=== PATIENT | male | born 1940 | race Caucasian/White ===

== ENCOUNTER 2017-08-07 22:14 | Observation (INO) | payer MEDICARE, SELFPAY ==
[2017-08-07 22:16] VITALS: BP 149/80; PULSE 78; RESP 16; TEMP 36.8; O2SAT 95; BMI 26.5
--- NOTE | 2017-08-07 22:17 | ED.RN ---
CALLED FORT EKG PER RN REQUEST, NO OLD EKG'S IN MUSE
[2017-08-07 22:25] LABS: Bedside Glucose 136 mg/dL (70-110)
--- NOTE | 2017-08-07 22:28 | EKG12_ITS ---
Test Reason : STROKE SYMPTOMS Blood Pressure : / mmHG Vent. Rate : 081 BPM Atrial Rate : 081 BPM P-R Int : 162 ms QRS Dur : 134 ms QT Int : 398 ms P-R-T Axes : 019 -45 -02 degrees QTc Int : 462 ms Normal sinus rhythm Left axis deviation Right bundle branch block Inferior infarct , age undetermined Abnormal ECG Confirmed by RUFUS SERNA ([id number]), writer editor IGNACIA LUNA ([id number]) on 08/17/2017 6:10:54 PM Referred By: JOVANNI Confirmed By:RUFUS SERNA
--- NOTE | 2017-08-07 22:28 | RAD_ITS ---
XR Chest 1 View INDICATION: neuro symptoms, pt states he becomes disoriented and has trouble walking COMPARISON: None TECHNIQUE: Frontal view of the chest FINDINGS: Heart size and pulmonary vascularity are within normal limits. The lungs are clear without evidence of airspace consolidation or pleural effusion. The osseous structures are grossly unremarkable. RAD/Chest 1 View IMPRESSION: No radiographic evidence of acute intrathoracic disease. at 2316 Reported and signed by: Bhakti Mcgovern MD Electronically Signed: Bhakti Mcgovern MD at 23:15 EDT Tel , Service support ,
--- NOTE | 2017-08-07 22:28 | CT_ITS ---
CT Head or Brain W/O Contrast INDICATION: TROUBLE AMBULATING, DISORIENTED YESTERDAY, HX CVA X3, GB COMPARISON: None TECHNIQUE: Noncontrast axial CT examination of the brain. Radiation dose optimization applied. FINDINGS: The ventricular system and cortical sulci are prominent, compatible with generalized cerebral volume loss. Chronic lacunar infarct is noted in the right basal ganglia. There are patchy bilateral periventricular low densities noted, most compatible with chronic ischemic microvascular white matter disease. The zaldivar-white matter junction is distinct. There is no evidence of acute intracranial hemorrhage, mass effect, midline shift, or abnormal extra-axial collection. The calvarium is intact and the visualized paranasal sinuses and mastoid air cells are clear.. CT/Brain/Head without Contrast IMPRESSION: Age-related cerebral volume loss and chronic ischemic microvascular white matter changes. Remote right basal ganglia lacunar infarct. No acute findings. at 2316 Reported and signed by: Bhakti Mcgovern MD Electronically Signed: Bhakti Mcgovern MD at 23:14 EDT Tel , Service support ,
[2017-08-07 22:31] VITALS: O2SAT 93
[2017-08-07 22:34] VITALS: BP 129/78; PULSE 78; RESP 16; O2SAT 96
--- NOTE | 2017-08-07 22:38 | ED.VISSUMM ---
- ER Visit Summary Date of Service: 08/07/17 Chief Complaint: Stroke symptoms History of Present Illness: The patient is a 77 M presents to the ED if with daughter for evaluation of strokelike symptoms similar to previous. Multiple CVAs, last time was 3 years ago. No residual deficits. Patient lives alone, ambulates without a walker or assistance. Patient states he woke up yesterday morning more than 36 hours ago feeling states disoriented and off balance.. States he woke up today not feeling much better. He called his daughter who told him to go the ED. Daughter states yesterday complained of left-sided headache. Denies head trauma. States he had blurry vision, not loss of vision. Daughter states this was similar to her previous stroke. She states however his balance is worse than previously. No chest pains. No shortness of breath. No paresthesias. No hemiparesis. Physical Examination: General: Alert and oriented ?3, no acute distress HEENT: Normocephalic, atraumatic. Moist mucosa membranes Neck: supple, nontender. Cardiovascular: Regular rate and rhythm, no murmurs Respiratory: Normal breath sounds, symmetric, no distress Abdomen: Soft, nontender, nondistended Extremities: Nontender, no edema, pulses intact ?4 Neuro: no focal neurological deficits. NIH equal to 1 for being off on his age. Test Results: EKG sinus rate of 81, no ST or T-wave changes. Right bundle branch block. Hemoglobin 14.7. INR 1.7. Creatinine 0.95. Chest x-ray negative. CT head: Remote left basal ganglion infarct. UA pending Emergency Department Course and Treatment: Patient's NIH equal 1 for being off on his age. Daughter states similar presentation when he had a stroke in the past. Bat B workup initiated. Results noted a remote left basal ganglia infarct. INR slightly subtherapeutic at 1.7. Daughter stating to on Coumadin for which she states hole in his heart.. In addition he has had a left DVT. His last stroke was managed at [facility] 3 years ago. Recheck on patient, stable, he still off on his age stating he is 79. Daughter states there is some memory issues. Due to similar presentations with CVA in the past. I will discuss with hospitalist for admission for stroke workup. Urine is pending due to daughter stating patient told her he has urinated 30 times today. Treatment Plan: [] Disposition: Admission Impression: 1. Cephalgia 2. Unstable gait This note was generated with [employer] dictation software. It may contain incorrect words, spelling, and punctuation that were not noted in review of the chart prior to signing ED Disposition - Plan for ED Patient: Disposition: Acute [facility] Chief Complaint: Neuro S/Sx Diagnosis: Cephalgia, Unstable gait Referrals: Lenin Reyes MD [Primary Care Provider] -
[2017-08-07 22:42] LABS: Absolute Lymphocyte Count 1.39 X10^3/ul (0.83-4.51); Basophil# 0.02 X10^3/uL; Basophil% 0.3 % (0-1); Eosinophil# 0.04 X10^3/uL; Eosinophils% 0.7 % (0-5); Hematocrit 43.4 % (40-54); Hemoglobin 14.7 g/dl (13.0-16.5); Lymphocyte # 1.39 X10^3/ul (4.0); Mean Corp Hgb Conc 33.9 g/gl (32-36); Mean Corpuscular Hgb 31.2 pg (27.0-32.0); Mean Corpuscular Volume 92.1 fL (80-94); Mean Platelet Vol. 10.1 fl (6.2-12.0); Monocyte# 0.57 X10^3/uL; Monocyte% 9.4 % (0-10); Neutrophil # 4.02 X10^3/uL (2.7-7.7); Neutrophil % 66.4 % (47-70); Platelet Count 145 K/mm3 (150-450); RBC Distribution Width CV 13.6 % (11.6-14.6); Red Blood Count 4.71 M/mm3 (4.6-6.2); White Blood Count 6.1 K/mm3 (4.4-11.0)
[2017-08-07 22:44] LABS: POSITIVE COUNT NO; POSITIVE DIFFERENTIAL NO; POSITIVE MORPHOLOGY NO
[2017-08-07 22:47] LABS: International Normalized Ratio 1.7; Partial Thromboplast Time 32.2 Seconds (24.1-36.2); Prothrombin Time (Protime)PT. 19.6 SECONDS (11.7-14.9)
[2017-08-07 23:01] LABS: Anion Gap 10 (5-15); BUN 11 mg/dL (7-18); BUN/Creat Ratio 11.5 RATIO (10-20); Calcium,Total 8.7 mg/dL (8.5-10.1); Chloride 103 mmol/L (98-107); Creatinine, Serum 0.95 mg/dL (0.70-1.30); EST Glomerular Filtration Rate 81 mL/min (>60); Est Glom Filt Rate - Afr Amer 98 mL/min (>60); Estimated Creatinine Clearance 71.47 ml/min; Glucose 143 mg/dL (74-106); Potassium 3.9 mmol/L (3.5-5.1); Sodium Level 137 mmol/L (136-145)
[2017-08-07 23:06] VITALS: BP 133/68; PULSE 78; RESP 16; O2SAT 95
[2017-08-07 23:36] VITALS: BP 133/77; PULSE 89; RESP 16; O2SAT 95
[2017-08-07 23:41] VITALS: BP 133/77; PULSE 77; RESP 16; O2SAT 96
--- NOTE | 2017-08-07 23:57 | PCM.HP.STD ---
Problem List (1) Ataxia Status: Acute (2) HTN (hypertension) Status: Chronic (3) CVA (cerebral vascular accident) Status: Acute History of Present Illness Date of Admission: 08/07/17 Chief Complaint: Ataxia The patient is a 77 year old male w/ h/o CVA, HTN, and ataxia admitted for ataxia. He developed ataxia 2-3 days ago. His ataxia has been getting worse and is constant. Nothing appeared to make it better or worse. He feels that he is unable to balance himself. He feels that it is similar to his previous symptoms when he had a stroke 3 years ago. He needs assistance when walking or he feels he is unable to balance himself. He has no other associated symptoms. Given no improvement, he went to the ED for further workup. Past Medical History Past Medical History (Chronic Problems): Chronic Problems HTN (hypertension) (Chronic) Allergies No Known Allergies Allergy (Verified 03/19/16 14:29) Home Medications: Ambulatory Orders Medication Instructions Recorded Metformin HCl [Glucophage] 500 mg PO DAILY 03/19/16 Warfarin [Coumadin ([facility])] 2.5 mg PO SUTUWETHSA 03/19/16 Warfarin [Coumadin ([facility])] 3 mg PO MOFR 03/19/16 Atorvastatin Calcium 20 mg PO DAILY 08/07/17 Lisinopril [Zestril] 5 mg PO DAILY 08/07/17 Lives: Alone Smoking Status: Never smoker Alcohol: None Drugs: None - *Family History Maternal History Items: No pertinent history Review of Systems Constitutional: Denies: Chills, Fever, Weight Change HEENT: Denies: Head Aches, Sinus Congestion, Sinus Drainage Cardiovascular: Denies: Chest Pain, Palpitations Respiratory: Denies: Cough, Shortness of breath at rest, Sputum production Gastrointestinal: Denies: Abdominal Pain, Nausea, Vomiting Genitourinary: Denies: Dysuria Musculoskeletal: Denies: Joint Pain, Joint Tenderness Skin: Denies: Rash, Wounds Neurological: Denies: Numbness, Tingling, Focal weakness Psychiatric: Denies: Anxiety, Depression, Homicidal Ideations, Suicidal Ideations Hematologic/ Lymphatic: Denies: Easy Bruising, Easy Bleeding VTE Information - Inpt Only VTE Present on Admission: No VTE Mechan Device Prophylaxis: SCD's VTE Pharm Prophylaxis ordered?: Yes Patient Problems: Active and Suspected Problems Cephalgia (Acute) Unstable gait (Acute) Ataxia (Acute) CVA (cerebral vascular accident) (Acute) - Physical Exam General: Alert, Oriented x3, Cooperative HEENT: Atraumatic, PERRLA, EOMI, Normocephalic Neck: Supple, No JVD, Negative Carotid Bruits Lungs: Clear to auscultation, Normal air movement Cardiovascular: Regular rate, No murmurs Abdomen: Bowel Sounds Present, Soft, Non Tender Extremities: No edema, Capillary Refill Less than 3 Seconds Skin: No rashes, No breakdown Musculoskeletal: No Tenderness to Palpation of Joints or Extremities Neurological: Cranial nerves II-XII grossly intact Psych/Mental Status: Normal Affect, Appropriate Vital Signs Temp Pulse Resp BP Pulse Ox 98.3 F 77 16 133/77 H 96 08/07/17 22:16 08/07/17 23:41 08/07/17 23:41 08/07/17 23:41 08/07/17 23:41 Oxygen Flow Rate (L/min) 2 Oxygen Delivery Method Nasal Cannula Weight: 88.7 kg Body Mass Index (BMI) 26.5 Finger Stick Blood Glucose 136 Laboratory Tests Past 24 Hrs 08/07/17 08/07/17 08/07/17 22:25 22:25 22:25 WBC 6.1 RBC 4.71 Hgb 14.7 Hct 43.4 MCV 92.1 MCH 31.2 MCHC 33.9 RDW 13.6 RDW Differential 46.0 H Plt Count 145 L MPV 10.1 Immature Gran % (Auto) 0.200 Neut % (Auto) 66.4 Lymph % (Auto) 23.0 Sterling % (Auto) 9.4 Eos % (Auto) 0.7 Baso % (Auto) 0.3 Absolute Neuts (auto) 4.0 Absolute Lymphs (auto) 1.39 Total Counted Not Reportable PT 19.6 H INR 1.7 APTT 32.2 Sodium 137 Potassium 3.9 Chloride 103 Carbon Dioxide 24.0 Anion Gap 10 BUN 11 Creatinine 0.95 Estim Creat Clear Calc 71.47 Est GFR (MDRD) Af Amer 98 Est GFR (MDRD) Non-Af 81 BUN/Creatinine Ratio 11.5 Glucose 143 H Calcium 8.7 Troponin I < 0.015 POC Glucose 08/07/17 22:18 POC Glucose 136 H Assessment/Plan All Active Problems Cephalgia (Acute) Unstable gait (Acute) Ataxia (Acute) CVA (cerebral vascular accident) (Acute) 77 year old male w/ h/o CVA, HTN, and ataxia admitted for ataxia. 1) Ataxia: Will r/o stroke. No e/o orthostatic or narcotics. CT head negative for acute finding. EKG unremarkable. Will get MRI brain or MRA neck. Will also get ECHO. Will start ASA and statin. 2) HTN: Resume home meds. Monitor. 3) ASD / PFO: C/w coumadin. 4) H/o CVA: C/w medical management.
[2017-08-07 23:59] LABS: Mucous, Urine 0 SEEN /hpf (<or=2+)
[2017-08-08] VITALS (18 sets, daily range): BP systolic 116–136; BP diastolic 62–72; PULSE 72–85; RESP 16–18; TEMP 36.6–38.6; O2SAT 93–96; BMI 26.5; BMI 26.6
[2017-08-08 00:06] LABS: Color, Urine Yellow (Yellow); Glucose, Dipstick Normal (Normal); Ketone-Dipstick Negative (Negative); Leukocyte Esterase-Dipstick Negative /ul (Negative); Nitrite-Dipstick Negative (Negative); Occult Blood-Urine 25 /ul (Negative); Protein-Dipstick Negative (Negative); Specific Gravity, Urine 1.015 (1.002-1.030); Urine Bilirubin Dipstick Negative (Negative); Urine Clarity Clear (Clear); Urine Urobilinogen Normal (Normal); Urine pH 6.5 (5.0 - 8.0)
[2017-08-08 00:12] LABS: Bacteria RARE /hpf (None Seen); Red Blood Cells-Urine 0-5 SEEN /hpf (0-5); Squamous Epithelial Cells - UA 0-5 SEEN /hpf (0-5); White Blood Cells 0-5 SEEN /hpf (0-5)
--- NOTE | 2017-08-08 00:45 | ECHOD_ITS ---
Reason For Study: TIA/CVA Procedure This was a 2D Doppler, Color Flow transthoracic echocardiogram. Exam performed portable in patient room. Left Ventricle Moderate concentric left ventricular hypertrophy. The estimated ejection fraction is 65 %. Stage 1 diastolic dysfunction. No regional wall motion abnormalities noted. Right Ventricle Normal size and thickness. Normal systolic function. Atria Normal left atrium. Normal right atrium. Normal atrial septum. Positve bubble study with R to L crossover. Mitral Valve The mitral valve is structurally normal. No prolapse or stenosis seen. Trivial mitral valve insufficiency. Tricuspid Valve Normal tricuspid valve. Trivial tricuspid valve insufficiency. Right ventricular systolic pressure estimated to be 27 mmHg. Aortic Valve Normal aortic valve. Trisinus/trileaflet aortic valve. Pulmonic Valve Normal pulmonic valve. Trivial pulmonic valve insufficiency. Great Vessels Normal aortic root. Normal arch. Normal inferior vena cava. Inferior vena cava collapse with sniff. Pericardium/Pleural No pericardial effusion. Medication Performed a rapid injection of agitated mix of 9 cc saline and 1cc air to assess for atrial septal defect. MMode/2D Measurements & Calculations LVIDd: 4.3 cm IVSd: 1.5 cm Ao root diam: 3.8 cm LVIDs: 3.3 cm LVPWd: 1.3 cm LA dimension: 3.7 cm FS: 23.9 % LAV(MOD-bp): 40.9 ml LVAd ap4: 29.9 cm2 SV(MOD-sp4): 53.1 ml LAV(MOD-bp) Indexed: 19.6 ml/m2 EDV(MOD-sp4): 92.7 ml LAV(MOD-sp2): 40.7 ml EDV(sp4-el): 101.0 ml LAV(MOD-sp4): 38.6 ml LVAs ap4: 17.7 cm2 ESV(MOD-sp4): 39.6 ml ESV(sp4-el): 40.5 ml EF(MOD-sp4): 57.3 % EF(sp4-el): 59.9 % SV(sp4-el): 60.5 ml LA A4 area: 14.9 cm2 RA A4 area: 10.7 cm2 Time Measurements MV dec time: 0.30 sec Doppler Measurements & Calculations MV E max jordin: 51.2 cm/sec Lat Peak E' Jordin: 7.3 cm/sec MV V2 max: 120.4 cm/sec MV A max jordin: 97.6 cm/sec E/E' lat: 7.0 MV max P.8 mmHg MV E/A: 0.52 MV V2 mean: 54.7 cm/sec MV mean P.4 mmHg MV V2 VTI: 23.7 cm MV P1/2t max jordin: 60.7 cm/sec Ao V2 max: 110.0 cm/sec LV V1 max: 94.4 cm/sec MV P1/2t: 73.4 msec Ao max P.8 mmHg LV V1 max P.6 mmHg MV dec slope: 242.2 cm/sec2 Ao V2 mean: 75.3 cm/sec LV V1 mean P.5 mmHg MVA(P1/2t): 3.0 cm2 Ao mean P.5 mmHg LV V1 mean: 55.3 cm/sec Ao V2 VTI: 16.5 cm LV V1 VTI: 13.3 cm PA V2 max: 97.3 cm/sec TR max jordin: 232.5 cm/sec TR max P.6 mmHg Interpretation Summary Moderate concentric left ventricular hypertrophy. The estimated ejection fraction is 65 %. Stage 1 diastolic dysfunction. Positve bubble study with R to L crossover. Trivial mitral valve insufficiency. Trivial tricuspid valve insufficiency. Right ventricular systolic pressure estimated to be 27 mmHg. There is no comparison study available. Ordering Physician: Fermin Cota Referring Physician: MD [facility] Performed By: Jey Ordoñez RCS
--- NOTE | 2017-08-08 00:45 | MRI_ITS ---
STUDY: MRI BRAIN WITHOUT CONTRAST REASON FOR EXAM: Male, 77 years old. Confusion and generalized weakness. TECHNIQUE: Standardized multiplanar fat and water weighted pulse sequences were obtained. COMPARISON: CT of the head dated August 07, 2017. FINDINGS: There is mild cerebral atrophy with widening of the extra-axial spaces and ventricular dilatation. There are a limited number of small white matter hyperintensities, distributed throughout the deep white matter tracts of the cerebral hemispheres, consistent with mild chronic white matter ischemic changes. There is no evidence for recent intracranial ischemia or other cause of cytotoxic edema on diffusion weighted imaging (DWI). Normal T2* images of the brain without demonstrated susceptibility artifact. There is no demonstrated hemosiderin stain. There are prominent perivascular spaces (PVS) involving the basal ganglia. Normal thalami. There is no extra-axial fluid accumulation. Normal flow voids within the major intracranial circulation suggesting patency by spin echo criteria. There is increased CSF within the sella and flattening of the pituitary gland consistent with an empty sellar syndrome. Normal infundibular stalk, hypothalamus, and optic chiasm. Normal tectal plate and pineal gland. Normal midbrain, susan and medulla. Normal cerebellum. Normal basal cisterns. Normal bilateral temporal bones. Normal bilateral internal auditory canals. No demonstrated orbital abnormality, within the constraints of a routine brain study. Normal visualized paranasal sinuses. Normal calvarium and skull base. Normal visualized soft tissue structures. There are degenerative changes of the anterior atlantoaxial articulation. MRI/Brain without Contrast IMPRESSION: 1. Involutional changes of the brain, as described above. 2. No MR evidence for acute infarct. Electronically Signed: Sofie Feliciano MD at 16:20 EDT , Service support ,
[2017-08-08 01:05] LABS: Amphetamine Urine VISTA NEGATIVE (<1000 ng/mL); Barbiturate Urine VISTA NEGATIVE (< 200 ng/mL); Benzodiazepine Urine VISTA NEGATIVE (< 200 ng/mL); Cocaine Urine VISTA NEGATIVE (< 300 ng/mL); Ecstacy Urine VISTA NEGATIVE (< 500 ng/mL); Methadone Urine VISTA NEGATIVE (< 300 ng/mL); PCP Urine VISTA NEGATIVE (< 25 ng/mL); THC Urine VISTA NEGATIVE (< 50 ng/mL); Vista UDS pH Range 6
[2017-08-08 02:14] LABS: Thyroid Stim Hormone (TSH) 3.28 uIU/mL (0.358-3.74)
[2017-08-08] MEDS: Aspirin 81 MG TAB.CHEW PO (02:29)
--- NOTE | 2017-08-08 05:55 | MRI_ITS ---
STUDY: MRA NECK WITH AND WITHOUT CONTRAST REASON FOR EXAM: Male, 77 years old. Confusion and generalized weakness. TECHNIQUE: 3-D [id number] (TOF) imaging was performed in an 1.5 T MRI scanner. 9 ml of Gadavist was administered for the contrast enhanced images. Enhanced images are technically limited due to extensive enhancement of the venous structures which obscure the arterial anatomy. Several images are limited by patient motion. COMPARISON: MRA of the [place] dated August 08, 2017. FINDINGS: RIGHT CAROTID ARTERIES: Normal right common carotid artery (CCA). There is mild atherosclerotic plaque formation with minimal narrowing of the right carotid bulb. There is mild atherosclerotic plaque formation of the origin of the right internal carotid artery with less than 50% cross sectional diameter stenosis. Normal visualized cervical portion of the right internal carotid artery. Normal origin of the right external carotid artery (ECA). LEFT CAROTID ARTERIES: Normal left common carotid artery (CCA). There is mild atherosclerotic plaque formation with minimal narrowing of the left carotid bulb. Normal origin of the left internal carotid (ICA) artery without a hemodynamically significant stenosis. Normal visualized cervical portion of the left internal carotid artery. Normal origin of the left external carotid artery (ECA). VERTEBRAL ARTERIES: Normal antegrade flow within the bilateral vertebral artery without a hemodynamically significant stenosis. MRI/MRA Neck WITH and W/O Contrast IMPRESSION: 1. Technically limited MRA due to enhancement of venous structures and patient motion. 2. No definite MRA evidence for hemodynamically significant stenosis. Electronically Signed: Sofie Feliciano MD at 16:28 EDT , Service support ,
[2017-08-08 06:50] LABS: Bedside Glucose 205 mg/dL (70-110)
[2017-08-08 07:24] LABS: International Normalized Ratio 1.6; Prothrombin Time (Protime)PT. 19.3 SECONDS (11.7-14.9)
[2017-08-08 07:25] LABS: Hematocrit 40.6 % (40-54); Hemoglobin 13.9 g/dl (13.0-16.5); Mean Corp Hgb Conc 34.2 g/gl (32-36); Mean Corpuscular Hgb 31.8 pg (27.0-32.0); Mean Corpuscular Volume 92.9 fL (80-94); Mean Platelet Vol. 10.1 fl (6.2-12.0); Platelet Count 133 K/mm3 (150-450); RBC Distribution Width CV 13.6 % (11.6-14.6); RBC Distribution Width SD 45.2 fl (35.1-43.9); Red Blood Count 4.37 M/mm3 (4.6-6.2); White Blood Count 6.3 K/mm3 (4.4-11.0)
[2017-08-08 07:31] LABS: Scan Indicated on CBC? Y/N NO
[2017-08-08 07:52] LABS: Anion Gap 12 (5-15); BUN 13 mg/dL (7-18); BUN/Creat Ratio 13.7 RATIO (10-20); Calcium,Total 8.1 mg/dL (8.5-10.1); Chloride 103 mmol/L (98-107); Cholesterol 113 mg/dL (200); Creatinine, Serum 0.95 mg/dL (0.70-1.30); EST Glomerular Filtration Rate 82 mL/min (>60); Est Glom Filt Rate - Afr Amer 99 mL/min (>60); Estimated Creatinine Clearance 69.36 ml/min; Glucose 197 mg/dL (74-106); High Density Lipoprotein 41 mg/dL; Potassium 3.7 mmol/L (3.5-5.1); Sodium Level 136 mmol/L (136-145); Triglycerides 214 mg/dL; Very Low Density Lipoprotein 43 mg/dL (5-40)
--- NOTE | 2017-08-08 09:00 | MRI_ITS ---
STUDY: MRA OF THE HEAD WITHOUT CONTRAST REASON FOR EXAM: Male, 77 years old. Confusion and generalized weakness. TECHNIQUE: 3-D [id number] (TOF) imaging was performed with MIPs. The study was performed unenhanced. COMPARISON: MRI of the brain dated August 09, 2015. FINDINGS: Normal bilateral petrous carotid arteries. There is elongation and tortuosity of the right cavernous carotid artery, without a demonstrated hemodynamically significant stenosis. There is elongation and tortuosity of the left cavernous carotid artery, without a demonstrated hemodynamically significant stenosis. Normal right A1 segments of the anterior cerebral artery. Normal left A1 segments of the anterior cerebral artery. Normal intact anterior communicating artery (ACOM). Normal bilateral A2 segments of the anterior cerebral arteries. Normal right M1 and M2 segments of the middle cerebral arteries, with a normal M1 bifurcation. Normal left M1 and M2 segments of the middle cerebral arteries, with a normal M1 bifurcation. There is non-visualization of the right posterior communicating artery (PCOM). There is non-visualization of the left posterior communicating artery (PCOM). Normal bilateral vertebral arteries. Normal basilar artery with a normal basilar bifurcation. The visualized bilateral superior cerebellar (SCA) arteries are normal. Normal bilateral P1, P2 and visualized P3 segments of the posterior cerebral arteries. There is no demonstrated aneurysm of the [place]. There is no major vessel occlusion or hemodynamically significant stenosis. There are involutional changes of the brain. There is a focal area of abnormal signal in the right basal ganglia that is possibly related either to old infarct or prominent perivascular space. MRI/MRA Head ONLY without Contrast IMPRESSION: No MRA evidence for hemodynamically significant stenosis or aneurysm. Electronically Signed: Sofie Feliciano MD at 16:23 EDT , Service support ,
--- NOTE | 2017-08-08 09:03 | PN_ITS ---
Patient Problems: Active and Suspected Problems Cephalgia (Acute) Unstable gait (Acute) Ataxia (Acute) CVA (cerebral vascular accident) (Acute) Subjective: Patient was seen and examined. He had an MRI of the brain and MRA of the head and neck done. Of note is a 2D echo was a positive bubble study. Patient denies any new complaints. No acute events. Review of systems are negative. Vitals/I&O's: Vital Signs Temp Pulse Resp BP Pulse Ox 98.8 F 83 18 116/62 94 08/08/17 06:00 08/08/17 06:57 08/08/17 06:00 08/08/17 06:00 08/08/17 06:00 Oxygen Flow Rate (L/min) 2 Oxygen Delivery Method Room Air Weight: 86.4 kg Body Mass Index (BMI) 26.5 Intake and Output for Last 24 Hours 08/06/17 08/07/17 08/08/17 23:59 23:59 23:59 Intake Total 400 / 400 Output Total 250 / 250 Balance 150 / 150 General: Alert, Oriented x3, Cooperative, No apparent distress HEENT: Atraumatic, PERRLA, EOMI, Normocephalic Oral: Moist Mucosa Neck: Supple Lungs: Clear to auscultation, Normal air movement Cardiovascular: Regular rate, Regular Rhythm, Normal S1, Normal S2, No murmurs Abdomen: Bowel Sounds Present, Soft, Non Tender, Non-Distended, No Hepato- splenomegaly Extremities: No edema Skin: No rashes, No breakdown Musculoskeletal: No Tenderness to Palpation of Joints or Extremities Lymphatic: No Cervical, Supraclavicular, or Inguinal Adenopathy Neurological: Cranial nerves II-XII grossly intact, Motor Exam 5/5 strength throughout Psych/Mental Status: Normal Affect, Appropriate Laboratory Results 08/08/17 01:42: Troponin I < 0.015, TSH 3.28 08/08/17 06:43: POC Glucose 205 H 08/08/17 06:55: Sodium 136, Potassium 3.7, Chloride 103, Carbon Dioxide 21.0, Anion Gap 12, BUN 13, Creatinine 0.95, Estim Creat Clear Calc 69.36, Est GFR ( MDRD) Af Amer 99, Est GFR (MDRD) Non-Af 82, BUN/Creatinine Ratio 13.7, Glucose 197 H, Calcium 8.1 L, Triglycerides 214 H, Cholesterol 113, LDL Cholesterol 29, VLDL Cholesterol 43 H, HDL Cholesterol 41 08/08/17 06:55: WBC 6.3, RBC 4.37 L, Hgb 13.9, Hct 40.6, MCV 92.9, MCH 31.8, MCHC 34.2, RDW 13.6, RDW Differential 45.2 H, Plt Count 133 L, MPV 10.1 08/08/17 06:55: PT 19.3 H, INR 1.6 Current Medications Atorvastatin Calcium (Lipitor) 20 mg PO DAILY@2200 [facility] Insulin Human Lispro (Humalog Kwikpen ([facility]kc)) 0 unit SC ACHS [facility] PRN Reason: Protocol Lisinopril (Zestril) 5 mg PO DAILY [facility] Magnesium Hydroxide (Milk Of Magnesia) 30 ml PO DAILY PRN PRN Reason: Constipation [facility] Last Admin: 08/08/17 08:26 Dose: 500 mg Sodium Chloride () 5 - 30 ml IV UD PRN PRN Reason: SALINE FLUSH Warfarin Sodium (Coumadin ([facility])) 2.5 mg PO SuTuWeThSa@1700 [facility] Warfarin Sodium (Coumadin (Pb[facility])) 3 mg PO MoFr@1700 [facility] Medical Necessity - Tobacco Use Smoking Status: Never smoker Tobacco Use: Non-smoker Assessment/Plan All Active Problems Cephalgia (Acute) Unstable gait (Acute) Ataxia (Acute) CVA (cerebral vascular accident) (Acute) 77-year-old male with past medical history of CVA, hypertension, ASD/PFO admitted with 2-3 day history of worsening ataxia. 1. Ataxia, MRI of the brain as well as MRA of the head and neck is pending, CT of the head was negative, 2d-echo shows positive bubble study, and was seen by physical therapy, and home with home 24 hour supervision recommended as well as outpatient therapy. Plan: With results of MRI of the brain, MRA of the head and neck 2. ASD/PFO, on coumadin, INR is subtherapeutic, 1.6, continue on Coumadin therapy 3. Recurrent CVA, on coumadin 4. DVT ppx - on coumadin Code Visit Inpatient E&M: [id number] [facility] Hosp L3
[2017-08-08] MEDS: Insulin Lispro 100 UNIT/ML INSULN.PEN SC ×2 (09:42→16:29)
[2017-08-08] MEDS: Lisinopril 5 MG Tablet PO (09:43)
--- NOTE | 2017-08-08 10:10 | RAD_ITS ---
STUDY: X-RAY - CERVICAL SPINE REASON FOR EXAM: Male, 77 years old. Pain remote injury TECHNIQUE: 2 view(s) of the cervical spine were obtained. COMPARISON: None FINDINGS: There is mild degenerative anterolisthesis at C3-C4. There is mild to moderate degenerative anterolisthesis at C7-T1. Degenerative disc disease predominates at C3-C4, C4-C5, C5-C6 and C6-C7. There is mild Luschka joint arthrosis. There is multilevel facet osteoarthritis. There is no acute fracture. There is no osseous destruction. The prevertebral soft tissue structures are intact. RAD/Cerv Spine 2 or 3 Views IMPRESSION: Degenerative anterolisthesis, C3-C4 C7-T1 Extensive multilevel degenerative disease No fracture or osseous destruction Electronically Signed: Adebayo Bowman MD at 10:29 EDT Tel , Service support ,
--- NOTE | 2017-08-08 11:40 | NURSING ---
Unable to do NIH and VS at this time as Pt has been down to MRI.
[2017-08-08 12:56] LABS: Bedside Glucose 144 mg/dL (70-110)
[2017-08-08 16:40] LABS: Bedside Glucose 182 mg/dL (70-110)
--- NOTE | 2017-08-08 16:55 | PCM.DC ---
- Discharge Diagnoses Current Active Problems: Current Active and Chronic Problems Cephalgia (Acute) Unstable gait (Acute) Ataxia (Acute) HTN (hypertension) (Chronic) CVA (cerebral vascular accident) (Acute) Reason(s) for Visit for Discharge Instructions: Gait imbalance You will use the following diet at home:: Calorie/Carbohydrate Controlled (specify 1200, 1400, etc), Cardiac Your food should be the consistency of: Regular Your liquids should be the consistency of: Regular/Thin Discharge Activity: Return to Normal Activity Weight Bearing Status: Weight bearing as tolerated Additional Instructions: You should continue to take all your medications as prescribed. Discuss with your dentist on the timing of resumption of coumadin as you have a planned dental procedure. You will be having outpatient physical and occupational therapy at home. [facility] will be calling you on the time and when they are coming out. Allergies/Adverse Reactions: Allergies No Known Allergies Allergy (Verified 03/19/16 14:29) Medications to take at Discharge Metformin HCl [Glucophage] 500 mg PO DAILY 03/19/16 Warfarin [Coumadin] 2.5 mg PO SUTUWETHSA 03/19/16 Warfarin [Coumadin] 3 mg PO MOFR 03/19/16 Atorvastatin Calcium 20 mg PO DAILY 08/07/17 Lisinopril [Zestril] 5 mg PO DAILY 08/07/17 Primary Care Physician: Lenin Reyes MD [Primary Care Provider] - Please follow up with your Primary Care Physician in: within 2 weeks Proposed Discharge Date: 08/08/17
--- NOTE | 2017-08-08 17:03 | DCINST_ITS ---
- Discharge Diagnoses Current Active Problems: Current Active and Chronic Problems Cephalgia (Acute) Unstable gait (Acute) Ataxia (Acute) HTN (hypertension) (Chronic) CVA (cerebral vascular accident) (Acute) Reason(s) for Visit for Discharge Instructions: Gait imbalance You will use the following diet at home:: Calorie/Carbohydrate Controlled ( specify 1200, 1400, etc), Cardiac Your food should be the consistency of: Regular Your liquids should be the consistency of: Regular/Thin Discharge Activity: Return to Normal Activity Weight Bearing Status: Weight bearing as tolerated Additional Instructions: You should continue to take all your medications as prescribed. Discuss with your dentist on the timing of resumption of coumadin as you have a planned dental procedure. You will be having outpatient physical and occupational therapy at home. [facility] will be calling you on the time and when they are coming out. Allergies/Adverse Reactions: Allergies No Known Allergies Allergy (Verified 03/19/16 14:29) Medications to take at Discharge Metformin HCl [Glucophage] 500 mg PO DAILY 03/19/16 Warfarin [Coumadin] 2.5 mg PO SUTUWETHSA 03/19/16 Warfarin [Coumadin] 3 mg PO MOFR 03/19/16 Atorvastatin Calcium 20 mg PO DAILY 08/07/17 Lisinopril [Zestril] 5 mg PO DAILY 08/07/17 Primary Care Physician: Lenin Reyes MD [Primary Care Provider] - Please follow up with your Primary Care Physician in: within 2 weeks Proposed Discharge Date: 08/08/17
--- NOTE | 2017-08-08 17:24 | DS.PCM_ITS ---
Discharge Date and Diagnosis - Problem List Patient Problems: Active and Suspected Problems Cephalgia (Acute) Unstable gait (Acute) Ataxia (Acute) CVA (cerebral vascular accident) (Acute) Date of Admission: 08/07/17 Date of Discharge: 08/08/17 - Primary Discharge Diagnosis Active and Suspected Problems Cephalgia (Acute) Unstable gait (Acute) Ataxia (Acute) - Secondary Discharge Diagnosis Chronic Problems HTN (hypertension) (Chronic) Hospital Course and Treatment Imaging Results: 08/08/17 09:00 MRA Head ONLY without Contrast [MRI] Routine 08/08/17 10:10 Xray Cervical [Cerv Spine 2 or 3 Views] [RAD] Routine None Operations: None Procedures: 2-D Echocardiogram Summary of Care Provided: 77-year-old male with past medical history of recurrent CVA, hypertension, ASD/ PFO admitted with 2-3 day history of worsening ataxia which was worsening. This has appeared to have stopped after admission. 1. Ataxia, unclear etiology, CT scan of head and neck as well as MRI of the brain as well as MRA of the head and neck was negative. 2d-echo shows positive bubble study. Patient is on coumadin but INR is subtherapeutic at 1.6-1.7. He was seen by physical therapy and home with home 24 hour supervision was recommended. 2. ASD/PFO, on coumadin, INR is subtherapeutic, 1.6, continue on Coumadin therapy - daughter mentioned about being off coumadin for 5 days prior to dental work-up; will leave it per dental surgeon. 3. Recurrent CVA, on coumadin Discharge Diet: Low fat/ Low Cholesterol, 2000 mg Sodium Diet, Carb Control Diet Discharge Activity: Return to Normal Activity Weight Bearing Status: Weight bearing as tolerated Home Medications: Medications to take at Discharge Metformin HCl [Glucophage] 500 mg PO DAILY 03/19/16 Warfarin [Coumadin] 2.5 mg PO SUTUWETHSA 03/19/16 Warfarin [Coumadin] 3 mg PO MOFR 03/19/16 Atorvastatin Calcium 20 mg PO DAILY 08/07/17 Lisinopril [Zestril] 5 mg PO DAILY 08/07/17 Primary Care Physician: Lenin Reyes MD [Primary Care Provider] - Please follow up with your Primary Care Physician in: within 2 weeks Disposition: Home with Home Health Minutes spent on discharge:: 40 Patient Condition:: Stable Medical Necessity - Tobacco Use Smoking Status: Never smoker Tobacco Use: Non-smoker Meaningful Use Info Meaningful Use Diagnoses (Choose all that apply): None applicable Code Visit Inpatient E&M: 68071 Disch Hosp
== END 2017-08-08 19:30 | disposition home or self-care (01) ==
LOC: ED 23:39 → PCU 08-08 00:23
PROVIDERS: Admitting Provider Internal Medicine; Emergency Provider Emergency Medicine; Family Provider Family Medicine; PCP Family Medicine; Visit Provider Internal Medicine
DX: R51 Headache (principal); R27.0 Ataxia, unspecified; Q21.1 Atrial septal defect; I10 Essential (primary) hypertension; H53.8 Other visual disturbances; I45.10 Unspecified right bundle-branch block; Z86.73 Personal history of transient ischemic attack (TIA), and cerebral infarction without residual deficits; Z79.01 Long term (current) use of anticoagulants; Z79.84 Long term (current) use of oral hypoglycemic drugs; Z79.899 Other long term (current) drug therapy; E11.9 Type 2 diabetes mellitus without complications; R41.0 Disorientation, unspecified
CPT/HCPCS: 36415; 70450; 70544; 70549; 70551; 71045; 72040; 80048; 80061; 80307; 81001; 82962; 84443; 84484; 85025; 85027; 85610; 85730; 92507; 93005; 93306; 97161; 97166; 99218; 99285; A9585; A4216; G0378

== ENCOUNTER 2017-11-05 14:08 | Emergency (ER) | payer MEDICARE, SELFPAY ==
[2017-11-05 14:09] VITALS: BP 125/89; PULSE 128; RESP 18; TEMP 36.6; O2SAT 93; BMI 26.7
--- NOTE | 2017-11-05 15:10 | ED.VISSUMM ---
- ER Visit Summary Date of Service: 11/05/17 Chief Complaint: heart fluttering History of Present Illness: The patient is a 77 M with history of stroke on Coumadin who presents for episodes of his heart fluttering since last night. Patient had 2 episodes at rest where he felt like his heart was racing. Today while driving home he felt suddenly tired and weak. He has not had any episodes of fluttering today. He has had indigestion with increased belching, left shoulder discomfort and epigastric discomfort along with the episodes. He currently is denying any complaints at this time. He has no history of coronary artery disease or myocardial infarction. He is diabetic on medication control. He has a hole in his heart. He sees Dr. Cantu. Physical Examination: Vital signs: afebrile, hemodynamically stable, no hypoxia on room air General: well nourished, well developed, in no distress Skin: warm, dry, no rash, no pallor HEENT: normocephalic and atraumatic; PERRL, EOMI, moist mucous membranes Cardiovascular: regular rate and rhythm without murmurs, no peripheral edema, 2+ pulses all distal extremities Respiratory: No increased work of breathing, lungs are clear to auscultation bilaterally, no rales, rhonchi or wheezing Abdominal: Abdomen is soft, nontender with normoactive bowel sounds, no guarding or rebound, no masses MSK: Moves all extremities, no deformities, normal strength Neuro: Awake and alert, oriented ?4. No facial droop, sensation and motor function intact and symmetric Test Results: Abnormal Lab Results 11/05/17 11/05/17 11/05/17 14:18 14:18 14:18 WBC 7.1 RBC 4.59 L Hgb 14.4 Hct 42.3 MCV 92.2 MCH 31.4 MCHC 34.0 RDW 13.8 RDW Differential 45.6 H Plt Count 175 MPV 10.6 Immature Gran % (Auto) 0.300 Neut % (Auto) 58.2 Lymph % (Auto) 27.2 [place] % (Auto) 11.8 H Eos % (Auto) 1.8 Baso % (Auto) 0.7 Absolute Neuts (auto) 4.1 Absolute Lymphs (auto) 1.93 Total Counted Not Reportable PT 31.0 H INR 3.0 APTT 40.6 H Sodium 138 Potassium 4.1 Chloride 106 Carbon Dioxide 24.0 Anion Gap 8 BUN 16 Creatinine 1.04 Estim Creat Clear Calc 63.35 Est GFR (MDRD) Af Amer 89 Est GFR (MDRD) Non-Af 74 BUN/Creatinine Ratio 15.4 Glucose 135 H Calcium 8.7 Magnesium 1.9 Total Bilirubin 0.40 AST 31 ALT 48 Alkaline Phosphatase 75 Troponin I < 0.015 Total Protein 7.9 Albumin 4.2 Globulin 3.7 Albumin/Globulin Ratio 1.1 Lipase 203 TSH 2.03 Clinical Impression(s) from Imaging Studies Chest X-Ray 11/05/17 16:50 IMPRESSION: No acute cardiopulmonary disease. Electronically Signed: Neftaly Diaz MD at 18:48 EDT , Service support , Medications Given Discontinued Medications Aspirin (Aspirin, Baby) 324 mg PO X1 STA Stop: 11/05/17 15:10 Last Admin: 11/05/17 15:44 Dose: 324 mg Emergency Department Course and Treatment: Patient complains of episodes of his heart fluttering, with increased fatigue earlier today and indigestion. Patient is currently symptom-free. Triage heart rate was tachycardic at 128, but heart rate is currently in the 60s and regular. She was given aspirin. EKG showed right bundle branch block without any ischemic changes, unchanged from patient's baseline. Labs showed negative troponin, no leukocytosis or anemia, no electrolyte derangements, TSH within normal limits. Chest x-ray showed no acute process. Patient was observed and had no return of the fluttering episodes and remained asymptomatic. a repeat EKG was unchanged from the initial one, still showing right bundle branch block without any ischemic changes. Patient's complaint of episodic heart fluttering and feeling like his heart is racing sounds is consistent with a paroxysmal tachydysrhythmia, which was not caught on telemetry while in the emergency department. Patient's episodes have been brief. Patient is to follow-up with his primary care doctor, with whom he has an appointment tomorrow. 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 Patient was discharged home without any symptoms or EKG abnormalities during his ED course. Treatment Plan: [] Disposition: [] Impression: Intermittent palpitations This note was generated with Dragon dictation software. It may contain incorrect words, spelling, and punctuation that were not noted in review of the chart prior to signing ED Disposition - Plan for ED Patient: Disposition: Home or Assisted Living Chief Complaint: Chest Pain Instructions: ED Palpitations Referrals: Bharathi Kolb MD [Primary Care Provider] - 1 Day for another exam Maynor Butler MD [STAFF PHYSICIAN] - 3-5 Days if not improving Additional Instructions: Please discuss your heart fluttering with your doctor at your appointment tomorrow. You may need to wear a Holter monitor, which is a heart monitor, for 1-3 days to look for further episodes of the heart fluttering. If you have any shortness of breath, chest pain, lightheadedness or dizziness, heart fluttering that will not stop on its own, or any other concerns, return immediately to the emergency department for another evaluation.
[2017-11-05 15:19] LABS: Absolute Lymphocyte Count 1.93 X10^3/ul (0.83-4.51); Absolute Neutrophil Count 4.1 X10^3/uL (2.0-7.7); Basophil# 0.05 X10^3/uL; Basophil% 0.7 % (0-1); Eosinophil# 0.13 X10^3/uL; Eosinophils% 1.8 % (0-5); Hematocrit 42.3 % (40-54); Hemoglobin 14.4 g/dl (13.0-16.5); Lymphocyte # 1.93 X10^3/ul (4.0); Lymphocyte % 27.2 % (19-41); Mean Corpuscular Hgb 31.4 pg (27.0-32.0); Mean Corpuscular Volume 92.2 fL (80-94); Mean Platelet Vol. 10.6 fl (6.2-12.0); Monocyte# 0.84 X10^3/uL; Monocyte% 11.8 % (0-10); Neutrophil # 4.13 X10^3/uL (2.7-7.7); Neutrophil % 58.2 % (47-70); Platelet Count 175 K/mm3 (150-450); RBC Distribution Width CV 13.8 % (11.6-14.6); RBC Distribution Width SD 45.6 fl (35.1-43.9); Red Blood Count 4.59 M/mm3 (4.6-6.2); White Blood Count 7.1 K/mm3 (4.4-11.0)
[2017-11-05 15:22] LABS: POSITIVE COUNT NO; POSITIVE DIFFERENTIAL NO; POSITIVE MORPHOLOGY NO
[2017-11-05 15:29] VITALS: O2SAT 96
[2017-11-05 15:33] LABS: Partial Thromboplast Time 40.6 Seconds (24.1-36.2)
[2017-11-05 15:44] LABS: ALB/GLOB Ratio 1.1 RATIO (0.9-2.4); AST(SGOT) 31 U/L (15-37); Alanine Aminotransfer ALT/SGPT 48 U/L (16-61); Albumin, Serum 4.2 g/dL (3.2-5.0); Alkaline Phosphatase 75 U/L (45-117); Anion Gap 8 (5-15); BUN 16 mg/dL (7-18); BUN/Creat Ratio 15.4 RATIO (10-20); Calcium,Total 8.7 mg/dL (8.5-10.1); Chloride 106 mmol/L (98-107); Creatinine, Serum 1.04 mg/dL (0.70-1.30); EST Glomerular Filtration Rate 74 mL/min (>60); Est Glom Filt Rate - Afr Amer 89 mL/min (>60); Estimated Creatinine Clearance 63.35 ml/min; Globulin 3.7 g/dL (2.2-4.2); Glucose 135 mg/dL (74-106); Lipase 203 U/L (73-393); Magnesium 1.9 mg/dL (1.6-2.6); Potassium 4.1 mmol/L (3.5-5.1); Protein, Total 7.9 g/dL (6.4-8.2); Sodium Level 138 mmol/L (136-145); Thyroid Stim Hormone (TSH) 2.03 uIU/mL (0.358-3.74)
[2017-11-05] MEDS: Aspirin 81 MG TAB.CHEW 324 MG PO (15:44)
[2017-11-05 16:10] VITALS: BP 124/70; PULSE 66; RESP 18; O2SAT 95
--- NOTE | 2017-11-05 17:39 | ED.DEP ---
ED Disposition - Plan for ED Patient: Disposition: Home or Assisted Living Chief Complaint: Chest Pain Instructions: ED Palpitations Referrals: Bharathi Kolb MD [Primary Care Provider] - 1 Day for another exam Maynor Butler MD [STAFF PHYSICIAN] - 3-5 Days if not improving Additional Instructions: Please discuss your heart fluttering with your doctor at your appointment tomorrow. You may need to wear a Holter monitor, which is a heart monitor, for 1-3 days to look for further episodes of the heart fluttering. If you have any shortness of breath, chest pain, lightheadedness or dizziness, heart fluttering that will not stop on its own, or any other concerns, return immediately to the emergency department for another evaluation.
[2017-11-05 18:03] VITALS: BP 126/71; PULSE 61; RESP 16; O2SAT 95
[2017-11-05 18:04] VITALS: BP 126/71; PULSE 61; RESP 16; O2SAT 95
== END 2017-11-05 18:04 | disposition home or self-care (01) ==
PROVIDERS: Emergency Provider Emergency Medicine; Family Provider Family Medicine; PCP Family Medicine
DX: R00.2 Palpitations (principal); E11.9 Type 2 diabetes mellitus without complications; Z86.73 Personal history of transient ischemic attack (TIA), and cerebral infarction without residual deficits; Z79.84 Long term (current) use of oral hypoglycemic drugs; Z79.01 Long term (current) use of anticoagulants; Z79.899 Other long term (current) drug therapy
CPT/HCPCS: 71046; 80053; 83690; 83735; 84443; 84484; 85025; 85610; 85730; 93005; 99285; A4216

== ENCOUNTER → 2017-11-13 09:02 | Outpatient (CLI) | payer MEDICARE, SELFPAY | PROVIDERS: Family Provider Family Medicine; PCP Family Medicine | DX: R00.2 Palpitations (principal) | CPT/HCPCS: 93225; 93226 ==

== ENCOUNTER 2018-03-29 07:44 | Emergency (ER) | payer MEDICARE, SELFPAY ==
[2018-03-29 07:45] VITALS: BP 165/98; PULSE 65; RESP 15; TEMP 36.4; O2SAT 97; BMI 27.8
--- NOTE | 2018-03-29 07:58 | EKG12_ITS ---
Test Reason : CP Blood Pressure : / mmHG Vent. Rate : 065 BPM Atrial Rate : 065 BPM P-R Int : 156 ms QRS Dur : 142 ms QT Int : 446 ms P-R-T Axes : -16 -43 -08 degrees QTc Int : 463 ms Normal sinus rhythm Left axis deviation Right bundle branch block Inferior infarct (cited on or before 07-AUG-2017) Abnormal ECG Confirmed by MARIN MESSER, JESSENIA ([id number]), advertising editor BLANCA BECKETT ([id number]) on 03/30/2018 12:53:05 PM Referred By: DEDE Confirmed By:JESSENIA FUNES MD
--- NOTE | 2018-03-29 08:05 | ED.VISSUMM ---
- ER Visit Summary Date of Service: 03/29/18 Chief Complaint: Per triage chest pain. Per patient bad taste in his mouth. History of Present Illness: The patient is a 78 M who presents because of bad taste in his mouth that awoke him from sleep around midnight. This lasted for hours. He states he gargled repeatedly. He reports the bad taste resolved this morning. There was no chest tightness, pressure, heaviness. He is presently symptom-free. This was not associated with shortness of breath, dyspnea on exertion or PND. He denied palpitations or rapid heartbeat. He does report cough which is nonproductive and not a new symptom. Patient denies fever, chills, night sweats or weight loss. Patient denies visual, ocular auditory symptoms. Patient denies abdominal pain, nausea, vomiting, melena, maroon or blood in stool. He denies urologic symptoms. He denies myalgias, arthralgias or back pain. He denies headache, motor weakness, paresthesia or anesthesia. He denies bruising easily. He is on Coumadin secondary to CVA. He has a reported hole in his heart. He denies history of urticaria or angioedema. He has history of diabetes. He cannot tell me how long he has had diabetes. He is on antihypertensive meds. Initially he denied hypertension then he states he has hypertension. He is also on medication for cholesterol. He is uncertain if he has high cholesterol or not. He is a former smoker. He states he has not smoked in 40 years. Physical Examination: Vital signs noted. Blood pressure is elevated at 165/98. Head is atraumatic normocephalic. Pupils are equal round reactive. Extraocular muscles are intact. TMs are pearly white with landmarks noted. Nares patent with no drainage. Posterior pharynx without erythema or exudate. Uvula is midline. There is no dysphonia or dysphasia. Trachea is midline. There is no stridor with auscultation of the neck. Heart is regular with a normal S1 and S2. There is no murmur, gallop or rub. There are rales noted right base posteriorly. There is no rhonchi or wheezing noted. Abdomen is soft nontender with negative Gallego sign. There is no palpable, pulsatile or abdominal bruit noted. Lower extremity exam is remarkable for stigmata of peripheral vascular disease with diminished PT pulse. There is absence of hair on toes and absence of hair distal right and left leg. Neuro exam is nonfocal. Test Results: EKG reveals a sinus rhythm rate of 65 with a right bundle branch block and left axis. Possible old inferior PR. This is unchanged from August 07, 2017. Troponin obtained 8 hours after onset of symptoms is normal. CBC is unremarkable. Basic metabolic panel is unremarkable. Two-view chest x-ray interpreted by me is unremarkable with normal cardiac silhouette, mediastinum, lung parenchyma and osseous structures. On lateral there are babies minimal vertebral height loss. Emergency Department Course and Treatment: Since patient reports similar episode in the past and related to food he ate this may represent GERD/reflux. This also may represent atypical presentation for cardiac disease since he is elderly and has history of diabetes. To evaluate his presentation EKG was obtained and appropriate blood work including troponin. Because there are rales right base a chest x-ray was obtained. Treatment Plan: Treat for GERD/reflux Disposition: Discharged home with family member Impression: GERD History of type 2 diabetes History of hypertension History of cholesterol medication use This note was generated with Hotreader dictation software. It may contain incorrect words, spelling, and punctuation that were not noted in review of the chart prior to signing ED Disposition - Plan for ED Patient: Disposition: Home or Assisted Living Chief Complaint: Chest Pain Instructions: ED GERD Referrals: Bharathi Kolb MD [Primary Care Provider] - 3-5 Days
[2018-03-29 08:07] LABS: Absolute Neutrophil Count 4.6 X10^3/uL (2.0-7.7); Basophil# 0.03 X10^3/uL; Basophil% 0.4 % (0-1); Eosinophil# 0.13 X10^3/uL; Eosinophils% 1.8 % (0-5); Hematocrit 44.2 % (40-54); Hemoglobin 14.7 g/dl (13.0-16.5); Lymphocyte % 20.9 % (19-41); Mean Corp Hgb Conc 33.3 g/gl (32-36); Mean Corpuscular Hgb 31.5 pg (27.0-32.0); Mean Corpuscular Volume 94.8 fL (80-94); Mean Platelet Vol. 10.5 fl (6.2-12.0); Monocyte# 0.91 X10^3/uL; Monocyte% 12.7 % (0-10); Neutrophil # 4.57 X10^3/uL (2.7-7.7); Neutrophil % 63.9 % (47-70); Platelet Count 163 K/mm3 (150-450); RBC Distribution Width CV 13.8 % (11.6-14.6); RBC Distribution Width SD 47.1 fl (35.1-43.9); Red Blood Count 4.66 M/mm3 (4.6-6.2); White Blood Count 7.2 K/mm3 (4.4-11.0)
--- NOTE | 2018-03-29 08:09 | RAD_ITS ---
STUDY: X-RAY CHEST REASON FOR EXAM: Male, 78 years old. Chest pain. TECHNIQUE: PA and lateral views of the chest. COMPARISON: Comparison is made with prior study dated November 05, 2017. FINDINGS: EKG electrodes are seen. Stable mild elevation of the right hemidiaphragm. There is no demonstrated pleural abnormality. Normal size heart. Normal mediastinum and blossom. There is prominence of the pulmonary hilar arteries without peripheral pulmonary vascular congestion, suggesting pulmonary hypertension. There is atherosclerotic tortuosity of the aortic arch and descending thoracic aorta. There are diffuse degenerative changes of the visualized thoracic spine. Normal visualized ribs, clavicles, and shoulders. Surgical clips are seen in the right upper quadrant. RAD/Chest PA and Lateral IMPRESSION: Stable examination. Electronically Signed: Tyler Rai MD at 8:37 EST Tel [phone], Service support ,
[2018-03-29 08:15] LABS: POSITIVE COUNT NO; POSITIVE DIFFERENTIAL NO; POSITIVE MORPHOLOGY NO
[2018-03-29 08:19] LABS: Anion Gap 7 (5-15); BUN 13 mg/dL (7-18); BUN/Creat Ratio 16.9 RATIO (10-20); Calcium,Total 8.9 mg/dL (8.5-10.1); Chloride 108 mmol/L (98-107); Creatinine, Serum 0.77 mg/dL (0.70-1.30); EST Glomerular Filtration Rate 104 mL/min (>60); Est Glom Filt Rate - Afr Amer 126 mL/min (>60); Estimated Creatinine Clearance 64.84 ml/min; Glucose 191 mg/dL (74-106); Sodium Level 142 mmol/L (136-145)
[2018-03-29 08:41] VITALS: BP 140/84; PULSE 69; RESP 16; O2SAT 98
--- OUTSIDE RECORDS SUMMARY | 2018-05-31 15:42 | XMS RPT_ITS ---
:1940 Author Organization OHIP Care Team Providers Name Role Phone Bharathi Kolb Primary Care Unavailable Ruy Jones Attending Unavailable Lenin Reyes Primary Care Unavailable Fermin Cota Admitting Unavailable Paintsil, Delphos Attending Unavailable Mis Cotaan Admitting Unavailable Lenin Reyes Primary Care Unavailable Beata, Fermin Consulting Unavailable Yang Marin Attending Unavailable Fermin Cota Admitting Unavailable Paintsil, Delphos Attending Unavailable Kontak, Lenin Primary Care Unavailable Paintsil, Delphos Consulting Unavailable Bill Serna Attending Unavailable Elisa Montes De Oca Attending Unavailable Aramley, Bharathi Primary Care Unavailable Bursley, Bharathi Primary Care Unavailable FLORENCIO ROJAS Attending Unavailable FLORENCIO ROJAS Referring Unavailable Tavo Bowman Attending Unavailable Bursley, Bharathi Referring Unavailable KONTAK, ROGELIO R Referring Unavailable KONTAK, ROGELIO R Referring Unavailable KONTAK, ROGELIO R Referring Unavailable BURSLEYILEANA) Attending Unavailable KONTAK, ROGELIO R Referring Unavailable BURSLEYILEANA) Referring Unavailable BURSILEANA MCNULTY) Referring Unavailable BURSILEANA MCNULTY) Referring Unavailable ILEANA KOLB) Referring Unavailable ILEANA KOLB) Referring Unavailable ILEANA KOLB) Referring Unavailable BURSILEANA MCNULTY) Referring Unavailable ILEANA KOLB) Referring Unavailable MAYNOR SO Attending Unavailable MAYNOR SO Referring Unavailable TESTNILAM BELLA Attending Unavailable NILAM PANDYA Referring Unavailable ILEANA KOLB) Referring Unavailable ILEANA KOLB) Attending Unavailable ILEANA KOLB) Referring Unavailable ILEANA KOLB) Referring Unavailable RODRI ZARAGOZA (PT) Attending Unavailable ILEANA KOLB) Referring Unavailable ILEANA KOLB) Referring Unavailable ILEANA KOLB) Referring Unavailable REYNA MADDOX (STOGIE PACKER) Attending Unavailable ILEANA KOLB) Referring Unavailable ILEANA KOLB) Attending Unavailable ILEANA KOLB) Referring Unavailable ILEANA KOLB) Referring Unavailable TESTNILAM BELLA Attending Unavailable NILAM PANDYA Referring Unavailable ILENAA KOLB) Referring Unavailable PODLOGJUMANA FELIX (MARISABEL) Attending Unavailable PODJUMANA RASHID (MARISABEL) Referring Unavailable ILEANA KOLB) Referring Unavailable ILEANA KOLB) Attending Unavailable ILEANA KOLB) Referring Unavailable ILEANA KOLB) Referring Unavailable ILEANA KOLB) Referring Unavailable ILEANA KOLB () Attending Unavailable MAYNOR SO Attending Unavailable MAYNOR SO Referring Unavailable ILEANA KOLB) Attending Unavailable ILEANA KOLB) Referring Unavailable GUERO PARADA, DR. Karol MOODY Primary Care Unavailable IB GREENFIELD CNP Attending Unavailable MAYNOR SO Attending Unavailable MAYNOR SO Referring Unavailable PROBLEMS PROBLEMS DATE TYPE CONDITION / CODE ATTENDING STATUS SOURCE 2018 Active Vitamin D deficiency, NA Active [place] unspecified / [facility] E55.9(ICD-10) [place] Repository 01/14/2018 Active Alzheimer's disease NA Active [place] with late onset / [facility] G30.1(ICD-10) [place] Repository 01/14/2018 Active Dementia in other NA Active [place] diseases classified [facility] elsewhere without [place] behavioral disturbance Repository / F02.80(ICD-10) 11/19/2017 Active 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 therapy [facility] / Z79.899(ICD-10) [place] Repository 07/24/2014 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 Clinic Main / Z79.01(ICD-10) [place] Repository 12/10/2017 Unknown R00.2 - Palpitations / Colby, Tavo Active [place] R00.2(ICD-10) [facility] Repository 07/10/2014 Active Pure hyperglyceridemia NA Active [place] / E78.1(ICD-10) Clinic [facility] [place] Repository 10/30/2017 Active Other amnesia / NA Active [place] R41.3(ICD-10) [facility] [place] Repository 08/11/2014 Active Personal history of NA Active [place] transient ischemic [facility] attack (TIA), and [place] cerebral infarction Repository without residual deficits / Z86.73(ICD-10) 09/14/2017 Active Acute embolism and NA Active [place] thrombosis of [facility] unspecified deep veins [place] of unspecified distal Repository lower extremity / I82.4Z9(ICD-10) 08/21/2017 Unknown R51 - Headache / Paintsil, Delphos Active [place] R51(ICD-10) [facility] 05/01/2017 Active Type 2 diabetes NA Active [place] mellitus without [facility] complications / [place] E11.9(ICD-10) Repository PROCEDURES PROCEDURES No Procedure Records FoundRESULTS RESULTS 12 LEAD ELECTROCARDIOGRAM Observed: 03/30/2018 Status: F Source: [place] 12:53 PM [facility] Cardiovascular Services [address] [place] [address] 12 Lead EKG 03/29/18 0748 MR#: [id number] Acct: [id number] Name: CORIE KILGORE Sr. Rep #: [id number] : 1940 78 From: Tavo Bowman MD Attending Dr: Status: DEP ER Ordering Dr: Ruy Jones MD Date: 03/29/18 Location: ED Sex: M C Admitted: Test Reason : CP Blood Pressure : / mmHG Vent. Rate : 065 BPM Atrial Rate : 065 BPM P-R Int : 156 ms QRS Dur : 142 ms QT Int : 446 ms P-R-T Axes : -16 -43 -08 degrees QTc Int : 463 ms Normal sinus rhythm Left axis deviation Right bundle branch block Inferior infarct (cited on or before 07-AUG-2017) Abnormal ECG Confirmed by COLBY MESSER, TAVO ([id number]), scientific publications editor BLANCA BECKETT ([id number]) on 03/30/2018 12:53:05 PM Referred By: Confirmed By:TAVO BOWMAN MD 03/30/18 1253 Date Tavo Bowman MD CC: Bharathi Kolb MD; Ruy Jones MD Signed EMERGENCY DEPARTMENT Observed: 03/29/2018 Status: F Source: [place] SUMMARY 8:29 AM [facility] Medical Records Department [address] [place] [address] Emergency Department Summary 03/29/18 0805 MR#: [id number] Acct: [id number] Name: CORIE KILGORE Sr. Rep #: [id number] : 1940 78 From: Ruy Jones MD PCP: Bharathi Kolb MD Status: REG ER - ER Visit Summary Date of Service: 03/29/18 Chief Complaint: Per triage chest pain. Per patient bad taste in his mouth. History of Present Illness: The patient is a 78 M who presents because of bad taste in his mouth that awoke him from sleep around midnight. This lasted for hours. He states he gargled repeatedly. He reports the bad taste resolved this morning. There was no chest tightness, pressure, heaviness. He is presently symptom-free. This was not associated with shortness of breath, dyspnea on exertion or PND. He denied palpitations or rapid heartbeat. He does report cough which is nonproductive and not a new symptom. Patient denies fever, chills, night sweats or weight loss. Patient denies visual, ocular auditory symptoms. Patient denies abdominal pain, nausea, vomiting, melena, maroon or blood in stool. He denies urologic symptoms. He denies myalgias, arthralgias or back pain. He denies headache, motor weakness, paresthesia or anesthesia. He denies bruising easily. He is on Coumadin secondary to CVA. He has a reported hole in his heart. He denies history of urticaria or angioedema. He has history of diabetes. He cannot tell me how long he has had diabetes. He is on antihypertensive meds. Initially he denied hypertension then he states he has hypertension. He is also on medication for cholesterol. He is uncertain if he has high cholesterol or not. He is a former smoker. He states he has not smoked in 40 years. Physical Examination: Vital signs noted. Blood pressure is elevated at 165/98. Head is atraumatic normocephalic. Pupils are equal round reactive. Extraocular muscles are intact. TMs are pearly white with landmarks noted. Nares patent with no drainage. Posterior pharynx without erythema or exudate. Uvula is midline. There is no dysphonia or dysphasia. Trachea is midline. There is no stridor with auscultation of the neck. Heart is regular with a normal S1 and S2. There is no murmur, gallop or rub. There are rales noted right base posteriorly. There is no rhonchi or wheezing noted. Abdomen is soft nontender with negative Gallego sign. There is no palpable, pulsatile or abdominal bruit noted. Lower extremity exam is remarkable for stigmata of peripheral vascular disease with diminished PT pulse. There is absence of hair on toes and absence of hair distal right and left leg. Neuro exam is nonfocal. Test Results: EKG reveals a sinus rhythm rate of 65 with a right bundle branch block and left axis. Possible old inferior NY. This is unchanged from August 07, 2017. Troponin obtained 8 hours after onset of symptoms is normal. CBC is unremarkable. Basic metabolic panel is unremarkable. Two-view chest x-ray interpreted by me is unremarkable with normal cardiac silhouette, mediastinum, lung parenchyma and osseous structures. On lateral there are babies minimal vertebral height loss. Emergency Department Course and Treatment: Since patient reports similar episode in the past and related to food he ate this may represent GERD/reflux. This also may represent atypical presentation for cardiac disease since he is elderly and has history of diabetes. To evaluate his presentation EKG was obtained and appropriate blood work including troponin. Because there are rales right base a chest x-ray was obtained. Treatment Plan: Treat for GERD/reflux Disposition: Discharged home with family member Impression: GERD History of type 2 diabetes History of hypertension History of cholesterol medication use This note was generated with Digify dictation software. It may contain incorrect words, spelling, and punctuation that were not noted in review of the chart prior to signing ED Disposition - Plan for ED Patient: Disposition: Home or Assisted Living Chief Complaint: Chest Pain Instructions: ED GERD Referrals: Bharathi Kolb MD [Primary Care Provider] - 3-5 Days What to do if you have Problems For any increased pain, shortness of breath, bleeding, nausea or vomiting, chest pain, or any unexpected problems, contact your Primary Care Provider. Call [facility] ([phone]) or report to the closest Emergency Room. Call 911 if necessary. 03/29/18 0829 <Electronically signed by Ruy Jones MD> Date Ruy Jones MD Cosigner Signature (If Indicated): Date CC: Bharathi Kolb MD CHEST PA AND LATERAL Observed: 03/29/2018 Status: F Source: [place] 7:59 AM [facility] REPOSITORY [facility] [place] [address] Chest PA and Lateral MR#: [id number] Acct: [id number] Name: CORIE KILGORE . Rep #: [id number] : 1940 78 From: Tyler Rai MD PCP: Bharathi Kolb MD Status: REG ER Study: Chest PA and Lateral Date of Exam: 03/29/18 Exam# [id number] Ordering Dr: Ruy Jones MD STUDY: X-RAY CHEST REASON FOR EXAM: Male, 78 years old. Chest pain. TECHNIQUE: PA and lateral views of the chest. COMPARISON: Comparison is made with prior study dated November 05, 2017. FINDINGS: EKG electrodes are seen. Stable mild elevation of the right hemidiaphragm. There is no demonstrated pleural abnormality. Normal size heart. Normal mediastinum and blossom. There is prominence of the pulmonary hilar arteries without peripheral pulmonary vascular congestion, suggesting pulmonary hypertension. There is atherosclerotic tortuosity of the aortic arch and descending thoracic aorta. There are diffuse degenerative changes of the visualized thoracic spine. Normal visualized ribs, clavicles, and shoulders. Surgical clips are seen in the right upper quadrant. RAD/Chest PA and Lateral IMPRESSION: Stable examination. Electronically Signed: Tyler Rai MD at 8:37 EST Tel [phone], Service support , CC: Bharathi Kolb MD; Ruy Jones MD Clinical Psychologist: Signed CBC W/DIFF, AUTOMATED Collected: 03/29/2018 Status: F Source: [place] 7:45 AM [facility] REPOSITORY TYPE CODE TESTS RESULT OUT OF RANGE REFERENCE UNITS LAB L100.1000 4.4-11.0 K/mm3 Normal WBC 7.2 LAB L100.1200 4.6-6.2 M/mm3 Normal RBC 4.66 LAB L100.1300 13.0-16.5 g/dl Normal HGB 14.7 LAB L100.1400 40-54 % Normal HCT 44.2 LAB L100.1500 80-94 fL High MCV 94.8 LAB L100.1600 27.0-32.0 pg Normal MCH 31.5 LAB L100.1700 32-36 g/gl Normal MCHC 33.3 LAB L100.1810 11.6-14.6 % Normal RDW CV 13.8 LAB L100.1820 35.1-43.9 fl High RDW SD 47.1 LAB L100.1900 150-450 K/mm3 Normal PLT 163 LAB L100.2000 6.2-12.0 fl Normal MPV 10.5 LAB L100.2100 47-70 % Normal NEUT% 63.9 LAB L100.2200 19-41 % Normal LY% 20.9 LAB L100.2300 0-10 % High MONO% 12.7 LAB L100.2400 0-5 % Normal EO% 1.8 LAB L100.2500 0-1 % Normal BASO% 0.4 LAB L100.2550 0.0-0.9 % Normal IM GRAN % 0.300 Result Comment: IG% - Immature Granulocytes (promyelocytes, myelocytes and metamyelocytes) > 1% indicates that a LEFT SHIFT is Present. LAB L100.2620 2.0-7.7 X10 3/uL Normal Absolute Neut 4.6 LAB L100.2720 0.83-4.51 X10 3/ul Normal Absolute Lymph 1.50 Performed By: #### L100.0100 #### [facility] [address] [place], [place], [id number] BASIC METABOLIC Collected: 03/29/2018 Status: F Source: [place] PROFILE (BMP) 7:45 AM [facility] REPOSITORY TYPE CODE TESTS RESULT OUT OF RANGE REFERENCE UNITS LAB L501.0100 74-106 mg/dL High GLU 191 Result Comment: Fasting Glucose result greater than or equal to 126 mg/dL suggests DIABETES MELLITUS per A.D.A. criteria. Please note revised GLUCOSE reference range effective 2017. LAB L501.1000 7-18 mg/dL Normal BUN 13 LAB L501.1100 0.70-1.30 mg/dL Normal CREAT,SERUM 0.77 Result Comment: The validity of the calculated GFR AND GFRAA in patients over 70 years has not been determined. Clinical correlation is essential. LAB L501.1110 >60 mL/min Normal EST GFR 104 Result Comment: Non- GFR Calc LAB L501.1115 >60 mL/min Normal EST GFR - AA 126 Result Comment: GFR Calc LAB L501.1255 ml/min Normal Estimated CRCL 64.84 LAB L501.1300 10-20 RATIO Normal BUN/CRE 16.9 LAB L501.2200 8.5-10 mg/dL Normal .1 CA 8.9 LAB L501.5300 136-14 mmol/L Normal 5 NA 142 LAB L501.5600 3.5-5. mmol/L Normal 1 K 4.0 LAB L501.5900 98-107 mmol/L High CL 108 LAB L501.6100 21.0-3 mmol/L Normal 2.0 CO2 27.0 LAB L501.6200 5-15 Normal GAP 7 Performed By: #### L500.2500, L501.4010 #### [facility] [address] [place], [address] TROPONIN-I Collected: 03/29/2018 Status: F Source: [place] 7:45 AM [facility] REPOSITORY TYPE CODE TESTS RESULT OUT OF RANGE REFERENCE UNITS LAB L501.4010 <0.045 ng/mL Normal < 0.015 TROPONIN-I Result Comment: TROPONIN-I EXPECTED VALUES <0.045 Negative 0.045 - 0.590 Consistent with Cardiac Damage > OR = 0.600 Critical Value Not every elevated troponin is indicative of [place]. These values should be used with clinical judgement in examining the patient's clinical picture for diagnosis. To establish a diagnosis of [place] versus myocardial injury, there must be a demonstrated rise and/or fall in the troponin values, in addition to ischemic symptoms, EKG changes, new regional wall motion abnormality, and/or angiographical evidence. PLEASE NOTE: REFERENCE RANGES EDITED 17 Performed By: #### L500.2500, L501.4010 #### [facility] [place], [address] PROGRESS Observed: 03/26/2018 Status: COMPLETED Source: [place] 11:[address] [facility] REPOSITORY HNO ID: [id number] Author: Nasreen Treviño RN Service: (none) Author Type: (none) Type: Progress Notes Filed: 03/26/2018 11:41 AM Note Text: patient had inr completed at [facility] patients inr is 1.8 (patients inr range is 2.0-3.0) patient is currently taking 6mg daily patients last dose change was on 11/06/17 due to a high level 4.4 (dose at that time was 9mg Thu and 6mg all other days) patient has had no changes in medication and patient states he did miss a dose and no change in diet per verbal order by dr kolb since patient missed a dose we will have patient stay on the 6mg daily and recheck in 2 weeks. patient has been scheduled for a follow up inr on 04/12/18 PROGRESS Observed: 03/18/2018 Status: COMPLETED Source: [place] 11:[address] [facility] REPOSITORY HNO ID: [id number] Author: Ileana Everett) [place] Service: (none) Author Type: Physician Type: Progress Notes Filed: 03/21/2018 7:12 PM Note Text: Chief Complaint Patient presents with: Recheck HPI Corie Kilgore Jr. is a 78 year old male who presents here today for discussion of dementia with daughter who accompanied patient today. Discussed with patient and daughter that the patient still believes that someone is breaking into his house and stealing things from him. Has had physician liaison out to the house multiple times for this and nothing has ever come from their visits. States that it is a neighbor kid who used to come work with patient for 6 weeks and thinks he may have taken keys. When daughter asked about this, she is noncommittal about whether this is actually happening, but notes she has never seen the kid and police have never found any signs of break in or anything stolen. States that patient's memory seems to be improved with current dose of Namenda. Son drove with patient the other day and felt that he was still safe on the road. Daughter denies any behavioral changes. Patient taking all meds as able and able to perform all ADLs by self. Daughter feels he is safe to stay at home and is questioning if he actually has dementia. Previous MMSE 26/30. Discussed recent normal labs and MRI brain in January which showed: IMPRESSION: No acute intracranial findings. Moderate diffuse parenchymal volume loss and mild sequela of chronic microvascular ischemia. Memory impairment may be 2/2 stroke vs alzheimer's dementia. Discussed referral to neurology for further evaluation. Past medical history, appointments, medications, allergies reviewed. Previous Medical History PAST MEDICAL HISTORY Diagnosis Date - ASD (atrial septal defect) - Cerebral vascular disease cva - Degenerative arthritis - Dementia - Diabetes mellitus, type II (HCC) - DVT (deep venous thrombosis) (HCC) - Hard of hearing - HTN (hypertension) - Hyperlipidaemia - PFO (patent foramen ovale) Dr. So - RBBB - TIA (transient ischemic attack) Previous Surgical History PAST SURGICAL HISTORY Procedure Laterality Date - CHOLECYSTECTOMY - HERNIA REPAIR HX - PAST SURGICAL HISTORY OF RK - PAST SURGICAL HISTORY OF Tonsillectomy - PAST SURGICAL HISTORY OF Right and Left shoulder surgery - PAST SURGICAL HISTORY OF chest surgery Family History FAMILY HISTORY Problem Relation Age of Onset - Heart Father - Diabetes Father - Hypertension Mother - Heart Mother - Cancer Sister - Heart Sister Patient Allergies ALLERGIES No Known Allergies Current Medications Current Outpatient Prescriptions on File Prior to Visit: losartan (COZAAR) 25 mg tablet Take 1 tablet by mouth once daily. memantine (NAMENDA) 5 mg tablet Take 1 tablet by mouth twice daily. cholecalciferol (VITAMIN D3) 2,000 unit tablet Take 1 tablet by mouth once daily. atorvastatin (LIPITOR) 20 mg tablet Take 1 tablet by mouth daily at bedtime. For cholesterol. warfarin (COUMADIN) 3 mg tablet Take 9 mg on Thu and 6mg all other days metFORMIN (GLUCOPHAGE) 500 mg tablet Take 1 tablet by mouth daily with breakfast. DOCOSAHEXANOIC ACID/EPA (FISH OIL ORAL) Take by mouth as directed. plhbkgbq-bav-SD-lycopen-lutein (CENTRUM SILVER ULTRA MEN'S) 300-600-300 mcg tab Take by mouth. No current facility-administered medications on file prior to visit. 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 Review of Symptoms REVIEW OF SYSTEMS GENERAL: No weight loss, malaise or fevers RESPIRATORY: Negative for cough, hemoptysis, wheezing, COPD, dyspnea or shortness of breath CARDIOVASCULAR: Negative for chest pain, leg swelling, hypertension, CHF or palpitations GI: No nausea, vomiting, or diarrhea SKIN: Negative for lesions, rash, and itching EXAM: BP 118/66 Pulse 76 Resp 12 Wt 88 kg (194 lb) BMI 28.04 kg/m? General Appearance: Well appearing, alert, in no acute distress, well-hydrated, well nourished. AOx3 today. Skin: Skin color, texture, turgor normal, no suspicious rashes or lesions. Lungs: lungs clear to auscultation. No wheezing, rhonchi, rales. Heart: RRR without murmur, gallop, or rubs. No ectopy. Health Maintenance List COLORECTAL CANCER SCREENING,SEE MODIFIER due on 05/03/2017 DTAP,TDAP,TD(1 - Tdap) due on 11/20/2017 DILATED RETINAL EXAM due on 01/22/2018 STATIN MED ADHERENCE due on 04/09/2018 DIABETES MED ADHERENCE due on 04/09/2018 HBA1C due on 08/27/2018 LDL CHOLESTEROL due on 11/02/2018 URINE ALBUMIN:CREATININE RATIO due on 11/19/2018 DIABETIC FOOT EXAM due on 11/19/2018 ANNUAL PCP TEAM CHRONIC DISEASE VISIT due on 2019 BP CONTROLLED (<130/80) due on 03/18/2019 ADULT PREVNAR-13 Completed INFLUENZA Completed PNEUMOVAX AGE 65 AND OVER WITH 5YR LOOKBACK Completed ASSESSMENT/PLAN: 1. Late onset Alzheimer's disease without behavioral disturbance - ICD9: 331.0, 294.10, ICD10: G30.1, F02.80 (primary diagnosis) Suspect memory impairment 2/2 alzheimer's. Continue namenda. Referral to neurology for further evaluation and recommendations. - CONSULT TO NEUROLOGY - MEMANTINE 5 MG TABLET 2. Memory impairment of gradual onset - ICD9: 780.93, ICD10: R41.3 See above. - MEMANTINE 5 MG TABLET 3. Essential hypertension - ICD9: 401.9, ICD10: I10 - good control - Continue current medication(s) - Encouraged dietary sodium restriction/DASH diet - Recommended regular aerobic exercise. - Reviewed risks of HTN and principles of treatment - Goal of BP <140/90 I spent 30 minutes in the visit, with more than 50% of the total ycun-sr-rwzn time of the visit in counseling / coordination of care. Ileana Kolb MD CNOV Observed: 03/18/2018 Status: COMPLETED Source: [place] 11:[address] [facility] REPOSITORY Office Visit (FAMPWS) CORIE KILGORE JR. ([id number]) 1940 M Date Time Provider Department 03/18/18 11:00 AM ILEANA KOLB) MIKEPWS During your visit today, we recorded the following information about you: Pulse Respiration Blood pressure Weight 76/minute 12/minute 118/66 88 kg Ileana Kolb MD 03/21/2018 7:12 PM Signed Chief Complaint Patient presents with: Recheck HPI Corie Kilgore Jr. is a 78 year old male who presents here today for discussion of dementia with daughter who accompanied patient today. Discussed with patient and daughter that the patient still believes that someone is breaking into his house and stealing things from him. Has had physician liaison out to the house multiple times for this and nothing has ever come from their visits. States that it is a neighbor kid who used to come work with patient for 6 weeks and thinks he may have taken keys. When daughter asked about this, she is noncommittal about whether this is actually happening, but notes she has never seen the kid and police have never found any signs of break in or anything stolen. States that patient's memory seems to be improved with current dose of Namenda. Son drove with patient the other day and felt that he was still safe on the road. Daughter denies any behavioral changes. Patient taking all meds as able and able to perform all ADLs by self. Daughter feels he is safe to stay at home and is questioning if he actually has dementia. Previous MMSE 26/30. Discussed recent normal labs and MRI brain in January which showed: IMPRESSION: No acute intracranial findings. Moderate diffuse parenchymal volume loss and mild sequela of chronic microvascular ischemia. Memory impairment may be 2/2 stroke vs alzheimer's dementia. Discussed referral to neurology for further evaluation. Past medical history, appointments, medications, allergies reviewed. Previous Medical History PAST MEDICAL HISTORY Diagnosis Date - ASD (atrial septal defect) - Cerebral vascular disease cva - Degenerative arthritis - Dementia - Diabetes mellitus, type II (HCC) - DVT (deep venous thrombosis) (HCC) - Hard of hearing - HTN (hypertension) - Hyperlipidaemia - PFO (patent foramen ovale) Dr. So - RBBB - TIA (transient ischemic attack) Previous Surgical History PAST SURGICAL HISTORY Procedure Laterality Date - CHOLECYSTECTOMY - HERNIA REPAIR HX - PAST SURGICAL HISTORY OF RK - PAST SURGICAL HISTORY OF Tonsillectomy - PAST SURGICAL HISTORY OF Right and Left shoulder surgery - PAST SURGICAL HISTORY OF chest surgery Family History FAMILY HISTORY Problem Relation Age of Onset - Heart Father - Diabetes Father - Hypertension Mother - Heart Mother - Cancer Sister - Heart Sister Patient Allergies ALLERGIES No Known Allergies Current Medications Current Outpatient Prescriptions on File Prior to Visit: losartan (COZAAR) 25 mg tablet Take 1 tablet by mouth once daily. memantine (NAMENDA) 5 mg tablet Take 1 tablet by mouth twice daily. cholecalciferol (VITAMIN D3) 2,000 unit tablet Take 1 tablet by mouth once daily. atorvastatin (LIPITOR) 20 mg tablet Take 1 tablet by mouth daily at bedtime. For cholesterol. warfarin (COUMADIN) 3 mg tablet Take 9 mg on Thu and 6mg all other days metFORMIN (GLUCOPHAGE) 500 mg tablet Take 1 tablet by mouth daily with breakfast. DOCOSAHEXANOIC ACID/EPA (FISH OIL ORAL) Take by mouth as directed. vxnjcqaf-cki-UD-lycopen-lutein (CENTRUM SILVER ULTRA MEN'S) 300-600-300 mcg tab Take by mouth. No current facility-administered medications on file prior to visit. 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 Review of Symptoms REVIEW OF SYSTEMS GENERAL: No weight loss, malaise or fevers RESPIRATORY: Negative for cough, hemoptysis, wheezing, COPD, dyspnea or shortness of breath CARDIOVASCULAR: Negative for chest pain, leg swelling, hypertension, CHF or palpitations GI: No nausea, vomiting, or diarrhea SKIN: Negative for lesions, rash, and itching EXAM: BP 118/66 Pulse 76 Resp 12 Wt 88 kg (194 lb) BMI 28.04 kg/m? General Appearance: Well appearing, alert, in no acute distress, well-hydrated, well nourished. AOx3 today. Skin: Skin color, texture, turgor normal, no suspicious rashes or lesions. Lungs: lungs clear to auscultation. No wheezing, rhonchi, rales. Heart: RRR without murmur, gallop, or rubs. No ectopy. Health Maintenance List COLORECTAL CANCER SCREENING,SEE MODIFIER due on 05/03/2017 DTAP,TDAP,TD(1 - Tdap) due on 11/20/2017 DILATED RETINAL EXAM due on 01/22/2018 STATIN MED ADHERENCE due on 04/09/2018 DIABETES MED ADHERENCE due on 04/09/2018 HBA1C due on 08/27/2018 LDL CHOLESTEROL due on 11/02/2018 URINE ALBUMIN:CREATININE RATIO due on 11/19/2018 DIABETIC FOOT EXAM due on 11/19/2018 ANNUAL PCP TEAM CHRONIC DISEASE VISIT due on 2019 BP CONTROLLED (<130/80) due on 03/18/2019 ADULT PREVNAR-13 Completed INFLUENZA Completed PNEUMOVAX AGE 65 AND OVER WITH 5YR LOOKBACK Completed ASSESSMENT/PLAN: 1. Late onset Alzheimer's disease without behavioral disturbance - ICD9: 331.0, 294.10, ICD10: G30.1, F02.80 (primary diagnosis) Suspect memory impairment 2/2 alzheimer's. Continue namenda. Referral to neurology for further evaluation and recommendations. - CONSULT TO NEUROLOGY - MEMANTINE 5 MG TABLET 2. Memory impairment of gradual onset - ICD9: 780.93, ICD10: R41.3 See above. - MEMANTINE 5 MG TABLET 3. Essential hypertension - ICD9: 401.9, ICD10: I10 - good control - Continue current medication(s) - Encouraged dietary sodium restriction/DASH diet - Recommended regular aerobic exercise. - Reviewed risks of HTN and principles of treatment - Goal of BP <140/90 I spent 30 minutes in the visit, with more than 50% of the total ujyc-uj-iitz time of the visit in counseling / coordination of care. Ileana Kolb MD Referring Provider: SELF [[id number]] Allergies As of Date: 03/18/2018 (No Known Allergies) Date Reviewed: 03/18/2018 Reviewed by: Raquel Bhagat Ma - Fully Assessed Reason for Visit: Recheck [92] Primary Visit Diagnosis:Late onset Alzheimer's disease without behavioral disturbance [G30.1, F02.80] Other Visit Diagnoses:Memory impairment of gradual onset [R41.3] Essential hypertension [I10] Order(s):CONSULT TO NEUROLOGY [9019] Order #: [id number]: 1 memantine (NAMENDA) 5 mg tabletTake 10 mg PO in the morning and 5 mg in the eveningDisp: 90 tabletRfl: 2 valsartan (DIOVAN) 80 mg tabletTake 1 tablet by mouth once daily.Disp: 90 tabletRfl: 1 Prescriptions as of 03/18/2018 Sig: MEMANTINE 5 MG TABLET Take 10 mg PO in the morning * CHOLECALCIFEROL (VITAMIN D3) * Take 1 tablet by mouth once d* ATORVASTATIN 20 MG TABLET Take 1 tablet by mouth daily * WARFARIN 3 MG TABLET Take 9 mg on Thu and 6mg all * METFORMIN 500 MG TABLET Take 1 tablet by mouth daily * FISH OIL ORAL Take by mouth as directed. LVEHNIEJ-LDA-HKVAW ACID 300 M* Take by mouth. 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 [Z79.*INVALID FOR* DVT (deep venous thrombosis) (HCC) [I82.409] INVALID FOR* H/O: CVA (cerebrovascular accident) [Z86.73] INVALID FOR* Right bundle branch block [I45.10] INVALID FOR* Rotator cuff (capsule) sprain [S43.429A] INVALID FOR* Primary localized osteoarthrosis of shoulder re*INVALID FOR* Left-sided low back pain with left-sided sciati*INVALID FOR* Rotator cuff arthropathy, right [M12.811] INVALID FOR* Diabetic polyneuropathy associated with type 2 *INVALID FOR* Age-related physical debility [R54] INVALID FOR* Dementia without behavioral disturbance [F03.90]INVALID FOR* HTN (hypertension) [I10] Prescriptions ordered this encounter Disp Refills Start End MEMANTINE 5 MG TABLET 90 t* 2 03/18/2018 Sig: Take 10 mg PO in the morning and 5 mg in the evening VALSARTAN 80 MG TABLET 90 t* 1 03/18/2018 Route: ORAL Sig: Take 1 tablet by mouth once daily. Medications Discontinued During This Encounter mupirocin (BACTROBAN) 2 % ointment 1 * 1 11/19/2017 03/18/2018 Route: TOPICAL Sig: Apply 1 application to affected area three times daily. Location: left arm Disc: Reason for discontinue is not on file. memantine (NAMENDA) 5 mg tablet 180 * 3 02/08/2018 03/18/2018 Route: ORAL Sig: Take 1 tablet by mouth twice daily. Disc: Reason for discontinue is not on file. losartan (COZAAR) 25 mg tablet 90 t* 1 02/08/2018 03/18/2018 Route: ORAL Sig: Take 1 tablet by mouth once daily. Disc: Reason for discontinue is not on file. Disposition: Return in about 3 months (around 06/16/2018). Follow-up and Disposition History Recorded Encounter Status:Closed by ILEANA KOLB MD on 03/21/18 PROGRESS Observed: 03/18/2018 Status: COMPLETED Source: [place] 9:17 AM [facility] REPOSITORY HNO ID: [id number] Author: Maynor So Service: (none) Author Type: Physician Type: Progress Notes Filed: 03/18/2018 5:28 PM Note Text: PERTINENT CARDIAC HISTORY PFO HTN HL DM RBBB DVT - chronic warfarin CVA - recurrent, on warfarin ADHERENCE TO GUIDELINES ZACH-I or ARB for HF with prior LVEF<40 (NQF 0081) - N/A ASA or Plavix for ASHD (NQF 0067) - on warfarin Beta suleman for ASHD with prior [place] or prior LVEF<40 (NQF 0070) - N/A Beta suleman for HF with prior LVEF<40 (NQF 0083) - N/A ZACH-I or ARB for ASHD with DM or prior LVEF<40 (NQF 0066) - N/A Statin therapy for ASHD or FHL or DM - declines BMI documented and plan if >25 (NQF 0421) - lifestyle recommendation form Tobacco use screening and referral (NQF 0028) - lifestyle recommendation form Recommendation for whole food, plant based diet - lifestyle recommendation form CLINICAL IMPRESSION/PLAN: Corie Kilgore Jr. is doing well. He has been advised to continue his current medication. If he has recurrent palpitations, I recommend he contact me. He may benefit from addition of a beta suleman or rate slowing calcium suleman. INR is followed at primary care. I asked him to call if he has recurrent palpitations or TIA symptoms. I recommend 6 month follow-up visit. Written and verbal health teaching given to patient, patient verbalizes understanding and agrees with treatment plan. DIAGNOSIS FOR VISIT: PFO Hypertension HISTORY OF PRESENT ILLNESS Corie Kilgore Jr. returns for follow-up of his PFO and hypertension. He is tolerating anticoagulation well. He reports that he underwent shoulder surgery and had no complications. He's had epigastric discomfort after eating spicy food but no exertional chest discomfort. He denies orthopnea, edema. He's had no syncope but is prone to some vertigo when lying on his creeper under a car with his head turned. He has had rare sensation of palpitations, lasting seconds. These have decreased in frequency. He's had no TIAs, amaurosis or claudication. ALLERGIES: ALLERGIES No Known Allergies CURRENT OUTPATIENT MEDICATIONS: losartan (COZAAR) 25 mg tablet Take 1 tablet by mouth once daily. memantine (NAMENDA) 5 mg tablet Take 1 tablet by mouth twice daily. cholecalciferol (VITAMIN D3) 2,000 unit tablet Take 1 tablet by mouth once daily. atorvastatin (LIPITOR) 20 mg tablet Take 1 tablet by mouth daily at bedtime. For cholesterol. metFORMIN (GLUCOPHAGE) 500 mg tablet Take 1 tablet by mouth daily with breakfast. DOCOSAHEXANOIC ACID/EPA (FISH OIL ORAL) Take by mouth as directed. oyzuduqq-shf-UF-lycopen-lutein (CENTRUM SILVER ULTRA MEN'S) 300-600-300 mcg tab Take by mouth. mupirocin (BACTROBAN) 2 % ointment Apply 1 application to affected area three times daily. Location: left arm warfarin (COUMADIN) 3 mg tablet Take 9 mg on Thu and 6mg all other days PHYSICAL EXAMINATION: VITAL SIGNS: BP 118/75 Pulse 69 Wt 195 lb 1.6 oz (88.5kg) Chest: Clear to auscultation. Trachea is midline. Air entry is equal. Cardiac: Regular rhythm. S1 and S2 are normal. PMI is nondisplaced. There is a soft systolic ejection murmur without radiation. Carotids are brisk without bruits. JVP is less than 10 cm. Abdomen: Soft and nontender. There are no pulsatile masses or bruits. No liver enlargement. Bowel sounds are active. Extremities: No edema. Pulses are intact and symmetrical. Recent labs were reviewed. Renal function is normal. LDL was 53. He had a recent emergency room visit for heart fluttering and underwent Holter monitoring which showed no evidence of malignant arrhythmia. He had occasional ventricular ectopics. These symptoms have largely resolved. Electronically Signed: Maynor So MD March 18, 2018 9:17 AM CC: Ileana Kolb MD CNOV Observed: 03/18/2018 Status: COMPLETED Source: [place] 8:[address] [facility] REPOSITORY Office Visit (CAWSTR) CORIE KILGORE JR. ([id number]) 1940 M Date Time Provider Department 03/18/18 8:30 AM MAYNOR SO During your visit today, we recorded the following information about you: Pulse Blood pressure Weight 69/minute 118/75 88.5 kg Maynor So MD 03/18/2018 5:28 PM Signed PERTINENT CARDIAC HISTORY PFO HTN HL DM RBBB DVT - chronic warfarin CVA - recurrent, on warfarin ADHERENCE TO GUIDELINES ZACH-I or ARB for HF with prior LVEF<40 (NQF 0081) - N/A ASA or Plavix for ASHD (NQF 0067) - on warfarin Beta suleman for ASHD with prior [place] or prior LVEF<40 (NQF 0070) - N/A Beta suleamn for HF with prior LVEF<40 (NQF 0083) - N/A ZACH-I or ARB for ASHD with DM or prior LVEF<40 (NQF 0066) - N/A Statin therapy for ASHD or FHL or DM - declines BMI documented and plan if >25 (NQF 0421) - lifestyle recommendation form Tobacco use screening and referral (NQF 0028) - lifestyle recommendation form Recommendation for whole food, plant based diet - lifestyle recommendation form CLINICAL IMPRESSION/PLAN: Corie Kilgore Jr. is doing well. He has been advised to continue his current medication. If he has recurrent palpitations, I recommend he contact me. He may benefit from addition of a beta suleman or rate slowing calcium suleman. INR is followed at primary care. I asked him to call if he has recurrent palpitations or TIA symptoms. I recommend 6 month follow-up visit. Written and verbal health teaching given to patient, patient verbalizes understanding and agrees with treatment plan. DIAGNOSIS FOR VISIT: PFO Hypertension HISTORY OF PRESENT ILLNESS Corie Kilgore Jr. returns for follow-up of his PFO and hypertension. He is tolerating anticoagulation well. He reports that he underwent shoulder surgery and had no complications. He's had epigastric discomfort after eating spicy food but no exertional chest discomfort. He denies orthopnea, edema. He's had no syncope but is prone to some vertigo when lying on his creeper under a car with his head turned. He has had rare sensation of palpitations, lasting seconds. These have decreased in frequency. He's had no TIAs, amaurosis or claudication. ALLERGIES: ALLERGIES No Known Allergies CURRENT OUTPATIENT MEDICATIONS: losartan (COZAAR) 25 mg tablet Take 1 tablet by mouth once daily. memantine (NAMENDA) 5 mg tablet Take 1 tablet by mouth twice daily. cholecalciferol (VITAMIN D3) 2,000 unit tablet Take 1 tablet by mouth once daily. atorvastatin (LIPITOR) 20 mg tablet Take 1 tablet by mouth daily at bedtime. For cholesterol. metFORMIN (GLUCOPHAGE) 500 mg tablet Take 1 tablet by mouth daily with breakfast. DOCOSAHEXANOIC ACID/EPA (FISH OIL ORAL) Take by mouth as directed. cylxtjhl-dmx-FJ-lycopen-lutein (CENTRUM SILVER ULTRA MEN'S) 300-600-300 mcg tab Take by mouth. mupirocin (BACTROBAN) 2 % ointment Apply 1 application to affected area three times daily. Location: left arm warfarin (COUMADIN) 3 mg tablet Take 9 mg on Thu and 6mg all other days PHYSICAL EXAMINATION: VITAL SIGNS: BP 118/75 Pulse 69 Wt 195 lb 1.6 oz (88.5kg) Chest: Clear to auscultation. Trachea is midline. Air entry is equal. Cardiac: Regular rhythm. S1 and S2 are normal. PMI is nondisplaced. There is a soft systolic ejection murmur without radiation. Carotids are brisk without bruits. JVP is less than 10 cm. Abdomen: Soft and nontender. There are no pulsatile masses or bruits. No liver enlargement. Bowel sounds are active. Extremities: No edema. Pulses are intact and symmetrical. Recent labs were reviewed. Renal function is normal. LDL was 53. He had a recent emergency room visit for heart fluttering and underwent Holter monitoring which showed no evidence of malignant arrhythmia. He had occasional ventricular ectopics. These symptoms have largely resolved. Electronically Signed: Maynor So MD March 18, 2018 9:17 AM CC: MD Maynor Hawthorne MD 03/18/2018 9:17 AM Signed LIFESTYLE CHANGE A healthy lifestyle is the most important component of your overall treatment plan. Please give serious thought to the following areas and commit to making long term care pharmacist changes. EAT A WHOLE FOOD, PLANT BASED DIET The nutrition your body gets is more important than the medicine you take. What matters most is the overall way you eat. We encourage you to minimize the use of animal products (which include dairy and all meats except fatty fish) and use whole, unprocessed plant foods to provide your protein, vitamins and other nutrients. We have a lot of information to share with you on this topic. This is not a diet. It is a way of life that you will keep with you. EXERCISE REGULARLY It is not important to spend hours in the gym, lifting weights and perspiring heavily. A total of 2-3 hours per week of aerobic (causing you to be moderately short of breath) exercise is sufficient to improve your health. Talk to us before you begin a new exercise program, if you have heart disease or experience shortness of breath or chest pain. REDUCE STRESS Chronic emotional and physical stress leads to disease. Ways of reducing stress include meditation, visualization, prayer, yoga and other forms of relaxation therapy. Consistency is the suarez. Find a technique that works for you and do it every day. CULTIVATE RELATIONSHIPS Loneliness and isolation have a major negative impact on health. Seek out others who can love, care for and nurture you. Avoid hurtful relationships. MAINTAIN IDEAL BODY WEIGHT The best way to do this is to do all the things above. Our bodies naturally find the right weight if we keep moving and feed ourselves the right food. If your BMI is greater than 25, we strongly recommend a referral to a weight management program. Please speak to us or your family physician about available programs. AVOID NICOTINE IN ALL FORMS This includes all tobacco products, whether chewed, smoked, vaped, or rubbed on the skin. Smoking cessation programs, which can make use of tobacco substitutes, medications to suppress cravings and behavior management, are available. Please contact your family physician about programs in your area. Referring Provider: MAYNOR SO [[id number]] Allergies As of Date: 03/18/2018 (No Known Allergies) Date Reviewed: 03/18/2018 Reviewed by: Raquel Bhagat Ma - Fully Assessed Reason for Visit: Recheck [92] Primary Visit Diagnosis:PFO (patent foramen ovale) [Q21.1] Other Visit Diagnosis:Essential hypertension [I10] Prescriptions as of 03/18/2018 Sig: X LOSARTAN 25 MG TABLET Take 1 tablet by mouth once d* X MEMANTINE 5 MG TABLET Take 1 tablet by mouth twice * CHOLECALCIFEROL (VITAMIN D3) * Take 1 tablet by mouth once d* ATORVASTATIN 20 MG TABLET Take 1 tablet by mouth daily * METFORMIN 500 MG TABLET Take 1 tablet by mouth daily * FISH OIL ORAL Take by mouth as directed. UDDVCIRI-AUD-ISIFS ACID 300 M* Take by mouth. X MUPIROCIN 2 % TOPICAL OINTMENT Apply 1 application to affect* WARFARIN 3 MG TABLET Take 9 mg on Thu and 6mg all * Problem List As Of Date 03/18/2018 Noted Resolved Pain in joint, shoulder region [M25.519] INVALID FOR* Hyperglycemia [R73.9] INVALID FOR*10/30/2017 Hypertriglyceridemia [E78.1] INVALID FOR* Diabetes mellitus type 2, controlled, without c*INVALID FOR* Patent foramen ovale [Q21.1] INVALID FOR* ASD (atrial septal defect) [Q21.1] INVALID FOR* More... FPC (current) use of anticoagulants [Z79.*INVALID FOR* DVT (deep venous thrombosis) (HCC) [I82.409] INVALID FOR* H/O: CVA (cerebrovascular accident) [Z86.73] INVALID FOR* Right bundle branch block [I45.10] INVALID FOR* Rotator cuff (capsule) sprain [S43.429A] INVALID FOR* Primary localized osteoarthrosis of shoulder re*INVALID FOR* Left-sided low back pain with left-sided sciati*INVALID FOR* Rotator cuff arthropathy, right [M12.811] INVALID FOR* Diabetic polyneuropathy associated with type 2 *INVALID FOR* Age-related physical debility [R54] INVALID FOR* Dementia without behavioral disturbance [F03.90]INVALID FOR* HTN (hypertension) [I10] Other instructions from your clinician: LIFESTYLE CHANGE A healthy lifestyle is the most important component of your overall treatment plan. Please give serious thought to the following areas and commit to making group home changes. EAT A WHOLE FOOD, PLANT BASED DIET The nutrition your body gets is more important than the medicine you take. What matters most is the overall way you eat. We encourage you to minimize the use of animal products (which include dairy and all meats except fatty fish) and use whole, unprocessed plant foods to provide your protein, vitamins and other nutrients. We have a lot of information to share with you on this topic. This is not a diet. It is a way of life that you will keep with you. EXERCISE REGULARLY It is not important to spend hours in the gym, lifting weights and perspiring heavily. A total of 2-3 hours per week of aerobic (causing you to be moderately short of breath) exercise is sufficient to improve your health. Talk to us before you begin a new exercise program, if you have heart disease or experience shortness of breath or chest pain. REDUCE STRESS Chronic emotional and physical stress leads to disease. Ways of reducing stress include meditation, visualization, prayer, yoga and other forms of relaxation therapy. Consistency is the suarez. Find a technique that works for you and do it every day. CULTIVATE RELATIONSHIPS Loneliness and isolation have a major negative impact on health. Seek out others who can love, care for and nurture you. Avoid hurtful relationships. MAINTAIN IDEAL BODY WEIGHT The best way to do this is to do all the things above. Our bodies naturally find the right weight if we keep moving and feed ourselves the right food. If your BMI is greater than 25, we strongly recommend a referral to a weight management program. Please speak to us or your family physician about available programs. AVOID NICOTINE IN ALL FORMS This includes all tobacco products, whether chewed, smoked, vaped, or rubbed on the skin. Smoking cessation programs, which can make use of tobacco substitutes, medications to suppress cravings and behavior management, are available. Please contact your family physician about programs in your area. Encounter Status:Closed by MAYNOR SO MD on 03/18/18 PROGRESS Observed: 2018 Status: COMPLETED Source: [place] 11:[address] [facility] REPOSITORY HNO ID: [id number] Author: Ileana Kolb Service: (none) Author Type: Physician Type: Progress Notes Filed: 2018 11:46 AM Note Text: INR therapeutic. Continue current coumadin dosage and follow up in 4 weeks. PROGRESS Observed: 2018 Status: COMPLETED Source: [place] 11:[address] [facility] REPOSITORY HNO ID: [id number] Author: Nasreen Treviño RN Service: (none) Author Type: (none) Type: Progress Notes Filed: 2018 11:25 AM Note Text: patient had inr completed at [facility] patients inr is 2.6 (patients inr range is 2.0-3.0) patient is currently taking 6mg daily patients last dose change was on 11/06/17 due to a high level of 4.4 (dose at that time was 9mg Wed and 6mg all other days) patient has had no changes in medication and no missed doses and no change in diet Advised patient to continue on the same dose(s) and that they would only be contacted regarding dosage and follow up instructions after review with provider, if a change is needed. Written instructions given and patient verbalized understanding. Presently scheduled in 4 weeks (03/26/18) for follow up INR. HEMOGLOBIN A1C Collected: 2018 Status: F Source: [place] 10:[address] [facility] REPOSITORY TYPE CODE TESTS RESULT OUT OF REFERENCE UNITS RANGE LAB HGBA1C 4.3-5.6 % High Hemoglobin A1c 7.1 Result Comment: [place] [employer] guidelines indicate that patients with HgbA1c in the range 5.7-6.4% are at increased risk for development of diabetes, and intervention by lifestyle modification may be beneficial. HgbA1c greater or equal to 6.5% is considered diagnostic of diabetes. LAB HBA0 mg/dL Est. Average Glucose 157 Result Comment: eAG: (Estimated average glucose) is a calculated value from HgbA1c and is representative personal service of the average blood glucose level in the last 2-3 month period. Performed By: #### HBA1C, VITD, CMP #### [facility] [employer] [place] [address] VITAMIN D 25 HYDROXY Collected: 2018 Status: F Source: [place] 10:[address] [facility] REPOSITORY TYPE CODE TESTS RESULT OUT OF REFERENCE UNITS RANGE LAB VITD 31.0-80.0 ng/mL Low Vitamin D 25 25.1 Hydroxy Result Comment: Classification of 25 [place] Vitamin D status: Insufficiency/Moderate Deficiency: < or = 30 ng/mL Sufficiency/Optimal Levels: 31 to 80 ng/mL Toxicity: > 100 ng/mL Test performed by chemiluminescent immunoassay. Performed By: #### HBA1C, VITD, CMP #### [facility] [address] [place] [address] COMP METABOLIC PANEL Collected: 2018 Status: F Source: [place] 10:[address] [facility] REPOSITORY TYPE CODE TESTS RESULT OUT OF REFERENCE UNITS RANGE LAB TP 6.3-8.0 g/dL Protein, Total 7.3 LAB ALB 3.9-4.9 g/dL Albumin 4.7 LAB CA 8.5-10.2 mg/dL Calcium, Total 9.4 LAB TBIL 0.2-1.3 mg/dL Bilirubin, Total 0.7 LAB ALKP 38-113 U/L Alkaline Phosphatase 66 LAB AST 14-40 U/L AST 31 LAB GLU 74-99 mg/dL Glucose High 146 Result Comment: The [place] Diabetes Association (ADA) provides guidance for cutoff values for fasting glucose and random glucose. The ADA defines fasting as no caloric intake for at least 8 hours. Fas ting plasma glucose results between 100 to 125 mg/dL indicate increased risk for diabetes (prediabetes). Fasting plasma glucose results greater than or equal to 126 mg/dL meet the criteria for diagnosis of diabetes. In the absence of unequivocal hyperglycemia, results should be confirmed by repeat testing. In a patient with classic symptoms of hyperglycemia or hyperglycemic crisis, random plasma glucose results greater than or equal to 200 mg/dL meet the criteria for diagnosis of diabetes. Reference: Standards of Medical Care in Diabetes 2016, [place] Diabetes Association. Diabetes Care. 2016.39(Suppl 1). LAB BUN 9-24 mg/dL BUN 11 LAB CRET 0.73-1.22 mg/dL Creatinine Low 0.71 LAB NA 136-144 mmol/L Sodium 142 LAB K 3.7-5.1 mmol/L Potassium 4.3 LAB CL 97-105 mmol/L Chloride 100 LAB CO2 22-30 mmol/L CO2 25 LAB AGAP 9-18 mmol/L Anion Gap 17 LAB ALT 10-54 U/L ALT 34 LAB GFRAA eGFR- Amer. >60 LAB GFRNAA . eGFR-All Other Races >60 Result Comment: eGFR (Estimated GFR) Units of measure: mL/min/1.73 meters squared eGFR is derived from the reexpressed MDRD Study equation using the following parameters: serum creatinine, age, gender and race. The creatinine assay has been calibrated to be traceable to IDMS. An eGFR <60 mL/min/1.73m2 for >3 months is consistent with chronic kidney disease. Refer to KDOQI guidelines for clinical interpretation. In patients with unstable renal function, e.g. those with acute kidney injury, the eGFR may not accurately reflect actual GFR. Performed By: #### HBA1C, VITD, CMP #### [facility] [address] [place], [place] [address] PROGRESS Observed: 2018 Status: COMPLETED Source: [place] 9:16 AM [facility] [place] REPOSITORY HNO ID: [id number] Author: Ileana Everett) Cortes Service: (none) Author Type: Physician Type: Progress Notes Filed: 2018 1:24 PM Note Text: Chief Complaint Patient presents with: F/U 3 Month HPI Corie Kilgoer Jr. is a 78 year old male with PMH: dementia who presents here today for 3 month follow up visit. Patient here today by himself. Drove self to appointment. Complaining of pain in his right liu today without recent injury. States that it seems to bother him when he takes his medications in the morning. Denies bruising, swelling, erythema. DIABETES MELLITUS: Mr. Kilgore was last seen 3 months ago. Since our last visit he denies excessive thirst or increased frequency of urination, numbness, tingling or pain in extremities, new or unusual visual symptoms and low sugar/hypoglycemic reactions. Follows a diabetic diet most of the time. He is compliant with medication(s) and is tolerating med(s) without any side effects. He reports checking his glucose on a infrequent to not at all basis schedule. Patient's last HgA1C was Hemoglobin A1C (%) Date Value 11/02/2017 7.0 05/01/2017 6.4 ) Last Ophthalmology exam was more than 12 months ago Last Podiatry exam was within the past 12 months Patient seen back in January for memory impairment by HERMANN Noblelogmonty and was started on Namenda. MRI obtained which no acute findings, but Moderate diffuse parenchymal volume loss and mild sequela of chronic microvascular ischemia noted. Again, endorses the idea that someone is stealing from his house and believes that the police are against him which is why they made him come in for an appointment. Daughter sets pills out in pill box for patient, but patient living alone and still drives himself. Cannot seem to remember important medical events. When asked how long he was on coumadin, thought was only for the last few months, not years. Due for repeat blood work today. Past medical history, appointments, medications, allergies reviewed. Previous Medical History PAST MEDICAL HISTORY Diagnosis Date - ASD (atrial septal defect) - Cerebral vascular disease cva - Degenerative arthritis - Dementia - Diabetes mellitus, type II (HCC) - DVT (deep venous thrombosis) (HCC) - Hard of hearing - HTN (hypertension) - Hyperlipidaemia - PFO (patent foramen ovale) Dr. So - [facility] - TIA (transient ischemic attack) Previous Surgical History PAST SURGICAL HISTORY Procedure Laterality Date - CHOLECYSTECTOMY - HERNIA REPAIR HX - PAST SURGICAL HISTORY OF RK - PAST SURGICAL HISTORY OF Tonsillectomy - PAST SURGICAL HISTORY OF Right and Left shoulder surgery - PAST SURGICAL HISTORY OF chest surgery Family History FAMILY HISTORY Problem Relation Age of Onset - Heart Father - Diabetes Father - Hypertension Mother - Heart Mother - Cancer Sister - Heart Sister Patient Allergies ALLERGIES No Known Allergies Current Medications Current Outpatient Prescriptions on File Prior to Visit: atorvastatin (LIPITOR) 20 mg tablet Take 1 tablet by mouth daily at bedtime. For cholesterol. cholecalciferol (VITAMIN D3) 2,000 unit tablet Take 1 tablet by mouth once daily. DOCOSAHEXANOIC ACID/EPA (FISH OIL ORAL) Take by mouth as directed. losartan (COZAAR) 25 mg tablet Take 1 tablet by mouth once daily. metFORMIN (GLUCOPHAGE) 500 mg tablet Take 1 tablet by mouth daily with breakfast. kzfakbuv-lcj-XJ-lycopen-lutein (CENTRUM SILVER ULTRA MEN'S) 300-600-300 mcg tab Take by mouth. mupirocin (BACTROBAN) 2 % ointment Apply 1 application to affected area three times daily. Location: left arm warfarin (COUMADIN) 3 mg tablet Take 9 mg on Thu and 6mg all other days memantine (NAMENDA) 5 mg tablet Take 1 tablet by mouth twice daily. No current facility-administered medications on file prior to visit. 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 Review of Symptoms REVIEW OF SYSTEMS GENERAL: No weight loss, malaise or fevers RESPIRATORY: Negative for cough, hemoptysis, wheezing, COPD, dyspnea or shortness of breath CARDIOVASCULAR: Negative for chest pain, leg swelling, hypertension, CHF or palpitations GI: No nausea, vomiting, or diarrhea SKIN: Negative for lesions, rash, and itching EXAM: BP 126/82 Pulse 72 Temp 36.2 ?C (97.1 ?F) (Left Tympanic) Resp 12 Wt 87.1 kg (192 lb) BMI 27.75 kg/m? General Appearance: Well appearing, alert, in no acute distress, well-hydrated, well nourished. AOx3, but slow to remember date. Skin: Skin color, texture, turgor normal, no suspicious rashes or lesions. Lungs: lungs clear to auscultation. No wheezing, rhonchi, rales. Heart: RRR without murmur, gallop, or rubs. No ectopy. Abdomen: Normal abdominal exam, Abdomen soft, non-tender. Bowel sounds normal. No masses, organomegaly. Extremities: varicose vein on medial aspect of anterior LE. Nontender, no erythema, no induration. Health Maintenance List COLORECTAL CANCER SCREENING,SEE MODIFIER due on 05/03/2017 DTAP,TDAP,TD(1 - Tdap) due on 11/20/2017 DILATED RETINAL EXAM due on 01/22/2018 STATIN MED ADHERENCE due on 03/09/2018 DIABETES MED ADHERENCE due on 03/09/2018 HBA1C due on 05/05/2018 LDL CHOLESTEROL due on 11/02/2018 URINE ALBUMIN:CREATININE RATIO due on 11/19/2018 DIABETIC FOOT EXAM due on 11/19/2018 ANNUAL PCP TEAM CHRONIC DISEASE VISIT due on 01/08/2019 BP CONTROLLED (<130/80) due on 01/08/2019 ADULT PREVNAR-13 Completed INFLUENZA Completed PNEUMOVAX AGE 65 AND OVER WITH 5YR LOOKBACK Completed Data reviewed Component Latest Ref Rng AND Units 10/30/2017 11/02/2017 11/19/2017 01/05/2018 01/08/2018 02/02/2018 WBC 3.70 - 11.00 k/uL 7.94 RBC 4.20 - 6.00 m/uL 5.00 Hemoglobin 13.0 - 17.0 g/dL 15.3 Hematocrit 39.0 - 51.0 % 46.3 MCV 80.0 - 100.0 fL 92.6 MCH 26.0 - 34.0 pG 30.6 MCHC 30.5 - 36.0 g/dL 33.0 RDW-CV 11.5 - 15.0 % 13.8 Platelet Count 150 - 400 k/uL 198 MPV 9.0 - 12.7 fL 10.7 Neut% % 58.4 Abs Neut (ANC) 1.45 - 7.50 k/uL 4.64 Lymph% % 26.7 Abs Lymph 1.00 - 4.00 k/uL 2.12 [place]% % 12.5 Abs [place] <0.87 k/uL 0.99 (H) Eosin% % 1.6 Abs Eosin <0.46 k/uL 0.13 Baso% % 0.8 Abs Baso <0.11 k/uL 0.06 Nucleated Reds 0 /100 WBC 0.0 Absolute nRBC <0.01 k/uL <0.01 Diff Type Auto Diff Protein, Total 6.3 - 8.0 g/dL 7.8 Albumin 3.9 - 4.9 g/dL 5.0 (H) Calcium 8.5 - 10.2 mg/dL 10.0 Bilirubin, Total 0.2 - 1.3 mg/dL 0.5 Alkaline Phosphatase 36 - 108 U/L 75 AST 14 - 40 U/L 31 Glucose 74 - 99 mg/dL 124 (H) BUN 9 - 24 mg/dL 12 Creatinine 0.73 - 1.22 mg/dL 0.78 Sodium 136 - 144 mmol/L 141 Potassium 3.7 - 5.1 mmol/L 4.6 Chloride 97 - 105 mmol/L 101 CO2 22 - 30 mmol/L 25 Anion Gap 9 - 18 mmol/L 15 ALT 10 - 54 U/L 43 eGFR- >60 eGFR-All Other Races . >60 GLUCOSE UA (POCT) Negative mg/dL Negative BILIRUBIN UA (POCT) Negative Negative KETONE UA (POCT) Negative mg/dL Negative SPECIFIC GRAVITY UA (POCT) 1.005 - 1.030 >=1.030 HEMOGLOBIN/BLOOD UA (POCT) Negative Negative PH UA (POCT) 4.5 - 8.0 6.5 PROTEIN UA (POCT) Negative mg/dL Negative UROBILINOGEN UA (POCT) Normal E.U./dL 0.2 NITRITE UA (POCT) Negative Negative LEUKOCYTES UA (POCT) Negative Negative COLOR UA (POCT) Yellow CLARITY UA (POCT) Clear Cholesterol, Total <200 mg/dL 143 Triglyceride <150 mg/dL 232 (H) HDL Cholesterol >39 mg/dL 44 LDL Cholesterol <100 mg/dL 53 Non HDL Cholesterol <130 mg/dL 99 Fasting Time hrs 10 VLDL Cholesterol <30 mg/dL 46 (H) TC:HDL Ratio <5.10 3.25 LDL:HDL Ratio <2.54 1.20 Creatinine, Ur Random (UCRR) 20 - 300 mg/dL 102.5 Albumin, Urine Random 0.0 - 23.0 mg/L <12.0 Albumin/Creat Ratio 0 - 30 mg/g Not calculated Hemoglobin A1C 4.3 - 5.6 % 7.0 (H) Estimated Average Glucose mg/dL 154 INR (POCT) 0.8 - 1.2 2.1 (H) 1.9 (H) Internal Quality Check Acceptable Acceptable TSH 0.400 - 5.500 uU/mL 2.680 Vitamin B12 232 - 1,245 pg/mL 486 Vitamin D 25 Hydroxy 31.0 - 80.0 ng/mL 22.5 (L) ASSESSMENT/PLAN: 1. Dementia without behavioral disturbance, unspecified dementia type - ICD9: 294.20, ICD10: F03.90 (primary diagnosis) Suspect alzheimers dementia. Patient is not a reliable historian. Requested I speak with his daughter about his symptoms which he was agreeable to. 2. Controlled type 2 diabetes mellitus without complication, without long-term current use of insulin (HCC) - ICD9: 250.00, ICD10: E11.9 Controlled. - Continue current medications - Blood glucose monitoring on a once a day schedule - Encouraged regular aerobic exercise and weight loss - Follow up in 3 months, sooner should any other issues arise. - Discussed diabetic education issues of long term care pharmacist diabetic complications, hypoglycemic symptoms, hyperglycemic symptoms, diet, medications- side effects and need for compliance and importance of exercise with patient. 3. FPC (current) use of anticoagulants - ICD9: V58.61, ICD10: Z79.01 On for history of DVT. Due for repeat INR today. Denies recent bleeding symptoms. 4. Hypertriglyceridemia - ICD9: 272.1, ICD10: E78.1 - suboptimal control - Continue current medication. - Encouraged following a low fat, low cholesterol diet. - Discussed the benefits of regular aerobic exercise and weight loss. 5. Vitamin D insufficiency - ICD9: 268.9, ICD10: E55.9 Recheck vitamin D level today. 6. Varicose veins of right lower extremity with pain - ICD9: 454.8, ICD10: I83.811 Warm compress for any pain. Continue coumadin. I spent 40 minutes in the visit, with more than 50% of the total [id number]-[id number] time of the visit in counseling / coordination of care. Ileana Kolb MD CNOV Observed: 2018 Status: COMPLETED Source: [place] 9:[address] [facility] REPOSITORY Office Visit (FAMPWS) CORIE KILGORE JRFiona ([id number]) 1940 M Date Time Provider Department 02/26/18 9:00 AM [facility] visit today, we recorded the following information about you: Temperature Pulse Respiration Blood pressure 97.1 degrees 72/minute 12/minute 126/82 Weight 87.1 kg Ileana Kolb MD 2018 1:24 PM Signed Chief Complaint Patient presents with: F/U 3 Month HPI Corie Kilgore JrFiona is a 78 year old male with PMH: dementia who presents here today for 3 month follow up visit. Patient here today by himself. Drove self to appointment. Complaining of pain in his right liu today without recent injury. States that it seems to bother him when he takes his medications in the morning. Denies bruising, swelling, erythema. DIABETES MELLITUS: Mr. Kilgore was last seen 3 months ago. Since our last visit he denies excessive thirst or increased frequency of urination, numbness, tingling or pain in extremities, new or unusual visual symptoms and low sugar/hypoglycemic reactions. Follows a diabetic diet most of the time. He is compliant with medication(s) and is tolerating med(s) without any side effects. He reports checking his glucose on a infrequent to not at all basis schedule. Patient's last HgA1C was Hemoglobin A1C (%) Date Value 11/02/2017 7.0 05/01/2017 6.4 ) Last Ophthalmology exam was more than 12 months ago Last Podiatry exam was within the past 12 months Patient seen back in January for memory impairment by HERMANN Denney Podlogmonty and was started on Namenda. MRI obtained which no acute findings, but Moderate diffuse parenchymal volume loss and mild sequela of chronic microvascular ischemia noted. Again, endorses the idea that someone is stealing from his house and believes that the police are against him which is why they made him come in for an appointment. Daughter sets pills out in pill box for patient, but patient living alone and still drives himself. Cannot seem to remember important medical events. When asked how long he was on coumadin, thought was only for the last few months, not years. Due for repeat blood work today. Past medical history, appointments, medications, allergies reviewed. Previous Medical History PAST MEDICAL HISTORY Diagnosis Date - ASD (atrial septal defect) - Cerebral vascular disease cva - Degenerative arthritis - Dementia - Diabetes mellitus, type II (HCC) - DVT (deep venous thrombosis) (HCC) - Hard of hearing - HTN (hypertension) - Hyperlipidaemia - PFO (patent foramen ovale) Dr. So - [facility] - TIA (transient ischemic attack) Previous Surgical History PAST SURGICAL HISTORY Procedure Laterality Date - CHOLECYSTECTOMY - HERNIA REPAIR HX - PAST SURGICAL HISTORY OF RK - PAST SURGICAL HISTORY OF Tonsillectomy - PAST SURGICAL HISTORY OF Right and Left shoulder surgery - PAST SURGICAL HISTORY OF chest surgery Family History FAMILY HISTORY Problem Relation Age of Onset - Heart Father - Diabetes Father - Hypertension Mother - Heart Mother - Cancer Sister - Heart Sister Patient Allergies ALLERGIES No Known Allergies Current Medications Current Outpatient Prescriptions on File Prior to Visit: atorvastatin (LIPITOR) 20 mg tablet Take 1 tablet by mouth daily at bedtime. For cholesterol. cholecalciferol (VITAMIN D3) 2,000 unit tablet Take 1 tablet by mouth once daily. DOCOSAHEXANOIC ACID/EPA (FISH OIL ORAL) Take by mouth as directed. losartan (COZAAR) 25 mg tablet Take 1 tablet by mouth once daily. metFORMIN (GLUCOPHAGE) 500 mg tablet Take 1 tablet by mouth daily with breakfast. lxqihriy-qcm-VO-lycopen-lutein (CENTRUM SILVER ULTRA MEN'S) 300-600-300 mcg tab Take by mouth. mupirocin (BACTROBAN) 2 % ointment Apply 1 application to affected area three times daily. Location: left arm warfarin (COUMADIN) 3 mg tablet Take 9 mg on Thu and 6mg all other days memantine (NAMENDA) 5 mg tablet Take 1 tablet by mouth twice daily. No current facility-administered medications on file prior to visit. 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 Review of Symptoms REVIEW OF SYSTEMS GENERAL: No weight loss, malaise or fevers RESPIRATORY: Negative for cough, hemoptysis, wheezing, COPD, dyspnea or shortness of breath CARDIOVASCULAR: Negative for chest pain, leg swelling, hypertension, CHF or palpitations GI: No nausea, vomiting, or diarrhea SKIN: Negative for lesions, rash, and itching EXAM: BP 126/82 Pulse 72 Temp 36.2 ?C (97.1 ?F) (Left Tympanic) Resp 12 Wt 87.1 kg (192 lb) BMI 27.75 kg/m? General Appearance: Well appearing, alert, in no acute distress, well-hydrated, well nourished. AOx3, but slow to remember date. Skin: Skin color, texture, turgor normal, no suspicious rashes or lesions. Lungs: lungs clear to auscultation. No wheezing, rhonchi, rales. Heart: RRR without murmur, gallop, or rubs. No ectopy. Abdomen: Normal abdominal exam, Abdomen soft, non-tender. Bowel sounds normal. No masses, organomegaly. Extremities: varicose vein on medial aspect of anterior LE. Nontender, no erythema, no induration. Health Maintenance List COLORECTAL CANCER SCREENING,SEE MODIFIER due on 05/03/2017 DTAP,TDAP,TD(1 - Tdap) due on 11/20/2017 DILATED RETINAL EXAM due on 01/22/2018 STATIN MED ADHERENCE due on 03/09/2018 DIABETES MED ADHERENCE due on 03/09/2018 HBA1C due on 05/05/2018 LDL CHOLESTEROL due on 11/02/2018 URINE ALBUMIN:CREATININE RATIO due on 11/19/2018 DIABETIC FOOT EXAM due on 11/19/2018 ANNUAL PCP TEAM CHRONIC DISEASE VISIT due on 01/08/2019 BP CONTROLLED (<130/80) due on 01/08/2019 ADULT PREVNAR-13 Completed INFLUENZA Completed PNEUMOVAX AGE 65 AND OVER WITH 5YR LOOKBACK Completed Data reviewed Component Latest Ref Rng AND Units 10/30/2017 11/02/2017 11/19/2017 01/05/2018 01/08/2018 02/02/2018 WBC 3.70 - 11.00 k/uL 7.94 RBC 4.20 - 6.00 m/uL 5.00 Hemoglobin 13.0 - 17.0 g/dL 15.3 Hematocrit 39.0 - 51.0 % 46.3 MCV 80.0 - 100.0 fL 92.6 MCH 26.0 - 34.0 pG 30.6 MCHC 30.5 - 36.0 g/dL 33.0 RDW-CV 11.5 - 15.0 % 13.8 Platelet Count 150 - 400 k/uL 198 MPV 9.0 - 12.7 fL 10.7 Neut% % 58.4 Abs Neut (ANC) 1.45 - 7.50 k/uL 4.64 Lymph% % 26.7 Abs Lymph 1.00 - 4.00 k/uL 2.12 [place]% % 12.5 Abs [place] <0.87 k/uL 0.99 (H) Eosin% % 1.6 Abs Eosin <0.46 k/uL 0.13 Baso% % 0.8 Abs Baso <0.11 k/uL 0.06 Nucleated Reds 0 /100 WBC 0.0 Absolute nRBC <0.01 k/uL <0.01 Diff Type Auto Diff Protein, Total 6.3 - 8.0 g/dL 7.8 Albumin 3.9 - 4.9 g/dL 5.0 (H) Calcium 8.5 - 10.2 mg/dL 10.0 Bilirubin, Total 0.2 - 1.3 mg/dL 0.5 Alkaline Phosphatase 36 - 108 U/L 75 AST 14 - 40 U/L 31 Glucose 74 - 99 mg/dL 124 (H) BUN 9 - 24 mg/dL 12 Creatinine 0.73 - 1.22 mg/dL 0.78 Sodium 136 - 144 mmol/L 141 Potassium 3.7 - 5.1 mmol/L 4.6 Chloride 97 - 105 mmol/L 101 CO2 22 - 30 mmol/L 25 Anion Gap 9 - 18 mmol/L 15 ALT 10 - 54 U/L 43 eGFR- >60 eGFR-All Other Races . >60 GLUCOSE UA (POCT) Negative mg/dL Negative BILIRUBIN UA (POCT) Negative Negative KETONE UA (POCT) Negative mg/dL Negative SPECIFIC GRAVITY UA (POCT) 1.005 - 1.030 >=1.030 HEMOGLOBIN/BLOOD UA (POCT) Negative Negative PH UA (POCT) 4.5 - 8.0 6.5 PROTEIN UA (POCT) Negative mg/dL Negative UROBILINOGEN UA (POCT) Normal E.U./dL 0.2 NITRITE UA (POCT) Negative Negative LEUKOCYTES UA (POCT) Negative Negative COLOR UA (POCT) Yellow CLARITY UA (POCT) Clear Cholesterol, Total <200 mg/dL 143 Triglyceride <150 mg/dL 232 (H) HDL Cholesterol >39 mg/dL 44 LDL Cholesterol <100 mg/dL 53 Non HDL Cholesterol <130 mg/dL 99 Fasting Time hrs 10 VLDL Cholesterol <30 mg/dL 46 (H) TC:HDL Ratio <5.10 3.25 LDL:HDL Ratio <2.54 1.20 Creatinine, Ur Random (UCRR) 20 - 300 mg/dL 102.5 Albumin, Urine Random 0.0 - 23.0 mg/L <12.0 Albumin/Creat Ratio 0 - 30 mg/g Not calculated Hemoglobin A1C 4.3 - 5.6 % 7.0 (H) Estimated Average Glucose mg/dL 154 INR (POCT) 0.8 - 1.2 2.1 (H) 1.9 (H) Internal Quality Check Acceptable Acceptable TSH 0.400 - 5.500 uU/mL 2.680 Vitamin B12 232 - 1,245 pg/mL 486 Vitamin D 25 Hydroxy 31.0 - 80.0 ng/mL 22.5 (L) ASSESSMENT/PLAN: 1. Dementia without behavioral disturbance, unspecified dementia type - ICD9: 294.20, ICD10: F03.90 (primary diagnosis) Suspect alzheimers dementia. Patient is not a reliable historian. Requested I speak with his daughter about his symptoms which he was agreeable to. 2. Controlled type 2 diabetes mellitus without complication, without long-term current use of insulin (HCC) - ICD9: 250.00, ICD10: E11.9 Controlled. - Continue current medications - Blood glucose monitoring on a once a day schedule - Encouraged regular aerobic exercise and weight loss - Follow up in 3 months, sooner should any other issues arise. - Discussed diabetic education issues of long term care pharmacist diabetic complications, hypoglycemic symptoms, hyperglycemic symptoms, diet, medications- side effects and need for compliance and importance of exercise with patient. 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 Due for repeat INR today. Denies recent bleeding symptoms. 4. Hypertriglyceridemia - ICD9: 272.1, ICD10: E78.1 - suboptimal control - Continue current medication. - Encouraged following a low fat, low cholesterol diet. - Discussed the benefits of regular aerobic exercise and weight loss. 5. Vitamin D insufficiency - ICD9: 268.9, ICD10: E55.9 Recheck vitamin D level today. 6. Varicose veins of right lower extremity with pain - ICD9: 454.8, ICD10: I83.811 Warm compress for any pain. Continue coumadin. I spent 40 minutes in the visit, with more than 50% of the total khsz-rg-yzit time of the visit in counseling / coordination of care. Ileana Kolb MD Referring Provider: ILEANA KOLB) [[id number]] Allergies As of Date: 2018 (No Known Allergies) Date Reviewed: 2018 Reviewed by: Raquel Bhagat Ma - Fully Assessed Reason for Visit: F/U 3 Month [443] Primary Visit Diagnosis:Dementia without behavioral disturbance, unspecified dementia type [F03.90] Other Visit Diagnoses:Controlled type 2 diabetes mellitus without complication, without long-term current use of insulin (HCC) [E11.9] termite control technician (current) use of anticoagulants [Z79.01] Hypertriglyceridemia [E78.1] Vitamin D insufficiency [E55.9] Varicose veins of right lower extremity with pain [I83.811] Prescriptions as of 2018 Sig: ATORVASTATIN 20 MG TABLET Take 1 tablet by mouth daily * CHOLECALCIFEROL (VITAMIN D3) * Take 1 tablet by mouth once d* FISH OIL ORAL Take by mouth as directed. LOSARTAN 25 MG TABLET Take 1 tablet by mouth once d* METFORMIN 500 MG TABLET Take 1 tablet by mouth daily * [id number]-TVF-FBTCH ACID 300 M* Take by mouth. MUPIROCIN 2 % TOPICAL OINTMENT Apply 1 application to affect* WARFARIN 3 MG TABLET Take 9 mg on Wed and 6mg all * MEMANTINE 5 MG TABLET Take 1 tablet by mouth twice * Problem List As Of Date 2018 Noted Resolved Pain in joint, shoulder region [M25.519] INVALID FOR* Hyperglycemia [R73.9] INVALID FOR*10/30/2017 Hypertriglyceridemia [E78.1] INVALID FOR* Diabetes mellitus type 2, controlled, without c*INVALID FOR* Patent foramen ovale [Q21.1] INVALID FOR* ASD (atrial septal defect) [Q21.1] INVALID FOR* More... FPC (current) use of anticoagulants [Z79.*INVALID FOR* DVT (deep venous thrombosis) ([facility]) [I82.409] INVALID FOR* H/O: CVA (cerebrovascular accident) [Z86.73] INVALID FOR* Right bundle branch block [I45.10] INVALID FOR* Rotator cuff (capsule) sprain [S43.429A] INVALID FOR* Primary localized osteoarthrosis of shoulder re*INVALID FOR* Left-sided low back pain with left-sided sciati*INVALID FOR* Rotator cuff arthropathy, right [M12.811] INVALID FOR* Diabetic polyneuropathy associated with type 2 *INVALID FOR* Age-related physical debility [R54] INVALID FOR* Dementia without behavioral disturbance [F03.90]INVALID FOR* Disposition: Return in about 3 months (around 05/27/2018). Follow-up and Disposition History Recorded Encounter Status:Closed by ILEANA KOLB MD on 02/26/18 PROGRESS Observed: 02/02/2018 Status: COMPLETED Source: [place] 4:47 PM [facility] REPOSITORY O ID: [id number] Author: Nasreen Treviño RN Service: (none) Author Type: (none) Type: Progress Notes Filed: 02/02/2018 4:48 PM Note Text: left message for patients daughter to contact office to reschedule appt PROGRESS Observed: 02/02/2018 Status: COMPLETED Source: [place] 11:[address] [facility] REPOSITORY HNO ID: [id number] Author: Ileana Everett) Cortes Service: (none) Author Type: Physician Type: Progress Notes Filed: 02/02/2018 11:51 AM Note Text: INR slightly subtherapeutic. Avoid leafy green vegetables. Recheck INR in 1 week. No change in regimen. PROGRESS Observed: 02/02/2018 Status: COMPLETED Source: [place] 8:[address] [facility] REPOSITORY HNO ID: [id number] Author: Nasreen Treviño RN Service: (none) Author Type: (none) Type: Progress Notes Filed: 02/02/2018 8:59 AM Note Text: patient had inr completed at [facility] patients inr is 1.9 (patients inr range is 2.0-3.0) patient is currently taking 6mg daily patients last dose change was on 11/06/17 due to a high level of 4.4 (dose at that time was 9mg Wed and 6mg all other days) patient has had no changes in medication and one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 patients for the clinician. J Psychiatr Res. 1975; 12:189-198. 2. JR Wil, Neil TITUS, Mini-Mental State Examination (MMSE). Psychopharm Bull. 1988;24:689-692. 3. Jamari JT, Tony FJ, Claude RD, Lebron A, Opal F. Neuropsychological function in Alzheimer's disease: pattern of impairment and rates of progression. Arch Neurol. 1988;45:263-268. 4. Donis JA, Cayden B, Simeon S- P, Heather MESSER. Predictors of cognitive and functional progression in patients with probable Alzheimer's disease. Neurology. 1992;42:6116-4528. Little or no interest or pleasure in doing things 0 Not at all Feeling down, depressed, or hopeless 1 Several days Trouble falling or staying asleep, or sleeping too much 0 Not all all Feeling tired or having little energy 0 Not at all Poor appetite or overeating 0 Not at all Feeling bad about yourself- or that you are a failure or having let yourself or your family down 0 Not at all Trouble concentrating on things, such as reading the newpaper or watching television 0 Not at all Moving or speaking so slowly that other people could have noticed? Or the opposite- being so fidgety or restless that you have been moving around a lot more than usual 0 Not at all Thoughts that you would be better off or of hurting yourself in some way 0 Not at all PHQ9P Score 1 If you checked off any problems, how difficult have these problems made it for you to do your work, take care of things at home, or get along with other people? Not difficult at all Feeling nervous, anxious, or on edge 1 Several days Not being able to stop or control worrying 2 Over half the days Worrying too much about different things 2 Over half the days Trouble relaxing 0 Not at all sure Being so restless that it's hard to sit still 0 Not at all sure Being easily annoyed or irritable 1 Several days Feeling afraid as if something awful might happen 1 Several days MAKEDA-7 Anxiety Score 7 If you checked off any problems, how difficult have these problems made it for you to do your work, take care of things at home, or get along with other people? Somewhat difficult PAST MEDICAL HISTORY Diagnosis Date - ASD (atrial septal defect) - Cerebral vascular disease cva - Degenerative arthritis - Diabetes mellitus, type II (HCC) - DVT (deep venous thrombosis) (HCC) - Hard of hearing - HTN (hypertension) - Hyperlipidaemia - PFO (patent foramen ovale) Dr. So - RBBB - TIA (transient ischemic attack) ALLERGIES Patient has no known allergies. MEDICATIONS Current Outpatient Prescriptions: mupirocin (BACTROBAN) 2 % ointment Apply 1 application to affected area three times daily. Location: left arm cholecalciferol (VITAMIN D3) 2,000 unit tablet Take 1 tablet by mouth once daily. lisinopril (PRINIVIL) 5 mg tablet Take 1 tablet by mouth once daily. atorvastatin (LIPITOR) 20 mg tablet Take 1 tablet by mouth daily at bedtime. For cholesterol. warfarin (COUMADIN) 3 mg tablet Take 9 mg on Thu and 6mg all other days metFORMIN (GLUCOPHAGE) 500 mg tablet Take 1 tablet by mouth daily with breakfast. DOCOSAHEXANOIC ACID/EPA (FISH OIL ORAL) Take by mouth as directed. llscefre-jki-YW-lycopen-lutein (CENTRUM SILVER ULTRA MEN'S) 300-600-300 mcg tab Take by mouth. No current facility-administered medications for this visit. Medications and allergies reviewed by this provider. 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 REVIEW OF SYSTEMS GENERAL: No weight loss, malaise or fevers RESPIRATORY: Negative for cough, hemoptysis, wheezing, COPD, dyspnea or shortness of breath CARDIOVASCULAR: Negative for chest pain, leg swelling, hypertension, CHF or palpitations PSYCH: See HPI ENDOCRINE: Negative for cold or heat intolerance, polyuria, polydipsia and goiter NEURO: No history of headaches, syncope, paralysis, seizures or tremors All other reviewed and negative other than HPI. OBJECTIVE: BP 122/62 (BP Site: Left Arm, BP Position: Sitting, BP Cuff Size: Regular Adult) Pulse 72 Resp 18 Wt 85.8 kg (189 lb 1.9 oz) BMI 27.33 kg/m? . Vital signs reviewed by this provider. APPEARANCE Well appearing, alert, in no acute distress, well- hydrated, well nourished. HEART RRR with normal S1 and S2, no murmurs, no gallops, no JVD appreciated LUNG clear to auscultation. No wheezes, rhonchi, or rales. EXTREMITIES Extremities normal, No deformities, No skin discoloration and No edema NEURO Awake, alert and oriented x 3, Cranial nerves II-XII grossly intact, Reflexes symmetrical, Normal gait, No involuntary motions. and negative findings: speech normal, cranial nerves 2-12 intact, muscle tone normal, muscle strength normal, rapid alternating movements normal, finger to nose normal, reflexes normal and symmetric, plantar response downgoing bilaterally SKIN Skin color, texture, turgor normal, no suspicious rashes or lesions Component Latest Ref Rng AND Units 10/30/2017 11/02/2017 WBC 3.70 - 11.00 k/uL 7.94 RBC 4.20 - 6.00 m/uL 5.00 Hemoglobin 13.0 - 17.0 g/dL 15.3 Hematocrit 39.0 - 51.0 % 46.3 MCV 80.0 - 100.0 fL 92.6 MCH 26.0 - 34.0 pG 30.6 MCHC 30.5 - 36.0 g/dL 33.0 RDW-CV 11.5 - 15.0 % 13.8 Platelet Count 150 - 400 k/uL 198 MPV 9.0 - 12.7 fL 10.7 Neut% % 58.4 Abs Neut (ANC) 1.45 - 7.50 k/uL 4.64 Lymph% % 26.7 Abs Lymph 1.00 - 4.00 k/uL 2.12 [place]% % 12.5 Abs [place] <0.87 k/uL 0.99 (H) Eosin% % 1.6 Abs Eosin <0.46 k/uL 0.13 Baso% % 0.8 Abs Baso <0.11 k/uL 0.06 Nucleated Reds 0 /100 WBC 0.0 Absolute nRBC <0.01 k/uL <0.01 Diff Type Auto Diff Protein, Total 6.3 - 8.0 g/dL 7.8 Albumin 3.9 - 4.9 g/dL 5.0 (H) Calcium 8.5 - 10.2 mg/dL 10.0 Bilirubin, Total 0.2 - 1.3 mg/dL 0.5 Alkaline Phosphatase 36 - 108 U/L 75 AST 14 - 40 U/L 31 Glucose 74 - 99 mg/dL 124 (H) BUN 9 - 24 mg/dL 12 Creatinine 0.73 - 1.22 mg/dL 0.78 Sodium 136 - 144 mmol/L 141 Potassium 3.7 - 5.1 mmol/L 4.6 Chloride 97 - 105 mmol/L 101 CO2 22 - 30 mmol/L 25 Anion Gap 9 - 18 mmol/L 15 ALT 10 - 54 U/L 43 eGFR- >60 eGFR-All Other Races . >60 Cholesterol, Total <200 mg/dL 143 Triglyceride <150 mg/dL 232 (H) HDL Cholesterol >39 mg/dL 44 LDL Cholesterol <100 mg/dL 53 Non HDL Cholesterol <130 mg/dL 99 Fasting Time hrs 10 VLDL Cholesterol <30 mg/dL 46 (H) TC:HDL Ratio <5.10 3.25 LDL:HDL Ratio <2.54 1.20 Hemoglobin A1C 4.3 - 5.6 % 7.0 (H) Estimated Average Glucose mg/dL 154 TSH 0.400 - 5.500 uU/mL 2.680 Vitamin B12 232 - 1,245 pg/mL 486 Vitamin D 25 Hydroxy 31.0 - 80.0 ng/mL 22.5 (L) COLORECTAL CANCER SCREENING,SEE MODIFIER due on 05/03/2017 DTAP,TDAP,TD(1 - Tdap) due on 11/20/2017 DILATED RETINAL EXAM due on 01/22/2018 STATIN MED ADHERENCE due on 02/06/2018 DIABETES MED ADHERENCE due on 02/06/2018 HBA1C due on 05/05/2018 LDL CHOLESTEROL due on 11/02/2018 URINE ALBUMIN:CREATININE RATIO due on 11/19/2018 DIABETIC FOOT EXAM due on 11/19/2018 ANNUAL PCP TEAM CHRONIC DISEASE VISIT due on 01/08/2019 BP CONTROLLED (<130/80) due on 01/08/2019 ADULT PREVNAR-13 Completed INFLUENZA Completed PNEUMOVAX AGE 65 AND OVER WITH 5YR LOOKBACK Completed MMSE on 10/30/2017 MMSE today ASSESSMENT/PLAN: 1. Memory impairment of gradual onset - ICD9: 780.93, ICD10: R41.3 (primary diagnosis) - possibly worsening dementia- possibly vascular component - has had recent labs for vitamin levels, thyroid, CBC,and CMP - discussed with daughter and patient I highly recommend firearms be removed from residence today along with not driving- daughter reports she will remove firearms today- father agrees to let her do this - discussed if he would develop aggressive behavior she should take him to hospital for evaluation - discussed that I will have social work reach out to daughter to discuss options and give list of community resources - UA DIP, URINE (POC) - MEMANTINE 5 MG TABLET - MRI BRAIN WO IVCON - PRIMARY CARE SOCIAL WORK CONSULT - follow-up with Dr. Kolb in 1 month, sooner if needed 2. Late onset Alzheimer's disease without behavioral disturbance - ICD9: 331.0, 294.10, ICD10: G30.1, F02.80 -plan as above - MRI BRAIN WO IVCON 3. Persistent dry cough - ICD9: 786.2, ICD10: R05 - possibly related to lisinopril- will change - no red flag exam findings - red flag symptoms discussed, verbalizes understanding - LOSARTAN 25 MG TABLET - follow-up if persisting or worsening, to ER with red flag sympotms Jumana Podlogmonty, JASON.STOGIE PACKER Plan developed with input from PCP- Dr. Kolb Prescription instructions reviewed with patient as applicable. Patient advised if symptoms do not improve or if symptoms worsen sooner, to contact their primary care physician. Potential red flag symptoms discussed with the patient. Reviewed appropriate action plan to take if red flag symptoms occur. Patient agreeable to treatment plan. During this patient visit I have spent approximately 25 minutes in counseling regarding treatment options, medications and test results. Referring Provider: SELF [[id number]] Allergies As of Date: 01/08/2018 (No Known Allergies) Date Reviewed: 01/08/2018 Reviewed by: Jennifer Castañeda (Review Analyst) LUIS MANUEL Payne - Fully Assessed Reason for Visit: Mood [1090] Cmt: mood changes Primary Visit Diagnosis:Memory impairment of gradual onset [R41.3] Other Visit Diagnoses:Late onset Alzheimer's disease without behavioral disturbance [G30.1, F02.80] Persistent dry cough [R05] Order(s):UA DIP, URINE (POC) [[id number]] Order #: [id number]. #:[id number] losartan (COZAAR) 25 mg tabletTake 1 tablet by mouth once daily.Disp: 30 tabletRfl: 3 memantine (NAMENDA) 5 mg tabletTake 1 tablet by mouth twice daily.Disp: 30 tabletRfl: 3 MRI BRAIN WO IVCON [[id number]] Order #: [id number] [facility] PRIMARY CARE SOCIAL WORK CONSULT [[id number]] Order #: [id number]: 1 Prescriptions as of 01/08/2018 Sig: MUPIROCIN 2 % TOPICAL OINTMENT Apply 1 application to affect* CHOLECALCIFEROL (VITAMIN D3) * Take 1 tablet by mouth once d* ATORVASTATIN 20 MG TABLET Take 1 tablet by mouth daily * WARFARIN 3 MG TABLET Take 9 mg on Wed and 6mg all * METFORMIN 500 MG TABLET Take 1 tablet by mouth daily * FISH OIL ORAL Take by mouth as directed. OKAEBAFR-XIG-EVRNO ACID 300 M* Take by mouth. 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 [Z79.*INVALID FOR* DVT (deep venous thrombosis) ([facility]) [I82.409] INVALID FOR* H/O: CVA (cerebrovascular accident) [Z86.73] INVALID FOR* Right bundle branch block [I45.10] INVALID FOR* Rotator cuff (capsule) sprain [S43.429A] INVALID FOR* Primary localized osteoarthrosis of shoulder re*INVALID FOR* Left-sided low back pain with left-sided sciati*INVALID FOR* Rotator cuff arthropathy, right [M12.811] INVALID FOR* Diabetic polyneuropathy associated with type 2 *INVALID FOR* Age-related physical debility [R54] INVALID FOR* Prescriptions ordered this encounter Disp Refills Start End LOSARTAN 25 MG TABLET 30 t* 3 01/08/2018 Route: ORAL Sig: Take 1 tablet by mouth once daily. MEMANTINE 5 MG TABLET 30 t* 3 01/08/2018 Route: ORAL Sig: Take 1 tablet by mouth twice daily. Medications Discontinued During This Encounter lisinopril (PRINIVIL) 5 mg tablet 90 t* 1 10/22/2017 01/08/2018 Route: ORAL Sig: Take 1 tablet by mouth once daily. Disc: Changing Therapy/Dosage Form Follow-up and Disposition History Recorded Questionnaire: PHQ9P Little or no interest or pleasure in doing things -> 0 Not at all Feeling down, depressed, or hopeless -> 1 Several days Trouble falling or staying asleep, or sleeping too much - > 0 Not all all Feeling tired or having little energy -> 0 Not at all Poor appetite or overeating -> 0 Not at all Feeling bad about yourself- or that you are a failure or having let yourself or your family down -> 0 Not at all Trouble concentrating on things, such as reading the newpaper or watching television -> 0 Not at all Moving or speaking so slowly that other people could have noticed? Or the opposite- being so fidgety or restless that you have been moving around a lot more than usual -> 0 Not at all Thoughts that you would be better off or of hurting yourself in some way -> 0 N- o- t a- t a- ll PHQ9P Score -> 1 If you checked off any problems, how difficult have these problems made it for you to do your work, take care of things at home, or get along with other people? -> Not difficult at all Questionnaire: MAKEDA-7 ANXIETY SCALE Feeling nervous, anxious, or on edge -> 1 Several days Not being able to stop or control worrying -> 2 Over half the days Worrying too much about different things -> 2 Over half the days Trouble relaxing -> 0 Not at all sure Being so restless that it's hard to sit still -> 0 Not at all sure Being easily annoyed or irritable -> 1 Several days Feeling afraid as if something awful might happen -> 1 Several days MAKEDA-7 Anxiety Score -> 7 If you checked off any problems, how difficult have these problems made it for you to do your work, take care of things at home, or get along with other people? -> Somewhat difficult Encounter Status:Closed by JUMANA VIVAS CNP on 01/11/18 PROGRESS Observed: 01/05/2018 Status: COMPLETED Source: [place] 1:[address] [facility] REPOSITORY HNO ID: [id number] Author: Nasreen Treviño RN Service: (none) Author Type: (none) Type: Progress Notes Filed: 01/05/2018 1:00 PM Note Text: left message for daughter to contact office to reschedule appt PROGRESS Observed: 01/05/2018 Status: COMPLETED Source: [place] 12:[address] [facility] REPOSITORY HNO ID: [id number] Author: Ileana Kolb Service: (none) Author Type: Physician Type: Progress Notes Filed: 01/05/2018 12:50 PM Note Text: INR therapeutic. Continue current coumadin dosage and follow up in 2 weeks. PROGRESS Observed: 01/05/2018 Status: COMPLETED Source: [place] 8:[address] [facility] REPOSITORY HNO ID: [id number] Author: Nasreen Treviño RN Service: (none) Author Type: (none) Type: Progress Notes Filed: 01/05/2018 8:32 AM Note Text: patient had inr completed at [facility] patients inr is 2.1 (patients inr range is 2.0-3.0) patient is currently taking 6mg daily patients last dose change was on 11/06/17 due to a high level of 4.4 (dose at that time was 9mg Wed and 6mg all other days) patient has had no changes in medication and no missed doses and no change in diet Advised patient to continue on the same dose(s) and that they would only be contacted regarding dosage and follow up instructions after review with provider, if a change is needed. Written instructions given and patient verbalized understanding. Presently scheduled in 4 weeks (02/02/18) for follow up INR. If there are any changes please call patients daughter with updates. PROGRESS Observed: 01/01/2018 Status: COMPLETED Source: [place] 2:[address] [facility] REPOSITORY HNO ID: [id number] Author: Nilam Pandya Service: (none) Author Type: Physician Type: Progress Notes Filed: 01/01/2018 2:46 PM Note Text: Subjective: Patient presents to clinic c/o painful toenails. They state that the nails are especially painful with shoe gear and pressure. Patient states that nails 1-5 b/l are painful. Patient admits to being diabetic but does not check his sugars. No other pedal complaints at this time. Patient states no change in medications or medical history since last visit. Objective: Patient presents to clinic ambulating in tennis shoes Vasc: DP and PT pulses are palpable bilateral. CFT is less than 5 seconds bilateral. Skin temperature is warm to cool proximal to distal bilateral. There is no edema or varicosities noted. Neuro: Protective sensation is intact to the foot and toes when tested with the 5.07 SWM bilateral. Vibratory sensation is decreased at the hallux IPJ bilateral. The hallux is downgoing bilateral. Derm: Nails 1-5 b/l are painful, discolored-yellow, thick, crumbly, dystrophic and with subungal debris. Skin is of normal turgor, texture and hair growth is present bilateral. There are Hyperkeratosis to right hallux. no ulcerations, scars, verruca or other lesions noted. Ortho: Muscle strength is 5/5 for all pedal groups tested. Ankle joint DF is full with the knee extended with no pain or crepitus noted. 1st MPJ ROM is full bilateral. Mild bunions present b/l. Assessment: (B35.1) Onychomycosis (primary encounter diagnosis) (M79.675) Pain in toe of left foot (M79.674) Pain in toe of right foot (L85.9) Hyperkeratosis (E11.49) Other diabetic neurological complication associated with type 2 diabetes mellitus (HCC) Plan: Patient was seen and evaluated. Nails 1-5 bilateral were debrided in length and thickness. Callus filed to right foot as courtesy with sanding disk. He declined diabetic shoes. Patient was instructed on the continued importance of diabetic foot care along with proper diet and keeping their blood sugar under control to prevent complications. Patient is to RTC in 3-4 months. Nilam Pandya DPM PROGRESS Observed: 01/01/2018 Status: COMPLETED Source: [place] 2:[address] [facility] REPOSITORY HNO ID: [id number] Author: Casi Lopez MA Service: (none) Author Type: (none) Type: Progress Notes Filed: 01/01/2018 2:46 PM Note Text: AMB ROOMING INTAKE FLOWSHEET DATA Risk Screening Do you have concerns about personal safety or safety in the home?: No Patient is present for 3 month nail care. Patient is diabetic has not check blood sugar in 3 years. Patient has no complaints. CNOV Observed: 01/01/2018 Status: COMPLETED Source: [place] 2:[address] [facility] REPOSITORY Office Visit (PODIWS) CORIE KILGORE JR. ([id number]) 1940 M Date Time Provider Department 01/01/18 2:00 PM NILAM PANDYA During your visit today, we recorded the following information about you: Casi Lopez MA 01/01/2018 2:46 PM Signed AMB ROOMING INTAKE FLOWSHEET DATA Risk Screening Do you have concerns about personal safety or safety in the home?: No Patient is present for 3 month nail care. Patient is diabetic has not check blood sugar in 3 years. Patient has no complaints. Nilam Pandya DPM 01/01/2018 2:46 PM Signed Subjective: Patient presents to clinic c/o painful toenails. They state that the nails are especially painful with shoe gear and pressure. Patient states that nails 1-5 b/l are painful. Patient admits to being diabetic but does not check his sugars. No other pedal complaints at this time. Patient states no change in medications or medical history since last visit. Objective: Patient presents to clinic ambulating in tennis shoes Vasc: DP and PT pulses are palpable bilateral. CFT is less than 5 seconds bilateral. Skin temperature is warm to cool proximal to distal bilateral. There is no edema or varicosities noted. Neuro: Protective sensation is intact to the foot and toes when tested with the 5.07 SWM bilateral. Vibratory sensation is decreased at the hallux IPJ bilateral. The hallux is downgoing bilateral. Derm: Nails 1-5 b/l are painful, discolored-yellow, thick, crumbly, dystrophic and with subungal debris. Skin is of normal turgor, texture and hair growth is present bilateral. There are Hyperkeratosis to right hallux. no ulcerations, scars, verruca or other lesions noted. Ortho: Muscle strength is 5/5 for all pedal groups tested. Ankle joint DF is full with the knee extended with no pain or crepitus noted. 1st MPJ ROM is full bilateral. Mild bunions present b/l. Assessment: (B35.1) Onychomycosis (primary encounter diagnosis) (M79.675) Pain in toe of left foot (M79.674) Pain in toe of right foot (L85.9) Hyperkeratosis (E11.49) Other diabetic neurological complication associated with type 2 diabetes mellitus (HCC) Plan: Patient was seen and evaluated. Nails 1-5 bilateral were debrided in length and thickness. Callus filed to right foot as courtesy with sunnying sri. He declined diabetic shoes. Patient was instructed on the continued importance of diabetic foot care along with proper diet and keeping their blood sugar under control to prevent complications. Patient is to RTC in 3-4 months. Nilam Pandya DPM Referring Provider: NILAM PANDYA [[id number]] Allergies As of Date: 01/01/2018 (No Known Allergies) Date Reviewed: 01/01/2018 Reviewed by: Casi Lopez MA - Fully Assessed Reason for Visit: Nail Check [763] Primary Visit Diagnosis:Onychomycosis [B35.1] Other Visit Diagnoses:Pain in toe of left foot [M79.675] Pain in toe of right foot [M79.674] Hyperkeratosis [L85.9] Other diabetic neurological complication associated with type 2 diabetes mellitus (HCC) [E11.49] Prescriptions as of 01/01/2018 Sig: MUPIROCIN 2 % TOPICAL OINTMENT Apply 1 application to affect* CHOLECALCIFEROL (VITAMIN D3) * Take 1 tablet by mouth once d* LISINOPRIL 5 MG TABLET Take 1 tablet by mouth once d* ATORVASTATIN 20 MG TABLET Take 1 tablet by mouth daily * WARFARIN 3 MG TABLET Take 9 mg on Thu and 6mg all * METFORMIN 500 MG TABLET Take 1 tablet by mouth daily * FISH OIL ORAL Take by mouth as directed. DBOCGZSW-BWV-BMBCK ACID 300 M* Take by mouth. 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 [Z79.*INVALID FOR* DVT (deep venous thrombosis) ([facility]) [I82.409] INVALID FOR* H/O: CVA (cerebrovascular accident) [Z86.73] INVALID FOR* Right bundle branch block [I45.10] INVALID FOR* Rotator cuff (capsule) sprain [S43.429A] INVALID FOR* Primary localized osteoarthrosis of shoulder re*INVALID FOR* Left-sided low back pain with left-sided sciati*INVALID FOR* Rotator cuff arthropathy, right [M12.811] INVALID FOR* Diabetic polyneuropathy associated with type 2 *INVALID FOR* Age-related physical debility [R54] INVALID FOR* Disposition: Return in about 3 months (around 04/03/2018) for nail care. Follow-up and Disposition History Recorded Encounter Status:Closed by NILAM PANDYA DPM on 01/01/18 ALBUMIN/CREAT RATIO Collected: 11/19/2017 Status: F Source: [place] 9:[address] [facility] REPOSITORY TYPE CODE TESTS RESULT OUT OF REFERENCE UNITS RANGE LAB UCRR 20-300 mg/dL 102.5 Creatinine,Ur ine,Ran LAB UALBR 0.0-23.0 mg/L <12.0 Albumin Urine Random LAB UALBCR 0-30 mg/g Not Albumin/Creat calculated Ratio Performed By: #### UACR #### [facility] [address], [place] [address] PROGRESS Observed: 11/19/2017 Status: COMPLETED Source: [place] 8:[address] [facility] REPOSITORY HNO ID: [id number] Author: Cheko Araujo Ma Service: (none) Author Type: (none) Type: Progress Notes Filed: 11/19/2017 10:17 AM Note Text: 77 year old male here for INACTIVATED INFLUENZA VACCINE. 3784-1191 Season Patient is identified by name and date of : Yes [] CONTRAINDICATIONS color enhanced section Age less than 6 months? No Allergy to eggs, chicken, chicken feathers, or chicken dander? No Allergy to thimerosal (a preservative) or formaldehyde? No History of severe reaction to any vaccine component or a previous dose of influenza vaccination? No History of Guillain-Battiest Syndrome within 6 weeks after a previous influenza vaccine? No Current moderate or severe illness? No Current temperature greater or equal to 100.4F? No History of Bone Marrow Transplant in past 6 months or solid organ transplant in the past 3 months ? No [] VERIFICATION color enhanced section Was the answer Yes for any of the above contraindications? No contraindications present. Acceptable to proceed with vaccine. Patient/guardian agrees the above answers are true to the best of their knowledge? Yes Flu vaccine information sheet given? Yes See immunization activity in [facility] for details of immunizations adminstered today. Patient age: [age] year old For The 8516-1699 Flu Season 6-35 months old: Fluzone 0.25 ml - IM (Preservative Free) 3 years of age: Fluzone 0.5 ml - IM (Preservative Free) 3 years and older: Fluzone 0.5 ml- IM-(with Preservatives) 65+ years old: Fluzone High-Dose 0.5 ml - IM (Preservative Free) REMEMBER: If patient is less than 9 years of age and this is the first vaccine of Influenza to be received in any flu season, they should receive a second dose in one months time. PROGRESS Observed: 11/19/2017 Status: COMPLETED Source: [place] 8:[address] [facility] REPOSITORY [facility] ID: [id number] Author: Ileana Everett) Cortes Service: (none) Author Type: Physician Type: Progress Notes Filed: 11/19/2017 10:18 AM Note Text: Chief Complaint Patient presents with: Recheck: 2-3 week HPI Corie Kilgore Jr. is a 77 year old male who presents here today for follow up of memory impairment and DM. Was to bring daughter with him to discuss memory impairment, but she had her own appointment this morning. Patient denies memory impairment depsite the fact he was confused about his medications at last appointment and daughter has told me that he has a problem after his last visit. Willing to set up follow up appointment with her in attendance to further discuss. DIABETES MELLITUS: Mr. Kilgore was last seen 6 months ago. Since our last visit he denies excessive thirst or increased frequency of urination, numbness, tingling or pain in extremities, new or unusual visual symptoms and low sugar/hypoglycemic reactions. Follows a diabetic diet most of the time. He is compliant with medication(s) and is tolerating med(s) without any side effects. He reports checking his glucose on a infrequent to not at all basis, has meter and test strips at home. Patient's last HgA1C was Hemoglobin A1C (%) Date Value 11/02/2017 7.0 05/01/2017 6.4 ) Last Ophthalmology exam was within the past 12 months Last Podiatry exam was within the past 12 months Dog scratched his left arm 2-3 days ago. Treating with abx ointment. Healing well with minimal erythema. More than 10 years since last tetanus booster. Daughter has been filling his medication boxes again and is taking all as prescribed. Recent INR normal. Due for flu shot today. Past medical history, appointments, medications, allergies reviewed. Previous Medical History PAST MEDICAL HISTORY Diagnosis Date - ASD (atrial septal defect) - Cerebral vascular disease cva - Degenerative arthritis - Diabetes mellitus, type II (HCC) - DVT (deep venous thrombosis) (HCC) - Hard of hearing - HTN (hypertension) - Hyperlipidaemia - PFO (patent foramen ovale) Dr. So - [facility] - TIA (transient ischemic attack) Previous Surgical History PAST SURGICAL HISTORY Procedure Laterality Date - CHOLECYSTECTOMY - HERNIA REPAIR HX - PAST SURGICAL HISTORY OF RK - PAST SURGICAL HISTORY OF Tonsillectomy - PAST SURGICAL HISTORY OF Right and Left shoulder surgery - PAST SURGICAL HISTORY OF chest surgery Family History FAMILY HISTORY Problem Relation Age of Onset - Heart Father - Diabetes Father - Hypertension Mother - Heart Mother - Cancer Sister - Heart Sister Patient Allergies ALLERGIES No Known Allergies Current Medications Current Outpatient Prescriptions on File Prior to Visit: lisinopril (PRINIVIL) 5 mg tablet Take 1 tablet by mouth once daily. atorvastatin (LIPITOR) 20 mg tablet Take 1 tablet by mouth daily at bedtime. For cholesterol. warfarin (COUMADIN) 3 mg tablet Take 9 mg on Thu and 6mg all other days metFORMIN (GLUCOPHAGE) 500 mg tablet Take 1 tablet by mouth daily with breakfast. DOCOSAHEXANOIC ACID/EPA (FISH OIL ORAL) Take by mouth as directed. zcdtvfeh-lgi-EY-lycopen-lutein (CENTRUM SILVER ULTRA MEN'S) 300-600-300 mcg tab Take by mouth. No current facility-administered medications on file prior to visit. 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 Review of Symptoms REVIEW OF SYSTEMS GENERAL: No weight loss, malaise or fevers RESPIRATORY: Negative for cough, hemoptysis, wheezing, COPD, dyspnea or shortness of breath CARDIOVASCULAR: Negative for chest pain, leg swelling, hypertension, CHF or palpitations GI: No nausea, vomiting, or diarrhea SKIN: See HPI EXAM: BP 118/78 Pulse 64 Resp 16 Wt 87.1 kg (192 lb) BMI 27.75 kg/m? General Appearance: Well appearing, alert, in no acute distress, well-hydrated, well nourished.. Skin: 8-10 cm shallow laceration with 1cm area of erythema on either side. Healing well without purulent drainage, swelling, or induration. Lungs: Lungs clear to auscultation. No wheezing, rhonchi, rales. Heart: RRR without murmur, gallop, or rubs. No ectopy. Abdomen: Normal abdominal exam, Abdomen soft, non-tender. Bowel sounds normal. No masses, organomegaly. Extremities: No deformities, edema, skin discoloration, clubbing or cyanosis. Good capillary refill. Feet: Shoes and socks removed, No deformities, ulcers, calluses and normal distal pulses Health Maintenance List DTAP,TDAP,TD(1 - Tdap) due on 02/25/1959 COLORECTAL CANCER SCREENING,SEE MODIFIER due on 05/03/2017 URINE ALBUMIN:CREATININE RATIO due on 09/08/2017 INFLUENZA(1) due on 11/07/2017 STATIN MED ADHERENCE due on 12/07/2017 DIABETES MED ADHERENCE due on 12/07/2017 DILATED RETINAL EXAM due on 01/22/2018 DIABETIC FOOT EXAM due on 05/01/2018 HBA1C due on 05/05/2018 LDL CHOLESTEROL due on 11/02/2018 ANNUAL PCP TEAM CHRONIC DISEASE VISIT due on 11/06/2018 BP CONTROLLED (<130/80) due on 11/06/2018 ADULT PREVNAR-13 Completed PNEUMOVAX AGE 65 AND OVER WITH 5YR LOOKBACK Completed Data reviewed Component Latest Ref Rng AND Units 11/02/2017 11/06/2017 11/13/2017 WBC 3.70 - 11.00 k/uL 7.94 RBC 4.20 - 6.00 m/uL 5.00 Hemoglobin 13.0 - 17.0 g/dL 15.3 Hematocrit 39.0 - 51.0 % 46.3 MCV 80.0 - 100.0 fL 92.6 MCH 26.0 - 34.0 pG 30.6 MCHC 30.5 - 36.0 g/dL 33.0 RDW-CV 11.5 - 15.0 % 13.8 Platelet Count 150 - 400 k/uL 198 MPV 9.0 - 12.7 fL 10.7 Neut% % 58.4 Abs Neut (ANC) 1.45 - 7.50 k/uL 4.64 Lymph% % 26.7 Abs Lymph 1.00 - 4.00 k/uL 2.12 [place]% % 12.5 Abs [place] <0.87 k/uL 0.99 (H) Eosin% % 1.6 Abs Eosin <0.46 k/uL 0.13 Baso% % 0.8 Abs Baso <0.11 k/uL 0.06 Nucleated Reds 0 /100 WBC 0.0 Absolute nRBC <0.01 k/uL <0.01 Diff Type Auto Diff Protein, Total 6.3 - 8.0 g/dL 7.8 Albumin 3.9 - 4.9 g/dL 5.0 (H) Calcium 8.5 - 10.2 mg/dL 10.0 Bilirubin, Total 0.2 - 1.3 mg/dL 0.5 Alkaline Phosphatase 36 - 108 U/L 75 AST 14 - 40 U/L 31 Glucose 74 - 99 mg/dL 124 (H) BUN 9 - 24 mg/dL 12 Creatinine 0.73 - 1.22 mg/dL 0.78 Sodium 136 - 144 mmol/L 141 Potassium 3.7 - 5.1 mmol/L 4.6 Chloride 97 - 105 mmol/L 101 CO2 22 - 30 mmol/L 25 Anion Gap 9 - 18 mmol/L 15 ALT 10 - 54 U/L 43 eGFR- >60 eGFR-All Other Races . >60 Cholesterol, Total <200 mg/dL 143 Triglyceride <150 mg/dL 232 (H) HDL Cholesterol >39 mg/dL 44 LDL Cholesterol <100 mg/dL 53 Non HDL Cholesterol <130 mg/dL 99 Fasting Time hrs 10 VLDL Cholesterol <30 mg/dL 46 (H) TC:HDL Ratio <5.10 3.25 LDL:HDL Ratio <2.54 1.20 Hemoglobin A1C 4.3 - 5.6 % 7.0 (H) Estimated Average Glucose mg/dL 154 INR (POCT) 0.8 - 1.2 4.4 (H) Internal Quality Check Acceptable PT Sec 9.7 - 13.0 sec 23.0 (H) PT INR 0.9 - 1.3 2.3 (H) Vitamin B12 232 - 1,245 pg/mL 486 Vitamin D 25 Hydroxy 31.0 - 80.0 ng/mL 22.5 (L) ASSESSMENT/PLAN: 1. Controlled type 2 diabetes mellitus without complication, without long-term current use of insulin (HCC) - ICD9: 250.00, ICD10: E11.9 (primary diagnosis) Controlled. - Continue current medications - Blood glucose monitoring on a once a day schedule - Ophthalmology referral for eval/management of diabetic eye changes - Encouraged regular aerobic exercise and weight loss - Daily Asprin therapy recommended - Follow up in 3 months, sooner should any other issues arise. 2. Hypertriglyceridemia - ICD9: 272.1, ICD10: E78.1 - good control - Continue current medication. - Encouraged following a low fat, low cholesterol diet. - Discussed the benefits of regular aerobic exercise and weight loss. 3. Dog scratch - ICD9: 919.0, E906.8, ICD10: W54.8XXA Will treat with mupirocin cream BID and have patient call with red flag symptoms as discussed. Update tetanus booster today. - MUPIROCIN 2 % TOPICAL OINTMENT 4. Vitamin D insufficiency - ICD9: 268.9, ICD10: E55.9 Has not been treating with OTC vitamin D, will call in rx. Repeat in 3-6 months. - CHOLECALCIFEROL (VITAMIN D3) 2,000 UNIT TABLET 5. Need for vaccination - ICD9: V05.9, ICD10: Z23 - TETANUS/DIPTHERIA BOOSTER (OVER 7), PF IM - INFLUENZA SEASONAL HIGH DOSE AGE 65+ 6. Memory impairment - ICD9: 780.93, ICD10: R41.3 Unchanged from last OV. Will have him return with daughter to further discuss. Ileana Kolb MD CNOV Observed: 11/19/2017 Status: COMPLETED Source: [place] 8:[address] [facility] REPOSITORY Office Visit (FAMPWS) CORIE KILGORE JR. ([id number]) 1940 M Date Time Provider Department 11/19/17 8:00 AM ILEANA KOLB) [facility] During your visit today, we recorded the following information about you: Pulse Respiration Blood pressure Weight 64/minute 16/minute 118/78 87.1 kg Ileana Kolb MD 11/19/2017 10:18 AM Addendum Chief Complaint Patient presents with: Recheck: 2-3 week HPI Martinaj Karol Magui Sharif is a 77 year old male who presents here today for follow up of memory impairment and DM. Was to bring daughter with him to discuss memory impairment, but she had her own appointment this morning. Patient denies memory impairment depsite the fact he was confused about his medications at last appointment and daughter has told me that he has a problem after his last visit. Willing to set up follow up appointment with her in attendance to further discuss. DIABETES MELLITUS: Mr. Kilgore was last seen 6 months ago. Since our last visit he denies excessive thirst or increased frequency of urination, numbness, tingling or pain in extremities, new or unusual visual symptoms and low sugar/hypoglycemic reactions. Follows a diabetic diet most of the time. He is compliant with medication(s) and is tolerating med(s) without any side effects. He reports checking his glucose on a infrequent to not at all basis, has meter and test strips at home. Patient's last HgA1C was Hemoglobin A1C (%) Date Value 11/02/2017 7.0 05/01/2017 6.4 ) Last Ophthalmology exam was within the past 12 months Last Podiatry exam was within the past 12 months Dog scratched his left arm 2-3 days ago. Treating with abx ointment. Healing well with minimal erythema. More than 10 years since last tetanus booster. Daughter has been filling his medication boxes again and is taking all as prescribed. Recent INR normal. Due for flu shot today. Past medical history, appointments, medications, allergies reviewed. Previous Medical History PAST MEDICAL HISTORY Diagnosis Date - ASD (atrial septal defect) - Cerebral vascular disease cva - Degenerative arthritis - Diabetes mellitus, type II (HCC) - DVT (deep venous thrombosis) (HCC) - Hard of hearing - HTN (hypertension) - Hyperlipidaemia - PFO (patent foramen ovale) Dr. So - [facility] - TIA (transient ischemic attack) Previous Surgical History PAST SURGICAL HISTORY Procedure Laterality Date - CHOLECYSTECTOMY - HERNIA REPAIR HX - PAST SURGICAL HISTORY OF RK - PAST SURGICAL HISTORY OF Tonsillectomy - PAST SURGICAL HISTORY OF Right and Left shoulder surgery - PAST SURGICAL HISTORY OF chest surgery Family History FAMILY HISTORY Problem Relation Age of Onset - Heart Father - Diabetes Father - Hypertension Mother - Heart Mother - Cancer Sister - Heart Sister Patient Allergies ALLERGIES No Known Allergies Current Medications Current Outpatient Prescriptions on File Prior to Visit: lisinopril (PRINIVIL) 5 mg tablet Take 1 tablet by mouth once daily. atorvastatin (LIPITOR) 20 mg tablet Take 1 tablet by mouth daily at bedtime. For cholesterol. warfarin (COUMADIN) 3 mg tablet Take 9 mg on Thu and 6mg all other days metFORMIN (GLUCOPHAGE) 500 mg tablet Take 1 tablet by mouth daily with breakfast. DOCOSAHEXANOIC ACID/EPA (FISH OIL ORAL) Take by mouth as directed. ppskvmzc-emx-OU-lycopen-lutein (CENTRUM SILVER ULTRA MEN'S) 300-600-300 mcg tab Take by mouth. No current facility-administered medications on file prior to visit. 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 Review of Symptoms REVIEW OF SYSTEMS GENERAL: No weight loss, malaise or fevers RESPIRATORY: Negative for cough, hemoptysis, wheezing, COPD, dyspnea or shortness of breath CARDIOVASCULAR: Negative for chest pain, leg swelling, hypertension, CHF or palpitations GI: No nausea, vomiting, or diarrhea SKIN: See HPI EXAM: BP 118/78 Pulse 64 Resp 16 Wt 87.1 kg (192 lb) BMI 27.75 kg/m? General Appearance: Well appearing, alert, in no acute distress, well-hydrated, well nourished.. Skin: 8-10 cm shallow laceration with 1cm area of erythema on either side. Healing well without purulent drainage, swelling, or induration. Lungs: Lungs clear to auscultation. No wheezing, rhonchi, rales. Heart: RRR without murmur, gallop, or rubs. No ectopy. Abdomen: Normal abdominal exam, Abdomen soft, non-tender. Bowel sounds normal. No masses, organomegaly. Extremities: No deformities, edema, skin discoloration, clubbing or cyanosis. Good capillary refill. Feet: Shoes and socks removed, No deformities, ulcers, calluses and normal distal pulses Health Maintenance List DTAP,TDAP,TD(1 - Tdap) due on 02/25/1959 COLORECTAL CANCER SCREENING,SEE MODIFIER due on 05/03/2017 URINE ALBUMIN:CREATININE RATIO due on 09/08/2017 INFLUENZA(1) due on 11/07/2017 STATIN MED ADHERENCE due on 12/07/2017 DIABETES MED ADHERENCE due on 12/07/2017 DILATED RETINAL EXAM due on 01/22/2018 DIABETIC FOOT EXAM due on 05/01/2018 HBA1C due on 05/05/2018 LDL CHOLESTEROL due on 11/02/2018 ANNUAL PCP TEAM CHRONIC DISEASE VISIT due on 11/06/2018 BP CONTROLLED (<130/80) due on 11/06/2018 ADULT PREVNAR-13 Completed PNEUMOVAX AGE 65 AND OVER WITH 5YR LOOKBACK Completed Data reviewed Component Latest Ref Rng AND Units 11/02/2017 11/06/2017 11/13/2017 WBC 3.70 - 11.00 k/uL 7.94 RBC 4.20 - 6.00 m/uL 5.00 Hemoglobin 13.0 - 17.0 g/dL 15.3 Hematocrit 39.0 - 51.0 % 46.3 MCV 80.0 - 100.0 fL 92.6 MCH 26.0 - 34.0 pG 30.6 MCHC 30.5 - 36.0 g/dL 33.0 RDW-CV 11.5 - 15.0 % 13.8 Platelet Count 150 - 400 k/uL 198 MPV 9.0 - 12.7 fL 10.7 Neut% % 58.4 Abs Neut (ANC) 1.45 - 7.50 k/uL 4.64 Lymph% % 26.7 Abs Lymph 1.00 - 4.00 k/uL 2.12 [place]% % 12.5 Abs [place] <0.87 k/uL 0.99 (H) Eosin% % 1.6 Abs Eosin <0.46 k/uL 0.13 Baso% % 0.8 Abs Baso <0.11 k/uL 0.06 Nucleated Reds 0 /100 WBC 0.0 Absolute nRBC <0.01 k/uL <0.01 Diff Type Auto Diff Protein, Total 6.3 - 8.0 g/dL 7.8 Albumin 3.9 - 4.9 g/dL 5.0 (H) Calcium 8.5 - 10.2 mg/dL 10.0 Bilirubin, Total 0.2 - 1.3 mg/dL 0.5 Alkaline Phosphatase 36 - 108 U/L 75 AST 14 - 40 U/L 31 Glucose 74 - 99 mg/dL 124 (H) BUN 9 - 24 mg/dL 12 Creatinine 0.73 - 1.22 mg/dL 0.78 Sodium 136 - 144 mmol/L 141 Potassium 3.7 - 5.1 mmol/L 4.6 Chloride 97 - 105 mmol/L 101 CO2 22 - 30 mmol/L 25 Anion Gap 9 - 18 mmol/L 15 ALT 10 - 54 U/L 43 eGFR- >60 eGFR-All Other Races . >60 Cholesterol, Total <200 mg/dL 143 Triglyceride <150 mg/dL 232 (H) HDL Cholesterol >39 mg/dL 44 LDL Cholesterol <100 mg/dL 53 Non HDL Cholesterol <130 mg/dL 99 Fasting Time hrs 10 VLDL Cholesterol <30 mg/dL 46 (H) TC:HDL Ratio <5.10 3.25 LDL:HDL Ratio <2.54 1.20 Hemoglobin A1C 4.3 - 5.6 % 7.0 (H) Estimated Average Glucose mg/dL 154 INR (POCT) 0.8 - 1.2 4.4 (H) Internal Quality Check Acceptable PT Sec 9.7 - 13.0 sec 23.0 (H) PT INR 0.9 - 1.3 2.3 (H) Vitamin B12 232 - 1,245 pg/mL 486 Vitamin D 25 Hydroxy 31.0 - 80.0 ng/mL 22.5 (L) ASSESSMENT/PLAN: 1. Controlled type 2 diabetes mellitus without complication, without long-term current use of insulin (HCC) - ICD9: 250.00, ICD10: E11.9 (primary diagnosis) Controlled. - Continue current medications - Blood glucose monitoring on a once a day schedule - Ophthalmology referral for eval/management of diabetic eye changes - Encouraged regular aerobic exercise and weight loss - Daily Asprin therapy recommended - Follow up in 3 months, sooner should any other issues arise. 2. Hypertriglyceridemia - ICD9: 272.1, ICD10: E78.1 - good control - Continue current medication. - Encouraged following a low fat, low cholesterol diet. - Discussed the benefits of regular aerobic exercise and weight loss. 3. Dog scratch - ICD9: 919.0, E906.8, ICD10: W54.8XXA Will treat with mupirocin cream BID and have patient call with red flag symptoms as discussed. Update tetanus booster today. - MUPIROCIN 2 % TOPICAL OINTMENT 4. Vitamin D insufficiency - ICD9: 268.9, ICD10: E55.9 Has not been treating with OTC vitamin D, will call in rx. Repeat in 3-6 months. - CHOLECALCIFEROL (VITAMIN D3) 2,000 UNIT TABLET 5. Need for vaccination - ICD9: V05.9, ICD10: Z23 - TETANUS/DIPTHERIA BOOSTER (OVER 7), PF IM - INFLUENZA SEASONAL HIGH DOSE AGE 65+ 6. Memory impairment - ICD9: 780.93, ICD10: R41.3 Unchanged from last OV. Will have him return with daughter to further discuss. MD Cheko Hawthorne Ma 11/19/2017 10:17 AM Signed 77 year old male here for INACTIVATED INFLUENZA VACCINE. 8010-4715 Season Patient is identified by name and date of : Yes [] CONTRAINDICATIONS color enhanced section Age less than 6 months? No Allergy to eggs, chicken, chicken feathers, or chicken dander? No Allergy to thimerosal (a preservative) or formaldehyde? No History of severe reaction to any vaccine component or a previous dose of influenza vaccination? No History of Guillain-Battiest Syndrome within 6 weeks after a previous influenza vaccine? No Current moderate or severe illness? No Current temperature greater or equal to 100.4F? No History of Bone Marrow Transplant in past 6 months or solid organ transplant in the past 3 months ? No [] VERIFICATION color enhanced section Was the answer Yes for any of the above contraindications? No contraindications present. Acceptable to proceed with vaccine. Patient/guardian agrees the above answers are true to the best of their knowledge? Yes Flu vaccine information sheet given? Yes See immunization activity in [facility] for details of immunizations adminstered today. Patient age: [age] year old For The Flu Season 6-35 months old: Fluzone 0.25 ml - IM (Preservative Free) 3 years of age: Fluzone 0.5 ml - IM (Preservative Free) 3 years and older: Fluzone 0.5 ml- IM-(with Preservatives) 65+ years old: Fluzone High-Dose 0.5 ml - IM (Preservative Free) REMEMBER: If patient is less than 9 years of age and this is the first vaccine of Influenza to be received in any flu season, they should receive a second dose in one months time. Referring Provider: ILEANA KOLB) [[id number]] Allergies As of Date: 11/19/2017 (No Known Allergies) Date Reviewed: 11/19/2017 Reviewed by: Cheko Araujo Ma - Fully Assessed Reason for Visit: Recheck [92] Cmt: 2-3 week Imm/Inj [58] Cmt: Flu Vaccine Reason For Visit History Recorded Primary Visit Diagnosis:Controlled type 2 diabetes mellitus without complication, without long-term current use of insulin (HCC) [E11.9] Other Visit Diagnoses:Hypertriglyceridemia [E78.1] Dog scratch [W54.8XXA] Vitamin D insufficiency [E55.9] Need for vaccination [Z23] Memory impairment [R41.3] Order(s):TETANUS/DIPTHERIA BOOSTER (OVER 7), PF IM [[id number]] Order #: [id number] mupirocin (BACTROBAN) 2 % ointmentApply 1 application to affected area three times daily. Location: left armDisp: 1 TubeRfl: 1 cholecalciferol (VITAMIN D3) 2,000 unit tabletTake 1 tablet by mouth once daily.Disp: 30 tabletRfl: 5 INFLUENZA SEASONAL HIGH DOSE AGE 65+ [[id number]] Order #: [id number] HGB A1C [SFNQJ5H] Order #: [id number] FUTURE VITAMIN D 25 HYDROXY [SQVITD] Order #: [id number] FUTURE COMP METABOLIC PANEL [SQCMP] Order #: [id number] FUTURE Prescriptions as of 11/19/2017 Sig: MUPIROCIN 2 % TOPICAL OINTMENT Apply 1 application to affect* CHOLECALCIFEROL (VITAMIN D3) * Take 1 tablet by mouth once d* LISINOPRIL 5 MG TABLET Take 1 tablet by mouth once d* ATORVASTATIN 20 MG TABLET Take 1 tablet by mouth daily * WARFARIN 3 MG TABLET Take 9 mg on Thu and 6mg all * METFORMIN 500 MG TABLET Take 1 tablet by mouth daily * FISH OIL ORAL Take by mouth as directed. [id number] ACID 300 M* Take by mouth. Problem List As Of Date 11/19/2017 Noted Resolved Pain in joint, shoulder region [M25.519] INVALID FOR* Hyperglycemia [R73.9] INVALID FOR*10/30/2017 Hypertriglyceridemia [E78.1] INVALID FOR* Diabetes mellitus type 2, controlled, without c*INVALID FOR* Patent foramen ovale [Q21.1] INVALID FOR* ASD (atrial septal defect) [Q21.1] INVALID FOR* More... FPC (current) use of anticoagulants [Z79.*INVALID FOR* DVT (deep venous thrombosis) (HCC) [I82.409] INVALID FOR* H/O: CVA (cerebrovascular accident) [Z86.73] INVALID FOR* Right bundle branch block [I45.10] INVALID FOR* Rotator cuff (capsule) sprain [S43.429A] INVALID FOR* Primary localized osteoarthrosis of shoulder re*INVALID FOR* Left-sided low back pain with left-sided sciati*INVALID FOR* Rotator cuff arthropathy, right [M12.811] INVALID FOR* Diabetic polyneuropathy associated with type 2 *INVALID FOR* Age-related physical debility [R54] INVALID FOR* Prescriptions ordered this encounter Disp Refills Start End MUPIROCIN 2 % TOPICAL OINTMENT * 1 11/19/2017 Route: TOPICAL Sig: Apply 1 application to affected area three times daily. Location: left arm CHOLECALCIFEROL (VITAMIN D3) 2,000 U* 30 t* 5 11/19/2017 Route: ORAL Sig: Take 1 tablet by mouth once daily. Disposition: Return in about 3 months (around 02/18/2018). Follow-up and Disposition History Recorded Encounter Status:Closed by ILEANA KOLB MD on 11/19/17 PROTIME Collected: 11/13/2017 Status: F Source: [place] 9:59 AM [facility] [place] REPOSITORY TYPE CODE TESTS RESULT OUT OF RANGE REFERENCE UNITS LAB PSEC 9.7-13.0 sec High PT Sec 23.0 LAB INR 0.9-1.3 High PT INR 2.3 Result Comment: Vitamin K Antagonist (VKA) Therapeutic Range: INR 2 to 3 (Target INR of 2.5) Note: For patients treated with VKA drugs, such as warfarin, the [employer] 2012 Guideline recommends a therapeutic INR range of 2 to 3 (target INR of 2.5). This recommendation includes high-risk patients with antiphospholipid syndrome with previous arterial or venous thromboembolism, current-generation mechanical or bioprosthetic aortic heart valve replacement. Note: Patients with mechanical aortic valve replacement and additional risk factors for thromboembolic events (atrial fibrillation, previous thromboembolism, LV dysfunction, hypercoagulable conditions) or an older generation mechanical AVR (i.e., ball in-Cage) or any mechanical MVR should have a INR therapeutic range of 2.5 to 3.5 (target INR of 3). Juanatt GH, et al. Chest 2012, 141:7S-47S Marek RA, et al. [facility] 2017, 70: 252-289 Performed By: #### PT #### [facility] [address] [place], [place] [address] 12 LEAD ELECTROCARDIOGRAM Observed: 11/10/2017 Status: F Source: [place] 1:34 PM [facility] REPOSITORY [facility] Cardiovascular Services [address] [place] [address] 12 Lead EKG 11/05/17 1412 MR#: [id number] Acct: [id number] Name: CORIE KILGORE Jr. Rep #: [id number] : 1940 77 From: Bill Serna MD Attending Dr: Status: DEP ER Ordering Dr: Elisa Montes De Oca MD Date: 11/05/17 Location: ED Sex: M C Admitted: Test Reason : CP Blood Pressure : / mmHG Vent. Rate : 066 BPM Atrial Rate : 066 BPM P-R Int : 164 ms QRS Dur : 136 ms QT Int : 432 ms P-R-T Axes : 035 -35 001 degrees QTc Int : 452 ms Normal sinus rhythm Left axis deviation Right bundle branch block Inferior infarct , age undetermined Abnormal ECG Confirmed by BILL SERNA ([id number]), scientific publications editor BHAKTI LUNA ([id number]) on 11/10/2017 1:33:57 PM Referred By: BB Confirmed By:BILL SERNA 11/10/17 1333 Date Bill Serna MD CC: Bharathi Kolb MD; Elisa Montes De Oca MD Signed 12 LEAD ELECTROCARDIOGRAM Observed: 11/10/2017 Status: F Source: [place] 1:30 PM [facility] RE[facility] Cardi[facility] Services [address] [place] [address] 12 Lead EKG 11/05/17 1640 MR#: [id number] Acct: [id number] Name: CORIE KILGORE Jr. Rep #: [id number] : 1940 77 From: Bill Serna MD Attending Dr: Status: DEP ER Ordering Dr: Elisa Montes De Oca MD Date: 11/05/17 Location: ED Sex: M C Admitted: Test Reason : REPEAT Blood Pressure : / mmHG Vent. Rate : 061 BPM Atrial Rate : 061 BPM P-R Int : 148 ms QRS Dur : 134 ms QT Int : 452 ms P-R-T Axes : -08 -26 -04 degrees QTc Int : 455 ms Normal sinus rhythm Right bundle branch block Inferior infarct , age undetermined Abnormal ECG Confirmed by BILL SERNA ([id number]), scientific publications editor BHAKTI LUNA ([id number]) on 11/10/2017 1:29:37 PM Referred By: JAGDEEP Confirmed By:BILL SERNA 11/10/17 1329 Date Bill Serna MD CC: Bharathi Kolb MD; Elisa Montes De Oca MD Signed PROGRESS Observed: 11/06/2017 Status: COMPLETED Source: [place] 12:[address] [facility] REPOSITORY HNO ID: [id number] Author: Nasreen Treviño RN Service: (none) Author Type: (none) Type: Progress Notes Filed: 11/06/2017 12:31 PM Note Text: patient notified at appt CNOV Observed: 11/06/2017 Status: COMPLETED Source: [place] 9:[address] [facility] REPOSITORY Office Visit (FAMPWS) CORIE KILGORE JR. ([id number]) 1940 M Date Time Provider Department 11/06/17 9:40 AM REYNA MADDOX (MARISABEL) FAMPWS During your visit today, we recorded the following information about you: Pulse Respiration Blood pressure Weight 72/minute 12/minute 118/72 86.2 kg Reyna Maddox, PRODUCTION SUPPORT SUPERVISOR.STOGIE PACKER 11/10/2017 8:59 AM Signed 11/06/2017 Patient presents with: ER F/U: [facility] ER f/u was having palpitations SUBJECTIVE: This is a 77 year old that is here today with his daughter for follow up ER visit yesterday for feelings of heart fluttering. He states that he was awoken by the feeling and it did not last long- less than a minute, but occurred several times. It has not reoccurred since his ER visit. At [facility] on 11/05, he reported feeling a lot of indigestion, fatigue, and left shoulder discomfort. This also other than occasional belching, has not reoccurred. Triage HR was 128, but went down to 60s and regular while there. EKG showed RBBB which is not changed. Negative troponin, normal CBC, normal electrolytes, normal TSH, CXR no acute change, He was told to follow up with PCP for possible holter. He is on coumadin for history of stroke. INR was 3.0. Range is 2.0-3.0. He had a normally scheduled INR check prior to coming up to the visit and it was 4.4. PAST MEDICAL HISTORY Diagnosis Date - ASD (atrial septal defect) - Cerebral vascular disease cva - Degenerative arthritis - Diabetes mellitus, type II (HCC) - DVT (deep venous thrombosis) (HCC) - Hard of hearing - HTN (hypertension) - Hyperlipidaemia - PFO (patent foramen ovale) Dr. So - RBBB - TIA (transient ischemic attack) ALLERGIES Patient has no known allergies. MEDICATIONS Current Outpatient Prescriptions: lisinopril (PRINIVIL) 5 mg tablet Take 1 tablet by mouth once daily. atorvastatin (LIPITOR) 20 mg tablet Take 1 tablet by mouth daily at bedtime. For cholesterol. warfarin (COUMADIN) 3 mg tablet Take 9 mg on Thu and 6mg all other days metFORMIN (GLUCOPHAGE) 500 mg tablet Take 1 tablet by mouth daily with breakfast. DOCOSAHEXANOIC ACID/EPA (FISH OIL ORAL) Take by mouth as directed. oecthmxd-ven-YA-lycopen-lutein (CENTRUM SILVER ULTRA MEN'S) 300-600-300 mcg tab Take by mouth. No current facility-administered medications for this visit. Medications and allergies reviewed by this provider. 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 REVIEW OF SYSTEMS seeI OBJECTIVE: BP 118/72 (BP Site: Right Arm, BP Position: Sitting, BP Cuff Size: Regular Adult) Pulse 72 Resp 12 Wt 86.2 kg (190 lb) BMI 27.46 kg/m? . Vital signs reviewed by this provider. PHYSICAL EXAMINATION: General appearance: Well appearing, alert, in no acute distress, well-hydrated, well nourished. Skin: Skin color, texture, turgor normal, no suspicious rashes or lesions Neck: Supple, no adenopathy; no bruits Lungs: Lungs clear to auscultation. No wheezing, rhonchi, rales Heart: RRR without murmur, gallop, or rubs. No ectopy Extremities: No deformities, edema, skin discoloration, clubbing or cyanosis. Good capillary refill. , Pulses: 2+ ASSESSMENT/PLAN: 1. Palpitations - ICD9: 785.1, ICD10: R00.2 (primary diagnosis) - Will need to obtain holter results to evaluate what the cause could be. - Encouraged to stay hydrated and eat a well balanced diet. - encouraged to try to use vagal maneuver if fast HR and not resolving in less than a minute as it had been - encouraged ER if symptoms return and do not resolve quickly as they have or change in any way. - discussed [place] or [place] and stroke - HOLTER MONITOR 48 HOUR 2. Elevated INR - ICD9: 790.92, ICD10: R79.1 - per Dr. Kolb's recommendations- Coumadin: Hold ONLY THE NEXT DOSE then decrease dosage to 6 mg daily and recheck in 1 week. This will be 2 pills daily. Discussed in detail with pt and daughter. - monitor for increased bleeding or bruising - Needs to be seen if suffers from a fall or injury that there is a risk for bleeding 3. FPC (current) use of anticoagulants - ICD9: V58.61, ICD10: Z79.01 - see above HANNAH Andres APRN.CNP 11/06/2017 10:03 AM Addendum Coumadin: Hold ONLY THE NEXT DOSE then decrease dosage to 6 mg daily and recheck in 1 week. This will be 2 pills daily. Referring Provider: SELF [200] Allergies As of Date: 11/06/2017 (No Known Allergies) Date Reviewed: 11/06/2017 Reviewed by: Judy Collier LPN - Fully Assessed Reason for Visit: ER F/U [41] Cmt: [facility] ER f/u was having palpitations Reason For Visit History Recorded Primary Visit Diagnosis:Palpitations [R00.2] Other Visit Diagnoses:Elevated INR [R79.1] termite control technician (current) use of anticoagulants [Z79.01] Order(s):INR (POC) [[id number]] Order #: [id number] #:[id number] HOLTER MONITOR 48 HOUR [[id number]] Order #: [id number] FUTURE Prescriptions as of 11/06/2017 Sig: LISINOPRIL 5 MG TABLET Take 1 tablet by mouth once d* ATORVASTATIN 20 MG TABLET Take 1 tablet by mouth daily * WARFARIN 3 MG TABLET Take 9 mg on Thu and 6mg all * METFORMIN 500 MG TABLET Take 1 tablet by mouth daily * FISH OIL ORAL Take by mouth as directed. HSYESCNB-KTQ-NOHRR ACID 300 M* Take by mouth. Problem List As Of Date 11/06/2017 Noted Resolved Pain in joint, shoulder region [M25.519] INVALID FOR* Hyperglycemia [R73.9] INVALID FOR*10/30/2017 Hypertriglyceridemia [E78.1] INVALID FOR* Diabetes mellitus type 2, controlled, without c*INVALID FOR* Patent foramen ovale [Q21.1] INVALID FOR* ASD (atrial septal defect) [Q21.1] INVALID FOR* More... FPC (current) use of anticoagulants [Z79.*INVALID FOR* DVT (deep venous thrombosis) (HCC) [I82.409] INVALID FOR* H/O: CVA (cerebrovascular accident) [Z86.73] INVALID FOR* Right bundle branch block [I45.10] INVALID FOR* Rotator cuff (capsule) sprain [S43.429A] INVALID FOR* Primary localized osteoarthrosis of shoulder re*INVALID FOR* Left-sided low back pain with left-sided sciati*INVALID FOR* Rotator cuff arthropathy, right [M12.811] INVALID FOR* Diabetic polyneuropathy associated with type 2 *INVALID FOR* Age-related physical debility [R54] INVALID FOR* Other instructions from your clinician: Coumadin: Hold ONLY THE NEXT DOSE then decrease dosage to 6 mg daily and recheck in 1 week. This will be 2 pills daily. Disposition: Return in about 1 week (around 11/13/2017) for coumadin clinic. Follow-up and Disposition History Recorded Encounter Status:Closed by REYNA MADDOX on 11/10/17 PROGRESS Observed: 11/06/2017 Status: COMPLETED Source: [place] 9:39 AM [facility] [place] REPOSITORY HNO ID: [id number] Author: Reyna (Marisabel) Varsha Service: (none) Author Type: Nurse Practitioner Type: Progress Notes Filed: 11/10/2017 8:59 AM Note Text: 11/06/2017 Patient presents with: ER F/U: [facility] ER f/u was having palpitations SUBJECTIVE: This is a 77 year old that is here today with his daughter for follow up ER visit yesterday for feelings of heart fluttering. He states that he was awoken by the feeling and it did not last long- less than a minute, but occurred several times. It has not reoccurred since his ER visit. At [facility] on 11/05, he reported feeling a lot of indigestion, fatigue, and left shoulder discomfort. This also other than occasional belching, has not reoccurred. Triage HR was 128, but went down to 60s and regular while there. EKG showed RBBB which is not changed. Negative troponin, normal CBC, normal electrolytes, normal TSH, CXR no acute change, He was told to follow up with PCP for possible holter. He is on coumadin for history of stroke. INR was 3.0. Range is 2.0-3.0. He had a normally scheduled INR check prior to coming up to the visit and it was 4.4. PAST MEDICAL HISTORY Diagnosis Date - ASD (atrial septal defect) - Cerebral vascular disease cva - Degenerative arthritis - Diabetes mellitus, type II (HCC) - DVT (deep venous thrombosis) (HCC) - Hard of hearing - HTN (hypertension) - Hyperlipidaemia - PFO (patent foramen ovale) Dr. So - BB - TIA (transient ischemic attack) ALLERGIES Patient has no known allergies. MEDICATIONS Current Outpatient Prescriptions: lisinopril (PRINIVIL) 5 mg tablet Take 1 tablet by mouth once daily. atorvastatin (LIPITOR) 20 mg tablet Take 1 tablet by mouth daily at bedtime. For cholesterol. warfarin (COUMADIN) 3 mg tablet Take 9 mg on Thu and 6mg all other days metFORMIN (GLUCOPHAGE) 500 mg tablet Take 1 tablet by mouth daily with breakfast. DOCOSAHEXANOIC ACID/EPA (FISH OIL ORAL) Take by mouth as directed. tbelqjkr-ojy-OR-lycopen-lutein (CENTRUM SILVER ULTRA MEN'S) 300-600-300 mcg tab Take by mouth. No current facility-administered medications for this visit. Medications and allergies reviewed by this provider. 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 REVIEW OF SYSTEMS seeI OBJECTIVE: BP 118/72 (BP Site: Right Arm, BP Position: Sitting, BP Cuff Size: Regular Adult) Pulse 72 Resp 12 Wt 86.2 kg (190 lb) BMI 27.46 kg/m? . Vital signs reviewed by this provider. PHYSICAL EXAMINATION: General appearance: Well appearing, alert, in no acute distress, well-hydrated, well nourished. Skin: Skin color, texture, turgor normal, no suspicious rashes or lesions Neck: Supple, no adenopathy; no bruits Lungs: Lungs clear to auscultation. No wheezing, rhonchi, rales Heart: RRR without murmur, gallop, or rubs. No ectopy Extremities: No deformities, edema, skin discoloration, clubbing or cyanosis. Good capillary refill. , Pulses: 2+ ASSESSMENT/PLAN: 1. Palpitations - ICD9: 785.1, ICD10: R00.2 (primary diagnosis) - Will need to obtain holter results to evaluate what the cause could be. - Encouraged to stay hydrated and eat a well balanced diet. - encouraged to try to use vagal maneuver if fast HR and not resolving in less than a minute as it had been - encouraged ER if symptoms return and do not resolve quickly as they have or change in any way. - discussed [place] or [place] and stroke - HOLTER MONITOR 48 HOUR 2. Elevated INR - ICD9: 790.92, ICD10: R79.1 - per Dr. Kolb's recommendations- Coumadin: Hold ONLY THE NEXT DOSE then decrease dosage to 6 mg daily and recheck in 1 week. This will be 2 pills daily. Discussed in detail with pt and daughter. - monitor for increased bleeding or bruising - Needs to be seen if suffers from a fall or injury that there is a risk for bleeding 3. FPC (current) use of anticoagulants - ICD9: V58.61, ICD10: Z79.01 - see above Reyna Maddox APRN.STOGIE PACKER PROGRESS Observed: 11/06/2017 Status: COMPLETED Source: [place] 9:[address] [facility] REPOSITORY HNO ID: [id number] Author: Ileana Everett) Cortes Service: (none) Author Type: Physician Type: Progress Notes Filed: 11/06/2017 9:34 AM Note Text: INR supratherapeutic. Hold ONLY THE NEXT DOSE then decrease dosage to 6 mg daily and recheck in 1 week. This will be 2 pills daily. PROGRESS Observed: 11/06/2017 Status: COMPLETED Source: [place] 9:[address] [facility] REPOSITORY HNO ID: [id number] Author: Nasreen Treviño RN Service: (none) Author Type: (none) Type: Progress Notes Filed: 11/06/2017 9:27 AM Note Text: patient had inr completed at [facility] patients inr is 4.4 (patients inr range is 2.0-3.0) patient is currently taking 9mg Wed and 6mg all other days patients last dose change was on 08/17/17 due to a low level of 1.2 (dose at that time was 3mg Wed and 6mg all other days) patient has had no changes in medication and no missed doses and no change in diet FYI - if patients dose changes he need to be told how many pills to take not how many milligrams as he does not understand taking the medication by milligram - patient current has 3mg tabs at home ? patient has follow up appt with HERMANN Maddox and has been instructed to discuss with her and pcp concerning dosing patient has been instructed to do a 1 week inr follow up at the lab for a blood draw due to the CC will be closed EMERGENCY DEPARTMENT Observed: 11/06/2017 Status: F Source: [place] SUMMARY 12:32 AM [facility] REPOSITORY [facility] Medical Records Department [address] [place] [address] Emergency Department Summary 11/05/17 1510 MR#: [id number] Acct: [id number] Name: OCRIE KILGORE Jr. Rep #: [id number] : 1940 77 From: Elisa Montes De Oca MD PCP: Bharathi Kolb MD Status: DEP ER - ER Visit Summary Date of Service: 11/05/17 Chief Complaint: heart fluttering History of Present Illness: The patient is a 77 M with history of stroke on Coumadin who presents for episodes of his heart fluttering since last night. Patient had 2 episodes at rest where he felt like his heart was racing. Today while driving home he felt suddenly tired and weak. He has not had any episodes of fluttering today. He has had indigestion with increased belching, left shoulder discomfort and epigastric discomfort along with the episodes. He currently is denying any complaints at this time. He has no history of coronary artery disease or myocardial infarction. He is diabetic on medication control. He has a hole in his heart. He sees Dr. Cantu. Physical Examination: Vital signs: afebrile, hemodynamically stable, no hypoxia on room air General: well nourished, well developed, in no distress Skin: warm, dry, no rash, no pallor HEENT: normocephalic and atraumatic; PERRL, EOMI, moist mucous membranes Cardiovascular: regular rate and rhythm without murmurs, no peripheral edema, 2+ pulses all distal extremities Respiratory: No increased work of breathing, lungs are clear to auscultation bilaterally, no rales, rhonchi or wheezing Abdominal: Abdomen is soft, nontender with normoactive bowel sounds, no guarding or rebound, no masses MSK: Moves all extremities, no deformities, normal strength Neuro: Awake and alert, oriented 4. No facial droop, sensation and motor function intact and symmetric Test Results: Abnormal Lab Results WBC 7.1 Clinical Impression(s) from Imaging Studies Chest X-Ray 11/05/17 16:50 IMPRESSION: No acute cardiopulmonary disease. Electronically Signed: Neftaly Diaz MD at 18:48 EDT , Service support , Medications Given Discontinued Medications Aspirin (Aspirin, Baby) 324 mg PO X1 STA Stop: 11/05/17 15:10 Last Admin: 11/05/17 15:44 Dose: 324 mg Emergency Department Course and Treatment: Patient complains of episodes of his heart fluttering, with increased fatigue earlier today and indigestion. Patient is currently symptom-free. Triage heart rate was tachycardic at 128, but heart rate is currently in the 60s and regular. She was given aspirin. EKG showed right bundle branch block without any ischemic changes, unchanged from patient's baseline. Labs showed negative troponin, no leukocytosis or anemia, no electrolyte derangements, TSH within normal limits. Chest x-ray showed no acute process. Patient was observed and had no return of the fluttering episodes and remained asymptomatic. a repeat EKG was unchanged from the initial one, still showing right bundle branch block without any ischemic changes. Patient's complaint of episodic heart fluttering and feeling like his heart is racing sounds is consistent with a paroxysmal tachydysrhythmia, which was not caught on telemetry while in the emergency department. Patient's episodes have been brief. Patient is to follow-up with his primary care doctor, with whom he has an appointment tomorrow. 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 Patient was discharged home without any symptoms or EKG abnormalities during his ED course. Treatment Plan: [] Disposition: [] Impression: Intermittent palpitations This note was generated with PATHE[employer]ation software. It may contain incorrect words, spelling, and punctuation that were not noted in review of the chart prior to signing ED Disposition - Plan for ED Patient: Disposition: Home or Assisted Living Chief Complaint: Chest Pain Instructions: ED Palpitations Referrals: Bharathi Kolb MD [Primary Care Provider] - 1 Day for another exam Maynor So MD [STAFF PHYSICIAN] - 3-5 Days if not improving Additional Instructions: Please discuss your heart fluttering with your doctor at your appointment tomorrow. You may need to wear a Holter monitor, which is a heart monitor, for 1-3 days to look for further episodes of the heart fluttering. If you have any shortness of breath, chest pain, lightheadedness or dizziness, heart fluttering that will not stop on its own, or any other concerns, return immediately to the emergency department for another evaluation. What to do if you have Problems For any increased pain, shortness of breath, bleeding, nausea or vomiting, chest pain, or any unexpected problems, contact your Primary Care Provider. Call [facility] ([phone]) or report to the closest Emergency Room. Call 911 if necessary. 11/06/17 0032 <Electronically signed by Elisa Montes De Oca MD> Date Elisa Montes De Oca MD Cosigner Signature (If Indicated): Date CC: Bharathi Kolb MD DISCHARGE INSTRUCTION Observed: 11/06/2017 Status: F Source: [place] 12:14 AM [facility] REPOSITORY [facility] Medical Records Department [address] [place] [address] Discharge Instruction 11/05/17 1739 MR#: [id number] Acct: [id number] Name: CORIE KILGORE Jr. Rep #: [id number] : 1940 77 From: Elisa Montes De Oca MD PCP: Bharathi Kolb MD Status: [facility] ER ED Disposition - Plan for ED Patient: Disposition: Home or Assisted Living Chief Complaint: Chest Pain Instructions: ED Palpitations Referrals: Bharathi Kolb MD [Primary Care Provider] - 1 Day for another exam Maynor So MD [STAFF PHYSICIAN] - 3-5 Days if not improving Additional Instructions: Please discuss your heart fluttering with your doctor at your appointment tomorrow. You may need to wear a Holter monitor, which is a heart monitor, for 1-3 days to look for further episodes of the heart fluttering. If you have any shortness of breath, chest pain, lightheadedness or dizziness, heart fluttering that will not stop on its own, or any other concerns, return immediately to the emergency department for another evaluation. What to do if you have Problems For any increased pain, shortness of breath, bleeding, nausea or vomiting, chest pain, or any unexpected problems, contact your Primary Care Provider. Call [facility] ([phone]) or report to the closest Emergency Room. Call 911 if necessary. 11/06/17 0014 <Electronically signed by Elisa Montes De Oca MD> Date Elisa Montes De Oca MD Cosigner Signature (If Indicated): Date CC: Bharathi Kolb MD CHEST PA AND LATERAL Observed: 11/05/2017 Status: F Source: [place] 3:10 PM [facility] REPOSIT[facility] Imaging Services [address] [place] [id number] Chest PA and Lateral MR#: [id number] Acct: [id number] Name: CORIE KILGORE Jr. Rep #: [id number] : 1940 M 77 From: Reggie Diaz MD PCP: Bharathi Kolb MD Status: DEP ER Study: Chest PA and Lateral Date of Exam: 11/05/17 Exam# [id number] Ordering Dr: Elisa Montes De Oca MD STUDY: X-RAY CHEST REASON FOR EXAM: Male, 77 years old. Chest pain to left shoulder, belching. TECHNIQUE: PA and lateral views of the chest. COMPARISON: Upright AP chest x-ray August 07, 2017. FINDINGS: The lungs are clear and moderately expanded. There is no demonstrated pleural abnormality. Normal size heart. Normal mediastinum and blossom. Normal visualized pulmonary arteries. Normal visualized aortic arch and descending thoracic aorta. There are multilevel degenerative changes of the visualized thoracic spine. There is degenerative osteoarthritis of the right shoulder, and a metal fixation screws again seen in the right humeral head. There is stable widening of the bilateral acromioclavicular joint spaces as well as stable tapered deformities of the distal clavicles, which may reflect postsurgical change. A cluster of surgical clips in the right upper quadrant abdomen is consistent with prior cholecystectomy. RAD/Chest PA and Lateral IMPRESSION: No acute cardiopulmonary disease. Electronically Signed: Neftaly Diaz MD at 18:48 EDT , Service support , CC: Bharathi Kolb MD; Elisa Montes De Oca MD Clinical Psychologist: Signed CBC W/DIFF, AUTOMATED Collected: 11/05/2017 Status: F Source: [place] 2:18 PM [facility] REPOSITORY TYPE CODE TESTS RESULT OUT OF RANGE REFERENCE UNITS LAB L100.1000 4.4-11.0 K/mm3 Normal WBC 7.1 LAB L100.1200 4.6-6.2 M/mm3 Low RBC 4.59 LAB L100.1300 13.0-16.5 g/dl Normal HGB 14.4 LAB L100.1400 40-54 % Normal HCT 42.3 LAB L100.1500 80-94 fL Normal MCV 92.2 LAB L100.1600 27.0-32.0 pg Normal MCH 31.4 LAB L100.1700 32-36 g/gl Normal MCHC 34.0 LAB L100.1810 11.6-14.6 % Normal RDW CV 13.8 LAB L100.1820 35.1-43.9 fl High RDW SD 45.6 LAB L100.1900 150-450 K/mm3 Normal PLT 175 LAB L100.2000 6.2-12.0 fl Normal MPV 10.6 LAB L100.2100 47-70 % Normal NEUT% 58.2 LAB L100.2200 19-41 % Normal LY% 27.2 LAB L100.2300 0-10 % High MONO% 11.8 LAB L100.2400 0-5 % Normal EO% 1.8 LAB L100.2500 0-1 % Normal BASO% 0.7 LAB L100.2550 0.0-0.9 % Normal IM GRAN % 0.300 Result Comment: IG% - Immature Granulocytes (promyelocytes, myelocytes and metamyelocytes) > 1% indicates that a LEFT SHIFT is Present. LAB L100.2620 2.0-7.7 X10 3/uL Normal Absolute Neut 4.1 LAB L100.2720 0.83-4.51 X10 3/ul Normal Absolute Lymph 1.93 Performed By: #### L100.0100 #### [facility] [address] [place], [place], [id number] PROTHROMBIN TIME W/INR Collected: 11/05/2017 Status: F Source: [place] 2:18 PM [facility] REPOSITORY TYPE CODE TESTS RESULT OUT OF RANGE REFERENCE UNITS LAB L300.4150 11.7-14.9 SECONDS High PROTIME 31.0 LAB L300.4200 Normal INR 3.0 Performed By: #### L300.3900, L300.4310 #### [facility] [address] [place], [address] PARTIAL THROMBOPLAST Collected: 11/05/2017 Status: F Source: [place] TIME 2:18 PM [facility] REPOSITORY TYPE CODE TESTS RESULT OUT OF REFERENCE UNITS RANGE LAB L300.4310 24.1-36.2 Seconds High PTT 40.6 Performed By: #### L300.3900, L300.4310 #### [facility] [address] [place], [address] COMPREHENSIVE METABOLIC Collected: 11/05/2017 Status: F Source: [place] 2:18 PM [facility] REPOSITORY TYPE CODE TESTS RESULT OUT OF RANGE REFERENCE UNITS LAB L501.0100 74-106 mg/dL High GLU 135 Result Comment: Fasting Glucose result greater than or equal to 126 mg/dL suggests DIABETES MELLITUS per A.D.A. criteria. Please note revised GLUCOSE reference range effective 2017. LAB L501.1000 7-18 mg/dL Normal BUN 16 LAB L501.1100 0.70-1.30 mg/dL Normal CREAT,SERUM 1.04 Result Comment: The validity of the calculated GFR AND GFRAA in patients over 70 years has not been determined. Clinical correlation is essential. LAB L501.1110 >60 mL/min Normal EST GFR 74 Result Comment: Non- GFR Calc LAB L501.1115 >60 mL/min Normal EST GFR - AA 89 Result Comment: GFR Calc LAB L501.1255 ml/min Normal Estimated CRCL 63.35 LAB L501.1300 10-20 RATIO Normal BUN/CRE 15.4 LAB L501.1500 6.4-8. g/dL Normal 2 T PROT 7.9 LAB L501.1800 3.2-5. g/dL Normal 0 ALB 4.2 LAB L501.1950 2.2-4. g/dL Normal 2 GLOB 3.7 LAB L501.2000 0.9-2. RATIO Normal 4 A/G 1.1 LAB L501.2200 8.5-10 mg/dL Normal .1 CA 8.7 LAB L501.4100 15-37 U/L Normal AST 31 LAB L501.4305 45-117 U/L Normal ALK P 75 LAB L501.4405 16-61 U/L Normal ALT 48 LAB L501.4600 0.20-1 mg/dL Normal .00 T BILI 0.40 LAB L501.5300 136-14 mmol/L Normal 5 NA 138 LAB L501.5600 3.5-5. mmol/L Normal 1 K 4.1 LAB L501.5900 98-107 mmol/L Normal CL 106 LAB L501.6100 21.0-3 mmol/L Normal 2.0 CO2 24.0 LAB L501.6200 5-15 Normal GAP 8 Performed By: #### L500.4050, L501.2450, L501.4010, L501.5200, L501.9520 #### [facility] [address] [place], [address] LIPASE Collected: 11/05/2017 Status: F Source: [place] 2:18 PM [facility] REPOSITORY TYPE CODE TESTS RESULT OUT OF RANGE REFERENCE UNITS LAB L501.2450 73-393 U/L Normal LIPASE 203 Performed By: #### L500.4050, L501.2450, L501.4010, L501.5200, L501.9520 #### [facility] [address] [place], [address] TROPONIN-I Collected: 11/05/2017 Status: F Source: [place] 2:18 PM [facility] REPOSITORY TYPE CODE TESTS RESULT OUT OF RANGE REFERENCE UNITS LAB L501.4010 <0.045 ng/mL Normal < 0.015 TROPONIN-I Result Comment: TROPONIN-I EXPECTED VALUES <0.045 Negative 0.045 - 0.590 Consistent with Cardiac Damage > OR = 0.600 Critical Value Not every elevated troponin is indicative of [place]. These values should be used with clinical judgement in examining the patient's clinical picture for diagnosis. To establish a diagnosis of [place] versus myocardial injury, there must be a demonstrated rise and/or fall in the troponin values, in addition to ischemic symptoms, EKG changes, new regional wall motion abnormality, and/or angiographical evidence. PLEASE NOTE: REFERENCE RANGES EDITED 17 Performed By: #### L500.4050, L501.2450, L501.4010, L501.5200, L501.9520 #### [facility] [address] [place], [address] MAGNESIUM Collected: 11/05/2017 Status: F Source: [place] 2:18 PM [facility] REPOSITORY TYPE CODE TESTS RESULT OUT OF RANGE REFERENCE UNITS LAB L501.5200 1.6-2.6 mg/dL Normal MG 1.9 Performed By: #### L500.4050, L501.2450, L501.4010, L501.5200, L501.9520 #### [facility] [address] [place], [address] THYROID STIM HORMONE Collected: 11/05/2017 Status: F Source: [place] (TSH) 2:18 PM [facility] REPOSITORY TYPE CODE TESTS RESULT OUT OF RANGE REFERENCE UNITS LAB L501.9520 0.358-3.74 uIU/mL Normal TSH 2.03 Performed By: #### L500.4050, L501.2450, L501.4010, L501.5200, L501.9520 #### [facility] [address] [place], [address] PROGRESS Observed: 11/02/2017 Status: COMPLETED Source: [place] 3:[address] [facility] REPOSITORY HNO ID: [id number] Author: Rodri (Shahab) Nik Service: (none) Author Type: Physical Therapist Type: Progress Notes Filed: 11/02/2017 3:16 PM Note Text: Episode Visit Count: 1 Therapist That Will Oversee The Plan Of Care: Rodri Zaragoza Start of Care Date: 11/02/17 Onset Date: 10/30/17 Plan of Care Certification Date: 11/02/17 Patient Identified by Name and Date of : Yes REHABILITATION AND SPORTS THERAPY PHYSICAL THERAPY EVALUATION PLAN OF CARE: Assessment: Corie Kilgore Jr. presents with the chief complaint of difficulty with balance and history of falls. He presents with impairments of decreased single leg balance, and difficulty with dynamic balance, narrow TRISTAN balance, and poor neuromuscular coordination as evidence by single leg stance performance. He may benefit from skilled therapy services to improve balance and decrease fall risk. Prognosis: Fair Fair due to: clinical presentation;multiple co- morbidities;history of poor adherence with medical recommendations;poor understanding of deficits;Prognosis may improve Prognosis may be improved by: good support system/ coping skills Goals for Episode of Care: created on 11/02/17 through 01/02/18 Patient will report no falls. Improve score on 30 Second Chair Stand to 16 repetitions to reflect decreased fall risk. Improve performance on 4 Stage Balance Test to 10 seconds in single leg stance bilaterally to reflect decreased fall risk. Toyah in home exercise program including cardiovascular exercise. Patient will improve his/her AM-PAC T-scale score by 4 points to indicate a Minimal Clincial Important Difference. G CODE REPORTING Based on clinical assessment and the score on the AM-PAC Scale Score Assessment Tool, the G code and corresponding severity modifiers are documented below. Evaluation: 11/02/2017 Current Status: Mobility: Walking and Moving Around: G8978 CH 0% impaired Goal Status: Mobility: Walking and Moving Around: G8979 CH 0% impaired Planned Interventions, Frequency, and Duration: Current Frequency: 1x/week Duration: 4 weeks Total Number of Visits Planned: 4 Planned Treatment Interventions: Therapeutic exercise;Neuromuscular re-education;Self-detention management;Patient/Family/Caregiver Education PLAN FOR NEXT VISIT: start balance exercises challenging TRISTAN and single leg stance Patient demonstrates good understanding of plan of care and treatment. The above goals and plan of care were discussed and agreed upon by patient/family. SUBJECTIVE: Corie Kilgore Jr. is a 77 year old male seen today for chronic right shoulder pain and weakness, and diffiuclty balancing with walking- especially when turning while walking. Pt had 1 fall a few weeks ago getting his feet tangled up in some weeds. Pt has history of CVA, DVT, and heart disease. Pt reports waking up in the middle of the night very anxious and like his heart is beating fast- but when he checks his pulse he's fine. This has happened twice in the past few weeks. Seeing Dr. Kolb for this Thursday Pain Score: 0/10 OBJECTIVE MEASURES WITH LEVEL OF FUNCTION: LE Strength R LE Strength: 5/5 L LE Strength: 5/5 30 Second Sit to Stand Test (reps): 14 reps 4 Stage Balance Test Narrow base of support (sec): 10 sec Semi-tandem base of support (sec): 10 sec Tandem base of support (sec): 10 sec Single leg stance - right (sec): 5 sec Single leg stance - left (sec): 6 sec Timed Up and Go (sec): 6.7 sec Education: TREATMENT: Evaluation Billing: [facility]: Evaluation - Low Complexity ([id number]) Total time: 35 minutes Rodri Zaragoza PT CBC AND DIFFERENTIAL Collected: 11/02/2017 Status: F Source: [place] 2:58 PM [facility] REPOSITORY TYPE CODE TESTS RESULT OUT OF REFERENCE UNITS RANGE LAB WBC 3.70-11.00 k/uL WBC 7.94 LAB RBC 4.20-6.00 m/uL RBC 5.00 LAB HGB 13.0-17.0 g/dL Hemoglobin 15.3 LAB HCT 39.0-51.0 % Hematocrit 46.3 LAB MCV 80.0-100.0 fL MCV 92.6 LAB MCH 26.0-34.0 pG MCH 30.6 LAB MCHC 30.5-36.0 g/dL MCHC 33.0 LAB RDWCV 11.5-15.0 % RDW-CV 13.8 LAB PLTCT 150-400 k/uL Platelet Count 198 LAB MPV 9.0-12.7 fL MPV 10.7 LAB ANEUT % Neut% 58.4 LAB AANEUT 1.45-7.50 k/uL Abs Neut 4.64 LAB ALYMP % Lymph% 26.7 LAB AALYMP 1.00-4.00 k/uL Abs Lymph 2.12 LAB AMONO % [place]% 12.5 LAB AAMONO <0.87 k/uL Abs [place] High 0.99 LAB AEOS % Eosin% 1.6 LAB AAEOS <0.46 k/uL Abs Eosin 0.13 LAB ABASO % Baso% 0.8 LAB AABASO <0.11 k/uL Abs Baso 0.06 LAB AUNRBC 0 /100 WBC NRBCs 0.0 LAB ABNRBC <0.01 k/uL Absolute nRBC <0.01 LAB DTYP DTYPE Auto Diff Performed By: #### CBCDIF, CMP, LIPB, VITD, B12, HBA1C #### [facility] [address] [place], [place] [address] COMP METABOLIC PANEL Collected: 11/02/2017 Status: F Source: [place] 2:58 PM [facility] REPOSITORY TYPE CODE TESTS RESULT OUT OF REFERENCE UNITS RANGE LAB TP 6.3-8.0 g/dL Protein, Total 7.8 LAB ALB 3.9-4.9 g/dL Albumin High 5.0 LAB CA 8.5-10.2 mg/dL Calcium, Total 10.0 LAB TBIL 0.2-1.3 mg/dL Bilirubin, Total 0.5 LAB ALKP 36-108 U/L Alkaline Phosphatase 75 LAB AST 14-40 U/L AST 31 LAB GLU 74-99 mg/dL Glucose High 124 Result Comment: The [place] Diabetes Association (ADA) provides guidance for cutoff values for fasting glucose and random glucose. The ADA defines fasting as no caloric intake for at least 8 hours. Fas ting plasma glucose results between 100 to 125 mg/dL indicate increased risk for diabetes (prediabetes). Fasting plasma glucose results greater than or equal to 126 mg/dL meet the criteria for diagnosis of diabetes. In the absence of unequivocal hyperglycemia, results should be confirmed by repeat testing. In a patient with classic symptoms of hyperglycemia or hyperglycemic crisis, random plasma glucose results greater than or equal to 200 mg/dL meet the criteria for diagnosis of diabetes. Reference: Standards of Medical Care in Diabetes 2016, [place] Diabetes Association. Diabetes Care. 2016.39(Suppl 1). LAB BUN 9-24 mg/dL BUN 12 LAB CRET 0.73-1.22 mg/dL Creatinine 0.78 LAB NA 136-144 mmol/L Sodium 141 LAB K 3.7-5.1 mmol/L Potassium 4.6 LAB CL 97-105 mmol/L Chloride 101 LAB CO2 22-30 mmol/L CO2 25 LAB AGAP 9-18 mmol/L Anion Gap 15 LAB ALT 10-54 U/L ALT 43 LAB GFRAA eGFR- Amer. >60 LAB GFRNAA . eGFR-All Other Races >60 Result Comment: eGFR (Estimated GFR) Units of measure: mL/min/1.73 meters squared eGFR is derived from the reexpressed MDRD Study equation using the following parameters: serum creatinine, age, gender and race. The creatinine assay has been calibrated to be traceable to IDMS. An eGFR <60 mL/min/1.73m2 for >3 months is consistent with chronic kidney disease. Refer to KDOQI guidelines for clinical interpretation. In patients with unstable renal function, e.g. those with acute kidney injury, the eGFR may not accurately reflect actual GFR. Performed By: #### CBCDIF, CMP, LIPB, VITD, B12, HBA1C #### [facility] [address] [place], [place] [address] LIPID PANEL, BASIC Collected: 11/02/2017 Status: F Source: [place] 2:58 PM [facility] REPOSITORY TYPE CODE TESTS RESULT OUT OF REFERENCE UNITS RANGE LAB CHOL <200 mg/dL Cholesterol 143 Result Comment: <200 mg/dL, Desirable 200-239 mg/dL, Borderline high >239 mg/dL, High LAB TRIGLY <150 mg/dL Triglyceride High 232 Result Comment: <150 mg/dL, Normal 150-199 mg/dL, Borderline high 200-499 mg/dL, High >499 mg/dL, Very high LAB HDL >39 mg/dL HDL-Cholesterol 44 Result Comment: 40-59 mg/dL, Acceptable >59 mg/dL, High: Negative risk factor for coronary heart disease <40 mg/dL, Low: Positive risk factor for coronary heart disease LAB LDL <100 mg/dL LDL-Cholesterol 53 Result Comment: <100 mg/dL, Optimal 100-129 mg/dL, Near optimal/above optimal 130-159 mg/dL, Borderline high 160-189 mg/dL, High >189 mg/dL, Very high Secondary prevention optimal LDL Cholesterol levels are recommended to be < 70 mg/dL LAB NONHDL <130 mg/dL Non HDL Cholesterol 99 Result Comment: <130 mg/dL, Optimal 130-159 mg/dL, Near optimal/above optimal 160-189 mg/dL, Borderline high 190-219 mg/dL, High >219 mg/dL, Very high Secondary prevention optimal non HDL Cholesterol levels are recommended to be < 100 mg/dL LAB FT hrs Fasting Time 10 LAB VLDL <30 mg/dL High VLDL Cholesterol 46 LAB TCHDL <5.10 TC:HDL Ratio 3.25 LAB LDLHDL <2.54 LDL:HDL Ratio 1.20 Result Comment: Reference: 1. National Cholesterol Education Program ATP III Guideline At-A-Glance Quick Desk Reference: National Heart, Lung, and Blood Gail. National Institutes of Health. 2001: NIH Publication No. 01-3305. 2. An International Atherosclerosis Society position paper: global recommendations for the management of dyslipidemia: executive summary, Atherosclerosis. 2014: 232(2):410-413. Performed By: #### CBCDIF, CMP, LIPB, VITD, B12, HBA1C #### [facility] [address] [place], [place] [address] VITAMIN D 25 HYDROXY Collected: 11/02/2017 Status: F Source: [place] 2:58 PM [facility] REPOSITORY TYPE CODE TESTS RESULT OUT OF REFERENCE UNITS RANGE LAB VITD 31.0-80.0 ng/mL Low Vitamin D 25 22.5 Hydroxy Result Comment: Classification of 25 [place] Vitamin D status: Insufficiency/Moderate Deficiency: < or = 30 ng/mL Sufficiency/Optimal Levels: 31 to 80 ng/mL Toxicity: > 100 ng/mL Test performed by chemiluminescent immunoassay. Performed By: #### CBCDIF, CMP, LIPB, VITD, B12, HBA1C #### [facility] [address] [place], [place] [address] VITAMIN B12 Collected: 11/02/2017 Status: F Source: [place] 2:[address] [facility] REPOSITORY TYPE CODE TESTS RESULT OUT OF REFERENCE UNITS RANGE LAB B12 232-1245 pg/mL Vitamin B12 486 Performed By: #### CBCDIF, CMP, LIPB, VITD, B12, HBA1C #### [facility] [address] [place], [place] [address] HEMOGLOBIN A1C Collected: 11/02/2017 Status: F Source: [place] 2:[address] [facility] REPOSITORY TYPE CODE TESTS RESULT OUT OF REFERENCE UNITS RANGE LAB HGBA1C 4.3-5.6 % High Hemoglobin A1c 7.0 LAB HBA0 mg/dL Est. Average Glucose 154 Result Comment: eAG: (Estimated average glucose) is a calculated value from HgbA1c and is representative personal service of the average blood glucose level in the last 2-3 month period. Performed By: #### CBCDIF, CMP, LIPB, VITD, B12, HBA1C #### [facility] [address] [place], [place] [address] CNTHERAPY Observed: 11/02/2017 Status: COMPLETED Source: [place] 2:[address] [facility] REPOSITORY OT/PT/Speech Visit (PTWS) CORIE KILGORE JR. ([id number]) 1940 M Date Time Provider Department 11/02/17 2:00 PM RODRI ZARAGOZA (PT) PTWS Date Time Provider Department Center 11/02/2017 2:00 PM [id number], SEAN (PT)PTWS [facility] [place] Reason for Visit: PT Eval [747] Physical Therapy [503] Primary Visit Diagnosis:Age-related physical debility [R54] Allergies As of Date: 11/02/2017 (No Known Allergies) Date Reviewed: 10/30/2017 Reviewed by: Cheko Araujo Ma - Fully Assessed Prescriptions as of 11/02/2017 Sig: LISINOPRIL 5 MG TABLET Take 1 tablet by mouth once d* ATORVASTATIN 20 MG TABLET Take 1 tablet by mouth daily * WARFARIN 3 MG TABLET Take 9 mg on Wed and 6mg all * METFORMIN 500 MG TABLET Take 1 tablet by mouth daily * FISH OIL ORAL Take by mouth as directed. [id number] ACID 300 M* Take by mouth. Progress Notes: Rodri Zaragoza, PT 11/02/2017 3:16 PM Signed Episode Visit Count: 1 Therapist That Will Oversee The Plan Of Care: Rodri Zaragoza Start of Care Date: 11/02/17 Onset Date: 10/30/17 Plan of Care Certification Date: 11/02/17 Patient Identified by Name and Date of : Yes REHABILITATION AND SPORTS THERAPY PHYSICAL THERAPY EVALUATION PLAN OF CARE: Assessment: Corie Kilgore Jr. presents with the chief complaint of difficulty with balance and history of falls. He presents with impairments of decreased single leg balance, and difficulty with dynamic balance, narrow TRISTAN balance, and poor neuromuscular coordination as evidence by single leg stance performance. He may benefit from skilled therapy services to improve balance and decrease fall risk. Prognosis: Fair Fair due to: clinical presentation;multiple co- morbidities;history of poor adherence with medical recommendations;poor understanding of deficits;Prognosis may improve Prognosis may be improved by: good support system/ coping skills Goals for Episode of Care: created on 11/02/17 through 01/02/18 Patient will report no falls. Improve score on 30 Second Chair Stand to 16 repetitions to reflect decreased fall risk. Improve performance on 4 Stage Balance Test to 10 seconds in single leg stance bilaterally to reflect decreased fall risk. Toyah in home exercise program including cardiovascular exercise. Patient will improve his/her AM-PAC T-scale score by 4 points to indicate a Minimal Clincial Important Difference. G CODE REPORTING Based on clinical assessment and the score on the AM-PAC Scale Score Assessment Tool, the G code and corresponding severity modifiers are documented below. Evaluation: 11/02/2017 Current Status: Mobility: Walking and Moving Around: G8978 0% impaired Goal Status: Mobility: Walking and Moving Around: G8979 CH 0% impaired Planned Interventions, Frequency, and Duration: Current Frequency: 1x/week Duration: 4 weeks Total Number of Visits Planned: 4 Planned Treatment Interventions: Therapeutic exercise;Neuromuscular re-education;Self-detention management;Patient/Family/Caregiver Education PLAN FOR NEXT VISIT: start balance exercises challenging TRISTAN and single leg stance Patient demonstrates good understanding of plan of care and treatment. The above goals and plan of care were discussed and agreed upon by patient/family. SUBJECTIVE: Corie Kilgore Jr. is a 77 year old male seen today for chronic right shoulder pain and weakness, and diffiuclty balancing with walking- especially when turning while walking. Pt had 1 fall a few weeks ago getting his feet tangled up in some weeds. Pt has history of CVA, DVT, and heart disease. Pt reports waking up in the middle of the night very anxious and like his heart is beating fast- but when he checks his pulse he's fine. This has happened twice in the past few weeks. Seeing Dr. Kolb for this Thursday Pain Score: 0/10 OBJECTIVE MEASURES WITH LEVEL OF FUNCTION: LE Strength R LE Strength: 5/5 L LE Strength: 5/5 30 Second Sit to Stand Test (reps): 14 reps 4 Stage Balance Test Narrow base of support (sec): 10 sec Semi-tandem base of support (sec): 10 sec Tandem base of support (sec): 10 sec Single leg stance - right (sec): 5 sec Single leg stance - left (sec): 6 sec Timed Up and Go (sec): 6.7 sec Education: TREATMENT: Evaluation Billing: [facility]: Evaluation - Low Complexity ([id number]) Total time: 35 minutes Rodri Zaragoza PT TSH Collected: 10/30/2017 Status: F Source: [place] 10:50 AM [facility] [place] REPOSITORY TYPE CODE TESTS RESULT OUT OF RANGE REFERENCE UNITS LAB TSH 0.400-5.500 uU/mL TSH 2.680 Performed By: #### TSH #### [facility] [address] [place], [place] [address] PROGRESS Observed: 10/30/2017 Status: COMPLETED Source: [place] 9:[address] [facility] REPOSITORY HNO ID: [id number] Author: Nasreen Treviño RN Service: (none) Author Type: (none) Type: Progress Notes Filed: 10/30/2017 9:36 AM Note Text: patient had inr completed at [facility] patients inr is 1.1 (patients inr range is 2.0-3.0) patient is currently taking 9mg Wed and 6mg all other days patients last dose change was on 08/17/17 due to a low level of 1.2 (dose at that time was 3mg Wed and 6mg all other days) patient has had no changes in medication and has had missed doses (see below) and no change in diet FYI - patient states that daughter went away for 21 days and within that time frame he may have missed 1 weeks worth of medication and knows that he has missed at least 2 doses so far this week Nurse spoke with Dr Kolb and we will have the patient stay on the same dose since he was stable on above dosing and patient will have inr recheck in 1 week on 11/06/17. Patient has been notified of this information at appt with pcp today PROGRESS Observed: 10/30/2017 Status: COMPLETED Source: [place] 9:[address] [facility] REPOSITORY HNO ID: [id number] Author: Ileana Everett) Cortes Service: (none) Author Type: Physician Type: Progress Notes Filed: 10/30/2017 2:39 PM Note Text: Chief Complaint Patient presents with: 6 Month Exam: routine HPI Corie Kilgore Jr. is a 77 year old male who presents here today for 6 month follow up visit. Patient by self today, drove self to the office. Patient had INR checked today and resulted at 1.1. States that his daughter is out of town, in [place], for the last 4-5 days and she typically puts out his medications. They set up a neighbor to set out his medications, but he didn't feel that she was doing it correctly so he has not taken any of his medications for the last 4-5 days. Patient seems confused today and states that it is because he had friends come in for [place] and they stayed for longer than he thought they were going to. Daughter to come back from out of town today or tomorrow. Patient states he would like referral to PT for loss of balance when he turns. Almost fell about 2 weeks ago when he was going through a hay field, tripped and caught himself on his hands. Does not have cane or walker at home and does not want one. Past medical history, appointments, medications, allergies reviewed. Previous Medical History PAST MEDICAL HISTORY Diagnosis Date - ASD (atrial septal defect) - Cerebral vascular disease cva - Degenerative arthritis - Diabetes mellitus, type II (HCC) - DVT (deep venous thrombosis) (HCC) - Hard of hearing - HTN (hypertension) - Hyperlipidaemia - PFO (patent foramen ovale) Dr. So - [place] - TIA (transient ischemic attack) Previous Surgical History PAST SURGICAL HISTORY Procedure Laterality Date - CHOLECYSTECTOMY - HERNIA REPAIR HX - PAST SURGICAL HISTORY OF RK - PAST SURGICAL HISTORY OF Tonsillectomy - PAST SURGICAL HISTORY OF Right and Left shoulder surgery - PAST SURGICAL HISTORY OF chest surgery Family History FAMILY HISTORY Problem Relation Age of Onset - Heart Father - Diabetes Father - Hypertension Mother - Heart Mother - Cancer Sister - Heart Sister Patient Allergies ALLERGIES No Known Allergies Current Medications Current Outpatient Prescriptions on File Prior to Visit: lisinopril (PRINIVIL) 5 mg tablet Take 1 tablet by mouth once daily. atorvastatin (LIPITOR) 20 mg tablet Take 1 tablet by mouth daily at bedtime. For cholesterol. warfarin (COUMADIN) 3 mg tablet Take 9 mg on Thu and 6mg all other days metFORMIN (GLUCOPHAGE) 500 mg tablet Take 1 tablet by mouth daily with breakfast. DOCOSAHEXANOIC ACID/EPA (FISH OIL ORAL) Take by mouth as directed. rldhluzj-xfj-HW-lycopen-lutein (CENTRUM SILVER ULTRA MEN'S) 300-600-300 mcg tab Take by mouth. No current facility-administered medications on file prior to visit. 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 Review of Symptoms REVIEW OF SYSTEMS GENERAL: No weight loss, malaise or fevers RESPIRATORY: Negative for cough, hemoptysis, wheezing, COPD, dyspnea or shortness of breath CARDIOVASCULAR: Negative for chest pain, leg swelling, hypertension, CHF or palpitations GI: No nausea, vomiting, or diarrhea SKIN: Negative for lesions, rash, and itching EXAM: BP 120/82 Pulse 76 Resp 16 Wt 86.2 kg (190 lb) BMI 27.46 kg/m? General Appearance: AOx2 (person, place), no acute distress, tangential speech. Skin: Skin color, texture, turgor normal, no suspicious rashes or lesions. Lungs: Lungs clear to auscultation. No wheezing, rhonchi, rales. Heart: RRR without murmur, gallop, or rubs. No ectopy. Abdomen: Normal abdominal exam, Abdomen soft, non-tender. Bowel sounds normal. No masses, organomegaly. Extremities: No deformities, edema, skin discoloration, clubbing or cyanosis. Good capillary refill. . Neurologic: Negative findings: speech normal, gait, including heel, toe, and tandem walking normal, muscle tone normal. Health Maintenance List DTAP,TDAP,TD(1 - Tdap) due on 02/25/1959 COLORECTAL CANCER SCREENING,SEE MODIFIER due on 05/03/2017 URINE ALBUMIN:CREATININE RATIO due on 09/08/2017 LDL CHOLESTEROL due on 09/08/2017 HBA1C due on 10/29/2017 INFLUENZA(1) due on 11/07/2017 STATIN MED ADHERENCE due on 11/07/2017 DIABETES MED ADHERENCE due on 11/07/2017 DILATED RETINAL EXAM due on 01/22/2018 DIABETIC FOOT EXAM due on 05/01/2018 ANNUAL PCP TEAM CHRONIC DISEASE VISIT due on 05/01/2018 BLOOD PRESSURE CONTROLLED due on 09/14/2018 ADULT PREVNAR-13 Completed PNEUMOVAX AGE 65 AND OVER WITH 5YR LOOKBACK Completed Data reviewed Component Latest Ref Rng AND Units 09/08/2016 05/01/2017 Protein, Total 6.3 - 8.0 g/dL 7.6 7.6 Albumin 3.9 - 4.9 g/dL 4.4 4.6 Calcium 8.5 - 10.2 mg/dL 9.7 9.0 Bilirubin, Total 0.2 - 1.3 mg/dL 0.4 0.6 Alkaline Phosphatase 36 - 108 U/L 67 75 AST 14 - 40 U/L 24 41 (H) Glucose 74 - 99 mg/dL 132 (H) 132 (H) BUN 9 - 24 mg/dL 18 12 Creatinine 0.73 - 1.22 mg/dL 0.79 0.71 (L) Sodium 136 - 144 mmol/L 142 142 Potassium 3.7 - 5.1 mmol/L 4.3 4.3 Chloride 97 - 105 mmol/L 102 104 CO2 22 - 30 mmol/L 26 26 Anion Gap 9 - 18 mmol/L 14 12 ALT 10 - 54 U/L 29 50 eGFR- >60 >60 eGFR-All Other Races . >60 >60 Triglyceride 30 - 149 mg/dL 338 (H) Cholesterol, Total 100 - 199 mg/dL 182 HDL Cholesterol >45 mg/dL 40 (L) VLDL Cholesterol 6 - 40 mg/dL 68 (H) LDL Cholesterol 60 - 129 mg/dL 74 Fasting Time hrs 12 TC:HDL Ratio 1.00 - 5.00 4.55 LDL:HDL Ratio 0.50 - 3.55 1.85 Non HDL Cholesterol 90 - 159 mg/dL 142 Creatinine, Ur Random (UCRR) 20 - 300 mg/dL 88.7 Albumin, Urine Random 0.0 - 23.0 mg/L <12.0 Albumin/Creat Ratio 0 - 30 mg/g Not calculated Hemoglobin A1C 4.3 - 5.6 % 6.2 (H) 6.4 (H) Estimated Average Glucose mg/dL 131 137 MMSE: ASSESSMENT/PLAN: 1. Memory impairment - ICD9: 780.93, ICD10: R41.3 (primary diagnosis) Spoke with nurse checking INR today and she states that she has noticed gradual decline in his mental status over the last few months and he seems to be more impaired today than at previous visit. MMSE in normal range today. Will obtain blood work to rule out underlying causes and check diabetes labs. Will have him schedule 40 minute visit and bring daughter in to discuss this change. Instructed to take medications as prescribed tonight. - TSH BLD - VITAMIN B12 BLOOD - VITAMIN D 25 HYDROXY - UA DIP B/O - COMP METABOLIC PANEL - CBC + DIFF 2. Controlled type 2 diabetes mellitus without complication, without long-term current use of insulin (HCC) - ICD9: 250.00, ICD10: E11.9 Awaiting labs. Will discuss further at future OV. Not checking glucose at home. - COMP METABOLIC PANEL 3. Deep vein thrombosis (DVT) of distal vein of lower extremity, unspecified chronicity, unspecified laterality (HCC) - ICD9: 453.42, ICD10: I82.4Z9 Continue coumadin as ordered. 4. Chronic anticoagulation - ICD9: V58.61, ICD10: Z79.01 Subtherapeutic since he has been off of his medications. Restart coumadin as ordered. 5. H/O: CVA (cerebrovascular accident) - ICD9: V12.54, ICD10: Z86.73 Continue current regimen. Do not feel today's change is 2/2 new stroke as per nursing he has been slowly deteriorating. 6. Age-related physical debility - ICD9: 797, ICD10: R54 Referral to PT for vestibular rehab and strengthening. - CONSULT TO PHYSICAL THERAPY 7. Loss of balance - ICD9: 781.99, ICD10: R26.89 - CONSULT TO PHYSICAL THERAPY 8. Fall, initial encounter - ICD9: E888.9, ICD10: W19.XXXA - CONSULT TO PHYSICAL THERAPY I spent 40 minutes in the visit, with more than 50% of the total ilid-pr-qhmd time of the visit in counseling / coordination of care. Ileana Kolb MD CNOV Observed: 10/30/2017 Status: COMPLETED Source: [place] 9:[address] [facility] REPOSITORY Office Visit (FAMPWS) CORIE KILGORE JR. ([id number]) 1940 M Date Time Provider Department 10/30/17 9:20 AM ILEANA KOLB) FAMPWS During your visit today, we recorded the following information about you: Pulse Respiration Blood pressure Weight 76/minute 16/minute 120/82 86.2 kg Ileana Kolb MD 10/30/2017 2:39 PM Signed Chief Complaint Patient presents with: 6 Month Exam: routine HPI Corie Kilgore Jr. is a 77 year old male who presents here today for 6 month follow up visit. Patient by self today, drove self to the office. Patient had INR checked today and resulted at 1.1. States that his daughter is out of town, in [place], for the last 4-5 days and she typically puts out his medications. They set up a neighbor to set out his medications, but he didn't feel that she was doing it correctly so he has not taken any of his medications for the last 4-5 days. Patient seems confused today and states that it is because he had friends come in for [place] and they stayed for longer than he thought they were going to. Daughter to come back from out of town today or tomorrow. Patient states he would like referral to PT for loss of balance when he turns. Almost fell about 2 weeks ago when he was going through a hay field, tripped and caught himself on his hands. Does not have cane or walker at home and does not want one. Past medical history, appointments, medications, allergies reviewed. Previous Medical History PAST MEDICAL HISTORY Diagnosis Date - ASD (atrial septal defect) - Cerebral vascular disease cva - Degenerative arthritis - Diabetes mellitus, type II (HCC) - DVT (deep venous thrombosis) (HCC) - Hard of hearing - HTN (hypertension) - Hyperlipidaemia - PFO (patent foramen ovale) Dr. So - RBBB - TIA (transient ischemic attack) Previous Surgical History PAST SURGICAL HISTORY Procedure Laterality Date - CHOLECYSTECTOMY - HERNIA REPAIR HX - PAST SURGICAL HISTORY OF RK - PAST SURGICAL HISTORY OF Tonsillectomy - PAST SURGICAL HISTORY OF Right and Left shoulder surgery - PAST SURGICAL HISTORY OF chest surgery Family History FAMILY HISTORY Problem Relation Age of Onset - Heart Father - Diabetes Father - Hypertension Mother - Heart Mother - Cancer Sister - Heart Sister Patient Allergies ALLERGIES No Known Allergies Current Medications Current Outpatient Prescriptions on File Prior to Visit: lisinopril (PRINIVIL) 5 mg tablet Take 1 tablet by mouth once daily. atorvastatin (LIPITOR) 20 mg tablet Take 1 tablet by mouth daily at bedtime. For cholesterol. warfarin (COUMADIN) 3 mg tablet Take 9 mg on Thu and 6mg all other days metFORMIN (GLUCOPHAGE) 500 mg tablet Take 1 tablet by mouth daily with breakfast. DOCOSAHEXANOIC ACID/EPA (FISH OIL ORAL) Take by mouth as directed. ufzzdyvq-pjt-CZ-lycopen-lutein (CENTRUM SILVER ULTRA MEN'S) 300-600-300 mcg tab Take by mouth. No current facility-administered medications on file prior to visit. 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 Review of Symptoms REVIEW OF SYSTEMS GENERAL: No weight loss, malaise or fevers RESPIRATORY: Negative for cough, hemoptysis, wheezing, COPD, dyspnea or shortness of breath CARDIOVASCULAR: Negative for chest pain, leg swelling, hypertension, CHF or palpitations GI: No nausea, vomiting, or diarrhea SKIN: Negative for lesions, rash, and itching EXAM: BP 120/82 Pulse 76 Resp 16 Wt 86.2 kg (190 lb) BMI 27.46 kg/m? General Appearance: AOx2 (person, place), no acute distress, tangential speech. Skin: Skin color, texture, turgor normal, no suspicious rashes or lesions. Lungs: Lungs clear to auscultation. No wheezing, rhonchi, rales. Heart: RRR without murmur, gallop, or rubs. No ectopy. Abdomen: Normal abdominal exam, Abdomen soft, non-tender. Bowel sounds normal. No masses, organomegaly. Extremities: No deformities, edema, skin discoloration, clubbing or cyanosis. Good capillary refill. . Neurologic: Negative findings: speech normal, gait, including heel, toe, and tandem walking normal, muscle tone normal. Health Maintenance List DTAP,TDAP,TD(1 - Tdap) due on 02/25/1959 COLORECTAL CANCER SCREENING,SEE MODIFIER due on 05/03/2017 URINE ALBUMIN:CREATININE RATIO due on 09/08/2017 LDL CHOLESTEROL due on 09/08/2017 HBA1C due on 10/29/2017 INFLUENZA(1) due on 11/07/2017 STATIN MED ADHERENCE due on 11/07/2017 DIABETES MED ADHERENCE due on 11/07/2017 DILATED RETINAL EXAM due on 01/22/2018 DIABETIC FOOT EXAM due on 05/01/2018 ANNUAL PCP TEAM CHRONIC DISEASE VISIT due on 05/01/2018 BLOOD PRESSURE CONTROLLED due on 09/14/2018 ADULT PREVNAR-13 Completed PNEUMOVAX AGE 65 AND OVER WITH 5YR LOOKBACK Completed Data reviewed Component Latest Ref Rng AND Units 09/08/2016 05/01/2017 Protein, Total 6.3 - 8.0 g/dL 7.6 7.6 Albumin 3.9 - 4.9 g/dL 4.4 4.6 Calcium 8.5 - 10.2 mg/dL 9.7 9.0 Bilirubin, Total 0.2 - 1.3 mg/dL 0.4 0.6 Alkaline Phosphatase 36 - 108 U/L 67 75 AST 14 - 40 U/L 24 41 (H) Glucose 74 - 99 mg/dL 132 (H) 132 (H) BUN 9 - 24 mg/dL 18 12 Creatinine 0.73 - 1.22 mg/dL 0.79 0.71 (L) Sodium 136 - 144 mmol/L 142 142 Potassium 3.7 - 5.1 mmol/L 4.3 4.3 Chloride 97 - 105 mmol/L 102 104 CO2 22 - 30 mmol/L 26 26 Anion Gap 9 - 18 mmol/L 14 12 ALT 10 - 54 U/L 29 50 eGFR- >60 >60 eGFR-All Other Races . >60 >60 Triglyceride 30 - 149 mg/dL 338 (H) Cholesterol, Total 100 - 199 mg/dL 182 HDL Cholesterol >45 mg/dL 40 (L) VLDL Cholesterol 6 - 40 mg/dL 68 (H) LDL Cholesterol 60 - 129 mg/dL 74 Fasting Time hrs 12 TC:HDL Ratio 1.00 - 5.00 4.55 LDL:HDL Ratio 0.50 - 3.55 1.85 Non HDL Cholesterol 90 - 159 mg/dL 142 Creatinine, Ur Random (UCRR) 20 - 300 mg/dL 88.7 Albumin, Urine Random 0.0 - 23.0 mg/L <12.0 Albumin/Creat Ratio 0 - 30 mg/g Not calculated Hemoglobin A1C 4.3 - 5.6 % 6.2 (H) 6.4 (H) Estimated Average Glucose mg/dL 131 137 MMSE: ASSESSMENT/PLAN: 1. Memory impairment - ICD9: 780.93, ICD10: R41.3 (primary diagnosis) Spoke with nurse checking INR today and she states that she has noticed gradual decline in his mental status over the last few months and he seems to be more impaired today than at previous visit. MMSE in normal range today. Will obtain blood work to rule out underlying causes and check diabetes labs. Will have him schedule 40 minute visit and bring daughter in to discuss this change. Instructed to take medications as prescribed tonight. - TSH BLD - VITAMIN B12 BLOOD - VITAMIN D 25 HYDROXY - UA DIP B/O - COMP METABOLIC PANEL - CBC + DIFF 2. Controlled type 2 diabetes mellitus without complication, without long-term current use of insulin (HCC) - ICD9: 250.00, ICD10: E11.9 Awaiting labs. Will discuss further at future OV. Not checking glucose at home. - COMP METABOLIC PANEL 3. Deep vein thrombosis (DVT) of distal vein of lower extremity, unspecified chronicity, unspecified laterality (HCC) - ICD9: 453.42, ICD10: I82.4Z9 Continue coumadin as ordered. 4. Chronic anticoagulation - ICD9: V58.61, ICD10: Z79.01 Subtherapeutic since he has been off of his medications. Restart coumadin as ordered. 5. H/O: CVA (cerebrovascular accident) - ICD9: V12.54, ICD10: Z86.73 Continue current regimen. Do not feel today's change is 2/2 new stroke as per nursing he has been slowly deteriorating. 6. Age-related physical debility - ICD9: 797, ICD10: R54 Referral to PT for vestibular rehab and strengthening. - CONSULT TO PHYSICAL THERAPY 7. Loss of balance - ICD9: 781.99, ICD10: R26.89 - CONSULT TO PHYSICAL THERAPY 8. Fall, initial encounter - ICD9: E888.9, ICD10: W19.XXXA - CONSULT TO PHYSICAL THERAPY I spent 40 minutes in the visit, with more than 50% of the total qqns-oq-twrv time of the visit in counseling / coordination of care. Ileana Kolb MD Referring Provider: ILEANA KOLB) [[id number]] Allergies As of Date: 10/30/2017 (No Known Allergies) Date Reviewed: 10/30/2017 Reviewed by: Cheko Araujo Ma - Fully Assessed Reason for Visit: 6 Month Exam [189] Cmt: routine Primary Visit Diagnosis:Memory impairment [R41.3] Other Visit Diagnoses:Controlled type 2 diabetes mellitus without complication, without long-term current use of insulin (HCC) [E11.9] Deep vein thrombosis (DVT) of distal vein of lower extremity, unspecified chronicity, unspecified laterality (HCC) [I82.4Z9] Chronic anticoagulation [Z79.01] H/O: CVA (cerebrovascular accident) [Z86.73] Age-related physical debility [R54] Loss of balance [R26.89] Fall, initial encounter [W19.XXXA] Order(s):TSH BLD [SQTSH] Order #: [id number] FUTURE VITAMIN B12 BLOOD [SQB12] Order #: [id number] FUTURE VITAMIN D 25 HYDROXY [SQVITD] Order #: [id number] FUTURE UA DIP B/O [1623811] Order #: [id number] CONSULT TO PHYSICAL THERAPY [9032] Order #: [id number]: 1 COMP METABOLIC PANEL [SQCMP] Order #: [id number] FUTURE CBC + DIFF [SQCBCDIF] Order #: [id number] FUTURE INR (POC) [5132982] Order #: [id number]. #:[id number] Prescriptions as of 10/30/2017 Sig: LISINOPRIL 5 MG TABLET Take 1 tablet by mouth once d* ATORVASTATIN 20 MG TABLET Take 1 tablet by mouth daily * WARFARIN 3 MG TABLET Take 9 mg on Thu and 6mg all * METFORMIN 500 MG TABLET Take 1 tablet by mouth daily * FISH OIL ORAL Take by mouth as directed. YJJGHRLZ-OMN-FWYXC ACID 300 M* Take by mouth. 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 [Z79.*INVALID FOR* DVT (deep venous thrombosis) ([facility]) [I82.409] INVALID FOR* H/O: CVA (cerebrovascular accident) [Z86.73] INVALID FOR* Right bundle branch block [I45.10] INVALID FOR* Rotator cuff (capsule) sprain [S43.429A] INVALID FOR* Primary localized osteoarthrosis of shoulder re*INVALID FOR* Left-sided low back pain with left-sided sciati*INVALID FOR* Rotator cuff arthropathy, right [M12.811] INVALID FOR* Diabetic polyneuropathy associated with type 2 *INVALID FOR* Follow-up and Disposition History Recorded Letter Text MINI-MENTAL STATE EXAMINATION (MMSE) Make the patient comfortable and establish rapport. Ask questions in the order listed. Total possible score is 30. ORIENTATION 1. What is the (year) (season) (date) (day) (month)? Max score=5 Patient's score=5 2. Where are we? (state) (county) (town or city) (hospital) (floor)? Max score=5 Patient's score=5 REGISTRATION Ask the patient if you may test his/her memory. Then say the names of 3 unrelated objects, clearly and slowly, about one second for each (eg, apple, table, katelynn). After you have said all 3, ask him/her to repeat them. This first repetition determines the score(0-3), but keep saying them until he/she can repeat all 3, up to 6 trials. Max score=3 Patient's score=3 ATTENTION AND CALCULATION Ask the patient to begin with 100 and count backwards by 7. Stop after 5 subtractions (93, 86, 79, 72, 65). Score the total number of correct answers. If the patient cannot or will not perform the serial 7s task, ask him/her to spell the word WORLD backwards. The score is the number of letters in the correct order (eg, DLROW=5; DLRW=4; DLORW, DLW=3; OW=2; DRLWO=1). Max score=5 Patient's score=5 RECALL Ask the patient to recall the 3 items repeated above (eg, apple, table, katelynn). Max score=3 Patient's score=2 LANGUAGE Naming: Show the patient a wristwatch and ask him/her what it is. Repeat for pencil. Max score=2 Patient's score=2 Repetition: Ask the patient to repeat the phrase No ifs, ands, or buts: after you. Max score=1 Patient's score=1 3-Stage Command: Give the patient a piece of blank paper and ask him/her to take a piece of paper in your right hand, fold it in half, put it on the floor. Score 1 point for each part correctly executed. Max score=3 Patient's score=3 Reading: On a blank piece of paper, print the sentence CLOSE YOUR EYES in letters large enough for the patient to see clearly. Ask him/her to read it and do what it says. Score 1 point only if he/she actually closes his/her eyes. Max score=1 Patient's score=1 Writing: Give the patient a blank piece of paper and ask him/her to write a sentence. Do not dictate a sentence; it is to be written spontaneously. It must contain a subject and verb and be sensible. Correct grammar and punctuation are not necessary. Max score=1 Patient's score=1 Copying: Ask the patient to copy the figure of intersecting pentagons exactly as it is. All 10 angles must be present and 2 must intersect to form a 4-sided figure to score 1 point. Tremor and rotation are ignored. Max score=1 Patient's score=0 MAXIMUM TOTAL SCORE = 30 TOTAL SCORE = 29/30 Suggested guideline for determining the severity of cognitive impairment: Mild: MMSE>21 Moderate: MMSE 10-20 Severe: MMSE<9 Expected decline in MMSE scores in untreated mild to moderate Alzheimer's patient is 2 to 4 points per year. *Adapted from Folstein et al.1 and Wil and Sandrastein2. (c) 1974, 1997 [employer] Used with permission. References: 1. Folstein MF, Folstein SE, [place]. Mini- Mental State: a practical method for grading the cognitive state of patients for the clinician. J Psychiatr Res. 1975; 12:189-198. 2. JR Wil, Neil MF, Mini-Mental State Examination (MMSE). Psychopharm Bull. 1988;24:689- 692. 3. Jamari SalinasT, Tony FJ, Claude RD, Lebron A, Opal F. Neuropsychological function in Alzheimer's disease: pattern of impairment and rates of progression. Arch Neurol. 1988;45:263-268. 4. Donis MEDEL, Cayden B, Simeon SJessiP, Heather MESSER. Predictors of cognitive and functional progression in patients with probable Alzheimer's disease. Neurology. 1992;42:7680-5175. Encounter Status:Closed by ILEANA KOLB MD on 10/30/17 PROGRESS Observed: 10/26/2017 Status: COMPLETED Source: [place] 5:[address] [facility] REPOSITORY HNO ID: [id number] Author: Ileana Everett) [place]es Service: (none) Author Type: Physician Type: Progress Notes Filed: 10/26/2017 5:19 PM Note Text: Reviewed. PROGRESS Observed: 10/26/2017 Status: COMPLETED Source: [place] 4:[address] [facility] REPOSITORY HNO ID: [id number] Author: Sumi Rahman) ILIANA Soriano Service: (none) Author Type: Registered Nurse Type: Progress Notes Filed: 10/26/2017 4:47 PM Note Text: NETWORK NAVIGATION Provider Action/FYI Patient outreach regarding medication adherence was attempted for this patient due to showing non-adherent in their Hyperlipidemia medication Atorvastatin 20 mg . A voice message was left for the patient reminding them of the importance of taking their medications and getting their prescriptions filled regularly. The patient was instructed to schedule an appointment or call their provider?s office if they had any questions or concerns related to their medication. Patient identified by name and . Patient is on 30 day supply currently. Please consider a 90 day supply. Sumi Soriano RN, MSN, [facility] CNPTOUTREACH Observed: 10/26/2017 Status: COMPLETED Source: [place] 12:[address] [facility] REPOSITORY Patient Outreach (NETNAV) CORIE KILGORE JR. ([id number]) 1940 M Date Time Provider Department 10/26/17 SUMI SORIANO (RN) GEOFF During your visit today, we recorded the following information about you: GEOFF Peraza (Network Navigator), RN 10/26/2017 4:47 PM Signed NETWORK NAVIGATION Provider Action/ Patient outreach regarding medication adherence was attempted for this patient due to showing non-adherent in their Hyperlipidemia medication Atorvastatin 20 mg . A voice message was left for the patient reminding them of the importance of taking their medications and getting their prescriptions filled regularly. The patient was instructed to schedule an appointment or call their provider?s office if they had any questions or concerns related to their medication. Patient identified by name and . Patient is on 30 day supply currently. Please consider a 90 day supply. Sumi Soriano RN, MSN, CCM Allergies As of Date: 10/26/2017 (No Known Allergies) Date Reviewed: 09/28/2017 Reviewed by: Nia Alegre Ma - Fully Assessed Prescriptions as of 10/26/2017 Sig: LISINOPRIL 5 MG TABLET Take 1 tablet by mouth once d* ATORVASTATIN 20 MG TABLET Take 1 tablet by mouth daily * WARFARIN 3 MG TABLET Take 9 mg on Wed and 6mg all * METFORMIN 500 MG TABLET Take 1 tablet by mouth daily * FISH OIL ORAL Take by mouth as directed. KJUARONS-CIT-WUOZO ACID 300 M* Take by mouth. Problem List As Of Date 10/26/2017 Noted Resolved Pain in joint, shoulder region [M25.519] INVALID FOR* Hyperglycemia [R73.9] INVALID FOR* Hypertriglyceridemia [E78.1] INVALID FOR* Diabetes mellitus type 2, controlled, without c*INVALID FOR* Patent foramen ovale [Q21.1] INVALID FOR* ASD (atrial septal defect) [Q21.1] INVALID FOR* More... [facility] (current) use of anticoagulants [Z79.*INVALID FOR* DVT (deep venous thrombosis) (HCC) [I82.409] INVALID FOR* H/O: CVA (cerebrovascular accident) [Z86.73] INVALID FOR* Right bundle branch block [I45.10] INVALID FOR* Rotator cuff (capsule) sprain [S43.429A] INVALID FOR* Primary localized osteoarthrosis of shoulder re*INVALID FOR* Left-sided low back pain with left-sided sciati*INVALID FOR* Rotator cuff arthropathy, right [M12.811] INVALID FOR* Diabetic polyneuropathy associated with type 2 *INVALID FOR* Encounter Status:Closed by BO TELLEZ (NETWORK NAVIGATOR)SUMI on 10/26/17 CARLOS Observed: 10/13/2017 Status: COMPLETED Source: [place] 12:[address] [facility] REPOSITORY Patient Outreach (FAMPST) CORIE KILGORE JR. ([id number]) 1940 M Date Time Provider Department 10/13/17 [facility] KOLB) [facility] During your visit today, we recorded the following information about you: Allergies As of Date: 10/13/2017 (No Known Allergies) Date Reviewed: 09/28/2017 Reviewed by: Nia Alegre Ma - Fully Assessed Visit Diagnosis:Medication management [Z79.899] Order(s):ALBUMIN/CREAT RATIO RND UR [SQUACR] Order #: [id number] FUTURE LIPID PANEL BASIC [SQLIPB] Order #: [id number] FUTURE Prescriptions as of 10/13/2017 Sig: WARFARIN 3 MG TABLET Take 9 mg on Thu and 6mg all * X LISINOPRIL 5 MG TABLET Take 1 tablet by mouth once d* X ATORVASTATIN 20 MG TABLET Take 1 tablet by mouth daily * METFORMIN 500 MG TABLET Take 1 tablet by mouth daily * FISH OIL ORAL Take by mouth as directed. IFNSTYAN-HIJ-QXHBT ACID 300 M* Take by mouth. 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 [Z79.*INVALID FOR* DVT (deep venous thrombosis) (HCC) [I82.409] INVALID FOR* H/O: CVA (cerebrovascular accident) [Z86.73] INVALID FOR* Right bundle branch block [I45.10] INVALID FOR* Rotator cuff (capsule) sprain [S43.429A] INVALID FOR* Primary localized osteoarthrosis of shoulder re*INVALID FOR* Left-sided low back pain with left-sided sciati*INVALID FOR* Rotator cuff arthropathy, right [M12.811] INVALID FOR* Diabetic polyneuropathy associated with type 2 *INVALID FOR* Encounter Status:Closed by ASHER PRODUSER on 12/18/17 PROGRESS Observed: 09/28/2017 Status: COMPLETED Source: [place] 8:[address] [facility] REPOSITORY HNO ID: [id number] Author: Nilam Pandya Service: (none) Author Type: Physician Type: Progress Notes Filed: 09/28/2017 8:57 AM Note Text: ? Nilam Pandya DPM Department of Podiatry [address] [facility] [address] Dept: [phone] Dept 09/28/2017 Follow up Podiatric Office Visit: HPI: Corie Kilgore Jr. is a 77 year old male. Patient presents for diabetic foot exam. Patient reports being diabetic but does not check blood glucose regularly. He has chronic DVT, LLE that is being treated by Dr. oS. Patient is on coumadin. Reports pain in bilateral toes 2-5 when bending. Reports stretching toes and ankles daily. Hemoglobin A1C (%) Date Value 05/01/2017 6.4 PCP: Ileana Kolb MD PAST MEDICAL HISTORY Diagnosis Date - ASD (atrial septal defect) - Cerebral vascular disease cva - Degenerative arthritis - Diabetes mellitus, type II (HCC) - DVT (deep venous thrombosis) (HCC) - Hard of hearing - HTN (hypertension) - Hyperlipidaemia - PFO (patent foramen ovale) - RBBB - TIA (transient ischemic attack) Current Outpatient Prescriptions: warfarin (COUMADIN) 3 mg tablet Take 9 mg on Thu and 6mg all other days lisinopril (PRINIVIL) 5 mg tablet Take 1 tablet by mouth once daily. atorvastatin (LIPITOR) 20 mg tablet Take 1 tablet by mouth daily at bedtime. For cholesterol. metFORMIN (GLUCOPHAGE) 500 mg tablet Take 1 tablet by mouth daily with breakfast. DOCOSAHEXANOIC ACID/EPA (FISH OIL ORAL) Take by mouth as directed. eedndhou-gjk-HK-lycopen-lutein (CENTRUM SILVER ULTRA MEN'S) 300-600-300 mcg tab Take by mouth. No current facility-administered medications for this visit. ALLERGIES No Known Allergies PAST SURGICAL HISTORY Procedure Laterality Date - CHOLECYSTECTOMY - HERNIA REPAIR HX - PAST SURGICAL HISTORY OF RK - PAST SURGICAL HISTORY OF Tonsillectomy - PAST SURGICAL HISTORY OF Right and Left shoulder surgery - PAST SURGICAL HISTORY OF chest surgery FAMILY HISTORY Problem Relation Age of Onset - Heart Father - Diabetes Father - Hypertension Mother - Heart Mother - Cancer Sister - Heart Sister Social History Marital status: Single Spouse name: Years of education: Number of children: Social History Main Topics Smoking status: Former Smoker Packs/day: 0.00 Years: 0.00 Quit date: 05/01/1973 Smokeless tobacco: Former User Quit date: 03/09/1983 Alcohol use: Yes 4.5 oz/week Cans of Beer (12oz): 3 per week Drug use: No Sexual activity: No Social History Narrative 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 The documentation for this note was completed by Nia Alegre Ma acting as scribe for Nilam aPndya DPM. September 28, 2017 8:17 AM. REVIEW OF SYSTEMS: CONSTITUTIONAL: No fevers, chills, nightsweats, unintended weight loss HEENT: Denies frequent or severe heaches, nasal congestion/sinus symptoms, problematic allergy problems. EYES: No diplopia or blurry vision. CARDIOVASCULAR: No chest pain, dyspnea, palpitations, orthopnea, PND, ankle edema. PULM: No dyspnea, unexplained cough. GI: No dysphagia/odynophagia, problematic reflux, constipation, diarrhea, changes in stool habits, hematochezia, melena. : No new urinary complaints, including dysuria, gross hematuria or pyuria. NEURO: No new balance problems, peripheral weakness/paresthesias or numbness of concern. MUSC-SKEL: + toe pain PSY: No concerns regarding depression, anxiety or panic. INTEGUMENTARY: No new skin changes (rash, new or changing mole, new growth) Physical Exam: Constitutional: Pt is a well developed 77 year old male who is alert, oriented and cooperative Eyes: Following during examination. No redness or drainage. Respiratory: RR normal and nonlabored. Even breathing. No evidence of distress or shortness of breath. Psychology: Patient is engaged during conversation. Normal affect and mood. Does not appear depressed or anxious during encounter. Vascular: Dorsalis pedis and posterior tibial pulses palpable as b/l Capillary Fill time < 5 seconds to digits 1-5 b/l Skin temperature warm to warm proximal to distal b/l Hair growth present to digits Neurological: intact light touch/epicritic sensation Vibratory sensation absent to hallux b/l diminished protective sensation, significant neurological deficits Dermatological: Nails 1-5 b/l appear Normal. Webspaces clean and dry 1-4 b/l. Skin appears well hydrated and supple. good color, texture, turgor. Callosities present right hallux. Open lesions absent. Wound: Not present. Musculoskeletal/Orthopaedic: Patient has no pain to palpation of b/l feet Foot type is pronated structurally AJ ROM is full with knee extended and flexed 1st MPJ is full when loaded and no pain or crepitus are noted with ROM. MTJ, STJ are full and free of pain and crepitus. +5/5 muscle strength dorsiflexion, plantarflexion, inversion, eversion b/l Mild hammertoe present b/l. ASSESSMENT: (E11.42) Diabetic polyneuropathy associated with type 2 diabetes mellitus (HCC) (primary encounter diagnosis) (M20.41, M20.42) Hammer toes of both feet (L85.9) Hyperkeratosis PLAN: 1. Patient was seen and evaluated. 2. Patient was instructed on the continued importance of diabetic foot care along with proper diet and keeping their blood sugar under control to prevent complications. Instructions given both oral and written. 3. Discussed hammertoes of b/l feet. Recommend wider shoes. Diabetic shoes ordered. If pain persists, consider surgical correction of hammertoe. 4. Hyperkeratosis filed to right foot with sanding disk. If callus returns, he can make follow-up. NANNETTE Aburto Observed: 09/28/2017 Status: COMPLETED Source: [place] [address]:[id number] [facility] REPOSITORY Office Visit (PODIWS) CORIE KILGORE JR. ([id number]) 1940 M Date Time Provider Department 09/28/17 7:40 AM NILAM PANDYA PODIWS During your visit today, we recorded the following information about you: Nilam Pandya DPM 09/28/2017 8:57 AM Signed ? Nilam Pandya DPM Department of Podiatry [address] [facility] [address] Dept: [phone] Dept 09/28/2017 Follow up Podiatric Office Visit: HPI: Corie Kilgore Jr. is a 77 year old male. Patient presents for diabetic foot exam. Patient reports being diabetic but does not check blood glucose regularly. He has chronic DVT, LLE that is being treated by Dr. So. Patient is on coumadin. Reports pain in bilateral toes 2- 5 when bending. Reports stretching toes and ankles daily. Hemoglobin A1C (%) Date Value 05/01/2017 6.4 PCP: Ileana Kolb MD PAST MEDICAL HISTORY Diagnosis Date - ASD (atrial septal defect) - Cerebral vascular disease cva - Degenerative arthritis - Diabetes mellitus, type II (HCC) - DVT (deep venous thrombosis) (HCC) - Hard of hearing - HTN (hypertension) - Hyperlipidaemia - PFO (patent foramen ovale) - RBBB - TIA (transient ischemic attack) Current Outpatient Prescriptions: warfarin (COUMADIN) 3 mg tablet Take 9 mg on Thu and 6mg all other days lisinopril (PRINIVIL) 5 mg tablet Take 1 tablet by mouth once daily. atorvastatin (LIPITOR) 20 mg tablet Take 1 tablet by mouth daily at bedtime. For cholesterol. metFORMIN (GLUCOPHAGE) 500 mg tablet Take 1 tablet by mouth daily with breakfast. DOCOSAHEXANOIC ACID/EPA (FISH OIL ORAL) Take by mouth as directed. hslulswo-tar-II-lycopen-lutein (CENTRUM SILVER ULTRA MEN'S) 300-600-300 mcg tab Take by mouth. No current facility-administered medications for this visit. ALLERGIES No Known Allergies PAST SURGICAL HISTORY Procedure Laterality Date - CHOLECYSTECTOMY - HERNIA REPAIR HX - PAST SURGICAL HISTORY OF RK - PAST SURGICAL HISTORY OF Tonsillectomy - PAST SURGICAL HISTORY OF Right and Left shoulder surgery - PAST SURGICAL HISTORY OF chest surgery FAMILY HISTORY Problem Relation Age of Onset - Heart Father - Diabetes Father - Hypertension Mother - Heart Mother - Cancer Sister - Heart Sister Social History Marital status: Single Spouse name: Years of education: Number of children: Social History Main Topics Smoking status: Former Smoker Packs/day: 0.00 Years: 0.00 Quit date: 05/01/1973 Smokeless tobacco: Former User Quit date: 03/09/1983 Alcohol use: Yes 4.5 oz/week Cans of Beer (12oz): 3 per week Drug use: No Sexual activity: No Social History Narrative 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 The documentation for this note was completed by Nia Alegre Ma acting as scribe for Nilam Pandya DPM. September 28, 2017 8:17 AM. REVIEW OF SYSTEMS: CONSTITUTIONAL: No fevers, chills, nightsweats, unintended weight loss HEENT: Denies frequent or severe heaches, nasal congestion/sinus symptoms, problematic allergy problems. EYES: No diplopia or blurry vision. CARDIOVASCULAR: No chest pain, dyspnea, palpitations, orthopnea, PND, ankle edema. PULM: No dyspnea, unexplained cough. GI: No dysphagia/odynophagia, problematic reflux, constipation, diarrhea, changes in stool habits, hematochezia, melena. : No new urinary complaints, including dysuria, gross hematuria or pyuria. NEURO: No new balance problems, peripheral weakness/paresthesias or numbness of concern. MUSC-SKEL: + toe pain PSY: No concerns regarding depression, anxiety or panic. INTEGUMENTARY: No new skin changes (rash, new or changing mole, new growth) Physical Exam: Constitutional: Pt is a well developed 77 year old male who is alert, oriented and cooperative Eyes: Following during examination. No redness or drainage. Respiratory: RR normal and nonlabored. Even breathing. No evidence of distress or shortness of breath. Psychology: Patient is engaged during conversation. Normal affect and mood. Does not appear depressed or anxious during encounter. Vascular: Dorsalis pedis and posterior tibial pulses palpable as b/l Capillary Fill time < 5 seconds to digits 1-5 b/l Skin temperature warm to warm proximal to distal b/l Hair growth present to digits Neurological: intact light touch/epicritic sensation Vibratory sensation absent to hallux b/l diminished protective sensation, significant neurological deficits Dermatological: Nails 1-5 b/l appear Normal. Webspaces clean and dry 1-4 b/l. Skin appears well hydrated and supple. good color, texture, turgor. Callosities present right hallux. Open lesions absent. Wound: Not present. Musculoskeletal/Orthopaedic: Patient has no pain to palpation of b/l feet Foot type is pronated structurally AJ ROM is full with knee extended and flexed 1st MPJ is full when loaded and no pain or crepitus are noted with ROM. MTJ, STJ are full and free of pain and crepitus. +5/5 muscle strength dorsiflexion, plantarflexion, inversion, eversion b/l Mild hammertoe present b/l. ASSESSMENT: (E11.42) Diabetic polyneuropathy associated with type 2 diabetes mellitus (HCC) (primary encounter diagnosis) (M20.41, M20.42) Hammer toes of both feet (L85.9) Hyperkeratosis PLAN: 1. Patient was seen and evaluated. 2. Patient was instructed on the continued importance of diabetic foot care along with proper diet and keeping their blood sugar under control to prevent complications. Instructions given both oral and written. 3. Discussed hammertoes of b/l feet. Recommend wider shoes. Diabetic shoes ordered. If pain persists, consider surgical correction of hammertoe. 4. Hyperkeratosis filed to right foot with sanding disk. If callus returns, he can make follow-up. Nilam Pandya DPM Referring Provider: NILAM PANDYA [[id number]] Allergies As of Date: 09/28/2017 (No Known Allergies) Date Reviewed: 09/28/2017 Reviewed by: Nia Alegre Ma - Fully Assessed Reason for Visit: Diabetic Foot Care [916] Primary Visit Diagnosis:Diabetic polyneuropathy associated with type 2 diabetes mellitus (HCC) [E11.42] Other Visit Diagnoses:Hammer toes of both feet [M20.41, M20.42] Hyperkeratosis [L85.9] Order(s):DIAB SHOE FOR DENSITY INSERT [[id number]] Order #: [id number] Prescriptions as of 09/28/2017 Sig: WARFARIN 3 MG TABLET Take 9 mg on Wed and 6mg all * LISINOPRIL 5 MG TABLET Take 1 tablet by mouth once d* ATORVASTATIN 20 MG TABLET Take 1 tablet by mouth daily * METFORMIN 500 MG TABLET Take 1 tablet by mouth daily * FISH OIL ORAL Take by mouth as directed. [id number] ACID 300 M* Take by mouth. 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 [Z79.*INVALID FOR* DVT (deep venous thrombosis) (HCC) [I82.409] INVALID FOR* H/O: CVA (cerebrovascular accident) [Z86.73] INVALID FOR* Right bundle branch block [I45.10] INVALID FOR* Rotator cuff (capsule) sprain [S43.429A] INVALID FOR* Primary localized osteoarthrosis of shoulder re*INVALID FOR* Left-sided low back pain with left-sided sciati*INVALID FOR* Rotator cuff arthropathy, right [M75.101, M12.8*INVALID FOR* Diabetic polyneuropathy associated with type 2 *INVALID FOR* Encounter Status:Closed by NILAM PANDYA DPM on 09/28/17 PROGRESS Observed: 09/14/2017 Status: COMPLETED Source: [place] 10:[address] [facility] REPOSITORY HNO ID: [id number] Author: Maynor So Service: (none) Author Type: Physician Type: Progress Notes Filed: 09/14/2017 2:16 PM Note Text: PERTINENT CARDIAC HISTORY PFO HTN HL DM RBBB DVT - chronic warfarin CVA - recurrent, on warfarin ADHERENCE TO GUIDELINES ZACH-I or ARB for HF with prior LVEF<40 (NQF 0081) - N/A ASA or Plavix for ASHD (NQF 0067) - on warfarin Beta suleman for ASHD with prior [place] or prior LVEF<40 (NQF 0070) - N/A Beta suleman for HF with prior LVEF<40 (NQF 0083) - N/A ZACH-I or ARB for ASHD with DM or prior LVEF<40 (NQF 0066) - N/A Statin therapy for ASHD or FHL or DM - declines BMI documented and plan if >25 (NQF 0421) - lifestyle recommendation form Tobacco use screening and referral (NQ 0028) - lifestyle recommendation form Recommendation for whole food, plant based diet - lifestyle recommendation form CLINICAL IMPRESSION/PLAN: Corie Kilgore Jr. has known right to left shunting with recurrent TIA symptoms. It is unclear whether the current episode was related to an embolic event. His INR was subtherapeutic. It has been stressed to him that we need to make sure that he is therapeutically anticoagulated. If he has recurrent events with an INR of 2-3, I would add aspirin therapy and consider closure of his PFO. there was no evidence of left to right shunting on his recent echocardiogram. His right heart size is normal. He's been advised to continue his current medication. Should he need surgery in the future, I would recommend stress test preoperatively. I will see him in 6 months or as needed. Written and verbal health teaching given to patient, patient verbalizes understanding and agrees with treatment plan. DIAGNOSIS FOR VISIT: TIA PFO HISTORY OF PRESENT ILLNESS Corie Kilgore Jr. returns for follow-up of his PFO. He had an admission last month for transient confusion, ataxia and weakness. Evaluation showed no evidence of acute infarct and no evidence of severe obstructive disease. His INR was subtherapeutic. Subsequently, he has been on a higher dose of Coumadin and INR was checked today. He has decided not to undergo shoulder surgery. He reports stable exercise tolerance. He's had no chest pain. He denies orthopnea, edema, syncope, amaurosis, claudication. He's had no palpitations. ALLERGIES: ALLERGIES No Known Allergies CURRENT OUTPATIENT MEDICATIONS: warfarin (COUMADIN) 3 mg tablet Take 9 mg on Thu and 6mg all other days lisinopril (PRINIVIL) 5 mg tablet Take 1 tablet by mouth once daily. atorvastatin (LIPITOR) 20 mg tablet Take 1 tablet by mouth daily at bedtime. For cholesterol. metFORMIN (GLUCOPHAGE) 500 mg tablet Take 1 tablet by mouth daily with breakfast. DOCOSAHEXANOIC ACID/EPA (FISH OIL ORAL) Take by mouth as directed. mzsqueml-mlz-AO-lycopen-lutein (CENTRUM SILVER ULTRA MEN'S) 300-600-300 mcg tab Take by mouth. PHYSICAL EXAMINATION: VITAL SIGNS: BP 128/75 Pulse 66 Wt 193 lb 6.4 oz (87.7kg) Chest: Clear to percussion and auscultation. Trachea is midline. Air entry is equal. Cardiac: Regular rhythm. S1 and S2 are normal. PMI is nondisplaced. There are no murmurs, rubs or gallops. Carotids are brisk without bruits. JVP is less than 10 cm. Abdomen: Soft and nontender. There are no pulsatile masses or bruits. No liver enlargement. Bowel sounds are active. Extremities: No edema. Pulses are intact and symmetrical. Records from [facility] were reviewed. Imaging was as described above. There was no evidence of acute coronary syndrome EKG shows sinus rhythm. There is right bundle branch clock. No change is seen. Labs were reviewed. Renal function is normal. LDL is 74. INR was subtherapeutic. Recent echocardiogram was reviewed. There was evidence of right to left shunting through a PFO. Electronically Signed: Maynor So MD September 14, 2017 10:32 AM CC: Ileana Kolb MD PROTIME Collected: 09/14/2017 Status: F Source: [place] 9:43 [facility] REPOS[facility] TYPE CODE TESTS RESULT OUT OF RANGE REFERENCE UNITS LAB PSEC 9.7-13.0 sec High PT Sec 21.9 LAB INR 0.9-1.3 High PT INR 2.2 Result Comment: Vitamin K Antagonist (VKA) Therapeutic Range: INR 2 to 3 (Target INR of 2.5) Note: For patients treated with VKA drugs, such as warfarin, the [employer] 2012 Guideline recommends a therapeutic INR range of 2 to 3 (target INR of 2.5). This recommendation includes high-risk patients with antiphospholipid syndrome with previous arterial or venous thromboembolism, current-generation mechanical or bioprosthetic aortic heart valve replacement. Note: Patients with mechanical aortic valve replacement and additional risk factors for thromboembolic events (atrial fibrillation, previous thromboembolism, LV dysfunction, hypercoagulable conditions) or an older generation mechanical AVR (i.e., ball in-Cage) or any mechanical MVR should have a INR therapeutic range of 2.5 to 3.5 (target INR of 3). Jared GH, et al. Chest 2012, 141:7S-47S Marek RA, et al. [facility] 2017, 70: 252-289 Performed By: #### PT #### [facility] [address] [place] [id number] CNOV Observed: 09/14/2017 Status: COMPLETED Source: [place] 9:[address] [facility] REPOSITORY Office Visit (CAWSTR) CORIE KILGORE JR. ([id number]) 1940 M Date Time Provider Department 09/14/17 9:30 AM MAYNOR SO CAWSTR During your visit today, we recorded the following information about you: Pulse Blood pressure Weight 66/minute 128/75 87.7 kg Maynor So MD 09/14/2017 2:16 PM Signed PERTINENT CARDIAC HISTORY PFO HTN HL DM RBBB DVT - chronic warfarin CVA - recurrent, on warfarin ADHERENCE TO GUIDELINES ZACH-I or ARB for HF with prior LVEF<40 (NQF 0081) - N/A ASA or Plavix for ASHD (NQF 0067) - on warfarin Beta suleman for ASHD with prior [place] or prior LVEF<40 (NQF 0070) - N/A Beta suleman for HF with prior LVEF<40 (NQF 0083) - N/A ZACH-I or ARB for ASHD with DM or prior LVEF<40 (NQF 0066) - N/A Statin therapy for ASHD or FHL or DM - declines BMI documented and plan if >25 (NQ 0421) - lifestyle recommendation form Tobacco use screening and referral ([facility] 0028) - lifestyle recommendation form Recommendation for whole food, plant based diet - lifestyle recommendation form CLINICAL IMPRESSION/PLAN: Corie Kilgore Jr. has known right to left shunting with recurrent TIA symptoms. It is unclear whether the current episode was related to an embolic event. His INR was subtherapeutic. It has been stressed to him that we need to make sure that he is therapeutically anticoagulated. If he has recurrent events with an INR of 2-3, I would add aspirin therapy and consider closure of his PFO. there was no evidence of left to right shunting on his recent echocardiogram. His right heart size is normal. He's been advised to continue his current medication. Should he need surgery in the future, I would recommend stress test preoperatively. I will see him in 6 months or as needed. Written and verbal health teaching given to patient, patient verbalizes understanding and agrees with treatment plan. DIAGNOSIS FOR VISIT: TIA PFO HISTORY OF PRESENT ILLNESS Corie Kilgore Jr. returns for follow-up of his PFO. He had an admission last month for transient confusion, ataxia and weakness. Evaluation showed no evidence of acute infarct and no evidence of severe obstructive disease. His INR was subtherapeutic. Subsequently, he has been on a higher dose of Coumadin and INR was checked today. He has decided not to undergo shoulder surgery. He reports stable exercise tolerance. He's had no chest pain. He denies orthopnea, edema, syncope, amaurosis, claudication. He's had no palpitations. ALLERGIES: ALLERGIES No Known Allergies CURRENT OUTPATIENT MEDICATIONS: warfarin (COUMADIN) 3 mg tablet Take 9 mg on Thu and 6mg all other days lisinopril (PRINIVIL) 5 mg tablet Take 1 tablet by mouth once daily. atorvastatin (LIPITOR) 20 mg tablet Take 1 tablet by mouth daily at bedtime. For cholesterol. metFORMIN (GLUCOPHAGE) 500 mg tablet Take 1 tablet by mouth daily with breakfast. DOCOSAHEXANOIC ACID/EPA (FISH OIL ORAL) Take by mouth as directed. jtrhseer-mdc-LQ-lycopen-lutein (CENTRUM SILVER ULTRA MEN'S) 300-600-300 mcg tab Take by mouth. PHYSICAL EXAMINATION: VITAL SIGNS: BP 128/75 Pulse 66 Wt 193 lb 6.4 oz (87.7kg) Chest: Clear to percussion and auscultation. Trachea is midline. Air entry is equal. Cardiac: Regular rhythm. S1 and S2 are normal. PMI is nondisplaced. There are no murmurs, rubs or gallops. Carotids are brisk without bruits. JVP is less than 10 cm. Abdomen: Soft and nontender. There are no pulsatile masses or bruits. No liver enlargement. Bowel sounds are active. Extremities: No edema. Pulses are intact and symmetrical. Records from [facility] were reviewed. Imaging was as described above. There was no evidence of acute coronary syndrome EKG shows sinus rhythm. There is right bundle branch clock. No change is seen. Labs were reviewed. Renal function is normal. LDL is 74. INR was subtherapeutic. Recent echocardiogram was reviewed. There was evidence of right to left shunting through a PFO. Electronically Signed: Maynor So MD September 14, 2017 10:32 AM CC: MD Maynor Hawthorne MD 09/14/2017 10:31 AM Signed LIFESTYLE CHANGE A healthy lifestyle is the most important component of your overall treatment plan. Please give serious thought to the following areas and commit to making group home changes. EAT A WHOLE FOOD, PLANT BASED DIET The nutrition your body gets is more important than the medicine you take. What matters most is the overall way you eat. We encourage you to minimize the use of animal products (which include dairy and all meats except fatty fish) and use whole, unprocessed plant foods to provide your protein, vitamins and other nutrients. We have a lot of information to share with you on this topic. This is not a diet. It is a way of life that you will keep with you. EXERCISE REGULARLY It is not important to spend hours in the gym, lifting weights and perspiring heavily. A total of 2-3 hours per week of aerobic (causing you to be moderately short of breath) exercise is sufficient to improve your health. Talk to us before you begin a new exercise program, if you have heart disease or experience shortness of breath or chest pain. REDUCE STRESS Chronic emotional and physical stress leads to disease. Ways of reducing stress include meditation, visualization, prayer, yoga and other forms of relaxation therapy. Consistency is the suarez. Find a technique that works for you and do it every day. CULTIVATE RELATIONSHIPS Loneliness and isolation have a major negative impact on health. Seek out others who can love, care for and nurture you. Avoid hurtful relationships. MAINTAIN IDEAL BODY WEIGHT The best way to do this is to do all the things above. Our bodies naturally find the right weight if we keep moving and feed ourselves the right food. If your BMI is greater than 25, we strongly recommend a referral to a weight management program. Please speak to us or your family physician about available programs. AVOID NICOTINE IN ALL FORMS This includes all tobacco products, whether chewed, smoked, vaped, or rubbed on the skin. Smoking cessation programs, which can make use of tobacco substitutes, medications to suppress cravings and behavior management, are available. Please contact your family physician about programs in your area. Referring Provider: MAYNOR SO [[id number]] Allergies As of Date: 09/14/2017 (No Known Allergies) Date Reviewed: 09/14/2017 Reviewed by: Rosa CouchRn) ILIANA Denton - Fully Assessed Reason for Visit: Established Patient [175] Primary Visit Diagnosis:PFO (patent foramen ovale) [Q21.1] Prescriptions as of 09/14/2017 Sig: WARFARIN 3 MG TABLET Take 9 mg on Thu and 6mg all * LISINOPRIL 5 MG TABLET Take 1 tablet by mouth once d* ATORVASTATIN 20 MG TABLET Take 1 tablet by mouth daily * METFORMIN 500 MG TABLET Take 1 tablet by mouth daily * FISH OIL ORAL Take by mouth as directed. [id number] ACID 300 M* Take by mouth. Problem List As Of Date 09/14/2017 Noted Resolved Pain in joint, shoulder region [M25.519] INVALID FOR* Hyperglycemia [R73.9] INVALID FOR* Hypertriglyceridemia [E78.1] INVALID FOR* Diabetes mellitus type 2, controlled, without c*INVALID FOR* Patent foramen ovale [Q21.1] INVALID FOR* ASD (atrial septal defect) [Q21.1] INVALID FOR* More... FPC (current) use of anticoagulants [Z79.*INVALID FOR* DVT (deep venous thrombosis) (HCC) [I82.409] INVALID FOR* H/O: CVA (cerebrovascular accident) [Z86.73] INVALID FOR* Right bundle branch block [I45.10] INVALID FOR* Rotator cuff (capsule) sprain [S43.429A] INVALID FOR* Primary localized osteoarthrosis of shoulder re*INVALID FOR* Left-sided low back pain with left-sided sciati*INVALID FOR* Rotator cuff arthropathy, right [M75.101, M12.8*INVALID FOR* Other instructions from your clinician: LIFESTYLE CHANGE A healthy lifestyle is the most important component of your overall treatment plan. Please give serious thought to the following areas and commit to making long term care pharmacist changes. EAT A WHOLE FOOD, PLANT BASED DIET The nutrition your body gets is more important than the medicine you take. What matters most is the overall way you eat. We encourage you to minimize the use of animal products (which include dairy and all meats except fatty fish) and use whole, unprocessed plant foods to provide your protein, vitamins and other nutrients. We have a lot of information to share with you on this topic. This is not a diet. It is a way of life that you will keep with you. EXERCISE REGULARLY It is not important to spend hours in the gym, lifting weights and perspiring heavily. A total of 2-3 hours per week of aerobic (causing you to be moderately short of breath) exercise is sufficient to improve your health. Talk to us before you begin a new exercise program, if you have heart disease or experience shortness of breath or chest pain. REDUCE STRESS Chronic emotional and physical stress leads to disease. Ways of reducing stress include meditation, visualization, prayer, yoga and other forms of relaxation therapy. Consistency is the suarez. Find a technique that works for you and do it every day. CULTIVATE RELATIONSHIPS Loneliness and isolation have a major negative impact on health. Seek out others who can love, care for and nurture you. Avoid hurtful relationships. MAINTAIN IDEAL BODY WEIGHT The best way to do this is to do all the things above. Our bodies naturally find the right weight if we keep moving and feed ourselves the right food. If your BMI is greater than 25, we strongly recommend a referral to a weight management program. Please speak to us or your family physician about available programs. AVOID NICOTINE IN ALL FORMS This includes all tobacco products, whether chewed, smoked, vaped, or rubbed on the skin. Smoking cessation programs, which can make use of tobacco substitutes, medications to suppress cravings and behavior management, are available. Please contact your family physician about programs in your area. Encounter Status:Closed by MAYNOR SO MD on 09/14/17 PROGRESS Observed: 08/31/2017 Status: COMPLETED Source: [place] 1:[address] [facility] REPOSITORY HNO ID: [id number] Author: Lula Hansen LPN Service: (none) Author Type: (none) Type: Progress Notes Filed: 08/31/2017 1:56 PM Note Text: This note was created using NoteWriter. Subjective Corie Kilgore Jr. is a 77 year old male. Review of Systems Objective There were no vitals taken for this visit. Physical Exam Assessment and Plan PROGRESS Observed: 08/31/2017 Status: COMPLETED Source: [place] 10:[address] [facility] REPOSITORY HNO ID: [id number] Author: Ileana Everett) Cortes Service: (none) Author Type: Physician Type: Progress Notes Filed: 08/31/2017 10:09 AM Note Text: INR therapeutic. Continue current coumadin dosage and follow up in 2 weeks. PROGRESS Observed: 08/31/2017 Status: COMPLETED Source: [place] 9:[address] [facility] REPOSITORY HNO ID: [id number] Author: Nasreen Treviño RN Service: (none) Author Type: (none) Type: Progress Notes Filed: 08/31/2017 9:58 AM Note Text: patient had inr completed at [facility] patients inr is 2.3 (patients inr range is 2.0-3.0) patient is currently taking 9mg Wed and 6mg all other days patients last dose change was on 08/07/17 due to a low level of 1.2 (dose at that time was 3mg Wed and 6mg all other days) patient has had no changes in medication except for coumadin and no missed doses and no change in diet Advised patient to continue on the same dose(s) and that they would only be contacted regarding dosage and follow up instructions after review with provider, if a change is needed. Written instructions given and patient verbalized understanding. Presently scheduled in 2 weeks (09/14/17) for follow up INR. 12 LEAD ELECTROCARDIOGRAM Observed: 08/24/2017 Status: F Source: [place] 8:38 AM [facility] REPOSITORY [facility] Cardiovascular Services [address] [place] [address] 12 Lead EKG 08/07/177 MR#: [id number] Acct: [id number] Name: CORIE KILGORE Jr. Rep #: [id number] : 1940 77 From: Bill Serna MD Attending Dr: Maryellen Mcfarland MD Status: DIS SHANELLE Ordering Dr: Oscar Mcintyre DO Date: 08/07/17 Location: [facility] Sex: M C Admitted: 08/08/17 Test Reason : STROKE SYMPTOMS Blood Pressure : / mmHG Vent. Rate : 081 BPM Atrial Rate : 081 BPM P-R Int : 162 ms QRS Dur : 134 ms QT Int : 398 ms P-R-T Axes : 019 -45 -02 degrees QTc Int : 462 ms Normal sinus rhythm Left axis deviation Right bundle branch block Inferior infarct , age undetermined Abnormal ECG Confirmed by BILL SERNA ([id number]), scientific publications editor BHAKTI LUNA ([id number]) on 08/17/2017 6:10:54 PM Referred By: JOVANNI Confirmed By:BILL SERNA 08/17/171809 Date Bill Serna MD CC: Maryellen Mcfarland MD; Lenin Reyes MD; Oscar Mcintyre Signed PROGRESS Observed: 08/17/2017 Status: COMPLETED Source: [place] 10:[address] [facility] REPOSITORY HNO ID: [id number] Author: Nasreen Treviño RN Service: (none) Author Type: (none) Type: Progress Notes Filed: 08/17/2017 10:04 AM Note Text: patient had inr completed at [facility] patients inr is 1.2 (patients inr range is 2.0-3.0) patient is currently taking 3mg Wed and 6mg all other days patients last dose change was to be on 07/29/17 due to a low level of 1.8 - pt was to change coumadin to 9mg Wed and 6mg all other days from 3mg Fri and 6mg all other days patient has had no changes in medication and no missed doses and no change in diet since patient has a hard time understanding dosing of medication if call, nurse went and spoke with Dr Roth who is sr. consultant today for Dr Bursley concerning patients dose and per verbal order patient is to go to taking 9mg Wed and 6mg all other days and recheck in 2 weeks. patient was notified of this information in verbal and written instructions. patient has been scheduled for his inr follow up on 08/31/17. DISCHARGE SUMMARY Observed: 08/08/2017 Status: F Source: [place] 5:28 PM [facility] REPOSITORY [facility] Medical Records Department [address] [place] [address] Discharge Summary 08/08/17 1722 MR#: [id number] Acct: [id number] Name: CORIE KILGORE Rep #: [id number] : 1940 77 From: Maryellen Mcfarland MD PCP: Lenin Reyes MD Status: ADM SHANELLE Y Location: [place] [address] Discharge Date and Diagnosis - Problem List Patient Problems: Active and Suspected Problems Cephalgia (Acute) Unstable gait (Acute) Ataxia (Acute) CVA (cerebral vascular accident) (Acute) Date of Admission: 08/07/17 Date of Discharge: 08/08/17 - Primary Discharge Diagnosis Active and Suspected Problems Cephalgia (Acute) Unstable gait (Acute) Ataxia (Acute) - Secondary Discharge Diagnosis Chronic Problems HTN (hypertension) (Chronic) Hospital Course and Treatment Imaging Results: 08/08/17 09:00 MRA Head ONLY without Contrast [MRI] Routine 08/08/17 10:10 Xray Cervical [Cerv Spine 2 or 3 Views] [RAD] Routine None Operations: None Procedures: 2-D Echocardiogram Summary of Care Provided: 77-year-old male with past medical history of recurrent CVA, hypertension, ASD/PFO admitted with 2-3 day history of worsening ataxia which was worsening. This has appeared to have stopped after admission. 1. Ataxia, unclear etiology, CT scan of head and neck as well as MRI of the brain as well as MRA of the head and neck was negative. 2d-echo shows positive bubble study. Patient is on coumadin but INR is subtherapeutic at 1.6-1.7. He was seen by physical therapy and home with home 24 hour supervision was recommended. 2. ASD/PFO, on coumadin, INR is subtherapeutic, 1.6, continue on Coumadin therapy - daughter mentioned about being off coumadin for 5 days prior to dental work-up; will leave it per dental surgeon. 3. Recurrent CVA, on coumadin Discharge Diet: Low fat/ Low Cholesterol, 2000 mg Sodium Diet, Carb Control Diet Discharge Activity: Return to Normal Activity Weight Bearing Status: Weight bearing as tolerated Home Medications: Medications to take at Discharge Metformin HCl [Glucophage] 500 mg PO DAILY 03/19/16 Warfarin [Coumadin] 2.5 mg PO SUTUWETHSA 03/19/16 Warfarin [Coumadin] 3 mg PO MOFR 03/19/16 Atorvastatin Calcium 20 mg PO DAILY 08/07/17 Lisinopril [Zestril] 5 mg PO DAILY 08/07/17 Primary Care Physician: Lenin Reyes MD [Primary Care Provider] - Please follow up with your Primary Care Physician in: within 2 weeks Disposition: Home with Home Health Minutes spent on discharge:: 40 Patient Condition:: Stable Medical Necessity - Tobacco Use Smoking Status: Never smoker Tobacco Use: Non-smoker Meaningful Use Info Meaningful Use Diagnoses (Choose all that apply): None applicable Code Visit Inpatient E AND M: 14426 Disch Hosp 08/08/17 1728 <Electronically signed by Maryellen Mcfarland MD> Date Maryellen Mcfarland MD Cosigner Signature (if applicable): Date CC: Maryellen Mcfarland MD; Lenin Reyes MD Signed DISCHARGE INSTRUCTION Observed: 08/08/2017 Status: F Source: [place] 5:22 PM [facility] REPOSITORY [facility] Medical Records Department [address] [place] [address] Instructions for Home/Discharge Instructions 08/08/17 1655 MR#: [id number] Acct: [id number] Name: CORIE KILGORE Rep #: [id number] : 1940 77 From: Maryellen Mcfarland MD PCP: Lenin Reyes MD Status: ADM SHANELLE - Discharge Diagnoses Current Active Problems: Current Active and Chronic Problems Cephalgia (Acute) Unstable gait (Acute) Ataxia (Acute) HTN (hypertension) (Chronic) CVA (cerebral vascular accident) (Acute) Reason(s) for Visit for Discharge Instructions: Gait imbalance You will use the following diet at home:: Calorie/Carbohydrate Controlled (specify 1200, 1400, etc), Cardiac Your food should be the consistency of: Regular Your liquids should be the consistency of: Regular/Thin Discharge Activity: Return to Normal Activity Weight Bearing Status: Weight bearing as tolerated Additional Instructions: You should continue to take all your medications as prescribed. Discuss with your dentist on the timing of resumption of coumadin as you have a planned dental procedure. You will be having outpatient physical and occupational therapy at home. [facility] will be calling you on the time and when they are coming out. Allergies/Adverse Reactions: Allergies No Known Allergies Allergy (Verified 03/19/16 14:29) Medications to take at Discharge Metformin HCl [Glucophage] 500 mg PO DAILY 03/19/16 Warfarin [Coumadin] 2.5 mg PO SUTUWETHSA 03/19/16 Warfarin [Coumadin] 3 mg PO MOFR 03/19/16 Atorvastatin Calcium 20 mg PO DAILY 08/07/17 Lisinopril [Zestril] 5 mg PO DAILY 08/07/17 Primary Care Physician: Lenin Reyes MD [Primary Care Provider] - Please follow up with your Primary Care Physician in: within 2 weeks Proposed Discharge Date: 08/08/17 08/08/17 1722 <Electronically signed by Maryellen Mcfarland MD> Date Maryellen Mcfarland MD CC: Lenin Reyes MD BEDSIDE GLUCOSE Collected: 08/08/2017 Status: F Source: [place] 4:21 PM [facility] REPOSITORY TYPE CODE TESTS RESULT OUT OF REFERENCE UNITS RANGE LAB L501.080 70-110 mg/dL High BEDSIDE GLU 182 Result Comment: MANAGEMENT OF PATIENT CARE PER NURSING PROTOCOL Performed By: #### L501.080 #### [facility] Point of Care [address] [place] [address] BEDSIDE GLUCOSE Collected: 08/08/2017 Status: F Source: [place] 12:48 PM [facility] REPOSITORY TYPE CODE TESTS RESULT OUT OF REFERENCE UNITS RANGE LAB L501.080 70-110 mg/dL High BEDSIDE GLU 144 Result Comment: MANAGEMENT OF PATIENT CARE PER NURSING PROTOCOL Performed By: #### L501.080 #### [facility] Point of Care [address] [place] [address] ECHOCARDIOGRAM COMPLETE Observed: 08/08/2017 Status: F Source: [place] 10:27 AM [facility] REPOSITORY [facility] Cardiovascular Services [address] [place] [address] Echo Complete 08/08/17 0735 MR#: [id number] Acct: [id number] Name: CORIE KILGORE Rep #: [id number] : 1940 77 From: Bill Serna MD Attending Dr: Maryellen Mcfarland MD Status: ADM SHANELLE Ordering Dr: Fermin Cota MD Date: 08/08/17 Location: U Sex: M C Admitted: 08/08/17 Reason For Study: TIA/CVA Procedure This was a 2D Doppler, Color Flow transthoracic echocardiogram. Exam performed portable in patient room. Left Ventricle Moderate concentric left ventricular hypertrophy. The estimated ejection fraction is 65 %. Stage 1 diastolic dysfunction. No regional wall motion abnormalities noted. Right Ventricle Normal size and thickness. Normal systolic function. Atria Normal left atrium. Normal right atrium. Normal atrial septum. Positve bubble study with R to L crossover. Mitral Valve The mitral valve is structurally normal. No prolapse or stenosis seen. Trivial mitral valve insufficiency. Tricuspid Valve Normal tricuspid valve. Trivial tricuspid valve insufficiency. Right ventricular systolic pressure estimated to be 27 mmHg. Aortic Valve Normal aortic valve. Trisinus/trileaflet aortic valve. Pulmonic Valve Normal pulmonic valve. Trivial pulmonic valve insufficiency. Great Vessels Normal aortic root. Normal arch. Normal inferior vena cava. Inferior vena cava collapse with sniff. Pericardium/Pleural No pericardial effusion. Medication Performed a rapid injection of agitated mix of 9 cc saline and 1cc air to assess for atrial septal defect. MMode/2D Measurements AND Calculations LVIDd: 4.3 cm IVSd: 1.5 cm Ao root diam: 3.8 cm LVIDs: 3.3 cm LVPWd: 1.3 cm LA dimension: 3.7 cm FS: 23.9 % LAV(MOD-bp): 40.9 ml LVAd ap4: 29.9 cm2 SV(MOD-sp4): 53.1 ml LAV(MOD-bp) Indexed: 19.6 ml/m2 EDV(MOD-sp4): 92.7 ml LAV(MOD-sp2): 40.7 ml EDV(sp4-el): 101.0 ml LAV(MOD-sp4): 38.6 ml LVAs ap4: 17.7 cm2 ESV(MOD-sp4): 39.6 ml ESV(sp4-el): 40.5 ml EF(MOD-sp4): 57.3 % EF(sp4-el): 59.9 % SV(sp4-el): 60.5 ml LA A4 area: 14.9 cm2 RA A4 area: 10.7 cm2 Time Measurements MV dec time: 0.30 sec Doppler Measurements AND Calculations MV E max chris: 51.2 cm/sec Lat Peak E' Chris: 7.3 cm/sec MV V2 max: 120.4 cm/sec MV A max chris: 97.6 cm/sec E/E' lat: 7.0 MV max P.8 mmHg MV E/A: 0.52 MV V2 mean: 54.7 cm/sec MV mean P.4 mmHg MV V2 VTI: 23.7 cm MV P1/2t max chris: 60.7 cm/sec Ao V2 max: 110.0 cm/sec LV V1 max: 94.4 cm/sec MV P1/2t: 73.4 msec Ao max P.8 mmHg LV V1 max P.6 mmHg MV dec slope: 242.2 cm/sec2 Ao V2 mean: 75.3 cm/sec LV V1 mean P.5 mmHg MVA(P1/2t): 3.0 cm2 Ao mean P.5 mmHg LV V1 mean: 55.3 cm/sec Ao V2 VTI: 16.5 cm LV V1 VTI: 13.3 cm PA V2 max: 97.3 cm/sec TR max chris: 232.5 cm/sec TR max P.6 mmHg Interpretation Summary Moderate concentric left ventricular hypertrophy. The estimated ejection fraction is 65 %. Stage 1 diastolic dysfunction. Positve bubble study with R to L crossover. Trivial mitral valve insufficiency. Trivial tricuspid valve insufficiency. Right ventricular systolic pressure estimated to be 27 mmHg. There is no comparison study available. Ordering Physician: Fermin Cota Referring Physician: MD Eric [facility] Performed By: Jey Ordoñez RCS 08/08/17 1027 Date Bill Serna MD CC: Maryellen Mcfarland MD; Lenin Reyes MD; Fermin Cota MD Date Dictated: 08/08/17 0735 Date Transcribed: 08/08/17 1027 Clinical Psychologist: Signed CERV SPINE 2 OR 3 Observed: 08/08/2017 Status: F Source: [place] VIEWS 10:09 AM [facility] REPOSITORY [facility] Imaging Services [address] [place] [address] Cerv Spine 2 or 3 Views MR#: [id number] Acct: [id number] Name: CORIE KILGORE Rep #: [id number] : 1940 M 77 From: Adebayo Bowman MD PCP: Lenin Reyes MD Status: ADM SHANELLE Study: Cerv Spine 2 or 3 Views Date of Exam: 08/08/17 Exam# [id number] Ordering Dr: Maryellen Mcfarland MD ADDENDUM by Adebayo Bowman MD on 08/08/17 at 1057 RAD/Cerv Spine 2 or 3 Views IMPRESSION: Degenerative anterolisthesis, C3-C4 C7-T1 Extensive multilevel degenerative disease No fracture or osseous destruction No metallic densities at the soft tissues Electronically Signed: Adebayo Bowman MD at 10:57 EDT Tel , Service support , 08/08/17 1102 Date cc: Maryellen Mcfarland MD; Lenin Reyes MD * Signed ADDENDUM by Adebayo Bowman MD on 08/08/17 at 1054 ADDENDUM No radiopaque foreign bodies. No surgical clips. 08/08/17 1057 Date cc: Maryellen Mcfarland MD; Lenin Reyes MD * Signed STUDY: X-RAY - CERVICAL SPINE REASON FOR EXAM: Male, 77 years old. Pain remote injury TECHNIQUE: 2 view(s) of the cervical spine were obtained. COMPARISON: None FINDINGS: There is mild degenerative anterolisthesis at C3-C4. There is mild to moderate degenerative anterolisthesis at C7-T1. Degenerative disc disease predominates at C3-C4, C4-C5, C5- C6 and C6-C7. There is mild Luschka joint arthrosis. There is multilevel facet osteoarthritis. There is no acute fracture. There is no osseous destruction. The prevertebral soft tissue structures are intact. RAD/Cerv Spine 2 or 3 Views IMPRESSION: Degenerative anterolisthesis, C3-C4 C7-T1 Extensive multilevel degenerative disease No fracture or osseous destruction Electronically Signed: Adebayo Bowman MD at 10:29 EDT Tel , Service support , CC: Maryellen Mcfarland MD; Lenin Reyes MD Clinical Psychologist: Signed MRA HEAD ONLY WITHOUT Observed: 08/08/2017 Status: F Source: [place] CONTRAST 9:01 [facility] REPOSITORY [facility] Imaging Services [address] [place], [place] [address] [place] [address] MRA Head ONLY without Contrast MR#: [id number] Acct: [id number] Name: CORIE KILGORE Rep #: [id number] : 1940 M 77 From: Sofie Luna MD PCP: Lenin Reyes MD Status: ADM SHANELLE Study: MRA Head ONLY without Contrast Date of Exam: 08/08/17 Exam# [id number] Ordering Dr: Maryellen Mcfarland MD STUDY: MRA OF THE HEAD WITHOUT CONTRAST REASON FOR EXAM: Male, 77 years old. Confusion and generalized weakness. TECHNIQUE: 3-D qxbi-su-zfjbft (TOF) imaging was performed with MIPs. The study was performed unenhanced. COMPARISON: MRI of the brain dated August 09, 2015. FINDINGS: Normal bilateral petrous carotid arteries. There is elongation and tortuosity of the right cavernous carotid artery, without a demonstrated hemodynamically significant stenosis. There is elongation and tortuosity of the left cavernous carotid artery, without a demonstrated hemodynamically significant stenosis. Normal right A1 segments of the anterior cerebral artery. Normal left A1 segments of the anterior cerebral artery. Normal intact anterior communicating artery (ACOM). Normal bilateral A2 segments of the anterior cerebral arteries. Normal right M1 and M2 segments of the middle cerebral arteries, with a normal M1 bifurcation. Normal left M1 and M2 segments of the middle cerebral arteries, with a normal M1 bifurcation. There is non-visualization of the right posterior communicating artery (PCOM). There is non-visualization of the left posterior communicating artery (PCOM). Normal bilateral vertebral arteries. Normal basilar artery with a normal basilar bifurcation. The visualized bilateral superior cerebellar (SCA) arteries are normal. Normal bilateral P1, P2 and visualized P3 segments of the posterior cerebral arteries. There is no demonstrated aneurysm of the [place]. There is no major vessel occlusion or hemodynamically significant stenosis. There are involutional changes of the brain. There is a focal area of abnormal signal in the right basal ganglia that is possibly related either to old infarct or prominent perivascular space. MRI/MRA Head ONLY without Contrast IMPRESSION: No MRA evidence for hemodynamically significant stenosis or aneurysm. Electronically Signed: Sofie Luna MD at 16:23 EDT , Service support , CC: Maryellen Mcfarland MD; Lenin Reyes MD Clinical Psychologist: Signed PROTHROMBIN TIME W/INR Collected: 08/08/2017 Status: F Source: [place] 6:55 AM [facility] REPOSITORY TYPE CODE TESTS RESULT OUT OF RANGE REFERENCE UNITS LAB L300.4150 11.7-14.9 SECONDS High PROTIME 19.3 LAB L300.4200 Normal INR 1.6 Performed By: #### L300.3900 #### [facility] [address] [facility] [place], [address] CBC-COMPLETE BLOOD CNT Collected: 08/08/2017 Status: F Source: [place] NO DIFF 6:55 AM [facility] REPOSITORY TYPE CODE TESTS RESULT OUT OF RANGE REFERENCE UNITS LAB L100.1000 4.4-11.0 K/mm3 Normal WBC 6.3 LAB L100.1200 4.6-6.2 M/mm3 Low RBC 4.37 LAB L100.1300 13.0-16.5 g/dl Normal HGB 13.9 LAB L100.1400 40-54 % Normal HCT 40.6 LAB L100.1500 80-94 fL Normal MCV 92.9 LAB L100.1600 27.0-32.0 pg Normal MCH 31.8 LAB L100.1700 32-36 g/gl Normal MCHC 34.2 LAB L100.1810 11.6-14.6 % Normal RDW CV 13.6 LAB L100.1820 35.1-43.9 fl High RDW SD 45.2 LAB L100.1900 150-450 K/mm3 Low PLT 133 LAB L100.2000 6.2-12.0 fl Normal MPV 10.1 Performed By: #### L100.0500 #### [facility] [address] [place], [place], [address] BASIC METABOLIC Collected: 08/08/2017 Status: F Source: [place] PROFILE (BMP) 6:55 AM [facility] REPOSITORY TYPE CODE TESTS RESULT OUT OF RANGE REFERENCE UNITS LAB L501.0100 74-106 mg/dL High GLU 197 Result Comment: Fasting Glucose result greater than or equal to 126 mg/dL suggests DIABETES MELLITUS per A.D.A. criteria. Please note revised GLUCOSE reference range effective 2017. LAB L501.1000 7-18 mg/dL Normal BUN 13 LAB L501.1100 0.70-1.30 mg/dL Normal CREAT,SERUM 0.95 Result Comment: The validity of the calculated GFR AND GFRAA in patients over 70 years has not been determined. Clinical correlation is essential. LAB L501.1110 >60 mL/min Normal EST GFR 82 Result Comment: Non- GFR Calc LAB L501.1115 >60 mL/min Normal EST GFR - AA 99 Result Comment: GFR Calc LAB L501.1255 ml/min Normal Estimated CRCL 69.36 LAB L501.1300 10-20 RATIO Normal BUN/CRE 13.7 LAB L501.2200 8.5-10 mg/dL Low .1 CA 8.1 LAB L501.5300 136-14 mmol/L Normal 5 NA 136 LAB L501.5600 3.5-5. mmol/L Normal 1 K 3.7 LAB L501.5900 98-107 mmol/L Normal CL 103 LAB L501.6100 21.0-3 mmol/L Normal 2.0 CO2 21.0 LAB L501.6200 5-15 Normal GAP 12 Performed By: #### L500.2500, L500.4100 #### [facility] [address] [place], [address] LIPID PROFILE Collected: 08/08/2017 Status: F Source: [place] 6:55 AM [facility] REPOSITORY TYPE CODE TESTS RESULT OUT OF RANGE REFERENCE UNITS LAB L501.4900 200 mg/dL Normal CHOL 113 Result Comment: <200 mg/dL Desirable 200-240 mg/dL Borderline >240 mg/dL High Risk LAB L501.5000 mg/dL High TRIG 214 Result Comment: The drugs N-Acetylcysteine and Metamizole may falsely depress this assay. Serum Triglycerides Reference Interval Normal <150 mg/dL Borderline high 150 - 199 mg/dL High 200 - 499 mg/dL Very High > or = 500 mg/dL LAB L501.6400 mg/dL Normal HDL 41 Result Comment: The drugs N-Acetylcysteine and Metamizole may falsely depress this assay. Reference Range HDL <40 mg/dL Low HDL Cholesterol HDL >or= 60 mg/dL High HDL Cholesterol LAB L501.6500 0-130 mg/dL Normal LDL 29 LAB L501.6600 5-40 mg/dL High VLDL 43 Performed By: #### L500.2500, L500.4100 #### [facility] [address] [place], [address] BEDSIDE GLUCOSE Collected: 08/08/2017 Status: F Source: [place] 6:43 AM [facility] REPOSITORY TYPE CODE TESTS RESULT OUT OF REFERENCE UNITS RANGE LAB L501.080 70-110 mg/dL High BEDSIDE GLU 205 Result Comment: Insulin Given MANAGEMENT OF PATIENT CARE PER NURSING PROTOCOL Performed By: #### L501.080 #### [facility] Point of Care [address] [place] [address] HISTORY AND PHYSICAL Observed: 08/08/2017 Status: F Source: [place] EXAM 4:27 AM [facility] REPOSITORY [facility] Medical Records Department [address] [place] [address] History and Physical 08/07/17 2357 MR#: [id number] Acct: [id number] Name: CORIE KILGORE Rep #: [id number] : 1940 77 From: Fermin Cota MD PCP: Lenin Reyes MD Status: ADM SHANELLE Y Location: [place] [address] Problem List (1) Ataxia Status: Acute (2) HTN (hypertension) Status: Chronic (3) CVA (cerebral vascular accident) Status: Acute History of Present Illness Date of Admission: 08/07/17 Chief Complaint: Ataxia The patient is a 77 year old male w/ h/o CVA, HTN, and ataxia admitted for ataxia. He developed ataxia 2-3 days ago. His ataxia has been getting worse and is constant. Nothing appeared to make it better or worse. He feels that he is unable to balance himself. He feels that it is similar to his previous symptoms when he had a stroke 3 years ago. He needs assistance when walking or he feels he is unable to balance himself. He has no other associated symptoms. Given no improvement, he went to the ED for further workup. Past Medical History Past Medical History (Chronic Problems): Chronic Problems HTN (hypertension) (Chronic) Allergies No Known Allergies Allergy (Verified 03/19/16 14:29) Home Medications: Ambulatory Orders Medication Instructions Recorded Metformin HCl [Glucophage] 500 mg PO DAILY 03/19/16 Warfarin [Coumadin ([facility]KC)] 2.5 mg PO SUTUWETHSA 03/19/16 Lives: Alone Smoking Status: Never smoker Alcohol: None Drugs: None - *Family History Maternal History Items: No pertinent history Review of Systems Constitutional: Denies: Chills, Fever, Weight Change HEENT: Denies: Head Aches, Sinus Congestion, Sinus Drainage Cardiovascular: Denies: Chest Pain, Palpitations Respiratory: Denies: Cough, Shortness of breath at rest, Sputum production Gastrointestinal: Denies: Abdominal Pain, Nausea, Vomiting Genitourinary: Denies: Dysuria Musculoskeletal: Denies: Joint Pain, Joint Tenderness Skin: Denies: Rash, Wounds Neurological: Denies: Numbness, Tingling, Focal weakness Psychiatric: Denies: Anxiety, Depression, Homicidal Ideations, Suicidal Ideations Hematologic/ Lymphatic: Denies: Easy Bruising, Easy Bleeding VTE Information - Inpt Only VTE Present on Admission: No VTE Mechan Device Prophylaxis: SCD's VTE Pharm Prophylaxis ordered?: Yes Patient Problems: Active and Suspected Problems Cephalgia (Acute) Unstable gait (Acute) Ataxia (Acute) CVA (cerebral vascular accident) (Acute) - Physical Exam General: Alert, Oriented x3, Cooperative HEENT: Atraumatic, PERRLA, EOMI, Normocephalic Neck: Supple, No JVD, Negative Carotid Bruits Lungs: Clear to auscultation, Normal air movement Cardiovascular: Regular rate, No murmurs Abdomen: Bowel Sounds Present, Soft, Non Tender Extremities: No edema, Capillary Refill Less than 3 Seconds Skin: No rashes, No breakdown Musculoskeletal: No Tenderness to Palpation of Joints or Extremities Neurological: Cranial nerves II-XII grossly intact Psych/Mental Status: Normal Affect, Appropriate Vital Signs Temp Pulse Resp BP Pulse Ox 98.3 F 77 16 133/77 H 96 08/07/17 22:16 08/07/17 23:41 08/07/17 23:41 08/07/17 23:41 08/07/17 23:41 Oxygen Flow Rate (L/min) 2 Oxygen Delivery Method Nasal Cannula Weight: 88.7 kg Body Mass Index (BMI) 26.5 Finger Stick Blood Glucose 136 Laboratory Tests Past 24 Hrs POC Glucose POC Glucose 136 H Assessment/Plan All Active Problems Cephalgia (Acute) Unstable gait (Acute) Ataxia (Acute) CVA (cerebral vascular accident) (Acute) 77 year old male w/ h/o CVA, HTN, and ataxia admitted for ataxia. 1) Ataxia: Will r/o stroke. No e/o orthostatic or narcotics. CT head negative for acute finding. EKG unremarkable. Will get MRI brain or MRA neck. Will also get ECHO. Will start ASA and statin. 2) HTN: Resume home meds. Monitor. 3) ASD / PFO: C/w coumadin. 4) H/o CVA: C/w medical management. 08/08/17 0427 <Electronically signed by Fermin Cota MD> Date Fermin Cota MD Cosigner Signature: Date (if applicable) CC: Lenin Reyes MD; Fermin Cota MD Signed EMERGENCY DEPARTMENT Observed: 08/08/2017 Status: F Source: [place] SUMMARY 3:00 AM [facility] Medical Records Department [address] [place] [address] Emergency Department Summary 08/07/17 2238 MR#: [id number] Acct: [id number] Name: CORIE KILGORE Rep #: [id number] : 1940 77 From: Oscar Little PCP: Lenin Reyes MD Status: ADM SHANELLE - ER Visit Summary Date of Service: 08/07/17 Chief Complaint: Stroke symptoms History of Present Illness: The patient is a 77 M presents to the ED if with daughter for evaluation of strokelike symptoms similar to previous. Multiple CVAs, last time was 3 years ago. No residual deficits. Patient lives alone, ambulates without a walker or assistance. Patient states he woke up yesterday morning more than 36 hours ago feeling states disoriented and off balance.. States he woke up today not feeling much better. He called his daughter who told him to go the ED. Daughter states yesterday complained of left-sided headache. Denies head trauma. States he had blurry vision, not loss of vision. Daughter states this was similar to her previous stroke. She states however his balance is worse than previously. No chest pains. No shortness of breath. No paresthesias. No hemiparesis. Physical Examination: General: Alert and oriented 3, no acute distress HEENT: Normocephalic, atraumatic. Moist mucosa membranes Neck: supple, nontender. Cardiovascular: Regular rate and rhythm, no murmurs Respiratory: Normal breath sounds, symmetric, no distress Abdomen: Soft, nontender, nondistended Extremities: Nontender, no edema, pulses intact 4 Neuro: no focal neurological deficits. NIH equal to 1 for being off on his age. Test Results: EKG sinus rate of 81, no ST or T-wave changes. Right bundle branch block. Hemoglobin 14.7. INR 1.7. Creatinine 0.95. Chest x-ray negative. CT head: Remote left basal ganglion infarct. UA pending Emergency Department Course and Treatment: Patient's NIH equal 1 for being off on his age. Daughter states similar presentation when he had a stroke in the past. Bat B workup initiated. Results noted a remote left basal ganglia infarct. INR slightly subtherapeutic at 1.7. Daughter stating to on Coumadin for which she states hole in his heart.. In addition he has had a left DVT. His last stroke was managed at [facility] 3 years ago. Recheck on patient, stable, he still off on his age stating he is 79. Daughter states there is some memory issues. Due to similar presentations with CVA in the past. I will discuss with hospitalist for admission for stroke workup. Urine is pending due to daughter stating patient told her he has urinated 30 times today. Treatment Plan: [] Disposition: Admission Impression: 1. Cephalgia 2. Unstable gait This note was generated with PATHEOSation software. It may contain incorrect words, spelling, and punctuation that were not noted in review of the chart prior to signing ED Disposition - Plan for ED Patient: Disposition: Acute Care Hospital [facility] Chief Complaint: Neuro S/Sx Diagnosis: Cephalgia, Unstable gait Referrals: Lenin Reyes MD [Primary Care Provider] - What to do if you have Problems For any increased pain, shortness of breath, bleeding, nausea or vomiting, chest pain, or any unexpected problems, contact your Primary Care Provider. Call [facility] ([phone]) or report to the closest Emergency Room. Call 911 if necessary. 08/08/17 0300 <Electronically signed by Oscar Little> Date Oscar Little Cosigner Signature (If Indicated): Date CC: Lenin Reyes MD TROPONIN-I Collected: 08/08/2017 Status: F Source: RICHELLE 1:42 AM [facility] REPOSITORY Order Comment: 'TROP' Serial specimen #1, #2, #3, or #4: 2 TYPE CODE TESTS RESULT OUT OF RANGE REFERENCE UNITS LAB L501.4010 <0.045 ng/mL Normal < 0.015 TROPONIN-I Result Comment: TROPONIN-I EXPECTED VALUES <0.045 Negative 0.045 - 0.590 Consistent with Cardiac Damage > OR = 0.600 Critical Value Not every elevated troponin is indicative of [place]. These values should be used with clinical judgement in examining the patient's clinical picture for diagnosis. To establish a diagnosis of [place] versus myocardial injury, there must be a demonstrated rise and/or fall in the troponin values, in addition to ischemic symptoms, EKG changes, new regional wall motion abnormality, and/or angiographical evidence. PLEASE NOTE: REFERENCE RANGES EDITED 17 Performed By: #### L501.4010, L501.9520 #### [facility] [address] [place], [address] THYROID STIM HORMONE Collected: 08/08/2017 Status: F Source: [place] (TSH) 1:42 AM [facility] REPOSITORY Order Comment: 'TROP' Serial specimen #1, #2, #3, or #4: 2 TYPE CODE TESTS RESULT OUT OF RANGE REFERENCE UNITS LAB L501.9520 0.358-3.74 uIU/mL Normal TSH 3.28 Performed By: #### L501.4010, L501.9520 #### [facility] [address] [place], [address] MRA NECK WITH AND W/O Observed: 08/08/2017 Status: F Source: [place] CONTRAST 12:46 AM [facility] REPOSITORY [facility] Imaging Services [address] [place] [address] MRA Neck WITH and W/O Contrast MR#: [id number] Acct: [id number] Name: CORIE KILGORE Rep #: [id number] : 1940 M 77 From: Sofie Luna MD PCP: Lenin Reyes MD Status: ADM SHANELLE Study: MRA Neck WITH and W/O Contrast Date of Exam: 08/08/17 Exam# [id number] Ordering Dr: Fermin Cota MD STUDY: MRA NECK WITH AND WITHOUT CONTRAST REASON FOR EXAM: Male, 77 years old. Confusion and generalized weakness. TECHNIQUE: 3-D qedo-jl-jowygq (TOF) imaging was performed in an 1.5 T MRI scanner. 9 ml of Gadavist was administered for the contrast enhanced images. Enhanced images are technically limited due to extensive enhancement of the venous structures which obscure the arterial anatomy. Several images are limited by patient motion. COMPARISON: MRA of the [place] dated August 08, 2017. FINDINGS: RIGHT CAROTID ARTERIES: Normal right common carotid artery (CCA). There is mild atherosclerotic plaque formation with minimal narrowing of the right carotid bulb. There is mild atherosclerotic plaque formation of the origin of the right internal carotid artery with less than 50% cross sectional diameter stenosis. Normal visualized cervical portion of the right internal carotid artery. Normal origin of the right external carotid artery (ECA). LEFT CAROTID ARTERIES: Normal left common carotid artery (CCA). There is mild atherosclerotic plaque formation with minimal narrowing of the left carotid bulb. Normal origin of the left internal carotid (ICA) artery without a hemodynamically significant stenosis. Normal visualized cervical portion of the left internal carotid artery. Normal origin of the left external carotid artery (ECA). VERTEBRAL ARTERIES: Normal antegrade flow within the bilateral vertebral artery without a hemodynamically significant stenosis. MRI/MRA Neck WITH and W/O Contrast IMPRESSION: 1. Technically limited MRA due to enhancement of venous structures and patient motion. 2. No definite MRA evidence for hemodynamically significant stenosis. Electronically Signed: Sofie Luna MD at 16:28 EDT , Service support , CC: Lenin Reyes MD; Fermin Cota MD Clinical Psychologist: Signed BRAIN WITHOUT Observed: 08/08/2017 Status: F Source: [place] CONTRAST 12:45 AM [facility] REPOSITORY [facility] Imaging Services [address] [place] [address] Brain without Contrast MR#: [id number] Acct: [id number] Name: CORIE KILGORE Rep #: [id number] : 1940 77 From: Sofie Luna MD PCP: Lenin Reyes MD Status: ADM SHANELLE Study: Brain without Contrast Date of Exam: 08/08/17 Exam# [id number] Ordering Dr: Fermin Cota MD STUDY: MRI BRAIN WITHOUT CONTRAST REASON FOR EXAM: Male, 77 years old. Confusion and generalized weakness. TECHNIQUE: Standardized multiplanar fat and water weighted pulse sequences were obtained. COMPARISON: CT of the head dated August 07, 2017. FINDINGS: There is mild cerebral atrophy with widening of the extra- axial spaces and ventricular dilatation. There are a limited number of small white matter hyperintensities, distributed throughout the deep white matter tracts of the cerebral hemispheres, consistent with mild chronic white matter ischemic changes. There is no evidence for recent intracranial ischemia or other cause of cytotoxic edema on diffusion weighted imaging (DWI). Normal T2* images of the brain without demonstrated susceptibility artifact. There is no demonstrated hemosiderin stain. There are prominent perivascular spaces (PVS) involving the basal ganglia. Normal thalami. There is no extra-axial fluid accumulation. Normal flow voids within the major intracranial circulation suggesting patency by spin echo criteria. There is increased CSF within the sella and flattening of the pituitary gland consistent with an empty sellar syndrome. Normal infundibular stalk, hypothalamus, and optic chiasm. Normal tectal plate and pineal gland. Normal midbrain, susan and medulla. Normal cerebellum. Normal basal cisterns. Normal bilateral temporal bones. Normal bilateral internal auditory canals. No demonstrated orbital abnormality, within the constraints of a routine brain study. Normal visualized paranasal sinuses. Normal calvarium and skull base. Normal visualized soft tissue structures. There are degenerative changes of the anterior atlantoaxial articulation. MRI/Brain without Contrast IMPRESSION: 1. Involutional changes of the brain, as described above. 2. No MR evidence for acute infarct. Electronically Signed: Sofie Luna MD at 16:20 EDT , Service support , CC: Lenin Reyes MD; Fermin Cota MD Clinical Psychologist: Signed URINALYSIS, COMPLETE Collected: 08/07/2017 Status: F Source: [place] 11:46 PM [facility] REPOSITORY Order Comment: Order Date: 08/07/17 How was Urine Obtained? CLEAN CATCH TYPE CODE TESTS RESULT OUT OF RANGE REFERENCE UNITS LAB L400.3000 Yellow COLOR Normal Yellow LAB L400.3050 Clear Normal CLARITY Clear LAB L400.3200 Normal mg/dl Normal GLUCOSE, UR Normal LAB L400.3300 Negative mg/dL Normal BILIRUBIN URINE Negative LAB L400.3400 Negative mg/dl Normal KETONE UR Negative LAB L400.3465 1.002-1.030 Normal SP.GR. DIPSTX 1.015 LAB L400.3550 5.0 - 8.0 pH UR Normal 6.5 LAB L400.3600 Negative mg/dl PROT Normal DIPSTX Negative LAB L400.3700 Normal mg/dl Normal UROBILI Normal LAB L400.3750 Negative Normal NITRITE UR Negative LAB L400.3780 Negative /ul High 25 OCCULT BLOOD-UR LAB L400.3800 Negative /ul LEUK Normal ESTERASE Negative LAB L400.4050 0-5 /hpf WBC Normal 0-5 SEEN LAB L400.4100 0-5 /hpf Normal RBC-UA 0-5 SEEN LAB L400.4150 0-5 /hpf SQUAM Normal EPI 0-5 SEEN LAB L400.4300 None Seen /hpf Normal BACTERIA RARE LAB L400.4350 <or=2+ /hpf 0 Normal MUCUS, URINE SEEN Performed By: #### L400.0001 #### [facility] [address] [place], [place], [address] URINE DRUG SCREEN Collected: 08/07/2017 Status: F Source: [place] (AKHIL) 11:46 PM [facility] REPOSITORY Order Comment: List of Drugs Taken or Suspected? ? TYPE CODE TESTS RESULT OUT OF RANGE REFERENCE UNITS LAB L505.0075 TO BE Normal CONFIRMED Result Comment: CONFIRMATORY TESTING FOR ALL POSITIVE URINE DRUG SCREEN RESULTS WILL ONLY BE SENT OUT UPON PHYSICIAN ORDER. VISTA Urine Drug Screen methods provide only preliminary analytical test results. A more specific alternate chemical method must be used in order to obtain a confirmed analytical result. Gas chromatography/mass spectrometery (GC/MS) is the preferred confirmatory method. Clinical consideration and professional judgement should be applied to any drug of abuse test result, particularly when preliminary positive results are used. URINE TCA TESTING MUST BE ORDERED SEPARATELY. USE TEST MNEMONIC: UTCA LAB L505.5005 VISTA UDS PH 6 Normal LAB L505.5015 <1000 ng/mL AMPHETAMINES Normal NEGATIVE LAB L505.5025 < 200 ng/mL BARBITIURATES Normal NEGATIVE LAB L505.5035 < 200 ng/mL BENZODIAZIPINE Normal NEGATIVE LAB L505.5045 < 300 ng/mL COCAINE Normal NEGATIVE LAB L505.5055 < 500 ng/mL ECSTACY Normal NEGATIVE LAB L505.5065 < 300 ng/mL METHADONE Normal NEGATIVE LAB L505.5075 < 300 ng/mL OPIATES Normal NEGATIVE LAB L505.5085 < 25 ng/mL PCP Normal NEGATIVE LAB L505.5095 < 50 ng/mL THC Normal NEGATIVE Performed By: #### L505.5000 #### [facility] [address] [place], [address] BRAIN/HEAD WITHOUT Observed: 08/07/2017 Status: F Source: [place] CONTRAST 10:30 PM [facility] REPOSITORY [facility] Imaging Services [address] [place] [address] Brain/Head without Contrast MR#: [id number] Acct: [id number] Name: CORIE KILGORE Rep #: [id number] : 1940 M 77 From: Bhakti Mcgovern MD PCP: Lenin Reyes MD Status: REG ER Study: Brain/Head without Contrast Date of Exam: 08/07/17 Exam# [id number] Ordering Dr: Oscar Mcintyre DO CT Head or Brain W/O Contrast INDICATION: TROUBLE AMBULATING, DISORIENTED YESTERDAY, HX CVA X3, GB COMPARISON: None TECHNIQUE: Noncontrast axial CT examination of the brain. Radiation dose optimization applied. FINDINGS: The ventricular system and cortical sulci are prominent, compatible with generalized cerebral volume loss. Chronic lacunar infarct is noted in the right basal ganglia. There are patchy bilateral periventricular low densities noted, most compatible with chronic ischemic microvascular white matter disease. The zaldivar-white matter junction is distinct. There is no evidence of acute intracranial hemorrhage, mass effect, midline shift, or abnormal extra-axial collection. The calvarium is intact and the visualized paranasal sinuses and mastoid air cells are clear.. CT/Brain/Head without Contrast IMPRESSION: Age-related cerebral volume loss and chronic ischemic microvascular white matter changes. Remote right basal ganglia lacunar infarct. No acute findings. at 2316 Reported and signed by: Bhakti Mcgovern MD Electronically Signed: Bhakti Mcgovern MD at 23:14 EDT Tel , Service support , CC: Lenin Reyes MD; Oscar Mcintyre Clinical Psychologist: Signed CHEST 1 VIEW Observed: 08/07/2017 Status: F Source: [place] 10:30 PM [facility] REPOSITORY [facility] Imaging Services [address] [place] [address] Chest 1 View MR#: [id number] Acct: [id number] Name: CORIE KILGORE Rep #: [id number] : 1940 M 77 From: Bhakti Mcgovern MD PCP: Lenin Reyes MD Status: REG ER Study: Chest 1 View Date of Exam: 08/07/17 Exam# [id number] Ordering Dr: Oscar Mcintyre DO XR Chest 1 View INDICATION: neuro symptoms, pt states he becomes disoriented and has trouble walking COMPARISON: None TECHNIQUE: Frontal view of the chest FINDINGS: Heart size and pulmonary vascularity are within normal limits. The lungs are clear without evidence of airspace consolidation or pleural effusion. The osseous structures are grossly unremarkable. RAD/Chest 1 View IMPRESSION: No radiographic evidence of acute intrathoracic disease. at 2316 Reported and signed by: Bhakti Mcgovern MD Electronically Signed: Bhakti Mcgovern MD at 23:15 EDT Tel , Service support , CC: Lenin Reyes MD; Oscar Mcintyre Clinical Psychologist: Signed CBC W/DIFF, AUTOMATED Collected: 08/07/2017 Status: F Source: [place] 10:25 PM [facility] REPOSITORY TYPE CODE TESTS RESULT OUT OF RANGE REFERENCE UNITS LAB L100.1000 4.4-11.0 K/mm3 Normal WBC 6.1 LAB L100.1200 4.6-6.2 M/mm3 Normal RBC 4.71 LAB L100.1300 13.0-16.5 g/dl Normal HGB 14.7 LAB L100.1400 40-54 % Normal HCT 43.4 LAB L100.1500 80-94 fL Normal MCV 92.1 LAB L100.1600 27.0-32.0 pg Normal MCH 31.2 LAB L100.1700 32-36 g/gl Normal MCHC 33.9 LAB L100.1810 11.6-14.6 % Normal RDW CV 13.6 LAB L100.1820 35.1-43.9 fl High RDW SD 46.0 LAB L100.1900 150-450 K/mm3 Low PLT 145 LAB L100.2000 6.2-12.0 fl Normal MPV 10.1 LAB L100.2100 47-70 % Normal NEUT% 66.4 LAB L100.2200 19-41 % Normal LY% 23.0 LAB L100.2300 0-10 % Normal MONO% 9.4 LAB L100.2400 0-5 % Normal EO% 0.7 LAB L100.2500 0-1 % Normal BASO% 0.3 LAB L100.2550 0.0-0.9 % Normal IM GRAN % 0.200 Result Comment: IG% - Immature Granulocytes (promyelocytes, myelocytes and metamyelocytes) > 1% indicates that a LEFT SHIFT is Present. LAB L100.2620 2.0-7.7 X10 3/uL Normal Absolute Neut 4.0 LAB L100.2720 0.83-4.51 X10 3/ul Normal Absolute Lymph 1.39 Performed By: #### L100.0100 #### [facility] [place], [address] PROTHROMBIN TIME W/INR Collected: 08/07/2017 Status: F Source: [place] 10:25 PM [facility] REPOSITORY TYPE CODE TESTS RESULT OUT OF RANGE REFERENCE UNITS LAB L300.4150 11.7-14.9 SECONDS High PROTIME 19.6 LAB L300.4200 Normal INR 1.7 Performed By: #### L300.3900, L300.4310 #### [facility] [address] [place], [address] PARTIAL THROMBOPLAST Collected: 08/07/2017 Status: F Source: [place] TIME 10:25 PM [facility] REPOSITORY TYPE CODE TESTS RESULT OUT OF RANGE REFERENCE UNITS LAB L300.4310 24.1-36.2 Seconds Normal PTT 32.2 Performed By: #### L300.3900, L300.4310 #### [facility] [address] [place], [address] BASIC METABOLIC Collected: 08/07/2017 Status: F Source: [place] PROFILE (BMP) 10:25 PM [facility] REPOSITORY TYPE CODE TESTS RESULT OUT OF RANGE REFERENCE UNITS LAB L501.0100 74-106 mg/dL High GLU 143 Result Comment: Fasting Glucose result greater than or equal to 126 mg/dL suggests DIABETES MELLITUS per A.D.A. criteria. Please note revised GLUCOSE reference range effective 2017. LAB L501.1000 7-18 mg/dL Normal BUN 11 LAB L501.1100 0.70-1.30 mg/dL Normal CREAT,SERUM 0.95 Result Comment: The validity of the calculated GFR AND GFRAA in patients over 70 years has not been determined. Clinical correlation is essential. LAB L501.1110 >60 mL/min Normal EST GFR 81 Result Comment: Non- GFR Calc LAB L501.1115 >60 mL/min Normal EST GFR - AA 98 Result Comment: GFR Calc LAB L501.1255 ml/min Normal Estimated CRCL 71.47 LAB L501.1300 10-20 RATIO Normal BUN/CRE 11.5 LAB L501.2200 8.5-10 mg/dL Normal .1 CA 8.7 LAB L501.5300 136-14 mmol/L Normal 5 NA 137 LAB L501.5600 3.5-5. mmol/L Normal 1 K 3.9 LAB L501.5900 98-107 mmol/L Normal CL 103 LAB L501.6100 21.0-3 mmol/L Normal 2.0 CO2 24.0 LAB L501.6200 5-15 Normal GAP 10 Performed By: #### L500.2500, L501.4010 #### [facility] [address] [place], [address] TROPONIN-I Collected: 08/07/2017 Status: F Source: [place] 10:25 PM [facility] REPOSITORY TYPE CODE TESTS RESULT OUT OF RANGE REFERENCE UNITS LAB L501.4010 <0.045 ng/mL Normal < 0.015 TROPONIN-I Result Comment: TROPONIN-I EXPECTED VALUES <0.045 Negative 0.045 - 0.590 Consistent with Cardiac Damage > OR = 0.600 Critical Value Not every elevated troponin is indicative of [place]. These values should be used with clinical judgement in examining the patient's clinical picture for diagnosis. To establish a diagnosis of [place] versus myocardial injury, there must be a demonstrated rise and/or fall in the troponin values, in addition to ischemic symptoms, EKG changes, new regional wall motion abnormality, and/or angiographical evidence. PLEASE NOTE: REFERENCE RANGES EDITED 17 Performed By: #### L500.2500, L501.4010 #### [facility] [address] [place], [place], [address] BEDSIDE GLUCOSE Collected: 08/07/2017 Status: F Source: [place] 10:18 PM [facility] REPOSITORY TYPE CODE TESTS RESULT OUT OF REFERENCE UNITS RANGE LAB L501.080 70-110 mg/dL High BEDSIDE GLU 136 Result Comment: MANAGEMENT OF PATIENT CARE PER NURSING PROTOCOL Performed By: #### L501.080 #### [facility] Point of Care [address] [place] [address] PROGRESS Observed: 07/31/2017 Status: COMPLETED Source: [place] 8:[address] [facility] REPOSITORY HNO ID: [id number] Author: Elana CouchRn) ILIANA Bourgeois Service: (none) Author Type: Registered Nurse Type: Progress Notes Filed: 07/31/2017 8:51 AM Note Text: Pt calls in, received message but needed clarification due to bad phone connection. Instructions clarified, pt verbalized understanding. PROGRESS Observed: 07/31/2017 Status: COMPLETED Source: [place] 8:[address] [facility] REPOSITORY HNO ID: [id number] Author: Elana CouchRn) Christelle, ILIANA Service: (none) Author Type: Registered Nurse Type: Progress Notes Filed: 07/31/2017 8:40 AM Note Text: This note was created using XM Radioriter. Subjective Corie Roberson Magui Shell. is a 77 year old male. Review of Systems Objective There were no vitals taken for this visit. Physical Exam Assessment and Plan PROGRESS Observed: 07/29/2017 Status: COMPLETED Source: [place] 10:[address] [facility] REPOSITORY HNO ID: [id number] Author: Elisa Villalobos Ma Service: (none) Author Type: (none) Type: Progress Notes Filed: 07/29/2017 10:41 AM Note Text: Detailed message left for patient with dosage instructions. Tracker and med list has been updated. PROGRESS Observed: 07/29/2017 Status: COMPLETED Source: [place] 9:[address] [facility] REPOSITORY HNO ID: [id number] Author: Ileana Everett) Cortes Service: (none) Author Type: Physician Type: Progress Notes Filed: 07/29/2017 9:14 AM Note Text: INR still sub therapeutic. Increase coumadin to 9 mg (3 pills) Wed, 6 mg (2 pills) all other days. PROGRESS Observed: 07/29/2017 Status: COMPLETED Source: [place] 8:[address] [facility] REPOSITORY HNO ID: [id number] Author: Nasreen Treviño RN Service: (none) Author Type: (none) Type: Progress Notes Filed: 07/29/2017 8:52 AM Note Text: patient had inr completed at [facility] patients inr is 1.8 (patients inr range is 2.0-3.0) patient is currently taking 3mg Fri and 6mg all other days patients last dose change was on 05/18/17 due to a low level of 1.6 (dose at that time was 3mg Mon,Wed,Fri and 6mg all other days) patient has had no changes in medication and no missed doses and no change in diet FYI - if patients dose changes he need to be told how many pills to take not how many milligrams as he does not understand taking the medication by milligram - patient current has 3mg tabs at home Advised patient that they would be contacted regarding medication dose and when to follow up after information is reviewed by provider. After provider review please contact the patient with information and schedule follow up appointment with coumadin clinic. FYI - patient has been scheduled for a 2 week inr follow up on 08/12/17 PROGRESS Observed: 06/30/2017 Status: COMPLETED Source: [place] 2:[address] [facility] REPOSITORY HNO ID: [id number] Author: Tiago Treadwell Service: (none) Author Type: Physician Type: Progress Notes Filed: 06/30/2017 2:24 PM Note Text: This note was created using NoteWriter. Subjective Corie Kilgore Jr. is a 77 year old male. Review of Systems Objective There were no vitals taken for this visit. Physical Exam Assessment and Plan agree PROGRESS Observed: 06/30/2017 Status: COMPLETED Source: [place] 8:[address] [facility] REPOSITORY HNO ID: [id number] Author: Nasreen Treviño RN Service: (none) Author Type: (none) Type: Progress Notes Filed: 06/30/2017 8:28 AM Note Text: patient had inr completed at [facility] patients inr is 2.2 (patients inr range is 2.0-3.0) patient is currently taking 3mg Fri and 6mg all other days patients last dose change was on 05/18/17 due to a low level of 1.6 (dose at that time was 3mg Mon,Wed,Fri and 6mg all other days patient has had no changes in medication and no missed doses and no change in diet Advised patient to continue on the same dose(s) and that they would only be contacted regarding dosage and follow up instructions after review with provider, if a change is needed. Written instructions given and patient verbalized understanding. Presently scheduled in 4 weeks (07/28/17) for follow up INR. PROGRESS Observed: 05/29/2017 Status: COMPLETED Source: [place] 3:[address] [facility] REPOSITORY HNO ID: [id number] Author: Ileana Kolb Service: (none) Author Type: Physician Type: Progress Notes Filed: 05/29/2017 3:15 PM Note Text: INR therapeutic. Continue current coumadin dosage and follow up in 2 weeks. PROGRESS Observed: 05/29/2017 Status: COMPLETED Source: [place] 2:[address] [facility] REPOSITORY HNO ID: [id number] Author: Nasreen Treviño RN Service: (none) Author Type: (none) Type: Progress Notes Filed: 05/29/2017 2:22 PM Note Text: patient had inr completed at [facility] patients inr is 2.8 (patients inr range is 2.0-3.0) patient is currently taking 3mg Fri and 6mg all other days patients last dose change was on 05/18/17 due to a low level of 1.6 (dose at that time was 3mg Mon,Wed,Fri and 6mg all other days) patient has had no changes in medication except for the coumadin and no missed doses and no change in diet Advised patient to continue on the same dose(s) and that they would only be contacted regarding dosage and follow up instructions after review with provider, if a change is needed. Written instructions given and patient verbalized understanding. Presently scheduled in 2 weeks (06/09/17) for follow up INR. FYI - if patient needs called about a change in dosing he will need to be told how many pills to take not milligrams. Patient has 3mg tablets at home. PROGRESS Observed: 05/18/2017 Status: COMPLETED Source: [place] 11:[address] [facility] REPOSITORY HNO ID: [id number] Author: Rosa Dang Ma Service: (none) Author Type: (none) Type: Progress Notes Filed: 05/18/2017 11:55 AM Note Text: Went over instructions as pills not mg patient verbalizes understanding of instructions. Patient previously scheduled kept date of Thursday05/26/17. Tracker updated. PROGRESS Observed: 05/18/2017 Status: COMPLETED Source: [place] 10:[address] [facility] REPOSITORY HNO ID: [id number] Author: Ileana Kolb Service: (none) Author Type: Physician Type: Progress Notes Filed: 05/18/2017 10:45 AM Note Text: INR subtherapeutic still. Increase coumadin to 3 mg Fri, 6 mg all other days. Repeat in 1 week PROGRESS Observed: 05/18/2017 Status: COMPLETED Source: [place] 10:[address] [facility] REPOSITORY HNO ID: [id number] Author: Nasreen Treviño RN Service: (none) Author Type: (none) Type: Progress Notes Filed: 05/18/2017 10:43 AM Note Text: patient had inr completed at [facility] patients inr is 1.6 (patients inr range is 2.0-3.0) patient is currently taking 3mg Mon,Wed,Fri and 6mg all other days patients last dose change was on 05/11/17 due to a low level of 1.5 (dose at that time was 6mg Mon,Tues,Fri and 3mg all other days) patient has had no changes in medication except for the coumadin and no missed doses and no change in diet Recommend: since patient is easily confused on doses and pcp was not available at the time it was recommended by the nurse to change dose to 3mg Wed and 6mg all other days and recheck in 1 week. Patient notified that he would only be contacted if pcp did not agree with recommendation. If patient needs to be contacted he needs to be instructed on how many pills to take not how many milligrams. Patient has 3mg tablets. PROGRESS Observed: 05/11/2017 Status: COMPLETED Source: [place] 2:[address] [facility] REPOSITORY HNO ID: [id number] Author: Nasreen Treviño RN Service: (none) Author Type: (none) Type: Progress Notes Filed: 05/11/2017 2:17 PM Note Text: patient had inr completed at [facility] patients inr is 1.5 (patients inr range is 2.0-3.0) patient is currently taking 6mg mon,tues,fri and 3mg all other days patients last dose change was on 05/01/17 due to a low level of 1.3 (dose at that time ws 6mg mon,fri and 3mg all other days) patient has had no changes in medication except for the coumadin and no missed doses and no change in diet per verbal order by dr kolb patient can be changed to 3mg mon,wed,fri and 6mg all other days and recheck in 1 week on 05/18/17. PROGRESS Observed: 05/01/2017 Status: COMPLETED Source: [place] 10:[address] [facility] REPOSITORY HNO ID: [id number] Author: Nasreen Treviño RN Service: (none) Author Type: (none) Type: Progress Notes Filed: 05/01/2017 10:38 AM Note Text: patient had inr completed at [facility] patients inr is 1.3 (patients inr range is 2.0-3.0) patient is currently taking 6mg Mon,Fri and 3mg all other days patients last dose change was on 04/13/17 due to a high level of 3.7 (dose at that time was 9mg Mon,Fri and 6mg all other days) patient has had no changes in medication and no change in diet Per written order by Dr Kolb patient is to take 6mg Mon,Tues,Fri and 3mg all other days and recheck in as scheduled on 05/08/17 [facility] COMP METABOLIC PANEL Collected: 05/01/2017 Status: F Source: [place] 9:32 AM [facility] REPOSITORY TYPE CODE TESTS RESULT OUT OF REFERENCE UNITS RANGE LAB TP 6.3-8.0 g/dL Protein, Total 7.6 LAB ALB 3.9-4.9 g/dL Albumin 4.6 LAB CA 8.5-10.2 mg/dL Calcium, Total 9.0 LAB TBIL 0.2-1.3 mg/dL Bilirubin, Total 0.6 LAB ALKP 36-108 U/L Alkaline Phosphatase 75 LAB AST 14-40 U/L AST High 41 LAB GLU 74-99 mg/dL Glucose High 132 Result Comment: The [place] [employer] (ADA) provides guidance for cutoff values for fasting glucose and random glucose. The ADA defines fasting as no caloric intake for at least 8 hours. Fas ting plasma glucose results between 100 to 125 mg/dL indicate increased risk for diabetes (prediabetes). Fasting plasma glucose results greater than or equal to 126 mg/dL meet the criteria for diagnosis of diabetes. In the absence of unequivocal hyperglycemia, results should be confirmed by repeat testing. In a patient with classic symptoms of hyperglycemia or hyperglycemic crisis, random plasma glucose results greater than or equal to 200 mg/dL meet the criteria for diagnosis of diabetes. Reference: Standards of Medical Care in Diabetes 2016, [place] Diabetes Association. Diabetes Care. 2016.39(Suppl 1). LAB BUN 9-24 mg/dL BUN 12 LAB CRET 0.73-1.22 mg/dL Creatinine Low 0.71 LAB NA 136-144 mmol/L Sodium 142 LAB K 3.7-5.1 mmol/L Potassium 4.3 LAB CL 97-105 mmol/L Chloride 104 LAB CO2 22-30 mmol/L CO2 26 LAB AGAP 9-18 mmol/L Anion Gap 12 LAB ALT 10-54 U/L ALT 50 LAB GFRAA eGFR- Amer. >60 LAB GFRNAA . eGFR-All Other Races >60 Result Comment: eGFR (Estimated GFR) Units of measure: mL/min/1.73 meters squared eGFR is derived from the reexpressed MDRD Study equation using the following parameters: serum creatinine, age, gender and race. The creatinine assay has been calibrated to be traceable to IDMS. An eGFR <60 mL/min/1.73m2 for >3 months is consistent with chronic kidney disease. Refer to KDOQI guidelines for clinical interpretation. In patients with unstable renal function, e.g. those with acute kidney injury, the eGFR may not accurately reflect actual GFR. Performed By: #### CMP, HBA1C #### [facility] [address] [place], [place] [address] HEMOGLOBIN A1C Collected: 05/01/2017 Status: F Source: [place] 9:[address] [facility] REPOSITORY TYPE CODE TESTS RESULT OUT OF REFERENCE UNITS RANGE LAB HGBA1C 4.3-5.6 % High Hemoglobin A1c 6.4 LAB HBA0 mg/dL Est. Average Glucose 137 Result Comment: eAG: (Estimated average glucose) is a calculated value from HgbA1c and is representative personal service of the average blood glucose level in the last 2-3 month period. Performed By: #### CMP, HBA1C #### [facility] [address] [place], [place] [address] PROGRESS Observed: 05/01/2017 Status: COMPLETED Source: [place] 8:[address] [facility] REPOSITORY HNO ID: [id number] Author: Ileana Everett) Cortes Service: (none) Author Type: Physician Type: Progress Notes Filed: 05/01/2017 1:17 PM Note Text: Chief Complaint Patient presents with: Establish Care: c/o sciatic nerve pain right leg/hip HPI Corie Kilgore Jr. is a 77 year old male who presents here today for transfer of care visit from Dr. Reyes. Patient is on chronic anticoagulation for history of DVT and has been told in the past that he needs to be on it for the rest of his life. INR was low on check today at 1.3 with goal of 2-3. Has been taking medication as prescribed and has not had much change in diet. Discussed increased dosage to 6 mg Mon, Tues, and Fri with 3 mg all other days and is to return in 1 week for repeat. Needs dosage written down in number of pills to take each day as he was taking pills in accordance with miligrams, so 6 pills instead of 6 mg. DIABETES MELLITUS: Mr. Kilgore was last seen 7 months ago. Since our last visit he denies excessive thirst or increased frequency of urination, numbnessin extremities, new or unusual visual symptoms and low sugar/hypoglycemic reactions. Positive for burning in toes bilaterally. Follows a diabetic diet most of the time. He is compliant with medication(s) and is tolerating med(s) without any side effects. He reports checking his glucose on a infrequent to not at all basis schedule. Patient's last HgA1C was Hemoglobin A1C (%) Date Value 09/08/2016 6.2 03/29/2015 6.6 ) Last Ophthalmology exam was within the past 12 months at [facility]. Last Podiatry exam was within the past 12 months, seeing Dr. Pandya Up to date on immunizations. Needs repeat blood work. Past medical history, appointments, medications, allergies reviewed. Previous Medical History PAST MEDICAL HISTORY Diagnosis Date - Cerebral vascular disease - Degenerative arthritis - Diabetes (HCC) - HTN (hypertension) - Hyperlipidaemia - TIA (transient ischemic attack) Previous Surgical History PAST SURGICAL HISTORY Procedure Laterality Date - CHOLECYSTECTOMY - HERNIA REPAIR HX - PAST SURGICAL HISTORY OF RK - PAST SURGICAL HISTORY OF Tonsillectomy - PAST SURGICAL HISTORY OF Right and Left shoulder surgery - PAST SURGICAL HISTORY OF chest surgery - PAST SURGICAL HISTORY OF hernia/gallbladder Family History FAMILY HISTORY Problem Relation Age of Onset - Hypertension Mother - Heart Mother - Heart Father - Diabetes Father - Cancer Father Patient Allergies ALLERGIES No Known Allergies Current Medications Current Outpatient Prescriptions on File Prior to Visit: warfarin (COUMADIN) 3 mg tablet take 6mg Mon,Fri and 3mg all other days metFORMIN (GLUCOPHAGE) 500 mg tablet Take 1 tablet by mouth daily with breakfast. DOCOSAHEXANOIC ACID/EPA (FISH OIL ORAL) Take by mouth as directed. izejwhuu-txa-WT-lycopen-lutein (CENTRUM SILVER ULTRA MEN'S) 300-600-300 mcg tab Take by mouth. No current facility-administered medications on file prior to visit. 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 Review of Symptoms REVIEW OF SYSTEMS GENERAL: No weight loss, malaise or fevers RESPIRATORY: Negative for cough, hemoptysis, wheezing, COPD, dyspnea or shortness of breath CARDIOVASCULAR: Negative for chest pain, leg swelling, hypertension, CHF or palpitations GI: No nausea, vomiting, or diarrhea : No difficulty urinating, nocturia > 1 time per night or hematuria SKIN: Negative for lesions, rash, and itching EXAM: BP 138/84 Pulse 74 Resp 12 Ht 177.2 cm (5' 9.75) Wt 86.2 kg (190 lb) BMI 27.46 kg/m2 General Appearance: Well appearing, alert, in no acute distress, well-hydrated, well nourished.. Skin: Skin color, texture, turgor normal, no suspicious rashes or lesions. Lungs: Lungs clear to auscultation. No wheezing, rhonchi, rales. Heart: RRR without murmur, gallop, or rubs. No ectopy. Abdomen: Normal abdominal exam, Abdomen soft, non-tender. Bowel sounds normal. No masses, organomegaly. Extremities: No deformities, edema, skin discoloration, clubbing or cyanosis. Good capillary refill. . Feet: Shoes and socks removed, No deformities, ulcers, calluses, normal distal pulses and not sensitive to monofilament bilaterally, mostly on great toe and dorsum of foot. Health Maintenance List TETANUS due on 02/25/1951 DILATED RETINAL EXAM due on 01/13/2016 HBA1C due on 03/11/2017 COLORECTAL CANCER SCREENING,SEE MODIFIER due on 05/03/2017 URINE ALBUMIN CREATININE RATIO due on 09/08/2017 LDL due on 09/08/2017 DIABETIC FOOT EXAM due on 09/19/2017 PROSTATE CANCER SCREENING DISCUSSION Completed ADULT PREVNAR-13 Completed INFLUENZA Completed PNEUMOVAX AGE 65 AND OVER WITH 5YR LOOKBACK Completed Data reviewed Component Latest Ref Rng AND Units 09/08/2016 Protein, Total 6.3 - 8.0 g/dL 7.6 Albumin 3.9 - 4.9 g/dL 4.4 Calcium 8.5 - 10.2 mg/dL 9.7 Bilirubin, Total 0.2 - 1.3 mg/dL 0.4 Alkaline Phosphatase 36 - 108 U/L 67 AST 14 - 40 U/L 24 Glucose 74 - 99 mg/dL 132 (H) BUN 9 - 24 mg/dL 18 Creatinine 0.73 - 1.22 mg/dL 0.79 Sodium 136 - 144 mmol/L 142 Potassium 3.7 - 5.1 mmol/L 4.3 Chloride 97 - 105 mmol/L 102 CO2 22 - 30 mmol/L 26 Anion Gap 9 - 18 mmol/L 14 ALT 10 - 54 U/L 29 eGFR- >60 eGFR-All Other Races . >60 Triglyceride 30 - 149 mg/dL 338 (H) Cholesterol, Total 100 - 199 mg/dL 182 HDL Cholesterol >45 mg/dL 40 (L) VLDL Cholesterol 6 - 40 mg/dL 68 (H) LDL Cholesterol 60 - 129 mg/dL 74 Fasting Time hrs 12 TC:HDL Ratio 1.00 - 5.00 4.55 LDL:HDL Ratio 0.50 - 3.55 1.85 Non HDL Cholesterol 90 - 159 mg/dL 142 Creatinine, Ur Random (UCRR) 20 - 300 mg/dL 88.7 Albumin, Urine Random 0.0 - 23.0 mg/L <12.0 Albumin/Creat Ratio 0 - 30 mg/g Not calculated Hemoglobin A1C 4.3 - 5.6 % 6.2 (H) Estimated Average Glucose mg/dL 131 ASSESSMENT/PLAN: 1. Controlled type 2 diabetes mellitus without complication, without long-term current use of insulin (HCC) - ICD9: 250.00, ICD10: E11.9 (primary diagnosis) Controlled. - Continue current medications - Ophthalmology referral for eval/management of diabetic eye changes - Encouraged regular aerobic exercise and weight loss - Follow up in 6 months, sooner should any other issues arise. - HGB A1C - COMP METABOLIC PANEL - LISINOPRIL 5 MG TABLET - ATORVASTATIN 20 MG TABLET 2. Deep vein thrombosis (DVT) of distal vein of lower extremity, unspecified chronicity, unspecified laterality (HCC) - ICD9: 453.42, ICD10: I82.4Z9 INR subtherapeutic. Will increase coumadin as above. To recheck in 1 week. Extremities show no sign of DVT today. 3. FPC (current) use of anticoagulants - ICD9: V58.61, ICD10: Z79.01 See above. 4. Hypertriglyceridemia - ICD9: 272.1, ICD10: E78.1 - poor control - Begin treatment with atorvastatin (Lipitor) 20 mg - Encouraged following a low fat, low cholesterol diet. - Discussed the benefits of regular aerobic exercise and weight loss. - ATORVASTATIN 20 MG TABLET 5. H/O: CVA (cerebrovascular accident) - ICD9: V12.54, ICD10: Z86.73 Patient without recurrent symptoms. Will start on statin to lower triglycerides and reduce risk of [place] and stroke. Continue secondary stroke prevention with BP control and DM control. Will follow up in 6 months. I spent 40 minutes in the visit, with more than 50% of the total [id number]-ni-pkgc time of the visit in counseling / coordination of care. Ileana Kolb MD PROGRESS Observed: 04/20/2017 Status: COMPLETED Source: [place] 4:[address] [facility] REPOSITORY HNO ID: [id number] Author: Rogelio Reyes Service: (none) Author Type: Physician Type: Progress Notes Filed: 04/21/2017 8:37 AM Note Text: INR in range, continue current dose and keep f/u appt. Rogelio Reyes MD PROGRESS Observed: 04/20/2017 Status: COMPLETED Source: [place] 12:[address] [facility] REPOSITORY HNO ID: [id number] Author: Nasreen Treviño RN Service: (none) Author Type: (none) Type: Progress Notes Filed: 04/20/2017 12:16 PM Note Text: patient had inr completed at [facility] patients inr is 2.2 (patients inr range is 2.0-3.0) patient is currently taking 6mg Mon,Fri and 3mg all other days patients last dose change was on 04/13/17 due to a high level of 3.7 (dose at that time was 9mg Mon,Fri and 6mg all other days- patient was to change to 3mg Tues and 6mg all other days which was explained to patient in length due to he is having a hard time with what dose he is to be taking and instructions were written down for him and patient still did not take the right dose. patient keeps reverting back to a dose of 6mg on Mon,Fri and 3mg all other days) patient has had no changes in medication and no change in diet At this time patient has been instructed verbally and has also been given written instructions once again to continue on the dose of 6mg Mon,Fri and 3mg all other days since level is within the normal range at 2.2. it has once again be explained to the patient the importance of following the doses given due to we are concerned about his safety. patient states that he does not recall he was to do anything different than the dose he stated and we will look at that coumadin sheet he has at home to see what it say but knows he needs to follow the dosing on instruction sheet provided to him today. Patient has been scheduled for a follow up inr on ThursdayMay 01 when he is coming [facility] with a new pcp. PROGRESS Observed: 04/13/2017 Status: COMPLETED Source: [place] 8:[address] [facility] REPOSITORY HNO ID: [id number] Author: Nasreen Treviño RN Service: (none) Author Type: (none) Type: Progress Notes Filed: 04/13/2017 9:33 AM Note Text: patient had inr completed at [facility] patients inr is 3.7 (patients inr range is 2.0-3.0) patient is currently taking 9mg Mon,Fri and 6mg all other days (patient started this dose himself) patients last dose change unsure at this time due to patient believes he has been taking the above dosing since Jan. patient has had no changes in medication and no change in diet FYI - after talking with patient he does not follow the dosing written on the coumadin instruction sheets he has been just looking at the numbers and taking that many tablets and disregarding the mg written beside the number. patients dose is to be 3mg Mon and 6mg all other days but since patient has been thinking that, that means how many tablets he is to be taking he has been taking 3 tablets Mon, Fri which equals 9mg and 2 tablets all other days which equals 6mg due to patient has 3mg tablets at home. Nurse explained to the patient that the information on the coumadin instruction sheet is telling patients how many mg they are to be taking not how many tablets. patient is becoming very confused on medication as to after we had the discussion about how the dosing is written in mg and nurse restated so to be sure you are taking 3 tablets equaling 9mg on Mon,Fri and 2 tablets equaling 6mg all other days and patient then states no I am taking 2 1/2 tablets every day. nurse then ask patient so the dose of 9mg Mon,Fri and 6mg all other days that you just stated is not the current dose and the 2 1/2 tablets with equals 7.5mg daily is the current dose and patient states yes it has been that dose since I came her from my doctor in [place] and is has never changed. So nurse stated so to be clear your current dose of coumadin is 7.5mg daily which means you are taking 2 1/2 tablets daily and patient states again no that is not what it is. Nurse then ask the patient again what is the number of pills of coumadin you are taking daily and patient states 3 tablets on Mon,Fri and 2 tablets all other days which would be 9mg Mon,Fri and 6mg all other days. Since patients dose is to be 3mg Mon and 6mg all other days and patient is having a hard time with dosing, patient has been instructed to hold today and to take 3mg tomorrow and 6mg all other days and recheck in 1 week on 04/20/17 as this is the dose patient was to be on since Jan. patient instructed he would only contacted if provider did not agree to instructions. ALLERGIES ALLERGIES DATE TYPE / CODE NAME / CODE REACTION SEVERITY SOURCE 03/19/2016 Drug No Known Unknown [facility] Allergy/416 Allergies/S16223 [facility] 256938(SNOM 0388(RXNORM) Repository ED CT) NG/30638912 NO KNOWN [facility] 6(SNOMED ALLERGIES [facility] CT) Repository Drug NO KNOWN [facility] Class/97475 ALLERGIES [place] 1003(SNOMED Repository CT) ENCOUNTERS ENCOUNTERS ADMIT/DISCHARGE ACCOUNT NUMBER ADMITTING ENCOUNTER LOCATION SOURCE CLASS 03/29/2018/03/29/19 [id number] Emergency [address] ding:ED Repository 03/26/2018/03/29/19 [id number] Ambulatory [address] [place] Repository 03/18/2018/03/22/19 [id number] Ambulatory [address] [place] Repository 03/18/2018/03/19/19 [id number] Ambulatory [address] [place] Repository 03/11/2018 [id number] Ambulatory [facility] [place] Repository 02/26/2018/03/01/20 [id number] Ambulatory [place] [facility] [place] Repository 02/26/2018/02/27/20 [id number] Ambulatory [address] [place] Repository 02/26/2018/03/01/20 [id number] Ambulatory [address] [place] Repository 02/02/2018/02/04/20 [id number] Ambulatory [place] 18 [facility] [place] Repository 01/14/2018/01/15/20 [id number] Ambulatory [address] [place] Repository 01/08/2018/01/12/20 [id number] Ambulatory [address] [place] Repository 01/05/2018/01/07/20 [id number] Ambulatory [address] [place] Repository 01/01/2018/01/07/20 [id number] Ambulatory [address] [place] Repository 11/19/2017/11/20/19 [id number] Ambulatory [address] [place] Repository 11/19/2017/11/21/19 [id number] Ambulatory [address] [place] Repository 11/13/2017/11/14/19 [id number] Ambulatory [address] [place] Repository 11/13/2017 [id number] Ambulatory [facility] ding:PSN Repository 11/13/2017 [id number] Ambulatory BMSBuilding: [facility] Repository 11/06/2017/11/11/19 [id number] Ambulatory [address] [place] Repository 11/06/2017/11/07/19 [id number] Ambulatory [address] [place] Repository 11/05/2017/11/06/19 [id number] Emergency [place] ding:ED Repository 11/02/2017/11/03/19 [id number] Ambulatory [address] [place] Repository 11/02/2017/11/04/19 [id number] Ambulatory [address] [place] Repository 10/30/2017/11/03/19 [id number] Ambulatory [address] [place] Repository 10/30/2017/11/03/19 [id number] Ambulatory [address] [place] Repository 10/30/2017/11/03/19 [id number] Ambulatory [address] [place] Repository 09/28/2017/10/01/19 [id number] Ambulatory [address] [place] Repository 09/14/2017/09/15/19 [id number] Ambulatory [address] [place] Repository 09/14/2017/09/15/19 [id number] Ambulatory [address] [place] Repository 09/14/2017 [id number] Ambulatory [facility] MEDICAL Repository CENTERBuildi ng:CAGWS 08/31/2017/09/02/19 [id number] Ambulatory [address] [place] Repository 08/17/2017/08/19/19 [id number] Ambulatory [address] [place] Repository 08/08/2017/08/09/19 [id number] Fermin Cota Ambulatory [place] [address] [place] [address] ding:PCURoom Repository : [id number]: 1 08/08/2017 [id number] Beata Fermin Ambulatory BMSBuilding: [place] BMS.[facility] Repository 08/08/2017 [id number] Beata Fermin Ambulatory BMSBuilding: [place] BMS.Formerly [facility] Repository 08/08/2017/08/09/19 [id number] Ambulatory BMSBuilding: [place] 18 [facility] Repository 08/05/2017/08/06/19 [id number] Ambulatory ABuilding:[address] Repository 07/29/2017/07/31/19 [id number] Ambulatory [address] Repository 06/30/2017/07/02/19 [id number] Ambulatory [address] Repository 05/29/2017/06/02/19 [id number] Ambulatory [address] Repository 05/18/2017/05/20/19 [id number] Ambulatory [address] Repository 05/11/2017/05/13/19 [id number] Ambulatory [address] Repository 05/01/2017/05/01/19 [id number] Ambulatory [address] Repository 05/01/2017/05/01/19 [id number] Ambulatory [address] Repository 05/01/2017/05/02/19 [id number] Ambulatory [address] Repository 04/20/2017/04/21/19 [id number] Ambulatory [address] Repository 04/13/2017/04/14/19 [id number] Ambulatory [address] Repository PAYERS PAYERS ENCOUNTER GUARANTOR PAYER SUBSCRIBER SOURCE 03/29/2018 CORIE KILGORE Primary CORIE Peoples Sr.[id number] Insurance:HUMANA Sr.: [address] [place] MED[place]ARE [place]olicy [id number] Repository [phone]: (546) [id number] [phone] (HP) Date:6329-09-72EO [address] [place] [phone]: 03/29/2018 Secondary NOT GIVENUNK [place] Insurance:SELF PAY [facility] Number: Effective Repository Date:2018-03-29 11/13/2017 PERLEE D GROVE Primary PERLEE D GROVE Griffin Jr.[address] [address] Insurance:HUMANA Jr.: [address] [place] MEDICARE [facility] [id number] Number: Repository [id number]: ([phone]) [id number] [phone] (HP) Date:3706-33-10KA [place] [id number]: 11/13/2017 Secondary NOT GIVENUNK [place] Insurance:SELF PAY [facility] Number: Effective Repository Date:2017-11-06 11/13/2017 PERLEE D GROVE Primary PERLEE D GROVE Griffin Jr.[id number] [address] Insurance:HUMANA Jr.: [address] [place] MEDICARE [facility] [id number] Number: Repository [address]Jgy: 330 [id number] [phone] (HP) Date:6600-12-94OV [address] [address]QE: 11/13/2017 Secondary NOT GIVENUNK [place] Insurance:SELF PAY [facility] Number: Effective Repository Date:2017-11-13 11/05/2017 PERLEE D GROVE Primary PERLEE D GROVE Ric[place]le Jr.[id number] [address] Insurance:HUMANA Jr.: [address] [place] MEDICARE [facility] [id number] Number: Repository [phone]: ([phone] [id number] [phone] (HP) Date:5637-39-35JY [address] [address]GM: 11/05/2017 Secondary NOT GIVENUNK [place] Insurance:SELF PAY [facility] Number: Effective Repository Date:2017-11-05 09/14/2017 PERLEE D GROVE Primary PERLEE D MAGUI Mago Brewer JR.: Insurance:HUMANA JR.: [facility] MEDICARE PPOPolicy [id number] Repository [address] Number: [place], [place] [id number]: ([phone]) Date: 51 (HP) 08/08/2017 PERLEE D GROVE Primary PERLEE D MAGUI [place] Jr.[address] Insurance:HUMANA Jr.: [facility] [address] [address] [place] PPOPolicy [id number] Number: Repository [address]Nzj: [phone]) [id number] 51 (HP) Date:3322-03-18CZ [address] [address]FC: 08/08/2017 Secondary NOT GIVENUNK [place] Insurance:SELF PAY [facility] Number: Effective Repository Date:2017-08-07 08/08/2017 Perlee Primary Perlee GroveDOB: [place] [id number] Insurance:HUMANA [id number] [facility] [address] [place] PPOPolicy [place] Number: Repository [id number]: [phone]) [id number] (HP) Date:3350-09-68SG [address] [address]KO: 08/08/2017 Secondary NOT GIVENUNK [place] Insurance:SELF PAY [facility] Number: Effective Repository Date:2017-08-07 08/08/2017 Perlee Primary Perlee GroveDOB: Ric[place]le [id number] [address] Insurance:HUMANA [id number] [facility] [address] [place] PPOPolicy [place] Number: Repository [id number]: [phone]) [id number] 51 (HP) Date:4759-09-41XP [address] [address]LW: 08/08/2017 Secondary NOT GIVENUNK [place] Insurance:SELF PAY [facility] Number: Effective Repository Date:2017-08-08 08/08/2017 MARTINAJ KILGORE Primary CORIE Roberson MAGUI [place] Jr.[address] [place] Insurance:HUMANA Jr.: [address] [place]ICARE PPOPolicy [id number] Number: Repository [phone]: [phone] [id number] (HP) Date:0344-46-63UI [address] [place] [phone]: 08/08/2017 Secondary NOT GIVENUNK [place] Insurance:SELF PAY [facility] Number: Effective Repository Date:2017-08-08 08/05/2017 CORIE KILGORE Primary CORIE D MAGUI [facility] SRDOB: Insurance:HUMANA GOLD SRDOB: [facility] CHOICE MEDICAREPolicy [id number] Repository [facility] Number: [address] [place], [place] [id number] [facility] [address]Guq: (330) Date:2017-08-05 [place], [place] [id number]: (330) (HP)Tel: ([phone]) Name:[facility] Rosalba [phone] (WP) [address] [place] [address] ()Tel: [phone]: ([phone]
== END 2018-03-29 08:42 | disposition home or self-care (01) ==
PROVIDERS: Emergency Provider Emergency Medicine; Family Provider Family Medicine; PCP Family Medicine
DX: K21.9 Gastro-esophageal reflux disease without esophagitis (principal); E11.9 Type 2 diabetes mellitus without complications; I10 Essential (primary) hypertension; Z87.891 Personal history of nicotine dependence; Z79.899 Other long term (current) drug therapy
CPT/HCPCS: 71046; 80048; 84484; 85025; 93005; 99285; A4216

== ENCOUNTER → 2018-07-12 | Outpatient (CLI) | payer MEDICARE, SELFPAY ==
[2018-07-12 12:21] LABS: Vitamin B12 354 pg/mL (211-911)
[2018-07-12 12:36] LABS: Thyroid Stim Hormone (TSH) 1.71 uIU/mL (0.358-3.74)
== END | disposition home or self-care (01) ==
PROVIDERS: Family Provider Family Medicine; PCP Family Medicine; Referring Provider Psychiatry & Neurology Neurology; Visit Provider Psychiatry & Neurology Neurology
DX: F03.90 Unspecified dementia, unspecified severity, without behavioral disturbance, psychotic disturbance, mood disturbance, and anxiety (principal); Z79.899 Other long term (current) drug therapy
CPT/HCPCS: 36415; 82607; 84443

== ENCOUNTER → 2019-09-16 | Outpatient (CLI) | payer MEDICARE, SELFPAY ==
[2019-09-16 11:20] LABS: International Normalized Ratio 1.4; Prothrombin Time (Protime)PT. 16.3 SECONDS (11.7-14.9)
== END | disposition home or self-care (01) ==
LOC: LABSPEC 10:46
PROVIDERS: PCP Family Medicine; Referring Provider Family Medicine; Visit Provider Family Medicine
DX: I82.4Z9 Acute embolism and thrombosis of unspecified deep veins of unspecified distal lower extremity (principal)
CPT/HCPCS: 85610

== ENCOUNTER → 2019-10-14 | Outpatient (CLI) | payer MEDICARE, SELFPAY ==
[2019-10-14 12:30] LABS: International Normalized Ratio 1.6; Prothrombin Time (Protime)PT. 18.4 SECONDS (11.7-14.9)
== END | disposition home or self-care (01) ==
LOC: LABSPEC 12:11
PROVIDERS: PCP Family Medicine; Referring Provider Nurse Practitioner Primary Care; Visit Provider Nurse Practitioner Primary Care
DX: Z86.718 Personal history of other venous thrombosis and embolism (principal)
CPT/HCPCS: 85610

== ENCOUNTER → 2020-05-14 | Outpatient (CLI) | payer MEDICARE, SELFPAY ==
[2020-05-14 10:35] LABS: International Normalized Ratio 1.7; Prothrombin Time (Protime)PT. 19.8 SECONDS (11.7-14.9)
== END | disposition home or self-care (01) ==
LOC: LABSPEC 10:12
PROVIDERS: PCP Family Medicine; Visit Provider Nurse Practitioner Primary Care
DX: Z86.718 Personal history of other venous thrombosis and embolism (principal)
CPT/HCPCS: 85610

== ENCOUNTER → 2020-05-21 | Outpatient (CLI) | payer MEDICARE, SELFPAY ==
[2020-05-21 10:54] LABS: International Normalized Ratio 2.9; Prothrombin Time (Protime)PT. 29.9 SECONDS (11.7-14.9)
== END | disposition home or self-care (01) ==
LOC: LABSPEC 10:35
PROVIDERS: PCP Family Medicine; Visit Provider Family Medicine
DX: Z86.718 Personal history of other venous thrombosis and embolism (principal)
CPT/HCPCS: 85610

== ENCOUNTER 2020-08-29 15:18 | Observation (INO) | payer MEDICARE, SELFPAY ==
[2020-08-29] VITALS (9 sets, daily range): BP systolic 110–132; BP diastolic 44–72; PULSE 70–83; RESP 15–20; TEMP 36.6–37.2; O2SAT 94–98; BMI 27.5; BMI 26.7
--- NOTE | 2020-08-29 15:42 | EKG12_ITS ---
Test Reason : UNRESPONSIVE Blood Pressure : / mmHG Vent. Rate : 083 BPM Atrial Rate : 083 BPM P-R Int : 154 ms QRS Dur : 134 ms QT Int : 410 ms P-R-T Axes : 027 -29 000 degrees QTc Int : 481 ms Normal sinus rhythm Right bundle branch block Inferior infarct , age undetermined Abnormal ECG Confirmed by MARIN MESSER, JESSENIA ([id number]), editor book BETH EDWARDS ([id number]) on 08/31/2020 12:47:05 PM Referred By: RU/ES Confirmed By:JESSENIA FUNES MD
--- NOTE | 2020-08-29 15:42 | CT_ITS ---
STUDY: CT BRAIN WITHOUT CONTRAST REASON FOR EXAM: Male, 80 years old. mental status change RADIATION DOSAGE (If Supplied By Facility): CTDIvol = ( 44.99 ) mGy, DLP = ( 779.24 ) mGycm TECHNIQUE: Transaxial CT imaging of the brain was performed without administration of intravenous contrast material. Individualized dose optimization techniques were used for this CT. COMPARISON: No relevant priors. FINDINGS: The ventricular system and cerebral sulci are within normal limits regarding the patient''s age there is no evidence of increased or decreased brain density. No subdural, epidural or intracerebral hemorrhage. No dense MCA sign. The skull base and cranial vault are intact. The orbits and sinuses as well as the mastoid air cells are unremarkable. CT/Brain/Head without Contrast IMPRESSION: Normal unenhanced CT scan of the brain. Electronically Signed: Abida Coles, at 16:11 EDT Tel , Service support ,
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
[2020-08-29 15:47] LABS: Absolute Lymphocyte Count 0.69 X10^3/uL (0.83-4.51); Absolute Neutrophil Count 5.8 X10^3/uL (2.0-7.7); Basophil# 0.04 X10^3/uL; Basophil% 0.5 % (0-1); Eosinophil# 0.02 X10^3/uL; Eosinophils% 0.3 % (0-5); Hematocrit 43.1 % (40-54); Hemoglobin 14.2 g/dL (13.0-16.5); Lymphocyte # 0.69 X10^3/ul (0.83-4.51); Lymphocyte % 9.2 % (19-41); Mean Corp Hgb Conc 32.9 g/dL (32-36); Mean Corpuscular Hgb 30.9 pg (27.0-32.0); Mean Corpuscular Volume 93.9 fL (80-94); Mean Platelet Vol. 10.3 fl (6.2-12.0); Monocyte# 0.86 X10^3/uL; Monocyte% 11.5 % (0-10); NRBC Flagged by Analyzer 0 % (0-5); Neutrophil # 5.83 X10^3/uL (2.7-7.7); Neutrophil % 78.1 % (47-70); Platelet Count 182 K/mm3 (150-450); RBC Distribution Width CV 14.4 % (11.6-14.6); RBC Distribution Width SD 49.6 fl (35.1-43.9); Red Blood Count 4.59 M/mm3 (4.6-6.2); White Blood Count 7.5 K/mm3 (4.4-11.0)
--- NOTE | 2020-08-29 15:50 | RAD_ITS ---
STUDY: X-RAY CHEST REASON FOR EXAM: Male, 80 years old. weakness TECHNIQUE: Single AP portable view of the chest. COMPARISON: 03/29/2018 FINDINGS: The lungs are clear and expanded. There is no demonstrated pleural abnormality. Normal size heart. Normal mediastinum and blossom. Normal visualized pulmonary arteries. Normal visualized aortic arch and descending thoracic aorta. Normal visualized thoracic spine. Normal visualized ribs, clavicles, and shoulders. There is no demonstrated abnormality of the visualized soft tissue structures of the upper abdomen. RAD/Chest 1 View (Portable) IMPRESSION: Normal x-ray examination of the chest. Electronically Signed: Mike Kohler MD at 16:50 EDT Tel , Service support ,
[2020-08-29 15:55] LABS: International Normalized Ratio 1.9; Prothrombin Time (Protime)PT. 21.3 SECONDS (11.7-14.9)
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
[2020-08-29 16:09] LABS: Anion Gap 8 (5-15); BUN 13 mg/dL (7-18); BUN/Creat Ratio 12.6 RATIO (10-20); Calcium,Total 9.2 mg/dL (8.5-10.1); Chloride 104 mmol/L (98-107); Creatinine, Serum 1.03 mg/dL (0.70-1.30); EST Glomerular Filtration Rate 74 mL/min (>60); Est Glom Filt Rate - Afr Amer 89 mL/min (>60); Estimated Creatinine Clearance 59.06 ml/min; Glucose 167 mg/dL (74-106); Potassium 4.3 mmol/L (3.5-5.1); Sodium Level 138 mmol/L (136-145); Troponin-I HS 4.3 pg/mL (3.0-78.5)
[2020-08-29] MEDS: 0.9% Normal Saline 1,000 ML 1000 ML IV (16:16)
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
[2020-08-29] MEDS: 0.9% Normal Saline 1,000 ML 100 ML IV (18:42)
[2020-08-29] MEDS: Donepezil HCl 10 MG Tablet PO (22:03)
[2020-08-29] MEDS: Atorvastatin Calcium 20 MG Tablet PO (22:03)
[2020-08-29] MEDS: Insulin Lispro 100 UNIT/ML INSULN.PEN SC (22:12)
[2020-08-29 22:30] LABS: Bedside Glucose 153 mg/dL (70-110)
[2020-08-30] VITALS (11 sets, daily range): BP systolic 122–167; BP diastolic 53–61; PULSE 65–80; RESP 12–18; TEMP 36.8–37.4; O2SAT 93–96
[2020-08-30] MEDS: 0.9% Normal Saline 1,000 ML 100 ML IV (04:03)
[2020-08-30 06:40] LABS: Bedside Glucose 139 mg/dL (70-110)
[2020-08-30 07:03] LABS: Absolute Lymphocyte Count 0.79 X10^3/uL (0.83-4.51); Absolute Neutrophil Count 6.1 X10^3/uL (2.0-7.7); Basophil# 0.04 X10^3/uL; Basophil% 0.5 % (0-1); Eosinophil# 0.02 X10^3/uL; Eosinophils% 0.2 % (0-5); Hematocrit 40.8 % (40-54); Hemoglobin 13.1 g/dL (13.0-16.5); Lymphocyte # 0.79 X10^3/ul (0.83-4.51); Lymphocyte % 9.6 % (19-41); Mean Corp Hgb Conc 32.1 g/dL (32-36); Mean Corpuscular Hgb 30.7 pg (27.0-32.0); Mean Corpuscular Volume 95.6 fL (80-94); Monocyte# 1.21 X10^3/uL; Monocyte% 14.7 % (0-10); NRBC Flagged by Analyzer 0 % (0-5); Neutrophil # 6.11 X10^3/uL (2.7-7.7); Neutrophil % 74.5 % (47-70); Platelet Count 140 K/mm3 (150-450); RBC Distribution Width CV 14.4 % (11.6-14.6); RBC Distribution Width SD 50.4 fl (35.1-43.9); Red Blood Count 4.27 M/mm3 (4.6-6.2); White Blood Count 8.2 K/mm3 (4.4-11.0)
[2020-08-30 07:08] LABS: International Normalized Ratio 1.5; Prothrombin Time (Protime)PT. 17.6 SECONDS (11.7-14.9)
[2020-08-30 07:29] LABS: Anion Gap 7 (5-15); BUN 13 mg/dL (7-18); BUN/Creat Ratio 14.9 RATIO (10-20); Calcium,Total 8.4 mg/dL (8.5-10.1); Chloride 105 mmol/L (98-107); Creatinine, Serum 0.87 mg/dL (0.70-1.30); EST Glomerular Filtration Rate 90 mL/min (>60); Est Glom Filt Rate - Afr Amer 108 mL/min (>60); Estimated Creatinine Clearance 69.92 ml/min; Glucose 146 mg/dL (74-106); Potassium 3.9 mmol/L (3.5-5.1); Sodium Level 134 mmol/L (136-145)
[2020-08-30] MEDS: metFORMIN HCl 500 MG Tablet PO (09:30)
[2020-08-30] MEDS: Lisinopril 5 MG Tablet PO (09:47)
--- NOTE | 2020-08-30 10:35 | PCM.DC ---
Discharge Instructions Diet Discharge Diet: No restrictions Activity Discharge Activity: Return to Normal Activity Follow Up Care Please Follow Up With: Primary care provider When: Within the next two weeks. Test Results: Test results from this visit will be discussed in further detail at your follow-up appointment, if applicable. Discharge Plan Admission Admit Date/Time: 08/29/20 17:35 Primary Reason for Your Visit: Syncope Attending Provider: Matty Myers Primary Care Provider: Bharathi Kolb Instructions Patient Instructions: Treating Syncope: Prevention, Treatment for Vasovagal Syncope Discharge Orders/Prescriptions Prescriptions: Continued metformin 500 MG tablet 500 mg PO DAILY RF: 0 lisinopril 5 MG tablet 5 mg PO DAILY RF: 0 warfarin 3 MG tablet 6 mg PO SUMOWETHSA RF: 0 warfarin 3 MG tablet 9 mg PO TU RF: 0 atorvastatin 20 MG tablet 20 mg PO QHS RF: 0 donepezil 10 mg Tablet 10 mg PO QHS RF: 0 warfarin 3 mg Tablet 7.5 mg PO FR RF: 0 Centrum Silver Men 300-600-300 mcg Tablet 1 tab PO DAILY RF: 0 Referrals / Follow Up: Bharathi Kolb MD [Primary Care Provider] - Within 2 Weeks Disposition Disposition (needs filled in before D/C Order can be placed): Home, Self Care
--- NOTE | 2020-08-30 12:33 | PHA.DC.MR ---
Pharmacy Service has performed discharge medication reconciliation for this patient. No new medications at time of discharge. Medications reviewed are from previously reported home medications. Home Medications metformin 500 mg PO DAILY 03/19/16 lisinopril 5 mg PO DAILY 08/07/17 atorvastatin 20 mg PO QHS 11/05/17 warfarin 6 mg PO SUMOWETHSA 11/05/17 warfarin 9 mg PO TU 11/05/17 Centrum Silver Men 1 tab PO DAILY 08/29/20 donepezil 10 mg PO QHS 08/29/20 warfarin 7.5 mg PO FR 08/29/20 The patient's discharge medication list was reviewed for discrepancies and discrepancies were resolved.
[2020-08-30 12:36] LABS: Bedside Glucose 131 mg/dL (70-110)
--- NOTE | 2020-08-30 12:36 | PCM.DC.SUM ---
Providers Date of Admission: 08/29/20 Primary Care Physician: Dr. Bharathi Kolb MD Reason For Visit: SYNCOPE Diagnosis Discharge Diagnosis (1) Syncope: Status: Acute Code(s): R55 - Syncope and collapse (2) Diabetes mellitus, type 2: Status: Chronic Code(s): E11.9 - Type 2 diabetes mellitus without complications (3) Dementia: Status: Chronic Code(s): F03.90 - Unspecified dementia without behavioral disturbance (4) Hyperlipidemia: Status: Chronic Code(s): E78.5 - Hyperlipidemia, unspecified (5) HTN (hypertension): Status: Chronic Code(s): I10 - Essential (primary) hypertension Medications at Discharge Home Medications metformin 500 mg PO DAILY 03/19/16 lisinopril 5 mg PO DAILY 08/07/17 atorvastatin 20 mg PO QHS 11/05/17 warfarin 6 mg PO SUMOWETHSA 11/05/17 warfarin 9 mg PO TU 11/05/17 Centrum Silver Men 1 tab PO DAILY 08/29/20 donepezil 10 mg PO QHS 08/29/20 warfarin 7.5 mg PO FR 08/29/20 Hospital Course Summary of Care Provided Minutes Spent on Discharge: 35 Physical Exam Narrative Patient is an 80-year-old male comfortably resting in bed, alert and oriented x3. Patient denies any change or progression in symptoms from yesterday. Denies chest pain, shortness of breath, palpitations, fever, chills, N/V/D. Const alert, oriented x3 and no apparent distress HEENT normocephalic, head/scalp atraumatic and hearing grossly normal bilaterally Eyes EOMs intact bilaterally and conjunctivae normal Neck no lymphadenopathy, supple and no JVD Resp normal respiratory effort, no retractions, no use of accessory muscles and clear to auscultation bilaterally Cardio regular rate, regular rhythm, no murmurs and no JVD GI normal to inspection, nondistended, normoactive bowel sounds, soft to palpation and non-tender Extremity normal to inspection and no clubbing, cyanosis or edema Skin no rashes or lesions noted, no wounds and skin turgor normal Neuro CN's II-XII intact bilaterally Psych affect normal Weight / BMI Weight Weight: 186 lb 8.177 oz Body Mass Index (BMI) 26.7 ABG / Lab / Microbiology Data Result Diagrams: 08/30/20 06:05 08/30/20 06:05 Laboratory: Laboratory Results - last 24 hr 08/29/20 08/29/20 08/29/20 15:35 15:35 15:35 WBC 7.5 RBC 4.59 L Hgb 14.2 Hct 43.1 MCV 93.9 MCH 30.9 MCHC 32.9 RDW Std Deviation 49.6 H RDW Coeff of Claudia 14.4 Plt Count 182 MPV 10.3 Immature Gran % (Auto) 0.400 Neut % (Auto) 78.1 H Lymph % (Auto) 9.2 L [place] % (Auto) 11.5 H Eos % (Auto) 0.3 Baso % (Auto) 0.5 Absolute Neuts (auto) 5.8 Absolute Lymphs (auto) 0.69 L Nucleated RBC % 0 PT 21.3 H INR 1.9 Sodium 138 Potassium 4.3 Chloride 104 Carbon Dioxide 26.0 Anion Gap 8 BUN 13 Creatinine 1.03 Estim Creat Clear Calc 59.06 Est GFR (MDRD) Af Amer 89 Est GFR (MDRD) Non-Af 74 BUN/Creatinine Ratio 12.6 Glucose 167 H Calcium 9.2 Troponin I High Sens 4.3 POC Glucose 08/29/20 08/30/20 08/30/20 22:05 06:05 06:05 WBC 8.2 RBC 4.27 L Hgb 13.1 Hct 40.8 MCV 95.6 H MCH 30.7 MCHC 32.1 RDW Std Deviation 50.4 H RDW Coeff of Claudia 14.4 Plt Count 140 L MPV 11.0 Immature Gran % (Auto) 0.500 Neut % (Auto) 74.5 H Lymph % (Auto) 9.6 L [place] % (Auto) 14.7 H Eos % (Auto) 0.2 Baso % (Auto) 0.5 Absolute Neuts (auto) 6.1 Absolute Lymphs (auto) 0.79 L Nucleated RBC % 0 PT 17.6 H INR 1.5 Sodium Potassium Chloride Carbon Dioxide Anion Gap BUN Creatinine Estim Creat Clear Calc Est GFR (MDRD) Af Amer Est GFR (MDRD) Non-Af BUN/Creatinine Ratio Glucose Calcium Troponin I High Sens POC Glucose 153 H 08/30/20 08/30/20 06:05 06:27 WBC RBC Hgb Hct MCV MCH MCHC RDW Std Deviation RDW Coeff of Claudia Plt Count MPV Immature Gran % (Auto) Neut % (Auto) Lymph % (Auto) [place] % (Auto) Eos % (Auto) Baso % (Auto) Absolute Neuts (auto) Absolute Lymphs (auto) Nucleated RBC % PT INR Sodium 134 L Potassium 3.9 Chloride 105 Carbon Dioxide 22.0 Anion Gap 7 BUN 13 Creatinine 0.87 Estim Creat Clear Calc 69.92 Est GFR (MDRD) Af Amer 108 Est GFR (MDRD) Non-Af 90 BUN/Creatinine Ratio 14.9 Glucose 146 H Calcium 8.4 L Troponin I High Sens POC Glucose 139 H Radiography Diagnostic Testing: Radiology Impression Brain CT 08/29/20 15:42 IMPRESSION: Normal unenhanced CT scan of the brain. Electronically Signed: Abida Coles at 16:11 EDT Tel , Service support , Chest X-Ray 08/29/20 15:50 IMPRESSION: Normal x-ray examination of the chest. Electronically Signed: Mike Kohler MD at 16:50 EDT Tel , Service support , D/C Instructions Discharge Diet: No restrictions Please Follow Up With: Primary care provider When: Within the next two weeks. Discharge Plan Admission Admit Date/Time: 08/29/20 17:35 Primary Reason for Your Visit: Syncope Attending Provider: Matty Myers Primary Care Provider: Bharathi Kolb Instructions Patient Instructions: Treating Syncope: Prevention, Treatment for Vasovagal Syncope Discharge Orders/Prescriptions Prescriptions: Continued metformin 500 MG tablet 500 mg PO DAILY RF: 0 lisinopril 5 MG tablet 5 mg PO DAILY RF: 0 warfarin 3 MG tablet 6 mg PO SUMOWETHSA RF: 0 warfarin 3 MG tablet 9 mg PO TU RF: 0 atorvastatin 20 MG tablet 20 mg PO QHS RF: 0 donepezil 10 mg Tablet 10 mg PO QHS RF: 0 warfarin 3 mg Tablet 7.5 mg PO FR RF: 0 Centrum Silver Men 300-600-300 mcg Tablet 1 tab PO DAILY RF: 0 Referrals / Follow Up: Bharathi Kolb MD [Primary Care Provider] - Within 2 Weeks Disposition Disposition (needs filled in before D/C Order can be placed): Home, Self Care
--- NOTE | 2020-08-30 13:56 | CASEMGMT ---
Pt with GCS 14 at this time and only alert to self per nursing/therapy. Per therapy, pt is unsteady and they are recommending SNF. Call to daughter, Monica, as pt is confused, to update her at this time, voices understanding. Monica states pt does have hx some dementia but not too significant but does live alone and normally able to care for self. Monica states she is on her way to see pt and this RN CM will f/u once she sees him. Dom MOSLEY updated on all and into room to speak with daughter when she arrived. After seeing pt, daughter is now convinced that pt needs to go to SNF and would like her brother and pt's ex- to come assist in decision making. Daughter provided a list of SNF providers including quality and resource use data and consistent with the patient?s preferred geographic region, medical needs, and insurance network. Daughter is leaving to go get her mother. NobleKartik SANDY updated, voices understanding. CM to follow. SStalbertina BARRIENTOS CM
--- NOTE | 2020-08-30 15:34 | CASEMGMT ---
RN KIRIT NOTE: Pt is confused. RN CM to room-introduced role of CM to pt's daughter, Luisa, who is at bedside and ZELAYA form explained re: Observation status for treatment of syncope. Explained hospitalization will be paid per his insurance policy for Outpatient billing and condition will continue to be evaluated for Inpt necessity. Also let dtr know that [facility] sends paper in the billing packet with their phone number if questions arise. Discussed Pharmacy section of ZELAYA form and self administered medication guideline. Dtr verbalizes understanding and does not have further questions. Form signed, copy made and placed in chart, and original given to dtr. Jania GROVES RN CM
--- NOTE | 2020-08-30 16:01 | PN.HOSP_ITS ---
Documented by User: Geovany MOSLEY 08/30/20 16:08 Subjective Subjective Patient is an 80-year-old male comfortably resting in bed, alert and oriented x1. Due to baseline level of confusion for patient, patient is unable to provide much insight into his current condition. Objective Data Objective Data Vital Signs: Vital Signs Temp Pulse Resp BP Pulse Ox 98.9 F 65 12 122/53 H 95 08/30/20 15:31 08/30/20 15:31 08/30/20 15:31 08/30/20 15:31 08/30/20 15:31 Oxygen Delivery Method Room Air Weight: 186 lb 8.177 oz Body Mass Index (BMI) 26.7 Intake & Output: Intake and Output for Last 24 Hours 08/28/20 08/29/20 08/30/20 23:59 23:59 23:59 Intake Total 2096.67 / 2096.67 2278.33 / 2278.33 Output Total 350 / 350 375 / 375 Balance 1746.67 / 1746.67 1903.33 / 1903.33 Lab / Micro Data Result Diagrams: 08/30/20 06:05 08/30/20 06:05 Labs: Laboratory Results - last 24 hr 08/29/20 08/29/20 08/30/20 15:35 22:05 06:05 WBC 8.2 RBC 4.27 L Hgb 13.1 Hct 40.8 MCV 95.6 H MCH 30.7 MCHC 32.1 RDW Std Deviation 50.4 H RDW Coeff of Claudia 14.4 Plt Count 140 L MPV 11.0 Immature Gran % (Auto) 0.500 Neut % (Auto) 74.5 H Lymph % (Auto) 9.6 L [place] % (Auto) 14.7 H Eos % (Auto) 0.2 Baso % (Auto) 0.5 Absolute Neuts (auto) 6.1 Absolute Lymphs (auto) 0.79 L Nucleated RBC % 0 PT INR Sodium 138 Potassium 4.3 Chloride 104 Carbon Dioxide 26.0 Anion Gap 8 BUN 13 Creatinine 1.03 Estim Creat Clear Calc 59.06 Est GFR (MDRD) Af Amer 89 Est GFR (MDRD) Non-Af 74 BUN/Creatinine Ratio 12.6 Glucose 167 H Calcium 9.2 Troponin I High Sens 4.3 POC Glucose 153 H 06/08/30/20 08/30/20 06:05 06:05 06:27 WBC RBC Hgb Hct MCV MCH MCHC RDW Std Deviation RDW Coeff of Claudia Plt Count MPV Immature Gran % (Auto) Neut % (Auto) Lymph % (Auto) [place] % (Auto) Eos % (Auto) Baso % (Auto) Absolute Neuts (auto) Absolute Lymphs (auto) Nucleated RBC % PT 17.6 H INR 1.5 Sodium 134 L Potassium 3.9 Chloride 105 Carbon Dioxide 22.0 Anion Gap 7 BUN 13 Creatinine 0.87 Estim Creat Clear Calc 69.92 Est GFR (MDRD) Af Amer 108 Est GFR (MDRD) Non-Af 90 BUN/Creatinine Ratio 14.9 Glucose 146 H Calcium 8.4 L Troponin I High Sens POC Glucose 139 H 08/30/20 12:26 WBC RBC Hgb Hct MCV MCH MCHC RDW Std Deviation RDW Coeff of Claudia Plt Count MPV Immature Gran % (Auto) Neut % (Auto) Lymph % (Auto) [place] % (Auto) Eos % (Auto) Baso % (Auto) Absolute Neuts (auto) Absolute Lymphs (auto) Nucleated RBC % PT INR Sodium Potassium Chloride Carbon Dioxide Anion Gap BUN Creatinine Estim Creat Clear Calc Est GFR (MDRD) Af Amer Est GFR (MDRD) Non-Af BUN/Creatinine Ratio Glucose Calcium Troponin I High Sens POC Glucose 131 H Radiography Diagnostic Testing: Radiology Impression Brain CT 08/29/20 15:42 IMPRESSION: Normal unenhanced CT scan of the brain. Electronically Signed: Abida Coles, at 16:11 EDT Tel , Service support , Chest X-Ray 08/29/20 15:50 IMPRESSION: Normal x-ray examination of the chest. Electronically Signed: Mike Kohler MD at 16:50 EDT Tel , Service support , Physical Exam Const alert Orientation / Consciousness: confused and disoriented HEENT head/scalp atraumatic, moist oral mucous membranes and oropharynx normal Head and Scalp: normocephalic Eyes EOMs intact bilaterally and conjunctivae normal Neck no lymphadenopathy, supple and no JVD Resp normal respiratory effort, no retractions, no use of accessory muscles and clear to auscultation bilaterally Cardio regular rate, regular rhythm, no murmurs and no JVD GI normal to inspection, nondistended, normoactive bowel sounds, soft to palpation and non-tender Extremity normal to inspection, full ROM and no clubbing, cyanosis or edema Skin no rashes or lesions noted and no wounds Neuro moves all extremities, no focal motor deficits and no sensory deficits noted Speech: speech normal Psych affect normal Assessment & Plan Assessment/Plan (1) Syncope: (2) Diabetes mellitus, type 2: (3) Dementia: (4) Hyperlipidemia: (5) HTN (hypertension): PLAN: Day 2: See subjective for patient presentation. Discharge planning; case management and social work working with family and patient to determine placement to [facility]. 1) dementia Patient on donepezil. Severely complicates #2. Due to PT/OT eval it was determined that patient was not safe to return home. Talks with the family revealed that patient is more confused and uncoordinated than normal. Family reports this is been getting progressively worse. Family agreeable to placement for patient. 2) syncope/debility EKG on admission was unremarkable. Brain CT and chest x-ray were unremarkable. CBC and BMP unremarkable. Plan; continue to monitor, obtain MRI. 3) hypertension Stable, continue lisinopril. 4) DM2 Continue Metformin, ADA diet Accu-Cheks and sliding scale insulin ordered. 5) history of CVA Continue Coumadin. DVT prophylaxis -Coumadin Patient seen by Geovany Huerta PA-C, under the supervision of Dr. Myers Documented by User: Dr. Matty Myers MD 08/30/20 16:38 Objective Data Lab / Micro Data Result Diagrams: 08/30/20 06:05 08/30/20 06:05 Charges/Coding Addendum Addendum: Dr. Myers: I personally reviewed the chart and examined the patient, and agree with the above findings. 80-year-old male presents after an episode of syncope, this was clearly vasovagal secondary to the history provided. He has significantly improved with IV fluid hydration and telemetry has been unremarkable. However according to the family he appears more confused today and and working with physical therapy is extremely weak and he has agreed to potentially go to [facility] if necessary. Will obtain an MRI secondary to the family's concern for his worsening confusion, he is clear from a syncope standpoint however. Vital signs and lab work are stable. 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 Also he is likely unsafe at home alone and therefore either he would need to live with family or potentially be transition to an assisted living. Visit Charges OBSV E&M: 31482 Subsequent observation care L2
--- NOTE | 2020-08-30 16:24 | CASEMGMT ---
SW checked in with family and let them know that SW will follow up with them tomorrow regarding which facility they prefer. Serena Verdugo MANAGER [employer]
[2020-08-30 17:26] LABS: Bedside Glucose 158 mg/dL (70-110)
[2020-08-30] MEDS: Insulin Lispro 100 UNIT/ML INSULN.PEN SC (17:46)
[2020-08-30] MEDS: Acetaminophen 325 MG Tablet 650 MG PO (21:30)
[2020-08-30] MEDS: Donepezil HCl 10 MG Tablet PO (21:30)
[2020-08-30] MEDS: Atorvastatin Calcium 20 MG Tablet PO (21:30)
[2020-08-30 23:05] LABS: Bedside Glucose 122 mg/dL (70-110)
[2020-08-31] VITALS (10 sets, daily range): BP systolic 113–140; BP diastolic 46–74; PULSE 65–79; RESP 16–18; TEMP 36.6–36.8; O2SAT 94–97
--- NOTE | 2020-08-31 05:55 | MRI_ITS ---
EXAM: MR HEAD WITHOUT INTRAVENOUS CONTRAST : 1940 CLINICAL INDICATION: Syncope, confusion TECHNIQUE: Multiplanar and multisequence MR images of the brain were obtained without intravenous contrast. This report was created using [employer] report generation technology. COMPARISON: CT brain August 29, 2020 FINDINGS: BRAIN AND EXTRA-AXIAL SPACES: Multiple foci of increased T2 signal intensity within the cerebral white consistent with microvascular disease. Prominence of the cortical sulci and ventricles related to volume loss change. No intra- or extra-axial hemorrhage. No evidence of acute infarct. No intracranial mass or mass effect. There is preservation of the zaldivar/white matter interface. Posterior fossa structures are unremarkable. Basal cisterns are patent. SELLA: Unremarkable. Normal sella turcica, pituitary gland, infundibular stalk, optic chiasm and hypothalamus. AUDITORY SYSTEM: Unremarkable. The internal auditory canals are patent. BONES/JOINTS: Unremarkable. No discrete lytic or blastic abnormalities. SINUSES: Unremarkable as visualized. Clear. MASTOID AIR CELLS: Unremarkable as visualized. Clear. ORBITS: Unremarkable as visualized. Both globes, extraocular muscles, optic nerves and retrobulbar fat appear unremarkable. VASCULATURE: Unremarkable as visualized. Normal flow voids in the major intracranial circulation. MRI/Brain without Contrast IMPRESSION: 1. No acute intracranial abnormality. 2. Chronic senescent changes. at 0957 Reported and signed by: Nikko Peralta MD Electronically Signed: Nikko Peralta MD at 9:56 EDT Tel , Service support ,
[2020-08-31 06:28] LABS: Absolute Lymphocyte Count 0.54 X10^3/uL (0.83-4.51); Absolute Neutrophil Count 4.8 X10^3/uL (2.0-7.7); Basophil# 0.03 X10^3/uL; Basophil% 0.5 % (0-1); Eosinophil# 0.08 X10^3/uL; Eosinophils% 1.2 % (0-5); Hematocrit 38.4 % (40-54); Hemoglobin 12.7 g/dL (13.0-16.5); Lymphocyte # 0.54 X10^3/ul (0.83-4.51); Lymphocyte % 8.4 % (19-41); Mean Corp Hgb Conc 33.1 g/dL (32-36); Mean Corpuscular Hgb 30.7 pg (27.0-32.0); Mean Corpuscular Volume 92.8 fL (80-94); Mean Platelet Vol. 10.5 fl (6.2-12.0); Monocyte# 0.97 X10^3/uL; Monocyte% 15.1 % (0-10); NRBC Flagged by Analyzer 0 % (0-5); Neutrophil # 4.76 X10^3/uL (2.7-7.7); Neutrophil % 74.3 % (47-70); POSITIVE DIFFERENTIAL YES; Platelet Count 137 K/mm3 (150-450); RBC Distribution Width CV 14.3 % (11.6-14.6); RBC Distribution Width SD 48.4 fl (35.1-43.9); Red Blood Count 4.14 M/mm3 (4.6-6.2); White Blood Count 6.4 K/mm3 (4.4-11.0)
[2020-08-31 06:30] LABS: Differential Indicated SCAN CRITERIA MET
[2020-08-31] MEDS: Insulin Lispro 100 UNIT/ML INSULN.PEN SC ×2 (06:35→21:30)
[2020-08-31 06:48] LABS: Differential Comment SCANNED
[2020-08-31 06:51] LABS: Bedside Glucose 163 mg/dL (70-110)
[2020-08-31 06:56] LABS: Anion Gap 9 (5-15); BUN 15 mg/dL (7-18); Calcium,Total 8.2 mg/dL (8.5-10.1); Chloride 105 mmol/L (98-107); Creatinine, Serum 0.88 mg/dL (0.70-1.30); EST Glomerular Filtration Rate 88 mL/min (>60); Est Glom Filt Rate - Afr Amer 107 mL/min (>60); Estimated Creatinine Clearance 69.13 ml/min; Glucose 139 mg/dL (74-106); Potassium 3.6 mmol/L (3.5-5.1); Sodium Level 136 mmol/L (136-145)
[2020-08-31] MEDS: Lisinopril 5 MG Tablet PO (10:21)
[2020-08-31] MEDS: metFORMIN HCl 500 MG Tablet PO (10:21)
--- NOTE | 2020-08-31 12:26 | CASEMGMT ---
SANDY Note Referral Source: revenue agent Reason: SNF Placement SW was advised by RN that patient's family wanted fdc placement. RN said that patient's daughter Monica is wanting to speak to this senior copywriter. SANDY called Monica and she reports her first choice for her father is [facility] and her second choice is [facility] both in [place]. SW explained the process. SW will initiate SNF placement. Monica has inquired about recommendations for SNF and this senior copywriter said that recommendations could not be made however, talk to family and friends for recommendations. SANDY called [facility]. They were in a staff meeting and thus licensed master social worker left message for them to call back. SANDY called the [facility]. Spoke to Ralf in admissions. They had beds. SW faxed referral to the [facility]. SANDY called [facility] and confirmed that they had received the packet referral from [facility]. SW received call back from Ralf at [facility]. They can accept patient. SANDY stated to proceed with precert for patient. Paitent will need covid test. SW asked PA to order Covid test. SANDY met with Monica, patient daughter and reported Power of Resistance Welding Machine Operator. SW updated her regarding patient and his acceptance. She said that the plan is for placement and then patient's son kiara take patient and provide 24 hour/care as her brother is well off. Monica said that they are planning to tell patient he is going to rehab. Patient said that her friend had her mother in [facility] and felt positive about it. Patient's daughter, Monica, was supportive of patient's placement. SANDY advised that we are hopeful for discharge today but if not it will be next week. SW advised that hospital will keep family updated. No further issues or concerns voiced. Plan: [facility] in [place] when approved by insurance. Indy COBB
[2020-08-31 13:35] LABS: Bedside Glucose 144 mg/dL (70-110)
--- NOTE | 2020-08-31 15:23 | PCM.PN.HOSP ---
Documented by User: Geovany MOSLEY 08/31/20 15:26 Subjective Subjective Patient is a 80-year-old male comfortably resting in bed, alert and oriented x1. Patient seems to be at his baseline level of confusion, although appears improved and more jovial from yesterday. Patient concerned I provide much insight into his current condition due to dementia. Objective Data Objective Data Vital Signs: Vital Signs Temp Pulse Resp BP Pulse Ox 98.2 F 75 18 113/46 L 94 08/31/20 08:42 08/31/20 12:36 08/31/20 08:42 08/31/20 08:42 08/31/20 08:42 Oxygen Delivery Method Room Air Weight: 186 lb 8.177 oz Body Mass Index (BMI) 26.7 Intake & Output: Intake and Output for Last 24 Hours 08/29/20 08/30/20 08/31/20 23:59 23:59 23:59 Intake Total 2096.67 / 2096.67 3058.33 / 3058.33 120 / 120 Output Total 350 / 350 375 / 375 450 / 450 Balance 1746.67 / 1746.67 2683.33 / 2683.33 -330 / -330 Lab / Micro Data Result Diagrams: 08/31/20 05:45 08/31/20 05:45 Labs: Laboratory Results - last 24 hr 08/30/20 08/30/20 08/31/20 17:13 20:50 05:45 WBC 6.4 RBC 4.14 L Hgb 12.7 L Hct 38.4 L MCV 92.8 MCH 30.7 MCHC 33.1 RDW Std Deviation 48.4 H RDW Coeff of Claudia 14.3 Plt Count 137 L MPV 10.5 Immature Gran % (Auto) 0.500 Neut % (Auto) 74.3 H Lymph % (Auto) 8.4 L [place] % (Auto) 15.1 H Eos % (Auto) 1.2 Baso % (Auto) 0.5 Absolute Neuts (auto) 4.8 Absolute Lymphs (auto) 0.54 L Nucleated RBC % 0 Differential Comment SCANNED Sodium Potassium Chloride Carbon Dioxide Anion Gap BUN Creatinine Estim Creat Clear Calc Est GFR (MDRD) Af Amer Est GFR (MDRD) Non-Af BUN/Creatinine Ratio Glucose Calcium POC Glucose 158 H 122 H 08/31/20 08/31/2008/31/21 05:45 06:33 13:11 WBC RBC Hgb Hct MCV MCH MCHC RDW Std Deviation RDW Coeff of Claudia Plt Count MPV Immature Gran % (Auto) Neut % (Auto) Lymph % (Auto) [place] % (Auto) Eos % (Auto) Baso % (Auto) Absolute Neuts (auto) Absolute Lymphs (auto) Nucleated RBC % Differential Comment Sodium 136 Potassium 3.6 Chloride 105 Carbon Dioxide 22.0 Anion Gap 9 BUN 15 Creatinine 0.88 Estim Creat Clear Calc 69.13 Est GFR (MDRD) Af Amer 107 Est GFR (MDRD) Non-Af 88 BUN/Creatinine Ratio 17.0 Glucose 139 H Calcium 8.2 L POC Glucose 163 H 144 H Radiography Diagnostic Testing: Radiology Impression Brain MRI 08/31/20 05:55 IMPRESSION: 1. No acute intracranial abnormality. 2. Chronic senescent changes. at 0957 Reported and signed by: Nikko Peralta MD Electronically Signed: Nikko Peralta MD at 9:56 EDT Tel , Service support , Physical Exam Const alert Orientation / Consciousness: confused and disoriented Exam Limitations: altered mental status HEENT head/scalp atraumatic and moist oral mucous membranes Head and Scalp: normocephalic Eyes EOMs intact bilaterally and conjunctivae normal Neck no lymphadenopathy, supple and no JVD Resp normal respiratory effort, no retractions, no use of accessory muscles and clear to auscultation bilaterally Cardio regular rate, regular rhythm, no murmurs and no JVD GI normal to inspection, nondistended, normoactive bowel sounds, soft to palpation and non-tender Extremity normal to inspection, full ROM and no clubbing, cyanosis or edema Skin no rashes or lesions noted, no wounds and skin turgor normal Neuro CN's II-XII intact bilaterally Psych affect normal Assessment & Plan Assessment/Plan (1) Syncope: (2) Diabetes mellitus, type 2: (3) Dementia: (4) Hyperlipidemia: (5) HTN (hypertension): (6) CVA (cerebral vascular accident): PLAN: Day 3: See subjective for patient presentation. Discharge planning; discharge to [facility] pending pre-CERT. 1) dementia Patient on donepezil. Severely complicates #2. Due to PT/OT eval it was determined that patient was not safe to return home. Talks with the family revealed that patient is more confused and uncoordinated than normal. Family reports this is been getting progressively worse. Family agreeable to placement for patient. 2) syncope/debility EKG on admission was unremarkable. MRI unremarkable. Brain CT and chest x-ray were unremarkable. CBC and BMP unremarkable. Plan; continue to monitor, obtain MRI. 3) hypertension Stable, continue lisinopril. 4) DM2 Continue Metformin, ADA diet Accu-Cheks and sliding scale insulin ordered. 5) history of CVA Continue Coumadin. DVT prophylaxis - Coumadin Patient seen by Geovany Huerta PA-C, under the supervision of Dr. Myers Documented by User: Dr. Matty Myers MD 08/31/20 18:14 Objective Data Lab / Micro Data Result Diagrams: 08/31/20 05:45 08/31/20 05:45 Charges/Coding Addendum Addendum: Dr. Myers: I personally reviewed the chart and examined the patient, and agree with the above findings. 80-year-old male presents after an episode of syncope, this was clearly vasovagal secondary to the history provided. He has significantly improved with IV fluid hydration and telemetry has been unremarkable. However according to the family he appears more confused today and and working with physical therapy is extremely weak and he has agreed to potentially go to intermediate if necessary. Will obtain an MRI secondary to the family's concern for his worsening confusion, he is clear from a syncope standpoint however. Vital signs and lab work are stable. 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 Also he is likely unsafe at home alone and therefore either he would need to live with family or potentially be transition to an assisted living. 08/31/2020: Seems more alert today, he still confused but appears to be at his baseline. MRI was negative for an acute stroke just shows a chronic age changes. He did work with physical therapy yesterday however was very can fused and unsteady on his feet he needed constant redirection, physical therapy does recommend continued therapy secondary to his impaired bed mobility and transfer ability as well as his decrease in balance, strength safety awareness and functional activity tolerance consistent with a need for placement. Visit Charges OBSV E&M: [id number] Subsequent observation care L2
--- NOTE | 2020-08-31 16:23 | CASEMGMT ---
Addendum entered by Indy Mantilla 08/31/20 16:44: Fax number to fax discharge instruction [phone] Indy BROWN Original Note: SANDY Note Sw called [facility] and spoke to Sherrie [phone]. They did not get percert but it could come tomorrow. She said that she spoke to [employer] and it is pending review. SANDY updated patient's daughter, Trupti. Daughter asked about if she coudl take patient home. SW explained that our recommendation is precert and to SNF. SW explained that community to SNF takes a longer amount of time. Daughter said that she just got off the phone with her counselor and has lots of issues related to her son's suicide. SW encouraged patient to take care of herself during this time. SANDY advised that we can't move him to SNF without insurance approval. SANDY updated supervisor dog license officer. Indy ADAMS
[2020-08-31 17:06] LABS: Bedside Glucose 140 mg/dL (70-110)
[2020-08-31 19:38] LABS: International Normalized Ratio 1.4; Prothrombin Time (Protime)PT. 16.3 SECONDS (11.7-14.9)
[2020-08-31] MEDS: Atorvastatin Calcium 20 MG Tablet PO (21:26)
[2020-08-31] MEDS: Donepezil HCl 10 MG Tablet PO (21:26)
[2020-08-31 21:40] LABS: Bedside Glucose 160 mg/dL (70-110)
[2020-09-01 03:00] VITALS: PULSE 76
[2020-09-01 03:02] VITALS: BP 109/58; PULSE 72; RESP 18; TEMP 37; O2SAT 95
[2020-09-01 07:00] VITALS: PULSE 65
[2020-09-01 07:10] LABS: Bedside Glucose 148 mg/dL (70-110)
[2020-09-01 07:24] LABS: Absolute Lymphocyte Count 0.88 X10^3/uL (0.83-4.51); Absolute Neutrophil Count 3.2 X10^3/uL (2.0-7.7); Basophil# 0.04 X10^3/uL; Basophil% 0.7 % (0-1); Eosinophils% 1.9 % (0-5); Hematocrit 36.2 % (40-54); Hemoglobin 12.3 g/dL (13.0-16.5); Lymphocyte # 0.88 X10^3/ul (0.83-4.51); Lymphocyte % 16.4 % (19-41); Mean Corpuscular Volume 91.2 fL (80-94); Mean Platelet Vol. 10.3 fl (6.2-12.0); Monocyte# 1.17 X10^3/uL; Monocyte% 21.8 % (0-10); NRBC Flagged by Analyzer 0 % (0-5); Neutrophil # 3.17 X10^3/uL (2.7-7.7); Platelet Count 163 K/mm3 (150-450); RBC Distribution Width CV 14.1 % (11.6-14.6); RBC Distribution Width SD 47.8 fl (35.1-43.9); Red Blood Count 3.97 M/mm3 (4.6-6.2); White Blood Count 5.4 K/mm3 (4.4-11.0)
[2020-09-01 07:48] LABS: Anion Gap 9 (5-15); BUN 11 mg/dL (7-18); BUN/Creat Ratio 13.7 RATIO (10-20); Calcium,Total 8.1 mg/dL (8.5-10.1); Chloride 106 mmol/L (98-107); EST Glomerular Filtration Rate 99 mL/min (>60); Est Glom Filt Rate - Afr Amer 119 mL/min (>60); Estimated Creatinine Clearance 76.04 ml/min; Glucose 147 mg/dL (74-106); Potassium 3.7 mmol/L (3.5-5.1); Sodium Level 137 mmol/L (136-145)
[2020-09-01 08:19] LABS: International Normalized Ratio 1.3; Prothrombin Time (Protime)PT. 15.4 SECONDS (11.7-14.9)
[2020-09-01 08:34] VITALS: BP 103/62; PULSE 102; RESP 18; TEMP 36.9; O2SAT 95
[2020-09-01] MEDS: Lisinopril 5 MG Tablet PO (08:38)
[2020-09-01] MEDS: metFORMIN HCl 500 MG Tablet PO (08:38)
--- NOTE | 2020-09-01 10:45 | CASEMGMT ---
Addendum entered by Indy Mantilla 09/01/20 12:55: SANDY called Sherrie at the [facility] again and left voice mail message for her to contact this leader writer. SANDY called [facility] (main number) and asked if Sherrie was available. SW was advised that Sherrie was not available. SW received call back from Sherrie at [facility]. She advised that she checked at 9am this morning and patient's precertification was still pending. Indy ADAMS Original Note: SANDY Note SW went to PCU and was advised that patient's children want to discharge patient AMA. SANDY called Sherrie at [facility]. Left voice mail for her to contact this leader writer. RN advised that patient's daughter does not want patient to be discharged AMA but her brothers want him discharged AMA. Plan: To be determined Indy COBB
[2020-09-01 12:35] LABS: Bedside Glucose 134 mg/dL (70-110)
--- NOTE | 2020-09-01 13:07 | CASEMGMT ---
SANDY Note SANDY met with patient's son, Cl. SANDY advised that this poem writer had called [facility] and insurance is pending. He said that patient does exercises at home and wants to do exercises but wants to leave and come home at night and inquired if there is anything like that. SANDY indicated that since patient had left AMA patient would need to contact his PCP for order for outpatient physical therapy. Patient said that's a good idea and indicated that they will contact the PCP. Cl said that his daughter works at a fpc facility and will stay with patient 3-4 days during the week. He said that they also want to get nursing at the home for patient. SANDY advised that the hospital is always available if patient needs to return. Cl verbalized understanding. No concerns were voiced at this time. SANDY called [facility]. Left message for Sherrie Solomon stating patient discharged home AMA. Plan: SANDY made referral for SNF. Patient left AMA. Indy COBB
--- NOTE | 2020-09-01 13:16 | NURSING ---
patient left AMA, accompanied by son, all personal belongings in hand
--- NOTE | 2020-09-01 13:24 | DS.PCM_ITS ---
Documented by User: Geovany MOSLEY 09/01/20 13:28 Providers Date of Admission: 08/29/20 Primary Care Physician: Dr. Bharathi Kolb MD Reason For Visit: SYNCOPE Diagnosis Discharge Diagnosis (1) Syncope: Status: Acute Code(s): R55 - Syncope and collapse (2) Diabetes mellitus, type 2: Status: Chronic Code(s): E11.9 - Type 2 diabetes mellitus without complications (3) Dementia: Status: Chronic Code(s): F03.90 - Unspecified dementia without behavioral disturbance (4) Hyperlipidemia: Status: Chronic Code(s): E78.5 - Hyperlipidemia, unspecified (5) HTN (hypertension): Status: Chronic Code(s): I10 - Essential (primary) hypertension (6) CVA (cerebral vascular accident): Status: Acute Code(s): I63.9 - Cerebral infarction, unspecified Medications at Discharge Home Medications metformin 500 mg PO DAILY 03/19/16 lisinopril 5 mg PO DAILY 08/07/17 atorvastatin 20 mg PO QHS 11/05/17 warfarin 6 mg PO SUMOWETHSA 11/05/17 warfarin 9 mg PO TU 11/05/17 Centrum Silver Men 1 tab PO DAILY 08/29/20 donepezil 10 mg PO QHS 08/29/20 warfarin 7.5 mg PO FR 08/29/20 Hospital Course Summary of Care Provided Minutes Spent on Discharge: 35 Hospital Course: Patient and family wished to leave AGAINST MEDICAL ADVICE. Patient and family did not want to wait for [facility] placement at [facility], which was pending pre-CERT. It was explained to the family and patient that there are several risks involved with this to include worsening of his father's weakness which may result in injury or and lack of supervision for the patient who suffers from severe dementia. Patient and family acknowledge the risks and wanted to proceed with their own course of of care. AMA form was signed and patient left with family. Patient seen by Geovany Huerta PA-C, under the supervision of Dr. Myers. Weight / BMI Weight Weight: 186 lb 8.177 oz Body Mass Index (BMI) 26.7 ABG / Lab / Microbiology Data Result Diagrams: 09/01/20 07:12 09/01/20 07:12 Laboratory: Laboratory Results - last 24 hr 08/31/20 08/31/20 08/31/20 13:11 17:00 19:10 WBC RBC Hgb Hct MCV MCH MCHC RDW Std Deviation RDW Coeff of Claudia Plt Count MPV Immature Gran % (Auto) Neut % (Auto) Lymph % (Auto) [place] % (Auto) Eos % (Auto) Baso % (Auto) Absolute Neuts (auto) Absolute Lymphs (auto) Nucleated RBC % PT 16.3 H INR 1.4 Sodium Potassium Chloride Carbon Dioxide Anion Gap BUN Creatinine Estim Creat Clear Calc Est GFR (MDRD) Af Amer Est GFR (MDRD) Non-Af BUN/Creatinine Ratio Glucose Calcium POC Glucose 144 H 140 H 08/31/20 09/01/20 09/01/20 21:23 07:06 07:12 WBC RBC Hgb Hct MCV MCH MCHC RDW Std Deviation RDW Coeff of Claudia Plt Count MPV Immature Gran % (Auto) Neut % (Auto) Lymph % (Auto) [place] % (Auto) Eos % (Auto) Baso % (Auto) Absolute Neuts (auto) Absolute Lymphs (auto) Nucleated RBC % PT 15.4 H INR 1.3 Sodium Potassium Chloride Carbon Dioxide Anion Gap BUN Creatinine Estim Creat Clear Calc Est GFR (MDRD) Af Amer Est GFR (MDRD) Non-Af BUN/Creatinine Ratio Glucose Calcium POC Glucose 160 H 148 H 09/01/20 09/01/20 09/01/20 07:12 07:12 12:21 WBC 5.4 RBC 3.97 L Hgb 12.3 L Hct 36.2 L MCV 91.2 MCH 31.0 MCHC 34.0 RDW Std Deviation 47.8 H RDW Coeff of Claudia 14.1 Plt Count 163 MPV 10.3 Immature Gran % (Auto) 0.200 Neut % (Auto) 59.0 Lymph % (Auto) 16.4 L [place] % (Auto) 21.8 H Eos % (Auto) 1.9 Baso % (Auto) 0.7 Absolute Neuts (auto) 3.2 Absolute Lymphs (auto) 0.88 Nucleated RBC % 0 PT INR Sodium 137 Potassium 3.7 Chloride 106 Carbon Dioxide 22.0 Anion Gap 9 BUN 11 Creatinine 0.80 Estim Creat Clear Calc 76.04 Est GFR (MDRD) Af Amer 119 Est GFR (MDRD) Non-Af 99 BUN/Creatinine Ratio 13.7 Glucose 147 H Calcium 8.1 L POC Glucose 134 H Microbiology: Microbiology 09/01/20 07:02 SARS-CoV-2 Antigen (Rapid) - Final Mucosa - Nose Microbiology 09/01/20 07:02 Mucosa - Nose SARS-CoV-2 Antigen (Rapid) - Final D/C Instructions Discharge Diet: No restrictions Please Follow Up With: Primary care provider When: Within the next two weeks. Meaningful Use Info Meaningful Use Diagnoses (Choose all that apply): None applicable Discharge Plan Admission Admit Date/Time: 08/29/20 17:35 Primary Reason for Your Visit: Syncope Attending Provider: Matty Myers Primary Care Provider: Bharathi Kolb Instructions Patient Instructions: Treating Syncope: Prevention, Treatment for Vasovagal Syncope Discharge Orders/Prescriptions Prescriptions: Continued metformin 500 MG tablet 500 mg PO DAILY RF: 0 lisinopril 5 MG tablet 5 mg PO DAILY RF: 0 warfarin 3 MG tablet 6 mg PO SUMOWETHSA RF: 0 warfarin 3 MG tablet 9 mg PO RF: 0 atorvastatin 20 MG tablet 20 mg PO QHS RF: 0 donepezil 10 mg Tablet 10 mg PO QHS RF: 0 warfarin 3 mg Tablet 7.5 mg PO FR RF: 0 Centrum Silver Men 300-600-300 mcg Tablet 1 tab PO DAILY RF: 0 Referrals / Follow Up: Bharathi Kolb MD [Primary Care Provider] - Within 2 Weeks Disposition Disposition (needs filled in before D/C Order can be placed): Against Medical Advice Documented by User: Dr. Matty Myers MD 09/01/20 14:39 Providers Date of Admission: 08/29/20 Reason For Visit: SYNCOPE Medications at Discharge Home Medications metformin 500 mg PO DAILY 03/19/16 lisinopril 5 mg PO DAILY 08/07/17 atorvastatin 20 mg PO QHS 11/05/17 warfarin 6 mg PO SUMOWETHSA 11/05/17 warfarin 9 mg PO TU 11/05/17 Centrum Silver Men 1 tab PO DAILY 08/29/20 donepezil 10 mg PO QHS 08/29/20 warfarin 7.5 mg PO FR 08/29/20 ABG / Lab / Microbiology Data Result Diagrams: 09/01/20 07:12 09/01/20 07:12 Discharge Plan Admission Admit Date/Time: 08/29/20 17:35 Primary Reason for Your Visit: Syncope Attending Provider: Matty Myers Primary Care Provider: Bharathi Kolb Instructions Patient Instructions: Treating Syncope: Prevention, Treatment for Vasovagal Syncope Discharge Orders/Prescriptions Prescriptions: Continued metformin 500 MG tablet 500 mg PO DAILY RF: 0 lisinopril 5 MG tablet 5 mg PO DAILY RF: 0 warfarin 3 MG tablet 6 mg PO SUMOWETHSA RF: 0 warfarin 3 MG tablet 9 mg PO TU RF: 0 atorvastatin 20 MG tablet 20 mg PO QHS RF: 0 donepezil 10 mg Tablet 10 mg PO QHS RF: 0 warfarin 3 mg Tablet 7.5 mg PO FR RF: 0 Centrum Silver Men 300-600-300 mcg Tablet 1 tab PO DAILY RF: 0 Referrals / Follow Up: Bharathi Kolb MD [Primary Care Provider] - Within 2 Weeks Disposition Disposition (needs filled in before D/C Order can be placed): Against Medical Advice Charges/Coding Addendum Addendum: I had had extensive discussions with the daughter that her father is unable to make decisions and that his best course of action would be SNF for re hab however her brother chose to sign his father out of the hospital AMA.
--- NOTE | 2020-09-04 08:53 | CASEMGMT ---
Call from pt's daughter inquiring about setting up HHC now for pt. Daughter aware that they will need to contact pt's PCP to set up HHC at this time, voices understanding. According to chart, pt was set to go to [facility] in [place](once precert obtained) and then left AMA with children. Daughter states her brother changed the plan from SNF to home. Promise BARRIENTOS CM
== END 2020-09-01 13:19 | disposition left against medical advice (07) ==
LOC: ED 17:26 → PCU 18:27
PROVIDERS: Physician Assistant; Admitting Provider Hospitalist; Emergency Provider Emergency Medicine; PCP Family Medicine; Visit Provider Family Medicine
DX: R55 Syncope and collapse (principal); I10 Essential (primary) hypertension; E78.5 Hyperlipidemia, unspecified; F03.90 Unspecified dementia, unspecified severity, without behavioral disturbance, psychotic disturbance, mood disturbance, and anxiety; E11.9 Type 2 diabetes mellitus without complications; Z86.73 Personal history of transient ischemic attack (TIA), and cerebral infarction without residual deficits; Z79.01 Long term (current) use of anticoagulants; Z79.899 Other long term (current) drug therapy; Z79.84 Long term (current) use of oral hypoglycemic drugs; Z87.891 Personal history of nicotine dependence
CPT/HCPCS: 36415; 70450; 70551; 71045; 80048; 82962; 84484; 85025; 85610; 87426; 93005; 97162; 97166; 97530; 99285; J7030

== ENCOUNTER → 2020-10-08 | Outpatient (CLI) | payer MEDICARE, SELFPAY ==
[2020-08-29 18:08] VITALS: BMI 26.7
[2020-10-08 12:29] LABS: International Normalized Ratio 1.8; Prothrombin Time (Protime)PT. 20.4 SECONDS (11.7-14.9)
== END | disposition home or self-care (01) ==
LOC: LABSPEC 12:11
PROVIDERS: PCP Family Medicine; Visit Provider Family Medicine
DX: I82.403 Acute embolism and thrombosis of unspecified deep veins of lower extremity, bilateral (principal)
CPT/HCPCS: 85610

== ENCOUNTER 2021-06-30 13:57 | Observation (INO) | payer MEDICARE, SELFPAY ==
[2021-06-30 13:57] VITALS: BP 113/70; PULSE 85; RESP 18; TEMP 36.1; O2SAT 97; BMI 24.0
--- NOTE | 2021-06-30 14:29 | EDS_ITS ---
HPI History of Present Illness Chief Complaint: Weakness Informant: patient Onset/Context/Timing Onset: Days Context: Gradual Onset Timing: Continuous Quality: Aching Location: Low back Worsened by: Movement Relieved by: Nothing Narrative Narrative: Patient presents with left knee pain, back pain, and generalized weakness that has been getting progressively worse over the past few days. Patient was in the emergency department at [facility] yesterday. Patient had his knee aspirated. Patient felt better after this. Patient was able to go home. Patient since last night has been having difficulty standing and ambulating. Patient states his back pain is worse whenever he tries to stand and ambulate. Patient states he feels weak in both his arms and his legs. Patient states she was unable to lift his coffee cup to his mouth today. Patient denies any headaches. Patient denies any paresthesias. [facility] Medical History Borderline diabetes Home Medications metformin 500 mg PO DAILY 03/19/16 [History Last Taken 08/29/20] atorvastatin 10 mg PO QHS 11/05/17 [History Last Taken 08/28/20] Centrum Silver Men 1 tab PO DAILY 08/29/20 [History Last Taken 08/29/20] donepezil 10 mg PO QHS 08/29/20 [History Last Taken 08/28/20] omega-3 fatty acids [Fish Oil] 500 mg PO DAILY 06/30/21 [History Last Taken Unknown] valsartan 40 mg PO BID 06/30/21 [History Last Taken Unknown] Allergy/AdvReac Type Severity Reaction Status Date / Time No Known Allergies Allergy Verified 06/30/21 14:01 Surgical History History of hernia repair Social History Smoking Status: Former smoker ROS ROS ED Constitutional Constitutional ED: Denies chills or fever(s) Eyes Eyes: Denies blurry vision or change in vision ENT ENT ED: Denies rhinorrhea or sore throat Cardiovascular Cardiovascular: Denies chest pain or palpitations Respiratory/Chest Respiratory/Chest: Denies cough or dyspnea Gastrointestinal Gastrointestinal: Denies nausea or vomiting Genitourinary Genitourinary ED: Denies dysuria or hematuria Musculoskeletal Musculoskeletal: Reports arthralgias and back pain; Denies neck pain Integumentary Denies abscess or rash Neurologic Neurologic: Reports weakness; Denies headache(s) Allergic/Immunologic Allergic/Immunologic ED: Denies mouth swelling or urticaria EXAM Physical Exam Const Vital Signs: 06/30/21 13:57 06/30/21 14:13 Temperature 97 F L Temperature Source Temporal Pulse Rate 85 Respiratory Rate 18 Respiratory Effort Normal Respiratory Pattern Normal Blood Pressure 113/70 Blood Pressure Mean 84 Pulse Ox 97 Oxygen Delivery Method Room Air Positive well nourished and well developed General Appearance ED: well developed and NAD HEENT Reports moist mucous membranes Neck supple and no JVD Chest Wall palpation of chest normal Resp normal respiratory effort and clear to auscultation bilaterally Cardio regular rate and regular rhythm GI normal to inspection, nondistended, normoactive bowel sounds and non-tender Palpation: soft Neuro oriented x3, CN's II-XII intact bilaterally and no sensory deficits noted Sensorium / Orientation: alert Motor Exam: strength 5/5 throughout and general weakness Psych mental status grossly normal MDM MDM MDM Narrative Medical decision making narrative: Reed Rojas, EKG was obtained. On my interpretation it shows normal sinus rhythm with a rate of 79. There is right bundle branch block pattern noted. There are no acute ST or T wave changes. PA interval, and QTc intervals were within normal limits. QRS interval was slightly prolonged at 140 ms. [place] was normal. Portable 1 view chest x-ray was obtained. On my interpretation, lung gaming are clear. There is normal cardiac silhouette. Bony thorax is normal. There is no acute process noted. Radiolog ist also interpreted the x-ray and agrees. CT scan of the brain was obtained. There is no acute intracranial abnormality. This was interpreted by the radiologist and reviewed by myself. CBC shows a mild leukocytosis of 12.4. Comprehensive metabolic profile shows a slightly elevated total bilirubin of 1.9. Troponin was less than 3. Urinalysis was ordered and is pending. Case was discussed with the hospitalist. He will admit the patient for observation. Patient and family understand and are agreeable with the plan. All questions were answered. Lab Data Attestation: I reviewed the patient's lab results. Labs: Laboratory Results - last 24 hr 06/30/21 06/30/21 14:37 14:37 WBC 12.4 H RBC 4.56 L Hgb 13.9 Hct 42.3 MCV 92.8 MCH 30.5 MCHC 32.9 RDW Std Deviation 45.5 H RDW Coeff of Claudia 13.3 Plt Count 212 MPV 10.2 Immature Gran % (Auto) 0.300 Neut % (Auto) 69.5 Lymph % (Auto) 12.9 L [place] % (Auto) 16.7 H Eos % (Auto) 0.2 Baso % (Auto) 0.4 Absolute Neuts (auto) 8.6 H Absolute Lymphs (auto) 1.60 Nucleated RBC % 0 Differential Comment SCANNED Diff Path Review May foll Sodium 135 L Potassium 4.2 Chloride 103 Carbon Dioxide 25.0 Anion Gap 7 BUN 17 Creatinine 1.03 Estim Creat Clear Calc 61.74 Est GFR (MDRD) Af Amer 89 Est GFR (MDRD) Non-Af 74 BUN/Creatinine Ratio 16.5 Glucose 159 H Calcium 8.8 Total Bilirubin 1.90 H AST 22 ALT 25 Alkaline Phosphatase 86 Troponin I High Sens < 3 L Total Protein 7.9 Albumin 3.6 Globulin 4.3 H Albumin/Globulin Ratio 0.8 L Radiography Chest X-Ray - ED: 1 View, Read by ED Physician, Read by Radiologist and No Acute Disease Diagnostic Testing: Clinical Impression(s) from Imaging Studies Chest X-Ray 06/30/21 14:33 IMPRESSION: No acute cardiopulmonary process. Electronically Signed: Derek Lowe MD at 15:59 EDT Reading Location ID and State: [facility] / [place] Tel , Service support , EKG Initial EKG: Attestation: I personally reviewed and interpreted this EKG as follows: Interpretation: Sinus Rhythm (79), No Acute Injury Pattern and RBBB Prior EKG tracings: available for review Prior: Unchanged (08/29/2020) Discharge Plan Dx/Rx/DC Orders Clinical Impression: Debility, General weakness Disposition Disposition: Acute Care [facility]
--- NOTE | 2021-06-30 14:33 | EKG12_ITS ---
Test Reason : WEAKNESS Blood Pressure : / mmHG Vent. Rate : 079 BPM Atrial Rate : 079 BPM P-R Int : 132 ms QRS Dur : 140 ms QT Int : 414 ms P-R-T Axes : -18 -09 -10 degrees QTc Int : 474 ms Normal sinus rhythm Right bundle branch block Inferior infarct , age undetermined Abnormal ECG Confirmed by OLVIN MESSER, CHELSEY ([id number]), design editor BETH EDWARDS ([id number]) on 07/02/2021 11:11:16 AM Referred By: BECKY Confirmed By:CHELSEY BAH MD
--- NOTE | 2021-06-30 14:33 | RAD_ITS ---
STUDY: X-RAY CHEST REASON FOR EXAM: Male, 81 years old. Weakness TECHNIQUE: 1 view COMPARISON: 08/29/2020 FINDINGS: Cardiomediastinal silhouette is unremarkable. Costophrenic angles are sharp. Lungs are clear. The trachea is midline. There is no pneumothorax. The bones are grossly intact. RAD/Chest 1 View (Portable) IMPRESSION: No acute cardiopulmonary process. Electronically Signed: Derek Lowe MD at 15:59 EDT ,
--- NOTE | 2021-06-30 14:33 | CT_ITS ---
STUDY: CT BRAIN WITHOUT CONTRAST REASON FOR EXAM: Male, 81 years old. Weakness RADIATION DOSAGE (If Supplied By Facility): CTDIvol = ( 47.06 ) mGy, DLP = ( 907.97 ) mGycm TECHNIQUE: Transaxial CT imaging of the brain was performed without administration of intravenous contrast material. Individualized dose optimization techniques were used for this CT. COMPARISON: 08/29/2020 FINDINGS: There is no intra-/extra-axial fluid collection, mass effect, or midline shift. Old lacunar infarct is seen in the right basal ganglia. The zaldivar/white matter junction is preserved. Hypoattenuation of periventricular and subcortical white matter suggestive of chronic small vessel ischemic disease. Mild diffuse parenchymal volume loss is noted. There is vascular calcification. The basal cisterns are patent. Bilateral paranasal sinuses and mastoid air cells are clear. The calvarium is intact. CT/Brain/Head without Contrast IMPRESSION: No acute intracranial finding. MRI may be obtained if clinically indicated. Electronically Signed: Derek Lowe MD at 16:01 EDT ,
[2021-06-30 14:48] LABS: Absolute Neutrophil Count 8.6 X10^3/uL (2.0-7.7); Basophil# 0.05 X10^3/uL; Basophil% 0.4 % (0-1); Eosinophil# 0.02 X10^3/uL; Eosinophils% 0.2 % (0-5); Hematocrit 42.3 % (40-54); Hemoglobin 13.9 g/dL (13.0-16.5); Lymphocyte % 12.9 % (19-41); Mean Corp Hgb Conc 32.9 g/dL (32-36); Mean Corpuscular Hgb 30.5 pg (27.0-32.0); Mean Corpuscular Volume 92.8 fL (80-94); Mean Platelet Vol. 10.2 fl (6.2-12.0); Monocyte# 2.07 X10^3/uL; Monocyte% 16.7 % (0-10); NRBC Flagged by Analyzer 0 % (0-5); Neutrophil # 8.64 X10^3/uL (2.7-7.7); Neutrophil % 69.5 % (47-70); POSITIVE DIFFERENTIAL YES; Platelet Count 212 K/mm3 (150-450); RBC Distribution Width CV 13.3 % (11.6-14.6); RBC Distribution Width SD 45.5 fl (35.1-43.9); Red Blood Count 4.56 M/mm3 (4.6-6.2); White Blood Count 12.4 K/mm3 (4.4-11.0)
[2021-06-30 14:54] LABS: Differential Indicated SCAN CRITERIA MET
[2021-06-30] MEDS: Morphine 2 MG/ML Syringe IV (14:57)
[2021-06-30 15:12] LABS: ALB/GLOB Ratio 0.8 RATIO (0.9-2.4); AST(SGOT) 22 U/L (15-37); Alanine Aminotransfer ALT/SGPT 25 U/L (16-61); Albumin, Serum 3.6 g/dL (3.2-5.0); Alkaline Phosphatase 86 U/L (45-117); Anion Gap 7 (5-15); BUN 17 mg/dL (7-18); BUN/Creat Ratio 16.5 RATIO (10-20); Calcium,Total 8.8 mg/dL (8.5-10.1); Chloride 103 mmol/L (98-107); Creatinine, Serum 1.03 mg/dL (0.70-1.30); EST Glomerular Filtration Rate 74 mL/min (>60); Est Glom Filt Rate - Afr Amer 89 mL/min (>60); Estimated Creatinine Clearance 61.74 ml/min; Globulin 4.3 g/dL (2.2-4.2); Glucose 159 mg/dL (74-106); Potassium 4.2 mmol/L (3.5-5.1); Protein, Total 7.9 g/dL (6.4-8.2); Sodium Level 135 mmol/L (136-145); Troponin-I HS < 3 pg/mL (3.0-78.0)
[2021-06-30 15:34] LABS: Differential Comment SCANNED
[2021-06-30 16:13] VITALS: BP 137/82; PULSE 87; RESP 16; TEMP 36.6; O2SAT 98
[2021-06-30 16:15] LABS: Bacteria 0 SEEN /hpf (None Seen); Mucous, Urine 0 SEEN /hpf (<or=2+); Red Blood Cells-Urine 0 SEEN /hpf (0-5); Squamous Epithelial Cells - UA 0 SEEN /hpf (0-5)
[2021-06-30 16:16] LABS: Color, Urine Yellow (Yellow); Glucose, Dipstick 50 mg/dl (Normal); Ketone-Dipstick 5 mg/dl (Negative); Leukocyte Esterase-Dipstick 25 /ul (Negative); Nitrite-Dipstick Negative (Negative); Occult Blood-Urine 10 /ul (Negative); Protein-Dipstick 15 mg/dl (Negative); Urine Bilirubin Dipstick Negative (Negative); Urine Clarity Clear (Clear); Urine Urobilinogen 1 mg/dl (Normal)
[2021-06-30 16:23] LABS: White Blood Cells 0-5 SEEN /hpf (0-5)
--- NOTE | 2021-06-30 16:34 | HP.PCM.HOS_ITS ---
Documented by User: Bianca Green NP, [employer] 06/30/21 16:49 HPI - General General Date of Admission: 06/30/21 HPI Narrative CORIE KILGORE, is a 81 M who presents to the emergency room due to weakness and confusion. Daughter at bedside states that patient has had increased confusion and weakness since last Thursday. They took him to an outside emergency room last night and he was released home. Daughter states it took her into other family members to get patient back in the house. Daughter states patient lives alone and they check in on him via a baby monitor. They have noticed he has had difficulty getting out of his chair. He reportedly fell at some point and injured his left knee. Daughter states he had the left knee drained during his ER visit last night. Patient is not able to state details related to his fall. He complains of lower back pain. Denies urinary symptoms, fever, chills, shortness of breath. Daughter also states she organizes his weekly pills and found on Thursday that all of his pills were gone. She does not know if he took them all at once or disposed of them. She states she would like him to get stronger prior to returning home as she is concerned he will fall. Daughter reports patient is on Aricept at baseline for dementia/memory issues and he has recently been more confused with hallucinations. He has a past medical history of CVA, hypertension, hyperlipidemia, type 2 diabetes mellitus, dementia. PENDING SALE TO [facility] Medical History (Updated 06/30/21 @ 16:48 by Elana Shirley) Anxiety Borderline diabetes Dementia Depression GERD (gastroesophageal reflux disease) Hearing loss, left Hearing loss, right Non-smoker TIA (transient ischemic attack) Home Medications metformin 500 mg PO DAILY 03/19/16 [History Last Taken 08/29/20] atorvastatin 10 mg PO QHS 11/05/17 [History Last Taken 08/28/20] Centrum Silver Men 1 tab PO DAILY 08/29/20 [History Last Taken 08/29/20] donepezil 10 mg PO QHS 08/29/20 [History Last Taken 08/28/20] omega-3 fatty acids [Fish Oil] 500 mg PO DAILY 06/30/21 [History Last Taken U nknown] valsartan 40 mg PO BID 06/30/21 [History Last Taken Unknown] Allergy/AdvReac Type Severity Reaction Status Date / Time No Known Allergies Allergy Verified 06/30/21 14:01 Family History (Updated 06/30/21 @ 16:39 by Bianca Green NP, [employer]) Father No cardiac disease Mother No cardiac disease Surgical History History of hernia repair Social History (Updated 06/30/21 @ 16:40 by Bianca Green NP, [employer]C) household members: none Smoking Status: Former smoker alcohol intake: never substance use type: does not use ROS Constitutional Constitutional: Reports fatigue and weakness; Denies change in weight, chills or fever(s) Cardiovascular Cardiovascular: Denies chest pain, edema, lightheadedness, palpitations or syncope Respiratory/Chest Respiratory/Chest: Denies cough, dyspnea, productive cough, shortness of breath at rest, shortness of breath with exertion or wheezing Gastrointestinal Gastrointestinal: Denies abdominal pain, constipation, diarrhea, nausea or vomiting Genitourinary Genitourinary: Denies burning urination, difficulty urinating, dysuria, hematuria, urinary frequency, urinary incontinence or urinary urgency Musculoskeletal Musculoskeletal: Reports back pain; Denies joint pain or muscle weakness Integumentary Integumentary: Denies erythema, lesions, rash or wounds Neurologic Neurologic: Denies abnormal speech, confusion, dizziness, focal weakness, numbness, paresthesias, seizure-like activity or syncope Psychiatric Psychiatric: Denies anxiety or depression Hematologic/Lymphatic Hematologic/Lymphatic: Denies anemia, easy bleeding or easy bruising Allergic/Immunologic Allergic/Immunologic: Denies hives or asthma Vital Signs Vital Signs Vital Signs: 06/30/21 13:57 06/30/21 14:13 06/30/21 16:13 Temperature 97 F L 97.8 F Temperature Source Temporal Temporal Pulse Rate 85 87 Respiratory Rate 18 16 Respiratory Effort Normal Respiratory Pattern Normal Blood Pressure 113/70 137/82 H Blood Pressure Mean 84 100 Pulse Ox 97 98 Oxygen Delivery Method Room Air Room Air Weight Weight: 177 lb Body Mass Index (BMI) 24.0 Physical Exam Const alert General Appearance: cooperative Orientation / Consciousness: confused HEENT normocephalic and moist oral mucous membranes Eyes PERRL, EOMs intact bilaterally and conjunctivae normal Neck no lymphadenopathy Resp normal respiratory effort and clear to auscultation bilaterally Cardio regular rate, regular rhythm and no murmurs Peripheral Pulses: pulses 2+ throughout GI normal to inspection, nondistended, normoactive bowel sounds, non-tender and non-distended Extremity normal to inspection General Extremity: edema left lower extremity mild Skin no rashes or lesions noted Lesions: no lesions Rashes: no rashes Trauma: no lacerations or abrasions Neuro CN's II-XII intact bilaterally, no focal motor deficits, no sensory deficits noted and deep tendon reflexes 2+ bilaterally Psych mental status grossly normal and affect normal Results Lab / Micro Data Result Diagrams: 06/30/21 14:37 06/30/21 14:37 Labs: Laboratory Results - last 24 hr 06/30/21 14:37: WBC 12.4 H, RBC 4.56 L, Hgb 13.9, Hct 42.3, MCV 92.8, MCH 30.5, MCHC 32.9, RDW Std Deviation 45.5 H, RDW Coeff of Claudia 13.3, Plt Count 212, MPV 10.2, Immature Gran % (Auto) 0.300, Neut % (Auto) 69.5, Lymph % (Auto) 12.9 L, [place] % (Auto) 16.7 H, Eos % (Auto) 0.2, Baso % (Auto) 0.4, Absolute Neuts (auto) 8.6 H, Absolute Lymphs (auto) 1.60, Nucleated RBC % 0, Differential Comment SCANNED, Diff Path Review July foll 06/30/21 14:37: Sodium 135 L, Potassium 4.2, Chloride 103, Carbon Dioxide 25.0, Anion Gap 7, BUN 17, Creatinine 1.03, Estim Creat Clear Calc 61.74, Est GFR (MDRD) Af Amer 89, Est GFR (MDRD) Non-Af 74, BUN/Creatinine Ratio 16.5, Glucose 159 H, Calcium 8.8, Total Bilirubin 1.90 H, AST 22, ALT 25, Alkaline Phosphatase 86, Troponin I High Sens < 3 L, Total Protein 7.9, Albumin 3.6, Globulin 4.3 H, Albumin/Globulin Ratio 0.8 L 06/30/21 16:10: Urine Color Yellow, Urine Clarity Clear, Urine pH 5.0, Ur Specific [place] 1.020, Urine Protein 15 H, Urine Glucose (UA) 50 H, Urine Ketones 5 H, Urine Occult Blood 10 H, Urine Nitrite Negative, Urine Bilirubin Negative, Urine Urobilinogen 1 H, Ur Leukocyte Esterase 25 H, Urine RBC 0 SEEN, Urine WBC 0-5 SEEN, Ur Squamous Epith Cells 0 SEEN, Urine Bacteria 0 SEEN, Urine Mucus 0 SEEN Radiology Impression Brain CT 06/30/21 14:33 IMPRESSION: No acute intracranial finding. MRI may be obtained if clinically indicated. Electronically Signed: Derek Lowe MD at 16:01 EDT Reading Location ID and State: [facility] / [place] Tel , Service support , Chest X-Ray 06/30/21 14:33 IMPRESSION: No acute cardiopulmonary process. Electronically Signed: Derek Lowe MD at 15:59 EDT Reading Location ID and State: [facility] / [place] Tel , Service support , Assessment & Plan Assessment/Plan (1) CVA (cerebral vascular accident): (2) Diabetes mellitus, type 2: (3) Hyperlipidemia: (4) Dementia: (5) HTN (hypertension): PLAN: 1. Generalized debility-recent fall at home. Brain CT unremarkable. UA/chest x-ray unremarkable. PT/OT. Case management consult. 2. CVA- history of ASD/PFO. On Coumadin, statin. Will need to discuss risks/benefits of Coumadin given recent fall/debility and patient living alone. Check INR as patient reportedly took 1 dose medications 3. Hypertension- stable, continue ARB. 4. Hyperlipidemia-continue statin. 5. Type 2 diabetes mellitus-on metformin. Accu-Cheks with sliding scale insulin. 6. Dementia, unknown behavioral disturbance history-on donepezil. DVT prophylaxis-Coumadin This patient was seen by DICK Pearce under the supervision of Dr. Jimenez. Time spent examining patient, reviewing data and subsequent management of care: 16 minutes Documented by User: Dr. Leonel Jimenez, 06/30/21 17:53 HPI - General General Date of Admission: 06/30/21 PENDING SALE TO [facility] Medical History (Updated 06/30/21 @ 16:48 by Elana Shirley) Anxiety Borderline diabetes Dementia Depression GERD (gastroesophageal reflux disease) Hearing loss, left Hearing loss, right Non-smoker TIA (transient ischemic attack) Home Medications metformin 500 mg PO DAILY 03/19/16 [History Last Taken 08/29/20] atorvastatin 10 mg PO QHS 11/05/17 [History Last Taken 08/28/20] Centrum Silver Men 1 tab PO DAILY 08/29/20 [History Last Taken 08/29/20] donepezil 10 mg PO QHS 08/29/20 [History Last Taken 08/28/20] omega-3 fatty acids [Fish Oil] 500 mg PO DAILY 06/30/21 [History Last Taken Unknown] valsartan 40 mg PO BID 06/30/21 [History Last Taken Unknown] Allergy/AdvReac Type Severity Reaction Status Date / Time No Known Allergies Allergy Verified 06/30/21 14:01 Family History (Updated 06/30/21 @ 16:39 by Bianca Green NP, [employer]-C) Father No cardiac disease Mother No cardiac disease Surgical History History of hernia repair Social History (Updated 06/30/21 @ 16:40 by Bianca Green NP, [employer]CRE[employer]-C) household members: none Smoking Status: Former smoker alcohol intake: never substance use type: does not use Results Lab / Micro Data Result Diagrams: 06/30/21 14:37 06/30/21 14:37 Charges/Coding Addendum Addendum: Patient was seen and examined independently of Bianca Green, he was brought to the emergency room today at [facility] by his family due to declining ability to perform ADLs at home. Patient has a history of dementia, earlier in the week he fell and struck his left knee, he went to an outside emergency room and had the knee drained of some blood, patient is on chronic Coumadin at home. History was not able to be obtained from the patient due to his underlying dementia. His daughter was in the room at the time of my examination. On examination he appeared in no distress, patient had confusion, he was alert, he answers some simple questions appropriately. Vital signs as documented. Skin warm and dry and without overt rashes. Neck without JVD, neck was supple, trachea midline, thyroid was normal. Lungs clear bilaterally, normal air movement was noted. Heart exam notable for regular rhythm, normal sounds and absence of murmurs, rubs or gallops. Abdomen unremarkable and without evidence of organomegaly, masses, or abdominal aortic enlargement. Bowel sounds are present, abdomen is not distended. Extremities nonedematous, no cyanosis was noted, no clubbing was noted. Neuro: Cranial nerves II through XII are grossly intact, no focal motor deficits were noted, sensation to light touch and pinprick intact, motor exam 5/5 throughout. Psych: Patient is alert, peer to be in any distress, he is confused. Lab obtained in the ER showed an elevated white blood cell count at 12.4, ch emistry profile was remarkable for a glucose of 159, patient's bilirubin was elevated at 1.9, and patient's urinalysis was unremarkable. Patient's chest x- ray showed no acute cardiopulmonary process, CT of the brain revealed an old lacunar infarct in the right basal ganglia, there was suggestion of chronic small vessel ischemic disease noted, there is also mild diffuse parenchymal volume loss. Impression #1 acute debility-exact etiology unclear at this time, patient will be placed in observation status on MedSurg 3, he will be seen by PT and OT, he will most probably need to go to an extended care facility for short-term rehab services. #2 elevated bilirubin-etiology unclear-patient's liver profile will be repeated tomorrow, he may need imaging studies if his bilirubin remains elevated. #3 type 2 diabetes-patient's blood sugars will be monitored via fingerstick checks and sliding scale insulin will be administered #4 [id number] have elected to place the patient on [place], he is currently on Aricept chronically #5 essential hypertension-patient will remain on his home medications #6 cerebrovascular disease-patient is not currently on an aspirin a day, he does take Coumadin however, we are awaiting his INR to come back before start restarting the patient's Coumadin. Patient's daughter states that he is on Coumadin due to his past history of strokes and a history of a PFO. #7 hyperlipidemia-patient is on atorvastatin I have reviewed Bianca Green's history and physical including her medical assessment and plan of care and with the above additions endorse it. Total clinical time spent by myself addressing the patient's medical issues, reviewing the patient's medical data, and collaborating with the patient's care team: 55 minutes Visit Charges OBSV E&M: [id number] Initial observation care L3
[2021-06-30 16:38] VITALS: BMI 26.1
[2021-06-30 16:54] VITALS: BP 112/70; PULSE 74; RESP 18; TEMP 36.9; O2SAT 95
[2021-06-30 17:06] LABS: International Normalized Ratio 1.5; Prothrombin Time (Protime)PT. 17.7 SECONDS (11.7-14.9)
[2021-06-30 21:07] VITALS: BP 112/52; PULSE 77; RESP 18; TEMP 37.7; O2SAT 92
[2021-06-30] MEDS: 0.9% Saline Lock 10 ML Syringe IV (21:09)
[2021-06-30] MEDS: Atorvastatin Calcium 10 MG Tablet PO (21:11)
[2021-06-30] MEDS: Donepezil HCl 10 MG Tablet PO (21:11)
[2021-06-30] MEDS: Memantine Hydrochloride 5 MG Tablet PO (23:27)
[2021-07-01 03:27] VITALS: BP 120/55; PULSE 78; RESP 16; TEMP 37.3; O2SAT 92
[2021-07-01 05:53] LABS: Absolute Lymphocyte Count 0.99 X10^3/uL (0.83-4.51); Absolute Neutrophil Count 8.5 X10^3/uL (2.0-7.7); Basophil# 0.04 X10^3/uL; Basophil% 0.4 % (0-1); Eosinophil# 0.03 X10^3/uL; Eosinophils% 0.3 % (0-5); Lymphocyte # 0.99 X10^3/ul (0.83-4.51); Lymphocyte % 8.9 % (19-41); Mean Corp Hgb Conc 33.3 g/dL (32-36); Mean Corpuscular Hgb 30.9 pg (27.0-32.0); Mean Corpuscular Volume 92.6 fL (80-94); Mean Platelet Vol. 10.4 fl (6.2-12.0); Monocyte# 1.55 X10^3/uL; Monocyte% 13.9 % (0-10); NRBC Flagged by Analyzer 0 % (0-5); Neutrophil # 8.51 X10^3/uL (2.7-7.7); Neutrophil % 76.1 % (47-70); POSITIVE DIFFERENTIAL YES; Platelet Count 178 K/mm3 (150-450); RBC Distribution Width CV 13.2 % (11.6-14.6); RBC Distribution Width SD 44.8 fl (35.1-43.9); Red Blood Count 4.21 M/mm3 (4.6-6.2); White Blood Count 11.2 K/mm3 (4.4-11.0)
[2021-07-01 06:03] LABS: Differential Indicated SCAN CRITERIA MET
[2021-07-01 06:08] LABS: International Normalized Ratio 1.4; Prothrombin Time (Protime)PT. 16.4 SECONDS (11.7-14.9)
[2021-07-01 06:19] LABS: AST(SGOT) 10 U/L (15-37); Alanine Aminotransfer ALT/SGPT 18 U/L (16-61); Albumin, Serum 3.1 g/dL (3.2-5.0); Alkaline Phosphatase 81 U/L (45-117); Bilirubin, Direct 0.37 mg/dL (0.00-0.30); Globulin 4.1 g/dL (2.2-4.2); Protein, Total 7.2 g/dL (6.4-8.2)
[2021-07-01 06:21] LABS: Differential Comment SCANNED
[2021-07-01 07:54] VITALS: BP 125/59; PULSE 82; RESP 16; TEMP 36.7; O2SAT 95
[2021-07-01] MEDS: metFORMIN HCl 500 MG Tablet PO (08:05)
[2021-07-01] MEDS: Memantine Hydrochloride 5 MG Tablet PO ×2 (10:08→21:28)
[2021-07-01] MEDS: Losartan Potassium 25 MG Tablet PO (10:08)
--- NOTE | 2021-07-01 11:18 | PN.HOSP_ITS ---
Documented by User: Bianca Green CASHIER TICKET SELLING, CASHIER TICKET SELLING-C 07/01/21 11:23 Subjective Subjective Patient seen and examined. No acute events overnight per patient and nursing report. Confusion at baseline with dementia. Denies specific symptoms or complaints. Objective Data Objective Data Vital Signs: Vital Signs Temp Pulse Resp BP Pulse Ox 98.1 F 82 16 125/59 H 95 07/01/21 07:54 07/01/21 07:54 07/01/21 07:54 07/01/21 07:54 07/01/21 07:54 Oxygen Delivery Method Room Air Weight: 169 lb 6 oz Body Mass Index (BMI) 26.1 Intake & Output: Intake and Output for Last 24 Hours 06/29/21 06/30/21 07/01/21 23:59 23:59 23:59 Intake Total 300 / 300 200 / 200 Output Total 500 / 500 Balance 300 / 300 -300 / -300 Lab / Micro Data Result Diagrams: 07/01/21 05:33 06/30/21 14:37 Labs: Laboratory Results - last 24 hr 06/30/21 14:37: WBC 12.4 H, RBC 4.56 L, Hgb 13.9, Hct 42.3, MCV 92.8, MCH 30.5, MCHC 32.9, RDW Std Deviation 45.5 H, RDW Coeff of Claudia 13.3, Plt Count 212, MPV 10.2, Immature Gran % (Auto) 0.300, Neut % (Auto) 69.5, Lymph % (Auto) 12.9 L, [place] % (Auto) 16.7 H, Eos % (Auto) 0.2, Baso % (Auto) 0.4, Absolute Neuts (auto) 8.6 H, Absolute Lymphs (auto) 1.60, Nucleated RBC % 0, Differential Comment SCANNED, Diff Path Review July06/30/21 14:37: Sodium 135 L, Potassium 4.2, Chloride 103, Carbon Dioxide 25.0, Anion Gap 7, BUN 17, Creatinine 1.03, Estim Creat Clear Calc 61.74, Est GFR (MDRD) Af Amer 89, Est GFR (MDRD) Non-Af 74, BUN/Creatinine Ratio 16.5, Glucose 159 H, Calcium 8.8, Total Bilirubin 1.90 H, AST 22, ALT 25, Alkaline Phosphatase 86, Troponin I High Sens < 3 L, Total Protein 7.9, Albumin 3.6, Globulin 4.3 H, Albumin/Globulin Ratio 0.8 L 06/30/21 14:37: PT 17.7 H, INR 1.5 06/30/21 16:10: Urine Color Yellow, Urine Clarity Clear, Urine pH 5.0, Ur Specific Carpenter 1.020, Urine Protein 15 H, Urine Glucose (UA) 50 H, Urine Ketones 5 H, Urine Occult Blood 10 H, Urine Nitrite Negative, Urine Bilirubin Negative, Urine Urobilinogen 1 H, Ur Leukocyte Esterase 25 H, Urine RBC 0 SEEN, Urine WBC 0-5 SEEN, Ur Squamous Epith Cells 0 SEEN, Urine Bacteria 0 SEEN, Urine Mucus 0 SEEN 07/01/21 05:33: WBC 11.2 H, RBC 4.21 L, Hgb 13.0, Hct 39.0 L, MCV 92.6, MCH 30.9, MCHC 33.3, RDW Std Deviation 44.8 H, RDW Coeff of Claudia 13.2, Plt Count 178, MPV 10.4, Immature Gran % (Auto) 0.400, Neut % (Auto) 76.1 H, Lymph % (Auto) 8.9 L, [place] % (Auto) 13.9 H, Eos % (Auto) 0.3, Baso % (Auto) 0.4, Absolute Neuts (auto) 8.5 H, Absolute Lymphs (auto) 0.99, Nucleated RBC % 0, Differential Comment SCANNED, Diff Path Review July07/01/21 05:33: Total Bilirubin 1.20 H, Direct Bilirubin 0.37 H, AST 10 L, ALT 18, Alkaline Phosphatase 81, Total Protein 7.2, Albumin 3.1 L, Globulin 4.1 07/01/21 05:33: PT 16.4 H, INR 1.4 Radiography Diagnostic Testing: Radiology Impression Brain CT 06/30/21 14:33 IMPRESSION: No acute intracranial finding. MRI may be obtained if clinically indicated. Electronically Signed: Derek oLwe MD at 16:01 EDT , Chest X-Ray 06/30/21 14:33 IMPRESSION: No acute cardiopulmonary process. Electronically Signed: Derek Lowe MD at 15:59 EDT , Physical Exam Const alert Orientation / Consciousness: awake and oriented to person HEENT normocephalic and moist oral mucous membranes Eyes PERRL, EOMs intact bilaterally and conjunctivae normal Neck no lymphadenopathy Resp normal respiratory effort and clear to auscultation bilaterally Cardio regular rate, regular rhythm and no murmurs Peripheral Pulses: pulses 2+ throughout GI normal to inspection, nondistended, normoactive bowel sounds, non-tender and non-distended Extremity normal to inspection General Extremity: edema left lower extremity mild Skin no rashes or lesions noted Lesions: no lesions Rashes: no rashes Trauma: no lacerations or abrasions Neuro CN's II-XII intact bilaterally, no focal motor deficits, no sensory deficits noted and deep tendon reflexes 2+ bilaterally Psych mental status grossly normal and affect normal Assessment & Plan Assessment/Plan (1) General weakness: (2) Debility: PLAN: 1. Generalized debility-recent fall at home. Brain CT unremarkable. UA/chest x-ray unremarkable. PT/OT. Case management consult. 2. CVA- history of ASD/PFO. On Coumadin, statin. Will need to discuss risks/benefits of Coumadin given recent fall/debility and patient living alone. INR 1.4. 3. Hypertension- stable, continue ARB. 4. Hyperlipidemia-continue statin. 5. Type 2 diabetes mellitus-on metformin. Accu-Cheks with sliding scale insulin. 6. Dementia, unknown behavioral disturbance history-on donepezil. Namenda added. DVT prophylaxis-Coumadin This patient was seen by DICK Pearce under the supervision of Dr. Walker. Discharge planning: Await PT recommendations, will likely need at least temporary placement. Time spent examining patient, reviewing data and subsequent management of care: 12 minutes Documented by User: Dr. Ulises Walker DO 07/01/21 11:51 Subjective Subjective Denies complaints. Wants to take a nap. Objective Data Lab / Micro Data Result Diagrams: 07/01/21 05:33 06/30/21 14:37 Physical Exam Const alert and no apparent distress Constitutional Narrative: oriented to self and place. Month was April and he did not want to guess year. Resp normal respiratory effort, no retractions, no use of accessory muscles and clear to auscultation bilaterally Cardio regular rate, regular rhythm, S1 normal heart sound and S2 normal heart sound GI normal to inspection, nondistended, normoactive bowel sounds, soft to palpation, non-tender and non-distended Extremity normal to inspection and full ROM Assessment & Plan Assessment/Plan (1) Debility: PLAN: Patient seen and examined independently. Data and vitals reviewed. I agree with the above note by the nurse practitioner. 1. Debility PT OT evaluate and treat. Case management to assist case patient requires detention facility. 2. Dementia Present at baseline. Complicates care and recovery 3. History of stroke History of ASD/PFO On warfarin at baseline INR subtherapuetic at 1.4 continue warfarin Time reviewing data, examining patient 20 minutes. Charges/Coding Visit Charges OBSV E&M: 94511 Subsequent observation care L2
--- NOTE | 2021-07-01 12:46 | CASEMGMT ---
Social Work SW met with pt and daughter Dorothy to discuss discharge plan. Pt lives at home alone. Daughter and Granddaughter live close and monitor pt on baby monitors but pt is home alone most of the time. Dgt realistic that pt is declining as far as dementia goes and pt has required 3 people to help him out of his chair at home recently. SW spoke with Dorothy regarding short term SNF placement for rehab but also about possible need to consider intermodal truck driver placement in [place] or [place]. SW provided list of SNF providers including quality and resource use data and consistent with the patient's preferred geographic region, medical needs and insurance network. Dorothy is agreeable to short term SNF but would like to review list and speak to her 4 brothers prior to making decision. SW requested Dorothy let SW know later this afternoon of choice as precert will need obtained. Plan: SNF, family making choice [facility]
[2021-07-01 13:31] LABS: Pathologist Review Reviewed
[2021-07-01 13:33] LABS: Pathologist Review Reviewed
--- NOTE | 2021-07-01 14:02 | CHAPLAIN ---
Type of Pastoral Visit _x__ Initial Visit ___ Follow-up Visit ___ On-call Visit ___ General Patient Visit ___ Spiritual Assessment ___ Family Conference ___ Bereavement ___ Rapid Response ___ Code Blue ___ Other (describe below) Pastoral Care Referral From _x__ Patient ___ Family ___ Nurse ___ Physician ___ Oracle Erp Developer ___ Director Of Laboratory Operations ___ Other (describe below) Sacrament/Intervention _x__ Active listening ___ Anointing ___ Gnosticism ___ Bereavement ___ Communion ___ Lita exploration ___ ___ Life review _x__ Prayer ___ Reconciliation ___ Sacrament of Sick _x__ Supportive presence ___ Wedding ___ Other (describe below) Pastoral Comments patient is welcoming but apparently at times he may not be grasping what situation or topic is; pt repeats about his body not moving well and that he hopes to run 10 miles again someday; pt states he is not sure why his legs don't work now but I think I'll get it back and can work;
[2021-07-01 14:16] VITALS: BP 122/61; PULSE 91; RESP 16; TEMP 36.8; O2SAT 95
--- NOTE | 2021-07-01 15:24 | CASEMGMT ---
ILIANA BETH made tc to pt dtr Dorothy Damon to discuss ZELAYA form. ILIANA BETH explained ZELAYA form, patient dtr voiced understanding. Pt dtr gave verbal consent for signature on form. Conversation witnessed by Kylee BROWN. Pt provided with a copy of signed ZELAYA form in room. Patient dtr had no further questions or concerns at this time.
--- NOTE | 2021-07-01 15:28 | CASEMGMT ---
Social Work SW spoke with pt dgt Dorothy who states preferred SNF is [facility]. Phone call to Francine in [facility] and they are able to accept pt. Andriyert to be started at this time. Dorothy updated and agreeable. Plan: TCU, pending [facility]
[2021-07-01] MEDS: Acetaminophen 325 MG Tablet 650 MG PO (17:39)
[2021-07-01] MEDS: Atorvastatin Calcium 10 MG Tablet PO (21:28)
[2021-07-01] MEDS: Donepezil HCl 10 MG Tablet PO (21:28)
[2021-07-01 21:31] VITALS: BP 115/59; PULSE 66; RESP 16; TEMP 36.8; O2SAT 95
[2021-07-02] MEDS: Acetaminophen 325 MG Tablet 650 MG PO (02:31)
[2021-07-02 02:39] VITALS: BP 96/73; PULSE 72; RESP 18; TEMP 36.6; O2SAT 98
[2021-07-02 06:19] LABS: Absolute Lymphocyte Count 1.61 X10^3/uL (0.83-4.51); Absolute Neutrophil Count 6.6 X10^3/uL (2.0-7.7); Basophil# 0.03 X10^3/uL; Basophil% 0.3 % (0-1); Eosinophil# 0.08 X10^3/uL; Eosinophils% 0.8 % (0-5); Hematocrit 40.3 % (40-54); Hemoglobin 13.2 g/dL (13.0-16.5); Lymphocyte # 1.61 X10^3/ul (0.83-4.51); Lymphocyte % 16.5 % (19-41); Mean Corp Hgb Conc 32.8 g/dL (32-36); Mean Corpuscular Hgb 30.2 pg (27.0-32.0); Mean Corpuscular Volume 92.2 fL (80-94); Mean Platelet Vol. 10.2 fl (6.2-12.0); Monocyte# 1.37 X10^3/uL; NRBC Flagged by Analyzer 0 % (0-5); Neutrophil # 6.62 X10^3/uL (2.7-7.7); Neutrophil % 67.8 % (47-70); Platelet Count 235 K/mm3 (150-450); RBC Distribution Width CV 13.1 % (11.6-14.6); RBC Distribution Width SD 44.7 fl (35.1-43.9); Red Blood Count 4.37 M/mm3 (4.6-6.2); White Blood Count 9.8 K/mm3 (4.4-11.0)
[2021-07-02 07:00] LABS: ALB/GLOB Ratio 0.7 RATIO (0.9-2.4); AST(SGOT) 10 U/L (15-37); Alanine Aminotransfer ALT/SGPT 17 U/L (16-61); Alkaline Phosphatase 86 U/L (45-117); Anion Gap 8 (5-15); BUN 16 mg/dL (7-18); BUN/Creat Ratio 19.5 RATIO (10-20); Calcium,Total 8.6 mg/dL (8.5-10.1); Chloride 103 mmol/L (98-107); Creatinine, Serum 0.82 mg/dL (0.70-1.30); EST Glomerular Filtration Rate 96 mL/min (>60); Est Glom Filt Rate - Afr Amer 116 mL/min (>60); Estimated Creatinine Clearance 66.06 ml/min; Globulin 4.3 g/dL (2.2-4.2); Glucose 174 mg/dL (74-106); Potassium 3.6 mmol/L (3.5-5.1); Protein, Total 7.3 g/dL (6.4-8.2); Sodium Level 135 mmol/L (136-145)
[2021-07-02 07:51] VITALS: BP 116/68; PULSE 68; RESP 16; TEMP 36.7; O2SAT 98
[2021-07-02] MEDS: metFORMIN HCl 500 MG Tablet PO (07:57)
--- NOTE | 2021-07-02 09:30 | TREXTCAR_ITS ---
Documented by User: Bianca Green NP, EPOXY FABRICATION SUPERVISOR-C 07/02/21 09:50 Diet 06/30/21 17:21 Diet: Consistent Carb - Calorie Controlled Food consistency:: Regular Liquid Consistency:: Regular/Thin How many daily calories?: 2000 calorie Routine Orders/Code Status Enema Type: Fleetz Enema Frequency: Daily PRN Suppository Type: Dulcolax 10mg Suppository Frequency: Daily PRN Routine Lab Work: - (Weekly CBC, BMP, INR) Code Status: Full Code Suggestions for Active Care Change Position every (hours): 2 Times a day to sit in chair: 3 Therapies Physical Therapy: Eval and Treat Occupational Therapy: Eval and Treat Problem/Diagnosis (1) Debility: Status: Acute Allergies/Procedures Done in Hospital Allergies No Known Allergies Allergy (Verified 06/30/21 14:01) Procedures: None Type of Care/Length of Stay Estimated LOS: Convalescent Care Less Than 30 days Type of Care Needed: Skilled Rehab Potential: Fair Prognosis: Fair Additional Orders/Day of Discharge H&P will serve as current which was dated: 06/30/21 Day of Discharge: 07/02/21 Discharge Plan Admission Admit Date/Time: 06/30/21 16:44 Primary Reason for Your Visit: Debility Attending Provider: Ulises Walker Primary Care Provider: Bharathi Kolb Discharge Orders/Prescriptions Prescriptions: New memantine 5 mg Tablet 5 mg PO BID Qty: 0 RF: 0 warfarin [Jantoven] 3 mg Tablet 3 mg PO DINNER Qty: 0 RF: 0 Continued metformin 500 MG tablet 500 mg PO DAILY RF: 0 atorvastatin 20 MG tablet 10 mg PO QHS RF: 0 donepezil 10 mg Tablet 10 mg PO QHS RF: 0 Centrum Silver Men 300-600-300 mcg Tablet 1 tab PO DAILY RF: 0 valsartan 40 mg Tablet 40 mg PO BID RF: 0 omega-3 fatty acids Capsule 500 mg PO DAILY RF: 0 Referrals / Follow Up: Bharathi Kolb MD [Primary Care Provider] - In 1 Week Disposition Disposition (needs filled in before D/C Order can be placed): Intermediate Facility Documented by User: Dr. Ulises Walker DO 07/02/21 10:30 Allergies/Procedures Done in Hospital Allergies No Known Allergies Allergy (Verified 06/30/21 14:01) Discharge Plan Admission Admit Date/Time: 06/30/21 16:44 Primary Reason for Your Visit: Debility Attending Provider: Ulises Walker Primary Care Provider: Bharathi Klob Discharge Orders/Prescriptions Prescriptions: New memantine 5 mg Tablet 5 mg PO BID Qty: 0 RF: 0 warfarin [Jantoven] 3 mg Tablet 3 mg PO DINNER Qty: 0 RF: 0 Continued metformin 500 MG tablet 500 mg PO DAILY RF: 0 atorvastatin 20 MG tablet 10 mg PO QHS RF: 0 donepezil 10 mg Tablet 10 mg PO QHS RF: 0 Centrum Silver Men 300-600-300 mcg Tablet 1 tab PO DAILY RF: 0 valsartan 40 mg Tablet 40 mg PO BID RF: 0 omega-3 fatty acids Capsule 500 mg PO DAILY RF: 0 Referrals / Follow Up: Bharathi Kolb MD [Primary Care Provider] - In 1 Week Disposition Disposition (needs filled in before D/C Order can be placed): Intermediate Facility
--- NOTE | 2021-07-02 09:51 | PCM.DC.SUM ---
Documented by User: Bianca Green NP, MANAGER CLINICAL INFORMATICS-C 07/02/21 10:03 Providers Date of Admission: 06/30/21 Date of Discharge: 07/02/21 Primary Care Physician: Dr. Bharathi Kolb MD Reason For Visit: DEBILITY Diagnosis Discharge Diagnosis (1) Debility: Status: Acute Code(s): R53.81 - Other malaise Medications at Discharge Home Medications metformin 500 mg PO DAILY 03/19/16 atorvastatin 10 mg PO QHS 11/05/17 Centrum Silver Men 1 tab PO DAILY 08/29/20 donepezil 10 mg PO QHS 08/29/20 omega-3 fatty acids 500 mg PO DAILY 06/30/21 valsartan 40 mg PO BID 06/30/21 memantine 5 mg PO BID #0 tab 07/02/21 warfarin [Jantoven] 3 mg PO DINNER #0 tab 07/02/21 Hospital Course Operations None Procedures None Summary of Care Provided Hospital Course: Patient is an 81-year-old male admitted 06/30/21 due to debility. 1. Generalized debility-recent fall at home. Brain CT unremarkable. UA/chest x-ray unremarkable. TCU for rehab. Follow up with PCP at [facility]. 2. CVA- history of ASD/PFO. On Coumadin, statin. Will need to discuss risks/benefits of Coumadin given recent fall/debility and patient living alone. Follow up with PCP/primary bond writer at discharge to discuss coumadin. 3. Hypertension- stable, continue ARB. 4. Hyperlipidemia-continue statin. 5. Type 2 diabetes mellitus-on metformin. 6. Dementia, unknown behavioral disturbance history-on donepezil. Namenda added. Physical Exam Const alert Orientation / Consciousness: awake and oriented to person, place and time HEENT normocephalic and moist oral mucous membranes Eyes PERRL, EOMs intact bilaterally and conjunctivae normal Neck no lymphadenopathy Resp normal respiratory effort and clear to auscultation bilaterally Cardio regular rate, regular rhythm and no murmurs Peripheral Pulses: pulses 2+ throughout GI normal to inspection, nondistended, normoactive bowel sounds, non-tender and non-distended Extremity normal to inspection General Extremity: edema left lower extremity mild Skin no rashes or lesions noted Lesions: no lesions Rashes: no rashes Trauma: no lacerations or abrasions Neuro CN's II-XII intact bilaterally, no focal motor deficits, no sensory deficits noted and deep tendon reflexes 2+ bilaterally Psych mental status grossly normal and affect normal Patient seen and examined prior to discharge. Physical assessment as noted above. Patient is stable for discharge with follow up recommendations as noted above. This patient was seen by DICK Pearce under the supervision of Dr. Walker. Time spent examining patient, reviewing data and subsequent management of care: 16 minutes Weight / BMI Weight Weight: 169 lb 6 oz Body Mass Index (BMI) 26.1 ABG / Lab / Microbiology Data Result Diagrams: 07/02/21 05:55 07/02/21 05:55 Laboratory: Laboratory Results - last 24 hr 06/30/21 14:37: Diff Path Review Reviewed 07/01/21 05:33: Diff Path Review Reviewed 07/02/21 05:55: WBC 9.8, RBC 4.37 L, Hgb 13.2, Hct 40.3, MCV 92.2, MCH 30.2, MCHC 32.8, RDW Std Deviation 44.7 H, RDW Coeff of Claudia 13.1, Plt Count 235, MPV 10.2, Immature Gran % (Auto) 0.600, Neut % (Auto) 67.8, Lymph % (Auto) 16.5 L, Sunflower % (Auto) 14.0 H, Eos % (Auto) 0.8, Baso % (Auto) 0.3, Absolute Neuts (auto) 6.6, Absolute Lymphs (auto) 1.61, Nucleated RBC % 0 07/02/21 05:55: Sodium 135 L, Potassium 3.6, Chloride 103, Carbon Dioxide 24.0, Anion Gap 8, BUN 16, Creatinine 0.82, Estim Creat Clear Calc 66.06, Est GFR (MDRD) Af Amer 116, Est GFR (MDRD) Non-Af 96, BUN/Creatinine Ratio 19.5, Glucose 174 H, Calcium 8.6, Total Bilirubin 1.20 H, AST 10 L, ALT 17, Alkaline Phosphatase 86, Total Protein 7.3, Albumin 3.0 L, Globulin 4.3 H, Albumin/Globulin Ratio 0.7 L Meaningful Use Info Meaningful Use Diagnoses (Choose all that apply): None applicable Discharge Plan Admission Admit Date/Time: 06/30/21 16:44 Primary Reason for Your Visit: Debility Attending Provider: Ulises Walker Primary Care Provider: Bharathi Kolb Discharge Orders/Prescriptions Prescriptions: New memantine 5 mg Tablet 5 mg PO BID Qty: 0 RF: 0 warfarin [Jantoven] 3 mg Tablet 3 mg PO DINNER Qty: 0 RF: 0 Continued metformin 500 MG tablet 500 mg PO DAILY RF: 0 atorvastatin 20 MG tablet 10 mg PO QHS RF: 0 donepezil 10 mg Tablet 10 mg PO QHS RF: 0 Centrum Silver Men 300-600-300 mcg Tablet 1 tab PO DAILY RF: 0 valsartan 40 mg Tablet 40 mg PO BID RF: 0 omega-3 fatty acids Capsule 500 mg PO DAILY RF: 0 Referrals / Follow Up: Bharathi Kolb MD [Primary Care Provider] - In 1 Week Disposition Disposition (needs filled in before D/C Order can be placed): Longterm Facility Documented by User: Dr. Ulises Walker DO 07/02/21 10:29 Providers Date of Admission: 06/30/21 Reason For Visit: DEBILITY Medications at Discharge Home Medications metformin 500 mg PO DAILY 03/19/16 atorvastatin 10 mg PO QHS 11/05/17 Centrum Silver Men 1 tab PO DAILY 08/29/20 donepezil 10 mg PO QHS 08/29/20 omega-3 fatty acids 500 mg PO DAILY 06/30/21 valsartan 40 mg PO BID 06/30/21 memantine 5 mg PO BID #0 tab 07/02/21 warfarin [Jantoven] 3 mg PO DINNER #0 tab 07/02/21 Hospital Course Operations None Procedures None Summary of Care Provided Minutes Spent on Discharge: 20 Hospital Course: Patient seen and examined independently. Data and vitals reviewed. I agree with the above note by the nurse practitioner. 1. Debility PT OT evaluate and treat. Pt to go to TCU 2. Dementia Present at baseline. Complicates care and recovery 3. History of stroke History of ASD/PFO On warfarin at baseline INR subtherapuetic at 1.4 continue warfarin Physical Exam Const alert and no apparent distress Resp normal respiratory effort, no retractions, no use of accessory muscles and clear to auscultation bilaterally Cardio regular rate, regular rhythm, S1 normal heart sound and S2 normal heart sound GI normal to inspection, nondistended, normoactive bowel sounds and soft to palpation ABG / Lab / Microbiology Data Result Diagrams: 07/02/21 05:55 07/02/21 05:55 Discharge Plan Admission Admit Date/Time: 06/30/21 16:44 Primary Reason for Your Visit: Debility Attending Provider: Ulises Walker Primary Care Provider: Bharathi Kolb Discharge Orders/Prescriptions Prescriptions: New memantine 5 mg Tablet 5 mg PO BID Qty: 0 RF: 0 warfarin [Jantoven] 3 mg Tablet 3 mg PO DINNER Qty: 0 RF: 0 Continued metformin 500 MG tablet 500 mg PO DAILY RF: 0 atorvastatin 20 MG tablet 10 mg PO QHS RF: 0 donepezil 10 mg Tablet 10 mg PO QHS RF: 0 Centrum Silver Men 300-600-300 mcg Tablet 1 tab PO DAILY RF: 0 valsartan 40 mg Tablet 40 mg PO BID RF: 0 omega-3 fatty acids Capsule 500 mg PO DAILY RF: 0 Referrals / Follow Up: Bharathi Kolb MD [Primary Care Provider] - In 1 Week Disposition Disposition (needs filled in before D/C Order can be placed): Longterm Facility Charges/Coding Visit Charges OBSV E&M: 06013 Observation care discharge
[2021-07-02] MEDS: Losartan Potassium 25 MG Tablet PO (09:53)
[2021-07-02] MEDS: Memantine Hydrochloride 5 MG Tablet PO (09:53)
--- NOTE | 2021-07-02 10:14 | PHA.DC.MR ---
Pharmacy Service has performed discharge medication reconciliation for this patient. The patient's discharge medication list was reviewed for discrepancies and discrepancies were resolved. Spoke with Kailey Green regarding warfarin and subtherapeutic INR. Bridge not needed. Taking for PFO and history of stroke with recurrent falls at home. Follow-up with PCP. Home Medications metformin 500 mg PO DAILY 03/19/16 atorvastatin 10 mg PO QHS 11/05/17 Centrum Silver Men 1 tab PO DAILY 08/29/20 donepezil 10 mg PO QHS 08/29/20 omega-3 fatty acids 500 mg PO DAILY 06/30/21 valsartan 40 mg PO BID 06/30/21 memantine 5 mg PO BID #0 tab 07/02/21 warfarin [Jantoven] 3 mg PO DINNER #0 tab 07/02/21
--- NOTE | 2021-07-02 10:50 | CASEMGMT ---
Social Work Note SANDY received call from Francine with TCU. Pre-cert was obtained, pt can discharge to TCU today. SANDY updated PA. SANDY in to speak with pt and pt's daughter Dorothy. SANDY introduced self and role at [facility]. SANDY updated pt and Dorothy that approval was obtained for TCU and pt will discharge to TCU today. Dorothy states understanding. Plan: TCU skilled today Yola Cardona ULTRASONIC SOLDERER, HARD CANDY SPINNER
[2021-07-02 12:49] VITALS: BP 127/69; PULSE 72; RESP 16; TEMP 36.8; O2SAT 95
[2021-07-02 13:24] LABS: International Normalized Ratio 1.5; Prothrombin Time (Protime)PT. 17.4 SECONDS (11.7-14.9)
== END 2021-07-02 13:40 | disposition skilled nursing facility (03) ==
LOC: ED 16:08 → MS3 16:28
PROVIDERS: Nurse Practitioner Family; Admitting Provider Internal Medicine; Emergency Provider Emergency Medicine; PCP Family Medicine
DX: R53.81 Other malaise (principal); F03.90 Unspecified dementia, unspecified severity, without behavioral disturbance, psychotic disturbance, mood disturbance, and anxiety; E11.9 Type 2 diabetes mellitus without complications; Z87.891 Personal history of nicotine dependence; I10 Essential (primary) hypertension; Z79.01 Long term (current) use of anticoagulants; M54.9 Dorsalgia, unspecified; Z79.84 Long term (current) use of oral hypoglycemic drugs; E78.5 Hyperlipidemia, unspecified; I45.10 Unspecified right bundle-branch block; Z79.899 Other long term (current) drug therapy; M25.562 Pain in left knee
CPT/HCPCS: 36415; 70450; 71045; 80053; 80076; 81001; 84484; 85025; 85610; 87426; 93005; 96374; 97110; 97162; 97166; 97530; 97535; 99218; 99284; A4216; G0378

== ENCOUNTER 2021-07-02 13:50 | Inpatient (IN) | payer MEDICARE, SELFPAY ==
[2021-07-02 13:59] VITALS: BP 131/71; PULSE 88; RESP 14; TEMP 36.4; O2SAT 93; BMI 26.4
[2021-07-02] MEDS: Memantine Hydrochloride 5 MG Tablet PO (18:00)
[2021-07-02] MEDS: Acetaminophen 500 MG Tablet 1000 MG PO (18:03)
--- NOTE | 2021-07-02 18:18 | NURSING ---
pt's granddaughter her visiting. dr. arauz just in to see. pt with increased confusion and telling family that if they think that wants me to lift that 100lb feed bag hes got another thing coming. he cant lift that either. tylenol given for back pain.
--- NOTE | 2021-07-02 18:56 | PCM.HP.STD ---
HPI - General General Date of Admission: 07/02/21 HPI Narrative 06/30/2021 CORIE KILGORE, is a 81 Male who presents to [facility] with weakness. Weakness, left knee pain, back pain, worse x few days. [facility] ER yesterday, knee aspirated, felt better, sent home. Difficulty standing, walking, back pain worse with standing, walking. Weak in both arms, legs, unable to lift coffee cup. Reglan, Toradol given. EKG okay, Chest X-ray okay, CT brain okay, Urinalysis negative. 06/30/2021 Admit to Hospital. PT/OT for debility On coumadin for history of stroke. 07/01/2021 Baseline confusion. Namenda added for Alzheimer Disease. 07/02/2021 Admit to TCU with debility, here for rehabilitation, strengthening, prior to disposition determination. [facility] Medical History Anxiety Borderline diabetes Dementia Depression GERD (gastroesophageal reflux disease) Hearing loss, left Hearing loss, right Non-smoker TIA (transient ischemic attack) Home Medications metformin 500 mg PO DAILY 03/19/16 [History Last Taken 08/29/20] atorvastatin 10 mg PO QHS 11/05/17 [History Last Taken 08/28/20] Centrum Silver Men 1 tab PO DAILY 08/29/20 [History Last Taken 08/29/20] donepezil 10 mg PO QHS 08/29/20 [History Last Taken 08/28/20] omega-3 fatty acids 500 mg PO DAILY 06/30/21 [History Last Taken Unknown] valsartan 40 mg PO BID 06/30/21 [History Last Taken Unknown] memantine 5 mg PO BID #0 tab 07/02/21 [Rx Last Taken Unknown] warfarin [Jantoven] 3 mg PO DINNER #0 tab 07/02/21 [Rx Last Taken Unknown] Allergy/AdvReac Type Severity Reaction Status Date / Time No Known Allergies Allergy Verified 06/30/21 14:01 Family History Father No cardiac disease Mother No cardiac disease Surgical History History of hernia repair Social History household members: none Smoking Status: Former smoker alcohol intake: never substance use type: does not use ROS Constitutional Constitutional: Denies chills, fever(s) or weight gain ENT HEENT: Denies headache(s), nasal congestion or nasal discharge Cardiovascular Cardiovascular: Denies chest pain or palpitations Respiratory/Chest Respiratory/Chest: Denies cough, excessive phlegm production or shortness of breath with exertion Gastrointestinal Gastrointestinal: Denies abdominal pain, nausea or vomiting Genitourinary Genitourinary: Denies dysuria Musculoskeletal Musculoskeletal: Denies joint pain or joint swelling Integumentary Integumentary: Denies rash or wounds Neurologic Neurologic: Denies focal weakness, numbness or tingling Psychiatric Psychiatric: Denies anxiety, auditory hallucinations, depression, homicidal ideation or suicidal ideation Vital Signs Vital Signs Vital Signs: 07/02/21 13:59 Temperature 97.5 F L Temperature Source Temporal Pulse Rate 88 Pulse Rhythm Regular Pulse Strength Normal (2+) Respiratory Rate 14 Respiratory Effort Normal Non-Labored Respiratory Depth Normal Respiratory Pattern Normal Blood Pressure 131/71 H Blood Pressure Mean 91 Blood Pressure Source Monitor Blood Pressure Position Semi-Fowlers Blood Pressure Location Right Arm Pulse Ox 93 Oxygen Delivery Method Room Air Weight Weight: 77.734 kg Body Mass Index (BMI) 26.4 Physical Exam Const alert General Appearance: cooperative HEENT normocephalic Eyes PERRL and EOMs intact bilaterally Neck supple, no JVD and no carotid bruits Resp normal respiratory effort, normal air movement and clear to auscultation bilaterally Cardio regular rate and regular rhythm GI normal to inspection, nondistended, normoactive bowel sounds, non-tender and non-distended Extremity normal capillary refill General Extremity: Negative for edema Skin no rashes or lesions noted General Skin Exam: no breakdown Psych affect normal Appearance: appropriate Assessment & Plan Assessment/Plan (1) Debility: (2) Left knee pain: (3) Low back pain: (4) HTN (hypertension): (5) CVA (cerebral vascular accident): (6) Hyperlipidemia: (7) Diabetes mellitus, type 2: (8) Alzheimer disease: PLAN: 81 year old male with below past medical history hospitalized for weakness, complicated by Alzheimer Disease, admitted to TCU with debility, here for rehabilitation, strengthening, prior to disposition determination. Debility - PT/OT. Pain - Tylenol 1000mg q6h prn pain (1-3), Tramadol 50mg q6h prn pain (4-5), Oxycodone 5mg q4h prn pain (6-10). Bowel - Miralax 17gm daily, Senna/colace 1 tablet bid, Dulcolax 10mg daily prn. Adult immunization - Administer pneumonia vaccine, flu vaccine, covid19 vaccine. DVT prophylaxis - Not necessary, on warfarin. Hyperlipidemia - Atorvastatin 10mg qhs. Alzheimer Disease - Donepezil 10mg qhs, Memantine 5mg bid. Hypertension - Losartan 25mg daily. Diabetes Mellitus II - Metformin 500mg daily. Nutrition - MVI daily. Stroke - Warfarin 3mg daily, monitor INR. Low back pain - X-ray LS spine.
[2021-07-02] MEDS: Senna/Docusate Sodium 1 Tablet PO (20:34)
[2021-07-02] MEDS: Atorvastatin Calcium 10 MG Tablet PO (20:35)
[2021-07-02] MEDS: Donepezil HCl 10 MG Tablet PO (20:35)
--- NOTE | 2021-07-02 21:20 | RAD_ITS ---
EXAM: XR LUMBOSACRAL SPINE, 4 OR 5 VIEWS CLINICAL INDICATION: Back pain after fall. TECHNIQUE: Frontal, lateral and bilateral oblique views of the lumbar spine. This report was created using [employer] report viaCycle technology. COMPARISON: None. FINDINGS: VERTEBRAE: Multilevel mild anterior spondylosis. The usual lordotic curvature is well-maintained. No fracture or subluxation. No significant facet arthropathy. DISC SPACES: No acute findings. Disc spaces are maintained. SOFT TISSUES: Right upper quadrant surgical clips. GASTROINTESTINAL TRACT: Prominent bowel contents, especially gas. The transverse spinous processes are not optimally demonstrated. OTHER FINDINGS: Bilateral hip joints are included. RAD/L/S Spine Min 4 Views IMPRESSION: No acute findings in the lumbar spine. Prominent bowel gas and suboptimal visualization of transverse spinous processes. Electronically Signed: Sophie Luciano MD at 4:11 EDT ,
[2021-07-02] MEDS: traMADol 50 MG Tablet PO (21:43)
[2021-07-03 05:00] VITALS: BP 111/65; PULSE 70
[2021-07-03] MEDS: Senna/Docusate Sodium 1 Tablet PO ×2 (05:09→18:20)
[2021-07-03] MEDS: Polyethylene Glycol 3350 17 GM PACKET PO (05:09)
[2021-07-03] MEDS: Losartan Potassium 25 MG Tablet PO (05:10)
[2021-07-03] MEDS: Memantine Hydrochloride 5 MG Tablet PO ×2 (05:10→18:20)
[2021-07-03 05:50] LABS: Absolute Lymphocyte Count 0.95 X10^3/uL (0.83-4.51); Absolute Neutrophil Count 5.1 X10^3/uL (2.0-7.7); Basophil# 0.03 X10^3/uL; Basophil% 0.4 % (0-1); Eosinophil# 0.11 X10^3/uL; Eosinophils% 1.5 % (0-5); Hematocrit 37.2 % (40-54); Hemoglobin 12.4 g/dL (13.0-16.5); Lymphocyte # 0.95 X10^3/ul (0.83-4.51); Lymphocyte % 13.1 % (19-41); Mean Corp Hgb Conc 33.3 g/dL (32-36); Mean Corpuscular Hgb 30.5 pg (27.0-32.0); Mean Corpuscular Volume 91.6 fL (80-94); Mean Platelet Vol. 10.2 fl (6.2-12.0); Monocyte# 0.97 X10^3/uL; Monocyte% 13.4 % (0-10); NRBC Flagged by Analyzer 0 % (0-5); Neutrophil # 5.14 X10^3/uL (2.7-7.7); Neutrophil % 70.9 % (47-70); Platelet Count 254 K/mm3 (150-450); RBC Distribution Width CV 13.2 % (11.6-14.6); RBC Distribution Width SD 44.6 fl (35.1-43.9); Red Blood Count 4.06 M/mm3 (4.6-6.2); White Blood Count 7.3 K/mm3 (4.4-11.0)
[2021-07-03 06:20] LABS: Bedside Glucose 183 mg/dL (74-106)
[2021-07-03 06:23] LABS: International Normalized Ratio 1.6; Prothrombin Time (Protime)PT. 18.3 SECONDS (11.7-14.9)
[2021-07-03 06:28] LABS: Anion Gap 6 (5-15); BUN 16 mg/dL (7-18); Calcium,Total 8.5 mg/dL (8.5-10.1); Chloride 102 mmol/L (98-107); Creatinine, Serum 0.76 mg/dL (0.70-1.30); EST Glomerular Filtration Rate 104 mL/min (>60); Est Glom Filt Rate - Afr Amer 126 mL/min (>60); Estimated Creatinine Clearance 54.17 ml/min; Glucose 184 mg/dL (74-106); Potassium 3.5 mmol/L (3.5-5.1); Sodium Level 135 mmol/L (136-145)
[2021-07-03] MEDS: metFORMIN HCl 500 MG Tablet PO (08:12)
[2021-07-03] MEDS: Multivitamins,Ther W-Minerals Tablet 1 TABLET PO (08:12)
--- NOTE | 2021-07-03 10:19 | PCM.PN.RX ---
Progress Note - Pharmacy Subjective: TCU ADMISSION Objective: Allergies No Known Allergies Allergy (Verified 06/30/21 14:01) Current Medications Generic Name Dose Route Start Last Admin Trade Name Darlene PRN Reason Stop Dose Admin Acetaminophen 1,000 mg 07/02/21 17:25 07/02/21 18:03 Acetaminophen 500 Mg Tablet PO 1,000 mg Q6H PRN PRN Administration Pain Score 1-3 Atorvastatin Calcium 10 mg 07/02/21 22:00 07/02/21 20:35 Atorvastatin Calcium 10 Mg Tablet PO 10 mg QHS JAZMIN Administration Bisacodyl 10 mg 07/02/21 19:10 Bisacodyl 5 Mg Tablet PO DAILY PRN Constipation Donepezil HCl 10 mg 07/02/21 22:00 07/02/21 20:35 Donepezil Hcl 10 Mg Tablet PO 10 mg QHS JAZMIN Administration Losartan Potassium 25 mg 07/03/21 06:00 07/03/21 05:10 Losartan Potassium 25 Mg Tablet PO 25 mg DAILY JAZMIN Administration Memantine 5 mg 07/02/21 18:00 07/03/21 05:10 Memantine Hydrochloride 5 Mg Tablet PO 5 mg BID JAZMIN Administration Metformin HCl 500 mg 07/03/21 08:00 07/03/21 08:12 Metformin Hcl 500 Mg Tablet PO 500 mg DAILYCM JAZMIN Administration Multivitamins/Minerals 1 tablet 07/03/21 08:00 07/03/21 08:12 Multivitamins,Ther W-Minerals Tablet PO 1 tablet DAILYCM JAZMIN Administration Oxycodone HCl 5 mg 07/02/21 17:17 Oxycodone 5 Mg Tablet PO Q4H PRN PRN Pain Score 6-10 Polyethylene Glycol 17 gm 07/03/21 06:00 07/03/21 05:09 Polyethylene Glycol 3350 17 Gm Packet PO 17 gm DAILY JAZMIN Administration Senna/Docusate Sodium 1 tablet 07/02/21 19:15 07/03/21 05:09 Senna/Docusate Sodium 1 Tablet PO 1 tablet BID JAZMIN Administration Tramadol HCl 50 mg 07/02/21 17:17 07/02/21 21:43 Tramadol 50 Mg Tablet PO 50 mg Q6H PRN PRN Administration Pain Score 4-5 Tuberculin PPD 0.1 ml 07/10/21 10:00 Tuberculin,Purif.Prot.Deriv. 50 Tu/Ml Vial ID 07/10/21 10:01 X1 ONE Warfarin Sodium 3 mg 07/02/21 17:00 07/02/21 18:00 Warfarin 3 Mg Tablet PO 3 mg DINNER JAZMIN Administration Problem List (Last Reviewed 07/02/21 @ 19:[address] Eduardo Mcgarry MD) Alzheimer disease (Acute) Low back pain (Acute) Left knee pain (Acute) Debility (Acute) HTN (hypertension) (Chronic) CVA (cerebral vascular accident) (Acute) Hyperlipidemia (Chronic) Diabetes mellitus, type 2 (Chronic) Vital Signs Temp Pulse Resp BP Pulse Ox 97.5 F L 70 14 111/65 93 07/02/21 13:59 07/03/21 05:00 07/02/21 13:59 07/03/21 05:00 07/02/21 13:59 Oxygen Delivery Method Room Air Weight: 77.734 kg Body Mass Index (BMI) 26.4 Sodium 135 mmol/L (136-145) L 07/03/21 05:13 Potassium 3.5 mmol/L (3.5-5.1) 07/03/21 05:13 Chloride 102 mmol/L (98-107) 07/03/21 05:13 Carbon Dioxide 27.0 mmol/L (21.0-32.0) 07/03/21 05:13 Anion Gap 6 (5-15) 07/03/21 05:13 BUN 16 mg/dL (7-18) 07/03/21 05:13 Creatinine 0.76 mg/dL (0.70-1.30) 07/03/21 05:13 Est GFR (MDRD) Af Amer 126 mL/min (>60) 07/03/21 05:13 Est GFR (MDRD) Non-Af 104 mL/min (>60) 07/03/21 05:13 BUN/Creatinine Ratio 21.0 RATIO (10-20) H 07/03/21 05:13 Glucose 184 mg/dL (74-106) H 07/03/21 05:13 Assessment/Plan: 1. Pain: acetaminophen 1000mg PO Q6H PRN pain 1-3, tramadol 50mg PO Q6H PRN pain 4-5 and oxycodone 5mg PO Q4H PRN pain 6-10. Please continue to monitor for increased pain, PRN usage, renal function, constipation and respiratory depression. *2. Hyperlipidemia: atorvastatin 10mg PO QHS. Please consider ordering a lipid panel if clinically appropriate. Last panel from 08/2017. 3. Hypertension: losartan 25mg PO daily. Please continue to monitor BP (last 111/65) and renal function. 4. Stroke: warfarin 3mg PO DINNER. Please continue to monitor INR (last 1.6) and S/S of bleeding. 5. Alzheimer disease: donepezil 10mg PO QHS and memantine 5mg PO BID. Please continue to monitor for GI side effects, rash and dizziness. Please monitor for bradycardia with donepezil. This medication is on the BEERs list. Thanks. *6. Diabetes Mellitus II: metformin 500mg PO DAILYCM. Please consider ordering a hemoglobin A1c if clinically appropriate. Resident does not have one in the chart. Thanks. Please continue to monitor renal function and glucose (last 183mg/dL). 7. Nutrition: multivitamin with minerals 1T PO DAILYCM. Please continue to monitor. Psychotropic Medications: None Unnecessary Medications: None Bowel Regimen: Miralax 17gm PO daily, senna/docusate 1T PO BID and bisacodyl 10mg PO daily PRN constipation. Please continue to monitor for constipation and PRN usage. Date of Note:: 07/03/21
[2021-07-03] MEDS: Tuberculin,Purif.prot.deriv. 50 TU/ML Vial 0.1 ML ID (11:37)
--- NOTE | 2021-07-03 14:44 | PT ---
Pt was very agitated. Pt only oriented to self and repeatedly stated he was at home and asking where his things were. Attempted multiple times to reorient pt but pt very agitated. Pt was min A for sit to stands and transfers with SPC. Pt using cane to swing at other staff in hallway. Attempted to take SPC away from pt multiple times but pt maintained tight union steward on cane and became increasingly agitated. Once standing, pt refusing to sit down even though pt was unsteady and leaning against wall multiple times to steady himself. When attempting to put gait belt on pt, he refused and swatted this PTAs hand away. Pt then started swatting at this SWITCHBOARD AND CONTROL ROOM OPERATOR when I attempted to grab the back of his pants to steady pt. Pt was then returned to recliner after 20 minutes of standing and ambulation with A x 4.
--- NOTE | 2021-07-03 14:57 | NURSING ---
Patient ripped out call light out of wall several times. Using assistive device (Cane) as a weapon numerous times. Patient redirected and reoriented unsuccessful . Moved patient for his own safety out into nurse station area. Still agitated, cursing and swinging cane aroud. Attempting to elope but placed back in nursing station at least twice.
[2021-07-03 15:08] VITALS: BP 116/68; PULSE 131; RESP 21; TEMP 36.6
--- NOTE | 2021-07-03 15:08 | NURSING ---
Patient placed into room due to granddaughter coming onto unit. Patient threatened this nurse. Patient attempted to be reoriented and unsuccessful. Attempt to place K-pad patient allowed placement of K-pad.
--- NOTE | 2021-07-03 15:25 | CASEMGMT ---
Addendum entered by Erica Gifford 07/03/21 16:12: requesting Palliative referral. Referral sent via email to [facility]. Original Note: Social Work Completed chart review for initial assessment. Pt is poor historian r/t dx of Alzheimer's. Contacted dtr to discuss insurance and DC plans. Dtr admits pt was not doing well living at home alone prior. He was still driving and refused to listen to family to no longer drive. Suggested to dtr to take the car keys or have PCP complete paperwork stating pt is no longer safe to drive. Explained [employer] with NRD 07/04 and continued stay is not guaranteed with each review. Inquired if the plan is for pt to return home. Dtr said no, but wants to see the IDT recommendation. Explained IDT is recommending 24/ supervision, especially since his diagnosis is progressive. Dtr expressed understanding. She is aware her options are screen printing machine operator helper at home or SNF. Explored finances as SNF is private pay or ISA. Per dtr, pt does is not over income or assets, but does own 15 older classic cars that are in a trust. Suggested to apply for ISA and ISA CM can advise what to do with the cars, but eventually all assets will need liquidated. Dtr expressed understanding. Emailed ISA shelley to dtr. She already has a list of SNFs from acute stay and will begin looking into those more. Advised to use medicare.gov as a resource. SW offered ongoing assistance with DC planning. Erica Gifford, KEVIN FOWLERW
[2021-07-03] MEDS: Atorvastatin Calcium 10 MG Tablet PO (20:55)
[2021-07-03] MEDS: Donepezil HCl 10 MG Tablet PO (20:56)
[2021-07-04] MEDS: Senna/Docusate Sodium 1 Tablet PO ×2 (04:31→18:08)
[2021-07-04] MEDS: Losartan Potassium 25 MG Tablet PO (04:31)
[2021-07-04] MEDS: Memantine Hydrochloride 5 MG Tablet PO ×2 (04:31→18:08)
[2021-07-04] MEDS: Polyethylene Glycol 3350 17 GM PACKET PO (04:32)
[2021-07-04 05:37] LABS: International Normalized Ratio 1.5; Prothrombin Time (Protime)PT. 17.7 SECONDS (11.7-14.9)
[2021-07-04 06:21] LABS: Bedside Glucose 173 mg/dL (74-106)
[2021-07-04] MEDS: Multivitamins,Ther W-Minerals Tablet 1 TABLET PO (08:13)
[2021-07-04] MEDS: metFORMIN HCl 500 MG Tablet PO (08:13)
[2021-07-04 15:10] VITALS: BP 115/61; PULSE 82; RESP 16; TEMP 36.2; O2SAT 94
[2021-07-04] MEDS: Donepezil HCl 10 MG Tablet PO (21:25)
[2021-07-04] MEDS: Atorvastatin Calcium 10 MG Tablet PO (21:26)
[2021-07-04 23:15] VITALS: PULSE 74; RESP 16; O2SAT 94
[2021-07-05] MEDS: Lidocaine 5% Patch 1 PATCH TOPICAL (04:40)
[2021-07-05] MEDS: Senna/Docusate Sodium 1 Tablet PO ×2 (04:41→17:30)
[2021-07-05] MEDS: Polyethylene Glycol 3350 17 GM PACKET PO (04:41)
[2021-07-05] MEDS: Losartan Potassium 25 MG Tablet PO (04:41)
[2021-07-05] MEDS: Memantine Hydrochloride 5 MG Tablet PO ×2 (04:41→17:30)
[2021-07-05 04:51] VITALS: BP 167/59; PULSE 66
[2021-07-05 06:07] LABS: International Normalized Ratio 1.5; Prothrombin Time (Protime)PT. 17.6 SECONDS (11.7-14.9)
[2021-07-05 06:15] LABS: Bedside Glucose 167 mg/dL (74-106)
[2021-07-05] MEDS: metFORMIN HCl 500 MG Tablet PO (08:00)
[2021-07-05] MEDS: Multivitamins,Ther W-Minerals Tablet 1 TABLET PO (08:00)
[2021-07-05 10:00] VITALS: RESP 20
--- NOTE | 2021-07-05 11:29 | CASEMGMT ---
Addendum entered by Erica Gifford 07/05/21 15:56: During phone call with both children, SW updated of insurance NRD 07/11, EDC 07/16. Addendum entered by Erica Gifford 07/05/21 15:50: Dr. Mcgarry stating pt is not competent to make decisions. Contacted dtr to update on decision. Explained decisions will default to primary HCPOA. Per documents in chart, son, Hector, is HCPOA. Dtr confirmed - she is secondary HCPOA, but primary financial POA. Explained SW will continue conversations of DC planning and updates with son. Dtr expressed understanding. Added son in chart. Contacted son and updated on above. Son agrees and expressed understanding. Son has resources for ISA shelley, SNF list and THERMOPLASTIC TECHNICIAN lists from sister. Encouraged to complete ISA application and return to SW, and notify this worker of choice home with / care or SNF. Son agreed. SW to continue to follow. Original Note: Social Work Received call from dtr requesting Dr. subramanian pt for incompetency of making own DC decisions. Communication to Dr. Mcgarry. Will update dtr once completed. KEVIN Dong SWITCH CLEANER
--- NOTE | 2021-07-05 12:07 | NURSING ---
Completed pain interview for [facility] 07/09/2021.
[2021-07-05] MEDS: Acetaminophen 500 MG Tablet 1000 MG PO (12:49)
[2021-07-05 16:00] VITALS: BP 110/67; PULSE 120; RESP 18; TEMP 36.5; O2SAT 92
[2021-07-05] MEDS: ALPRAZolam 0.25 MG Tablet PO (23:32)
[2021-07-05] MEDS: Atorvastatin Calcium 10 MG Tablet PO (23:34)
[2021-07-05] MEDS: Donepezil HCl 10 MG Tablet PO (23:34)
[2021-07-06 05:21] VITALS: BP 111/61; PULSE 68
[2021-07-06] MEDS: Polyethylene Glycol 3350 17 GM PACKET PO (05:22)
[2021-07-06] MEDS: Senna/Docusate Sodium 1 Tablet PO (05:22)
[2021-07-06] MEDS: Memantine Hydrochloride 5 MG Tablet PO ×2 (05:22→18:10)
[2021-07-06] MEDS: Losartan Potassium 25 MG Tablet PO (05:22)
[2021-07-06] MEDS: Lidocaine 5% Patch 1 PATCH TOPICAL (05:25)
[2021-07-06 06:15] LABS: International Normalized Ratio 1.5
[2021-07-06 06:21] LABS: Bedside Glucose 171 mg/dL (74-106)
[2021-07-06] MEDS: Multivitamins,Ther W-Minerals Tablet 1 TABLET PO (08:34)
[2021-07-06] MEDS: metFORMIN HCl 500 MG Tablet PO (08:34)
[2021-07-06 16:00] VITALS: BP 114/66; PULSE 78; RESP 18; TEMP 36; O2SAT 96
[2021-07-06] MEDS: Atorvastatin Calcium 10 MG Tablet PO (21:02)
[2021-07-06] MEDS: Donepezil HCl 10 MG Tablet PO (21:02)
[2021-07-07] MEDS: Nystatin Powder 15gm Bottle 1 APPLIC TOPICAL ×2 (05:38→17:27)
[2021-07-07] MEDS: Polyethylene Glycol 3350 17 GM PACKET PO (05:38)
[2021-07-07] MEDS: Menthol/Lanolin/Calamine/Znox 113 GM Tube 1 APPLIC TOPICAL ×2 (05:38→17:28)
[2021-07-07] MEDS: Senna/Docusate Sodium 1 Tablet PO (05:40)
[2021-07-07] MEDS: Memantine Hydrochloride 5 MG Tablet PO ×2 (05:40→17:27)
[2021-07-07] MEDS: Lidocaine 5% Patch 1 PATCH TOPICAL (05:40)
[2021-07-07] MEDS: Losartan Potassium 25 MG Tablet PO (05:40)
[2021-07-07 05:47] VITALS: BP 114/62; PULSE 64
[2021-07-07 06:20] LABS: Bedside Glucose 199 mg/dL (74-106)
[2021-07-07] MEDS: Multivitamins,Ther W-Minerals Tablet 1 TABLET PO (07:45)
[2021-07-07] MEDS: metFORMIN HCl 500 MG Tablet PO (07:45)
[2021-07-07 09:05] VITALS: PULSE 76; RESP 18
[2021-07-07 09:07] LABS: International Normalized Ratio 1.4
[2021-07-07 18:21] VITALS: BP 115/79; PULSE 119; RESP 18; TEMP 36.4; O2SAT 98
[2021-07-07] MEDS: Atorvastatin Calcium 10 MG Tablet PO (22:26)
[2021-07-07] MEDS: Donepezil HCl 10 MG Tablet PO (22:26)
[2021-07-07] MEDS: ALPRAZolam 0.25 MG Tablet PO (22:27)
[2021-07-08] MEDS: Polyethylene Glycol 3350 17 GM PACKET PO (05:09)
[2021-07-08] MEDS: Losartan Potassium 25 MG Tablet PO (05:10)
[2021-07-08] MEDS: Senna/Docusate Sodium 1 Tablet PO ×2 (05:10→17:22)
[2021-07-08] MEDS: Lidocaine 5% Patch 1 PATCH TOPICAL (05:10)
[2021-07-08] MEDS: Memantine Hydrochloride 5 MG Tablet PO ×2 (05:10→17:22)
[2021-07-08] MEDS: Nystatin Powder 15gm Bottle 1 APPLIC TOPICAL ×2 (05:12→17:22)
[2021-07-08] MEDS: Menthol/Lanolin/Calamine/Znox 113 GM Tube 1 APPLIC TOPICAL ×2 (05:12→17:22)
[2021-07-08 05:19] VITALS: BP 107/62; PULSE 60
[2021-07-08 05:56] LABS: International Normalized Ratio 1.4
[2021-07-08 06:20] LABS: Bedside Glucose 177 mg/dL (74-106)
[2021-07-08] MEDS: Multivitamins,Ther W-Minerals Tablet 1 TABLET PO (08:41)
[2021-07-08] MEDS: metFORMIN HCl 500 MG Tablet PO (08:41)
--- NOTE | 2021-07-08 09:20 | CASEMGMT ---
Social Work Daughter presented to office requesting to discuss ongoing DC plans. Dtr explained there is a divide between siblings currently. Half do not want pt in a longterm, feels he is still there (referring to cognition/competency), and pt can return home; while dtr and son, Adriel, agree with Dr. freeman determination and feel he will get the best care in a SNF. Dtr expressed she wants pt to return home but have exhausted all options and there is not 29/09 marine steam fitter helper available. SANDY validated feelings and confirmed dtr spoke to all nonskilled [facility] agencies. Dtr has not. Provided another copy of [facility] list and encouraged to contact all agencies, can use multiple agencies, and put pt's name on waitlist in case there are any openings available. Dtr appreciative. Minutes later, dtr and RN presented to office stating son was on the phone with an managing attorney and requested to speak with SW. Agreed to speak. RN transferred phone call. Son identified himself as Cl, no managing attorney was on the phone. Cl is not listed as a contact, however, provided supportive listening to son. Son very upset, expressed ongoing derogatory remarks toward siblings wanting to place pt in SNF, and is not in agreement with 's determination of incompetency. Son stated he has spoken to pt; pt wants to leave, is also very upset, and son reports pt has expressed not wanting to in a SNF and that right should be upheld. Son stated he was going to come get pt from this [place] [facility] and take him out. Validated son's frustrations and provide verbal support. SANDY calmly and kindly explained to son that he is not listed as contact for this worker to provide any detailed information to him; since pt is not competent, decisions have been deferred to HCPOA, which is sonHector, and he is the only person that can discharge pt from TCU. Son stated what are you guys going to do, arrest me? SANDY advised there is an HRO present. Son replied you people are fucking unbelievable. Offered son can still visit with pt, but cannot request medical information or discharge pt. Son stated he would be contacting his managing attorney. Confirmed son has that right. Conversation was then ended by son. SW proceeded to update TCU Director, Lead SW, main entrance screener, data security administrator and floor staff of above information as it pertained to each respective libertarian. SW attempted to contact son, Hector, to make him aware, but voicemail was full and unable to reach him after multiple attempts. SW to continue to follow. Erica Gifford, BUILD AUTOMATION ENGINEER ART APPRAISER
--- NOTE | 2021-07-08 10:29 | NURSING ---
Spoke with FADUMO Jo, discussing code status. FADUMO stated he is coming to visit the pt on Thursday and will make the determination. He understands that the pt will remain a full code, unverified, until any changes are made.
--- NOTE | 2021-07-08 12:30 | CASEMGMT ---
Social Work STRATEGIC CONSULTANT notified SW pt is very aggravated in room, does not believe Dr stated he was incompetent, and is difficult to redirect. SW presented to pt's room where granddaughter was present. Pt asked, are you the child welfare social worker? You listen here (waving his finger at this worker), who do you think you are telling me I can't leave and I'm insane?. SW calmly sat across from pt on bed, confirmed role, and offered the Dr is the one who makes those decisions. Attempted to validate frustration, but interrupted multiple times by pt. Pt continues speaking and waving finger at this worker very upset, repositioning self in chair several times. Provided supportive listening. Once pt was done verbally expressing himself, SW offered for pt to speak with Dr. Mcgarry during his rounds this evening. Pt agreed and stated you better not be lying to me, I want to see him. Confirmed Dr. Mcgarry rounds twice daily and will be in to see pt this evening. SW exited room. Left communication to Dr. Mcgarry. Updated STRATEGIC CONSULTANT. SW to continue to follow. Erica Gifford, CERTIFIED ENDOSCOPY TECHNICIAN MINE ENVIRONMENTAL ENGINEER
[2021-07-08 15:01] VITALS: BP 103/61; PULSE 122; RESP 18; TEMP 36.4; O2SAT 95
[2021-07-08] MEDS: Acetaminophen 500 MG Tablet 1000 MG PO (17:27)
[2021-07-08] MEDS: Donepezil HCl 10 MG Tablet PO (20:52)
[2021-07-08] MEDS: ALPRAZolam 0.25 MG Tablet PO (20:52)
[2021-07-08] MEDS: Atorvastatin Calcium 10 MG Tablet PO (20:52)
[2021-07-08 21:42] VITALS: PULSE 62; RESP 16; O2SAT 92
[2021-07-09] MEDS: Lidocaine 5% Patch 1 PATCH TOPICAL (04:37)
[2021-07-09] MEDS: Acetaminophen 500 MG Tablet 1000 MG PO (04:40)
[2021-07-09] MEDS: ALPRAZolam 0.25 MG Tablet PO (04:41)
[2021-07-09] MEDS: Polyethylene Glycol 3350 17 GM PACKET PO (04:42)
[2021-07-09] MEDS: Memantine Hydrochloride 5 MG Tablet PO ×2 (04:42→17:56)
[2021-07-09] MEDS: Losartan Potassium 25 MG Tablet PO (04:42)
[2021-07-09] MEDS: Senna/Docusate Sodium 1 Tablet PO ×2 (04:42→17:56)
[2021-07-09 05:43] LABS: International Normalized Ratio 1.4; Prothrombin Time (Protime)PT. 17.2 SECONDS (11.7-14.9)
[2021-07-09 06:25] LABS: Bedside Glucose 171 mg/dL (74-106)
[2021-07-09] MEDS: Multivitamins,Ther W-Minerals Tablet 1 TABLET PO (08:45)
[2021-07-09] MEDS: metFORMIN HCl 500 MG Tablet PO (08:45)
--- NOTE | 2021-07-09 09:05 | CASEMGMT ---
Social Work Dr. Mcgarry completed expert evaluation explaining pt's incompetence to make decisions. Copy placed on pt's chart. Erica Gifford MSW DRYWALL FOREMAN
[2021-07-09 10:02] VITALS: PULSE 74; O2SAT 95
--- NOTE | 2021-07-09 11:19 | CASEMGMT ---
Social Work BIMS and PHQ-9 completed for MDS assessment. BIMS 09/20, indicating severe impairment/incompetent. During PHQ-9 assessment, pt continued switching topic to discharge date. Pt stated they never let me do anything. I'm supposed to be here to walk, but I haven't walked a day since I've been here, honey. At the end of assessment, pt stated, they told me I'm going home tomorrow. SW explained there is a care plan meeting scheduled tomorrow, but no discharge date set yet. Pt replied they lied..dirty, [id number]. Erica Gifford, DECK HAND STILL OPERATOR WHISKEY
--- NOTE | 2021-07-09 11:45 | CASEMGMT ---
Social Work Granddaughter, Zeina, presented to office; stated she was Cl's daughter. Granddaughter was kind and explained they've been telling us he needs 24/7 care and that is the plan. I'm an COCONUT BOILER, but work PRN since I've have a son (approx. 2 years old) and plan on staying at home with [pt] most of the time. Then the other family members and friends, we have like 3 people lined up to help also. [Pt] was in here last summer, acted exactly the same, and my dad took him out AMA last time. But he's the same to us and I don't why they are saying he's different. Provided supportive listening. Offered there has been about a year time difference and things can change, but this worker is working with son, Adriel, for DC plans following IDT recommendations for 24/7 care. IDT is not opposed to pt returning home. The recommendation is for pt to have 24/7 care, whether that is in home or in a facility, is the son's decision. Son will be present at care plan meeting tomorrow. to continue to follow. Erica Gifford, [facility] SOCIAL WORKER
[2021-07-09 14:46] VITALS: BP 111/64; PULSE 116; RESP 14; TEMP 36.2; O2SAT 93
[2021-07-09] MEDS: Menthol/Lanolin/Calamine/Znox 113 GM Tube 1 APPLIC TOPICAL (17:57)
[2021-07-09] MEDS: Nystatin Powder 15gm Bottle 1 APPLIC TOPICAL (17:57)
--- NOTE | 2021-07-09 19:14 | PCA ---
When transferring patient into bed patient took off with walker and turned walking backwards to get into bed. patient was walking backwards and stumbled and bumped back on wall. BLENDING PLANT OPERATOR held on to patients arms to brace them and helped patient turn towards the bed. Patient did not complain of any pain. RN notified.
[2021-07-09] MEDS: Atorvastatin Calcium 10 MG Tablet PO (21:07)
[2021-07-09] MEDS: Donepezil HCl 10 MG Tablet PO (21:07)
[2021-07-10 01:01] VITALS: BP 116/87; PULSE 64; RESP 16; O2SAT 93
[2021-07-10] MEDS: ALPRAZolam 0.25 MG Tablet PO ×3 (01:10→23:24)
[2021-07-10] MEDS: Polyethylene Glycol 3350 17 GM PACKET PO (04:58)
[2021-07-10] MEDS: Lidocaine 5% Patch 1 PATCH TOPICAL (04:59)
[2021-07-10] MEDS: Nystatin Powder 15gm Bottle 1 APPLIC TOPICAL ×2 (05:01→18:14)
[2021-07-10] MEDS: Senna/Docusate Sodium 1 Tablet PO ×2 (05:01→18:03)
[2021-07-10] MEDS: Losartan Potassium 25 MG Tablet PO (05:01)
[2021-07-10] MEDS: Memantine Hydrochloride 5 MG Tablet PO ×2 (05:01→18:03)
[2021-07-10] MEDS: Menthol/Lanolin/Calamine/Znox 113 GM Tube 1 APPLIC TOPICAL ×2 (05:04→18:14)
[2021-07-10 05:07] VITALS: BP 126/67; PULSE 69
[2021-07-10 05:47] LABS: Absolute Lymphocyte Count 1.98 X10^3/uL (0.83-4.51); Absolute Neutrophil Count 4.7 X10^3/uL (2.0-7.7); Basophil# 0.06 X10^3/uL; Basophil% 0.8 % (0-1); Eosinophil# 0.14 X10^3/uL; Eosinophils% 1.8 % (0-5); Hematocrit 38.9 % (40-54); Hemoglobin 12.5 g/dL (13.0-16.5); Lymphocyte # 1.98 X10^3/ul (0.83-4.51); Lymphocyte % 25.4 % (19-41); Mean Corp Hgb Conc 32.1 g/dL (32-36); Mean Corpuscular Hgb 30.4 pg (27.0-32.0); Mean Corpuscular Volume 94.6 fL (80-94); Mean Platelet Vol. 9.5 fl (6.2-12.0); Monocyte# 0.71 X10^3/uL; Monocyte% 9.1 % (0-10); NRBC Flagged by Analyzer 0 % (0-5); Neutrophil # 4.68 X10^3/uL (2.7-7.7); Neutrophil % 60.1 % (47-70); Platelet Count 310 K/mm3 (150-450); RBC Distribution Width CV 13.1 % (11.6-14.6); RBC Distribution Width SD 45.7 fl (35.1-43.9); Red Blood Count 4.11 M/mm3 (4.6-6.2); White Blood Count 7.8 K/mm3 (4.4-11.0)
[2021-07-10 06:24] LABS: Anion Gap 7 (5-15); BUN 21 mg/dL (7-18); BUN/Creat Ratio 28.5 RATIO (10-20); Calcium,Total 8.5 mg/dL (8.5-10.1); Chloride 105 mmol/L (98-107); Creatinine, Serum 0.74 mg/dL (0.70-1.30); EST Glomerular Filtration Rate 109 mL/min (>60); Est Glom Filt Rate - Afr Amer 131 mL/min (>60); Estimated Creatinine Clearance 54.17 ml/min; Glucose 181 mg/dL (74-106); Potassium 3.9 mmol/L (3.5-5.1); Sodium Level 138 mmol/L (136-145)
[2021-07-10 06:25] LABS: Bedside Glucose 159 mg/dL (74-106)
[2021-07-10] MEDS: metFORMIN HCl 500 MG Tablet PO (08:09)
[2021-07-10] MEDS: Multivitamins,Ther W-Minerals Tablet 1 TABLET PO (08:09)
--- NOTE | 2021-07-10 09:33 | CASEMGMT ---
Social Work IDT met with patient, Dorothy dtr, Ruddy son, Consuelo gddtr, David gddtr, and Berto son and Cl son via conference call for care plan meeting. Discussed patient's progress in PT/OT and nursing. Explained [employer] insurance with NRD 07/11 and EDC 07/16, but continued stay is not guaranteed. Explained pt will remain here until insurance sets DC. The DC decision will be made by son Ruddy and/or dtr brooks Anderson. Addressed pt and family explaining if there are disagreements between family members on DC decision, anyone can choose to apply for guardianship of pt. The relief worker then makes the final ruling on guardian. However, until that time, the decisions default to the already named HCPOA(s). Offered to provide further details for guardianship process if needed. All siblings expressed their understanding. Pt began expressing his frustration with not being able to make his own decisions; he is capable; he made a mistake naming Ruddy and Dorothy as POA - explaining the story of how it happened, because now they're not taking care of me; they're just doing what is best for them and not me. Dtr intervened and explained her assistance to pt for the past two and a half years. Pt and dtr began raising their voices, arguing. Pt started standing up from chair. Dtr getting more aggravated, yelling at pt, moving closer to pt. SW then attempted to redirect, unsuccessful. SW interrupted arguing, having to raise voice over yelling. stating this conversation will not continue and if dtr cannot speak cordially, dtr needs to excuse herself from the meeting. Dtr agreed, gathered belongings and left room abruptly. Pt returned to chair. SW gained control over the meeting, stating this topic will not have a resolution and family/team needs to refocus on pt's current stay and safe DC planning. Reiterated IDT recommendations are 29/09 care and the SW will follow the decision made from justino Fox. Expressed empathy to family and pt over this situation. Concluded meeting. Ruddy leonardo Dorothy spoke with SW separately outside of pt's room. Continued to expressed empathy to children. Ruddy and Dorothy stated they do not want to be guardians, let them [the other family members] deal with him [pt]. I don't want to be a part of this if this is what it's going to be like. Validated feelings, provided support. Ruddy stated since he is still held responsible for pt's well-being, pt will be safest and best cared for in a group home. Provided [facility] list with in-network facilities, quality and resource data. Son would like [facility]. SW to make referral. Dtr provided SW with completed ISA application to submit. Gddtr Consuelo, requested application for guardianship for her and father Cl. Provided application, application checklist from Probate Court website, along with website URL to get additional forms and information. SW contact [facility] guardianship data entry clerk to inquire about forms needed for application, fees and how to provide original expert eval. SW offered to mail original expert eval to court since there are multiple applicants. Frame Feeder agreed and explained all forms on the checklist, with the fee, needs submitted together via mail or in person. Updated gddtr with information from data entry clerk. SW to mail expert eval to courts. Provided empathy to gddtr. Gddtr appreciative of assistance and understands SW position. SW to continue to follow. Erica Gifford, MAGENTO DEVELOPER HAT STEAMER
[2021-07-10] MEDS: Tuberculin,Purif.prot.deriv. 50 TU/ML Vial 0.1 ML ID (10:49)
--- NOTE | 2021-07-10 11:23 | MDS.RN ---
Pain interview for gianna 07/10/21 was completed 07/10/21
--- NOTE | 2021-07-10 12:32 | NURSING ---
Trailer Driver Note: Interview and MDS section F complete.
--- NOTE | 2021-07-10 13:14 | CASEMGMT ---
Social Work Alerted by nurse that gddtr is still visiting pt in room and having ongoing conversations about SNF placement which continues to agitate pt. Entered room. Pt is in the restroom, gddtr standing outside door on phone with father Cl. Gddtr requested SW speak to Cl. Spoke with Cl on the phone in presence of gddtr and nurse. Provided empathy to situation. Ensured SW and staff want pt to be safe and understands family does as well, but the execution of that plan looks different to each family member. Son continued speaking. He explained the siblings have had a strained relationship for 20+ years and have different views of involvement with pt. SW provided supportive listening. However, confirmed son cannot make decisions until ruled by the solvent recoverer differently. Son stated he is getting an armature balancer to assist with guardianship. SW encouraged to do so. SW explained to pt, gddtr and son together, this topic is difficult and raises emotions and pt's agitation. Moving forward, during conversations and visits, to keep it cordial, pleasant, and to not discuss SNF placement to lessen agitation. All parties expressed agreement. At this time, [facility] Auto Body Repair Teacher Brady was rounding and approached doorway, SW invited him. Introduced to pt and gddtr, explaining kindly this officer is here to assist all parties and ensure pt remains safe during stay. Officer Brady agreed and offered to complete continuous visits to ensure such. Pt pleasant and happily obliged. Gddtr stated she will be leaving soon and requested if nurse can administer Ativan to calm pt since this has been an emotional day for pt. SW agreed. Nurse notified and entered room. SW provided brief summary of situation to Officer Brady, whom agreed to complete rounding and hand-off to upcoming shifts. SW to continue to follow. Erica Gifford, PRELOAD SUPERVISOR EDGING MACHINE FEEDER
--- NOTE | 2021-07-10 14:00 | CASEMGMT ---
Social Work Received voicemail from dtr requesting referral to [facility] instead. She just toured the memory care unit and prefers pt DC there. Contacted Bruna at [facility] inquiring about availability. Bruna confirmed and requested clinicals. Explained ISA application was just submitted and will fax referral. Returned dtr's phone call updating on referral. Dtr answered and initially apologized for behavior at meeting stating, I tried to hold my tongue, but I just couldn't take it anymore. I took care of him for two and a half years and to listen to him tell me I've done nothing or I'm being selfish..I just couldn't take it. I'm sorry. Validated feelings. Provided emotional and verbal support. Apologized for situation as well. Acknowledged how difficult this is and how the disease can progress this way. Dtr explained he has actually never been a nice man. He just always thought my two brothers [Berto and Cl] were millionaires and have done better than us [Ruddy and her]. I lost a son to suicide and he [pt] never has been the same to me. So I don't want to be a part of this any longer. They [Berto and Cl] can deal with this. Expressed condolences and acknowledged difficult loss. Dtr redirected conversation back to SNF referrals, requesting [facility] as F[facility]. SW agreed and made referral. [facility] will notify SW of acceptance/denial and SW will update dtr/son. Dtr expressed great appreciation for this worker's patience, compassion and assistance. SW to continue to follow. Erica Gifford, BUFF WHEEL FABRICATOR SUPERVISOR CLOTH WINDING
[2021-07-10 15:10] VITALS: BP 106/56; PULSE 72; RESP 16; TEMP 36.6; O2SAT 95
[2021-07-10 20:38] VITALS: RESP 16; O2SAT 92
[2021-07-10] MEDS: Atorvastatin Calcium 10 MG Tablet PO (20:43)
[2021-07-10] MEDS: Donepezil HCl 10 MG Tablet PO (20:43)
[2021-07-10 22:08] VITALS: PULSE 116; RESP 16
[2021-07-11 05:39] LABS: International Normalized Ratio 1.5; Prothrombin Time (Protime)PT. 18.1 SECONDS (11.7-14.9)
[2021-07-11 05:55] VITALS: BP 131/65; PULSE 75
[2021-07-11] MEDS: Polyethylene Glycol 3350 17 GM PACKET PO (05:55)
[2021-07-11] MEDS: Losartan Potassium 25 MG Tablet PO (05:56)
[2021-07-11] MEDS: Memantine Hydrochloride 5 MG Tablet PO ×2 (05:56→17:07)
[2021-07-11] MEDS: Lidocaine 5% Patch 1 PATCH TOPICAL (05:56)
[2021-07-11] MEDS: Senna/Docusate Sodium 1 Tablet PO (05:56)
[2021-07-11] MEDS: Menthol/Lanolin/Calamine/Znox 113 GM Tube 1 APPLIC TOPICAL ×2 (05:58→17:07)
[2021-07-11] MEDS: Nystatin Powder 15gm Bottle 1 APPLIC TOPICAL ×2 (05:58→17:08)
[2021-07-11 06:30] LABS: Bedside Glucose 168 mg/dL (74-106)
--- NOTE | 2021-07-11 07:20 | NURSING ---
Addendum entered by Isela Garza 07/11/21 07:47: New order from Dr. Mcgarry, pt to go to ED for assessment. Original Note: pt sitting toilet, staff in room. Per MARCOS Pathak, pt stood up and fell to knees and went forward hitting his head on the handle bar of the wheelchair. Staff assisted pt back on toilet to complete assessment. Dr. Mcgarry notified. New order for CT of head and B/L knees. pt re-educated on importance of not getting up without assistance.
--- NOTE | 2021-07-11 07:50 | NURSING ---
THIS NURSE AT [facility]URSING STATION AND HEARD LOUD BANG AND MAN YELL HELP. FOUND PT ON KNEES ON BATH ROOM FLOOR.BANKRUPTCY ATTORNEY IN ROOM ALSO. PT BLEEDING FROM HEAD FROM SMALL ABRASION. ASKED PT WERE HE WAS GOING HE STATED TO THE TOILET. BANKRUPTCY ATTORNEY STATED HE WAS ON TOILET AND TOLD PT TO STAY AND PULL CORD WHEN READY SHE LEFT BATHROOM AND SEC LATER HEARD A CRASH. CALLED RN TO ROOM,GOT PT BACK UP ON TOILET AND CLEANED PT UP. DR JOSEPH AWARE AND RN MAKING CALLS TO FAMILY.
--- NOTE | 2021-07-11 07:55 | NURSING ---
FADUMO Young notified of fall and that pt is being sent to the ED for further examination. Child Custody Evaluator Janice also made aware.
--- NOTE | 2021-07-11 09:25 | RAD_ITS ---
STUDY: X-RAY - LEFT KNEE REASON FOR EXAM: Male, 81 years old. Fall TECHNIQUE: 2 view(s) of the knee. COMPARISON: None. FINDINGS: Normal visualized distal femur. Normal visualized proximal tibia and fibula. Normal proximal tibiofibular articulation. There is mild degenerative arthrosis of the medial femorotibial compartment. Normal lateral femorotibial compartment. Normal patellofemoral articulation. Small joint effusion. Chondrocalcinosis. RAD/Knee 1 or 2 Views IMPRESSION: Degenerative arthrosis. Small joint effusion. Chondrocalcinosis. Electronically Signed: Tyler Rai MD at 13:40 EDT ,
--- NOTE | 2021-07-11 09:25 | RAD_ITS ---
STUDY: X-RAY - RIGHT KNEE REASON FOR EXAM: Male, 81 years old. FALL TECHNIQUE: 2 view(s) of the knee. COMPARISON: None. FINDINGS: Normal visualized distal femur. Normal visualized proximal tibia and fibula. Normal proximal tibiofibular articulation. Normal medial femorotibial compartment. Normal lateral femorotibial compartment. Normal patellofemoral articulation. Chondrocalcinosis. 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 RAD/Knee 1 or 2 Views IMPRESSION: Chondrocalcinosis. Electronically Signed: Tlyer Rai MD at 13:41 EDT ,
[2021-07-11 10:00] VITALS: PULSE 78; RESP 18; O2SAT 98
--- NOTE | 2021-07-11 10:21 | NURSING ---
pt returned from ED only wearing a T-shirt and brief, no non-skid footwear or other foot cover. Per report pt incontinent of stool in ED.
[2021-07-11] MEDS: metFORMIN HCl 500 MG Tablet PO (10:35)
[2021-07-11] MEDS: Multivitamins,Ther W-Minerals Tablet 1 TABLET PO (10:35)
--- NOTE | 2021-07-11 14:45 | NURSING ---
pt came walking out of room using walker. This nurse asked pt if I could assist him, he stated, Can't I just go for a walk CASE FINISHER took pt for walk through hallway.
[2021-07-11 14:51] VITALS: BP 102/64; PULSE 134; RESP 16; TEMP 36.5; O2SAT 94
[2021-07-11] MEDS: ALPRAZolam 0.25 MG Tablet PO (17:07)
[2021-07-11] MEDS: Atorvastatin Calcium 10 MG Tablet PO (20:26)
[2021-07-11] MEDS: Donepezil HCl 10 MG Tablet PO (20:26)
[2021-07-11] MEDS: Acetaminophen 500 MG Tablet 1000 MG PO (20:26)
--- NOTE | 2021-07-11 20:35 | NURSING ---
Patient still very agitated and wants to leave. He does not know why he is still here. Is non-compliant with using call light, up walking without assistance on unit. Neuro checks continue from recent fall. Will continue to monitor.
--- NOTE | 2021-07-12 00:20 | NURSING ---
Patient was agitated through the evening, and walked around unit. Had chocolate ice cream for a snack. Resting in bed with eyes closed at this time. Neurological check not completed at this time.
[2021-07-12] MEDS: Lidocaine 5% Patch 1 PATCH TOPICAL (06:54)
[2021-07-12] MEDS: Losartan Potassium 25 MG Tablet PO (06:54)
[2021-07-12] MEDS: Polyethylene Glycol 3350 17 GM PACKET PO (06:54)
[2021-07-12] MEDS: Memantine Hydrochloride 5 MG Tablet PO (06:54)
[2021-07-12] MEDS: Senna/Docusate Sodium 1 Tablet PO (06:54)
[2021-07-12] MEDS: Menthol/Lanolin/Calamine/Znox 113 GM Tube 1 APPLIC TOPICAL (07:01)
[2021-07-12] MEDS: Nystatin Powder 15gm Bottle 1 APPLIC TOPICAL (07:01)
[2021-07-12] MEDS: metFORMIN HCl 500 MG Tablet PO (08:01)
[2021-07-12] MEDS: Multivitamins,Ther W-Minerals Tablet 1 TABLET PO (08:01)
--- NOTE | 2021-07-12 09:03 | NURSING ---
wander guard placed to LT ankle d/t pt attempting to get up w/out assist and roam unit. pt resting in recliner chair with eyes closed, call light in reach.
--- NOTE | 2021-07-12 11:53 | CASEMGMT ---
Addendum entered by Erica Gifford 07/12/21 12:34[facility]. [facility]uled cot transport through [facility] for 2 pm. Pt notified. Gddtr in room and notified as well. PASRR completed. Plan: DC to [facility] nonskilled 07/12 Original Note: Social Work Pt requested to speak with this worker. Pt was walking with FWW and staff assist around the unit. SW took over. [facility] to pt's memories/stories for approximately two hours. Pt remained calm, pleasant, and engaged during that time frame. Granddaughter in to visit which concluded SW and pt visit. Spoke with son, Ruddy, to inquire about discharging pt today, if possible. Pt is only getting more agitated staying here. Explained wanderguard was placed due to risk of elopement. Son agreed and agreed that is what is best for the pt. Son requested supervised transport as he suspects pt may become agitated/combative not returning home. SW agreed. [facility] pt today, but currently only has a semiprivate room available and needs funds up front. Admissions left messages for son and dtr, once they receive call, [facility]. SW to stay updated. Received Medicaid Pending number from KIRIT Posey at [facility] #[id number] and intake packet, which was forwarded to dtr via email. SW to continue to follow to await for DC. KEVIN DongW
--- NOTE | 2021-07-12 13:29 | PCM.DC.SUM ---
Providers Date of Admission: 07/02/21 Primary Care Physician: Dr. Bharathi Kolb MD Reason For Visit: DEBILITY Diagnosis Discharge Diagnosis (1) Debility: Status: Acute Code(s): R53.81 - Other malaise (2) Left knee pain: Status: Acute Code(s): M25.562 - Pain in left knee (3) Low back pain: Status: Acute Code(s): M54.50 - Low back pain, unspecified (4) HTN (hypertension): Code(s): I10 - Essential (primary) hypertension (5) CVA (cerebral vascular accident): Code(s): I63.9 - Cerebral infarction, unspecified (6) Hyperlipidemia: Code(s): E78.5 - Hyperlipidemia, unspecified (7) Diabetes mellitus, type 2: Code(s): E11.9 - Type 2 diabetes mellitus without complications (8) Alzheimer disease: Status: Acute Code(s): G30.9 - Alzheimer's disease, unspecified; F02.80 - Dementia in other diseases classified elsewhere without behavioral disturbance Medications at Discharge Home Medications metformin 500 mg PO DAILY 03/19/16 atorvastatin 10 mg PO QHS 11/05/17 Centrum Silver Men 1 tab PO DAILY 08/29/20 donepezil 10 mg PO QHS 08/29/20 memantine 5 mg PO BID #0 tab 07/02/21 warfarin [Jantoven] 3 mg PO DINNER #0 tab 07/02/21 acetaminophen 1,000 mg PO Q6H PRN PRN #0 tab 07/12/21 alprazolam 0.5 mg PO TID PRN PRN 3 Days #9 tab 07/12/21 lidocaine 1 patch TOPICAL DAILY #0 ea 07/12/21 losartan 25 mg PO DAILY #0 tab 07/12/21 menthol-zinc oxide [Calmoseptine] 1 applic TOPICAL BID #0 g 07/12/21 nystatin [Nyamyc] 1 applic TOPICAL BID #0 g 07/12/21 Hospital Course Operations None Procedures None Summary of Care Provided Minutes Spent on Discharge: 35 Hospital Course: 81 year old male with below past medical history hospitalized for weakness, complicated by Alzheimer Disease, admitted to TCU with debility, here for rehabilitation, strengthening, prior to disposition determination. Resident incompetent due to Alzheimer Disease. 07/11/2021 Resident fell hitting head, bilateral knees, CT head okay, X-ray of knees okay. Discharge to [facility] nonskilled 07/12/2021. Physical Exam Const alert General Appearance: cooperative HEENT normocephalic Eyes PERRL and EOMs intact bilaterally Neck supple, no JVD and no carotid bruits Resp normal respiratory effort, normal air movement and clear to auscultation bilaterally Cardio regular rate and regular rhythm GI normal to inspection, nondistended, normoactive bowel sounds, non-tender and non-distended Extremity normal capillary refill General Extremity: Negative for edema Skin no rashes or lesions noted General Skin Exam: no breakdown Psych affect normal Appearance: appropriate Weight / BMI Weight Weight: 77.655 kg Body Mass Index (BMI) 26.4 ABG / Lab / Microbiology Data Result Diagrams: 07/10/21 05:10 07/10/21 05:10 Microbiology: Microbiology 07/09/21 12:45 Nasal Secretion SARS-CoV-2 Antigen (Rapid) - Final Radiography Diagnostic Testing: Radiology Impression Knee X-Ray 07/11/21 09:25 IMPRESSION: Degenerative arthrosis. Small joint effusion. Chondrocalcinosis. Electronically Signed: Tyler Rai MD at 13:40 EDT , Knee X-Ray 07/11/21 09:25 IMPRESSION: Chondrocalcinosis. Electronically Signed: Tyler Rai MD at 13:41 EDT , D/C Instructions Discharge Diet: No restrictions Discharge Activity: Return to Normal Activity, May Shower and Use Walker Weight Bearing Status: Weight bearing as tolerated Call your doctor if you observe: Fever of 101 or Higher, Inability to urinate, Inability to have a bowel movement, Shortness of breath, Dizziness, Fainting spells, Swelling in the ankles, Chest pain and Uncontrolled pain Additional Instructions: Discharge to [facility] nonskilled 07/12/2021. Meaningful Use Info Meaningful Use Diagnoses (Choose all that apply): None applicable Discharge Plan Admission Admit Date/Time: 07/02/21 13:50 Primary Reason for Your Visit: Debility. Attending Provider: Eduardo Mcgarry Chi Primary Care Provider: Bharathi Kolb Instructions Additional Instructions / Restrictions: Discharge to [facility] nonskilled 07/12/2021. Discharge Orders/Prescriptions Prescriptions: New acetaminophen 500 mg Tablet 1,000 mg PO Q6H PRN PRN (Reason: Pain Score 1-3) Qty: 0 RF: 0 losartan 25 mg Tablet 25 mg PO DAILY Qty: 0 RF: 0 alprazolam 0.5 mg Tablet 0.5 mg PO TID PRN PRN (Reason: Anxiety/Restlessness/Sleep) 3 Days Qty: 9 RF: 0 lidocaine 5 % Adhesive Patch,Medicated 1 patch topical DAILY Qty: 0 RF: 0 menthol-zinc oxide [Calmoseptine] 0.44-20.6 % Ointment 1 applic topical BID Qty: 0 RF: 0 nystatin [Nyamyc] 100,000 unit/gram Powder 1 applic topical BID Qty: 0 RF: 0 Continued metformin 500 MG tablet 500 mg PO DAILY RF: 0 atorvastatin 20 MG tablet 10 mg PO QHS RF: 0 donepezil 10 mg Tablet 10 mg PO QHS RF: 0 Centrum Silver Men 300-600-300 mcg Tablet 1 tab PO DAILY RF: 0 memantine 5 mg Tablet 5 mg PO BID Qty: 0 RF: 0 warfarin [Jantoven] 3 mg Tablet 3 mg PO DINNER Qty: 0 RF: 0 Discontinued valsartan 40 mg Tablet 40 mg PO BID RF: 0 omega-3 fatty acids Capsule 500 mg PO DAILY RF: 0 Referrals / Follow Up: Bharathi Kolb MD [Primary Care Provider] - Disposition Disposition (needs filled in before D/C Order can be placed): NonSkilled [facility]/Intermed Care
--- NOTE | 2021-07-12 13:35 | TREXTCAR_ITS ---
Diet 07/02/21 14:26 Diet: Cardiac: Calorie-Controlled Food consistency:: Regular Liquid Consistency:: Regular/Thin How many daily calories?: 2000 calorie Routine Orders/Code Status Routine Lab Work: INR Code Status: Full Code Wound(s) right big toe: Wound Type: Abrasion Scalp: Wound Type: Laceration Therapies Weight Bearing: Weight bearing as tolerated Problem/Diagnosis (1) Debility: Status: Acute (2) Left knee pain: Status: Acute (3) Low back pain: Status: Acute (4) HTN (hypertension): (5) CVA (cerebral vascular accident): (6) Hyperlipidemia: (7) Diabetes mellitus, type 2: (8) Alzheimer disease: Status: Acute Allergies/Procedures Done in Hospital Allergies No Known Allergies Allergy (Verified 07/11/21 07:57) Procedures: None Type of Care/Length of Stay Estimated LOS: More Than 30 Days Type of Care Needed: Intermediate Rehab Potential: Fair Prognosis: Fair Additional Orders/Day of Discharge Additional Orders: Part B therapies Day of Discharge: 07/12/21 Dietary and Speech Recommendations Dietitian Recommendations/Changes: Will continue diet as ordered Will monitor for need of oral nutrition supplement pending continued po intake and wts as available. Discharge Plan Admission Admit Date/Time: 07/02/21 13:50 Primary Reason for Your Visit: Debility. Attending Provider: Eduardo Mcgarry Chi Primary Care Provider: Bharathi Kolb Instructions Additional Instructions / Restrictions: Discharge to [facility] nonskilled 07/12/2021. Discharge Orders/Prescriptions Prescriptions: New acetaminophen 500 mg Tablet 1,000 mg PO Q6H PRN PRN (Reason: Pain Score 1-3) Qty: 0 RF: 0 losartan 25 mg Tablet 25 mg PO DAILY Qty: 0 RF: 0 alprazolam 0.5 mg Tablet 0.5 mg PO TID PRN PRN (Reason: Anxiety/Restlessness/Sleep) 3 Days Qty: 9 RF: 0 lidocaine 5 % Adhesive Patch,Medicated 1 patch topical DAILY Qty: 0 RF: 0 menthol-zinc oxide [Calmoseptine] 0.44-20.6 % Ointment 1 applic topical BID Qty: 0 RF: 0 nystatin [Nyamyc] 100,000 unit/gram Powder 1 applic topical BID Qty: 0 RF: 0 Continued metformin 500 MG tablet 500 mg PO DAILY RF: 0 atorvastatin 20 MG tablet 10 mg PO QHS RF: 0 donepezil 10 mg Tablet 10 mg PO QHS RF: 0 Centrum Silver Men 300-600-300 mcg Tablet 1 tab PO DAILY RF: 0 memantine 5 mg Tablet 5 mg PO BID Qty: 0 RF: 0 warfarin [Jantoven] 3 mg Tablet 3 mg PO DINNER Qty: 0 RF: 0 Discontinued valsartan 40 mg Tablet 40 mg PO BID RF: 0 omega-3 fatty acids Capsule 500 mg PO DAILY RF: 0 Referrals / Follow Up: Bharathi Kolb MD [Primary Care Provider] - Disposition Disposition (needs filled in before D/C Order can be placed): NonSkilled [facility]/Intermed Care
[2021-07-12 13:50] VITALS: RESP 18
[2021-07-12 13:54] VITALS: BP 108/70; PULSE 84; RESP 18; TEMP 36.5; O2SAT 96
--- NOTE | 2021-07-12 13:59 | NURSING ---
attempted to administer xanax for ride to [facility], pt refused. will try again shortly. family at bedside.
[2021-07-12] MEDS: ALPRAZolam 0.5 MG Tablet PO (14:56)
--- NOTE | 2021-07-12 15:18 | NURSING ---
report called to [facility] at this time.
--- NOTE | 2021-07-15 09:16 | MDS.RN ---
Information for the mds was obtained from review of the clinical record, interview of resident, staff, and direct observation of resident's care.
== END 2021-07-12 15:18 | disposition intermediate care facility (04) | DRG 57 ==
PROVIDERS: Admitting Provider Family Medicine Geriatric Medicine; PCP Family Medicine; Visit Provider Family Medicine Geriatric Medicine
DX: G30.9 Alzheimer's disease, unspecified (principal); E11.9 Type 2 diabetes mellitus without complications; F02.80 Dementia in other diseases classified elsewhere, unspecified severity, without behavioral disturbance, psychotic disturbance, mood disturbance, and anxiety; I10 Essential (primary) hypertension; M25.562 Pain in left knee; E78.5 Hyperlipidemia, unspecified; F41.9 Anxiety disorder, unspecified; W19.XXXA Unspecified fall, initial encounter; Z86.73 Personal history of transient ischemic attack (TIA), and cerebral infarction without residual deficits; Z79.84 Long term (current) use of oral hypoglycemic drugs; Z87.891 Personal history of nicotine dependence; Z79.01 Long term (current) use of anticoagulants; F32.A Depression, unspecified; Z79.899 Other long term (current) drug therapy; M54.50 Low back pain, unspecified; Y93.9 Activity, unspecified; Y99.9 Unspecified external cause status; Y92.129 Unspecified place in nursing home as the place of occurrence of the external cause
CPT/HCPCS: 36415; 72110; 73560; 80048; 82962; 85025; 85610; 87426; 92523; 97110; 97116; 97162; 97166; 97530; 97535; 97802

== ENCOUNTER 2021-07-11 07:56 | Emergency (ER) | payer MEDICARE, SELFPAY ==
[2021-07-11 07:57] VITALS: BP 120/69; PULSE 73; RESP 16; TEMP 36.8; O2SAT 98; BMI 26.8
--- NOTE | 2021-07-11 08:03 | CT_ITS ---
STUDY: CT BRAIN WITHOUT CONTRAST REASON FOR EXAM: Male, 81 years old. Head injury due to a fall. Patient is on anticoagulants. RADIATION DOSAGE (If Supplied By Facility): CTDIvol = ( 44.99 ) mGy, DLP = ( 812.98 ) mGycm TECHNIQUE: Transaxial CT imaging of the brain was performed without administration of intravenous contrast material. Individualized dose optimization techniques were used for this CT. COMPARISON: Comparison is made with prior study 06/30/2021. FINDINGS: Normal soft tissue structures. Normal calvarium. There is moderate cerebral atrophy with widening of the extra-axial spaces and ventricular dilatation. There are areas of decreased attenuation within the white matter tracts of the supratentorial brain, consistent with microvascular disease changes. 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 Normal brainstem. Normal cerebellum. There is no intracranial hemorrhage. There are no findings of an acute ischemic infarction. Atherosclerotic plaque formation of the cavernous portions of the internal carotid arteries bilaterally. Normal visualized paranasal sinuses. CT/Brain/Head without Contrast IMPRESSION: Chronic involutional changes of the brain. Stable examination. Electronically Signed: Tyler Rai MD at 8:57 EDT ,
--- NOTE | 2021-07-11 08:10 | ED.VIS.FALL ---
HPI HPI - Fall History of Present Illness Chief Complaint: Fall Narrative Narrative: 81-year-old male with history of dementia at the TCU for rehab presenting after he had a fall today. Patient is a somewhat poor informant but is able to tell me that he was on the toilet today and when he went to stand up he fell forward. It is unclear whether he was using a walker or attempting to use a walker. He fell hitting his head without any reported LOC. Patient on Coumadin was subtherapeutic this morning at 1.5. This is for history of stroke. Patient denies neck pain. He has no pain in his extremities. He states he feels otherwise fine. He has a small scrape on the upper forehead. Patient denies lightheadedness, dizziness, visual complaints. He does not have a headache. He denies neck pain PFSH PFS Medical History Anxiety Borderline diabetes CVA (cerebral vascular accident) Dementia Dementia Depression Diabetes mellitus, type 2 GERD (gastroesophageal reflux disease) Hearing loss, left Hearing loss, right HTN (hypertension) Hyperlipidemia Non-smoker TIA (transient ischemic attack) Home Medications metformin 500 mg PO DAILY 03/19/16 [History Last Taken 08/29/20] atorvastatin 10 mg PO QHS 11/05/17 [History Last Taken 08/28/20] Centrum Silver Men 1 tab PO DAILY 08/29/20 [History Last Taken 08/29/20] donepezil 10 mg PO QHS 08/29/20 [History Last Taken 08/28/20] omega-3 fatty acids 500 mg PO DAILY 06/30/21 [History Last Taken Unknown] valsartan 40 mg PO BID 06/30/21 [History Last Taken Unknown] memantine 5 mg PO BID #0 tab 07/02/21 [Rx Last Taken Unknown] warfarin [Jantoven] 3 mg PO DINNER #0 tab 07/02/21 [Rx Last Taken Unknown] Allergy/AdvReac Type Severity Reaction Status Date / Time No Known Allergies Allergy Verified 07/11/21 07:57 Family History Father No cardiac disease Mother No cardiac disease Surgical History History of hernia repair Social History household members: none Smoking Status: Former smoker alcohol intake: never substance use type: does not use ROS ROS ED Constitutional Constitutional ED: Denies chills or fever(s) Eyes Eyes: Denies blurry vision or diplopia ENT ENT ED: Denies rhinorrhea or sore throat Cardiovascular Cardiovascular: Denies chest pain or palpitations Respiratory/Chest Respiratory/Chest: Denies cough or dyspnea Gastrointestinal Gastrointestinal: Denies abdominal pain, nausea or vomiting Genitourinary Genitourinary ED: Denies dysuria or hematuria Musculoskeletal Musculoskeletal: Denies arthralgias or myalgias Integumentary Reports rash and other Details: Superficial abrasion to the central upper forehead Neurologic Neurologic: Denies headache(s), paresthesias or weakness Psychiatric Psychiatric: Denies anxiety or depression EXAM Physical Exam Const Vital Signs: 07/11/21 07:57 07/11/21 08:03 Temperature 98.2 F Temperature Source Temporal Pulse Rate 73 Respiratory Rate 16 Respiratory Effort Normal Non-Labored Respiratory Depth Normal Respiratory Pattern Normal Blood Pressure 120/69 Blood Pressure Mean 86 Pulse Ox 98 Oxygen Delivery Method Room Air Room Air Positive well nourished General Appearance ED: NAD HEENT Reports normocephalic and TM's normal bilaterally HEENT Narrative: 1 cm superficial abrasion to the upper forehead in the hairline. No laceration. No skull deformity. Nontender to palpation. Eyes PERRL and EOMs intact bilaterally Neck full ROM and supple Chest Wall inspection of chest normal Resp normal respiratory effort and clear to auscultation bilaterally Cardio regular rate and regular rhythm GI non-tender and non-distended Palpation: soft Extremity normal to inspection and full ROM Extremity Narrative: Able to stand and pivot under his own strength. Neuro CN's II-XII intact bilaterally, moves all extremities, no focal motor deficits and no sensory deficits noted Neuro Narrative: Patient alert to year, name, hospital. Sensorium / Orientation: alert Psych mental status grossly normal and thought process normal MDM MDM MDM Narrative Medical decision making narrative: Patient with known focal neurologic deficits or lateralizing signs or symptoms. Examination shows a small superficial abrasion over the forehead centrally. This does not need sutures. I obtained a CT brain which is negative for acute findings. INR is noted to be subtherapeutic today. I feel patient is stable for discharge back to TCU at this time. Impression: 1. Closed head injury 2. Superficial abrasion to scalp 3. Fall Lab Data Attestation: I reviewed the patient's lab results. Radiography Diagnostic Testing: Clinical Impression(s) from Imaging Studies Brain CT 07/11/21 08:03 IMPRESSION: Chronic involutional changes of the brain. Stable examination. Electronically Signed: Tyler Rai MD at 8:57 EDT , Discharge Plan Triage Chief Complaint: Fall ED Provider: Hector Santiago Dx/Rx/DC Orders Instructions: ED Abrasion, ED Head Injury (Adult), ED Fall Prevention Prescriptions: No Action metformin 500 MG tablet 500 mg PO DAILY RF: 0 atorvastatin 20 MG tablet 10 mg PO QHS RF: 0 donepezil 10 mg Tablet 10 mg PO QHS RF: 0 Centrum Silver Men 300-600-300 mcg Tablet 1 tab PO DAILY RF: 0 valsartan 40 mg Tablet 40 mg PO BID RF: 0 omega-3 fatty acids Capsule 500 mg PO DAILY RF: 0 memantine 5 mg Tablet 5 mg PO BID Qty: 0 RF: 0 warfarin [Jantoven] 3 mg Tablet 3 mg PO DINNER Qty: 0 RF: 0 Primary Care Provider: Bharathi Kolb Referrals: Bharathi Kolb MD [Primary Care Provider] - Disposition Disposition: Home, Self Care
== END 2021-07-11 10:10 | disposition home or self-care (01) ==
LOC: ED 09:03
PROVIDERS: Emergency Provider Student in an Organized Health Care Education/Training Program; PCP Family Medicine; Visit Provider Student in an Organized Health Care Education/Training Program
DX: S00.81XA Abrasion of other part of head, initial encounter (principal); F03.90 Unspecified dementia, unspecified severity, without behavioral disturbance, psychotic disturbance, mood disturbance, and anxiety; E11.9 Type 2 diabetes mellitus without complications; I10 Essential (primary) hypertension; Z87.891 Personal history of nicotine dependence; E78.5 Hyperlipidemia, unspecified; Z86.73 Personal history of transient ischemic attack (TIA), and cerebral infarction without residual deficits; Y93.89 Activity, other specified; Y99.9 Unspecified external cause status; W19.XXXA Unspecified fall, initial encounter; Y92.129 Unspecified place in nursing home as the place of occurrence of the external cause; K21.9 Gastro-esophageal reflux disease without esophagitis; Z79.84 Long term (current) use of oral hypoglycemic drugs; Z79.899 Other long term (current) drug therapy; Z79.01 Long term (current) use of anticoagulants; S09.90XA Unspecified injury of head, initial encounter
CPT/HCPCS: 70450; 99282